=== PATIENT | male | born 1945 | race Caucasian/White ===

== ENCOUNTER 2018-04-13 21:35 | Emergency (ER) | END 2018-04-14 01:38 | disposition home or self-care (01) ==

== ENCOUNTER → 2018-04-20 | Outpatient (CLI) | payer MEDICARE ==
[~2018-04-20] MED LIST: ALBU90OI INH; AMOCLA500 PO; ASPI81CH PO; ATOR20 PO; AZIT250 PO; BUDE10.22 INH; BUME2 PO; CALC.25 PO; Central Vite F1 EACH PO; ESOM20; FEBU40TA PO; FLUSAL5005; GABA300 PO; GUAN1; HYDMOR4 PO; K-Dur20 MEQ PO; MONT10T PO; Meribin5 MG; NEBI5 PO; Norco 5-325 Ta1 EACH PO; PANT40 PO; PARI1 PO; Prednisone20 MG PO; QUIN10; RAMI2.5 PO; SEVEC800; TIOT18; TRIHYD253B
[2018-04-20 11:41] LABS: Source, Urine Voided
[2018-04-20 12:33] LABS: Bilirubin, Urine Neg (Neg); Blood, Urine 1+ (Neg); Color, Urine Yellow (P-Yellow); Glucose Qualitative, Urine Neg (Neg); Ketones, Urine Neg (Neg); Leukocyte Esterase, Urine 1+ (Neg); Nitrite, Urine Neg (Neg); Protein, Urine 3+ (Neg); Specific Gravity, Urine 1.005 (1.003-1.022); Urobilinogen, Urine NORM (Normal)
[2018-04-20 12:47] LABS: Appearance, Urine Clear (Clear)
[2018-04-20 12:53] LABS: Bacteria Few /hpf; Red Blood Cells, Urine 0-2 /hpf (0-2); Squamous Epithelial Cells Few /hpf (Few)
== END | disposition home or self-care (01) ==
LOC: LAB 04-15 07:00
PROVIDERS: Internal Medicine Nephrology
DX: N39.0 Urinary tract infection, site not specified (principal); Z87.440 Personal history of urinary (tract) infections
CPT/HCPCS: 81001

== ENCOUNTER 2019-02-16 09:43 | Day surgery (SDC) | payer MEDICARE ==
[~2019-02-16] VITALS: Ht 180.3 cm; Wt 150.3 kg
[~2019-02-16 09:43] MED LIST changes: +ALBU2.5V5; +AMIT25 PO; +Aspir 8181 MG PO; +BIOTIN5000 MC1 SL; +BUDE6HFA INH; +CEPH500 PO; +COLCHICINE0.6 MG PO; +CYAN500 PO; +Carbidopa-Levo1 EAC1 PO; +EMLA; +FURO80 PO; +KRILL OIL 3001 EACH PO; +LIDOCAINE-PRIL1 EACH TOP; +MULTI VITAMIN1 EACH PO; +PREG75 PO; +RENAL VITAMIN0.8 MG PO; +Renvela800 MG PO; +SEVEC800 PO; +TIOT18 INH; +VELTASSA8.4 GM PO; +VITAMIN D31000 UNI1 PO; +Vitamin B Comple1 EA PO; +[UNRECOGNIZED DRUG - OTHER] PO
[2019-02-16] MEDS ORDERED: ALBU90OI6 INH (11:01)
== END 2019-02-16 12:32 | disposition home or self-care (01) ==
LOC: ORSCSDS 09:43
PROVIDERS: Internal Medicine Gastroenterology
PROC: 0DBM8ZX Excision of Descending Colon, Via Natural or Artificial Opening Endoscopic, Diagnostic (ICD-10-PCS; principal; 2019-02-16 11:00)
DX: Z12.11 Encounter for screening for malignant neoplasm of colon (principal); K63.5 Polyp of colon; K64.8 Other hemorrhoids; I10 Essential (primary) hypertension; I25.2 Old myocardial infarction; I48.91 Unspecified atrial fibrillation; Z68.42 Body mass index [BMI] 45.0-49.9, adult; Z87.891 Personal history of nicotine dependence; E66.01 Morbid (severe) obesity due to excess calories; Z79.899 Other long term (current) drug therapy
CPT/HCPCS: 88305; J2704; J7030

== ENCOUNTER 2019-03-09 06:00 | Day surgery (SDC) | payer MEDICARE ==
[~2019-03-09] VITALS: Ht 177.8 cm; Wt 150.0 kg
[~2019-03-09 06:00] MED LIST changes: -ALBU2.5V5; +ALBU2.5V5 INH; +ALBU90OI6 INH; +Lyrica75 MG PO
== END 2019-03-09 11:45 | disposition home or self-care (01) ==
LOC: MHTC 06:00
DX: I73.9 Peripheral vascular disease, unspecified (principal); I12.0 Hypertensive chronic kidney disease with stage 5 chronic kidney disease or end stage renal disease; N18.6 End stage renal disease; I99.8 Other disorder of circulatory system; J45.909 Unspecified asthma, uncomplicated; I48.91 Unspecified atrial fibrillation; K21.9 Gastro-esophageal reflux disease without esophagitis; G47.33 Obstructive sleep apnea (adult) (pediatric); E78.5 Hyperlipidemia, unspecified; Z79.899 Other long term (current) drug therapy; Z88.1 Allergy status to other antibiotic agents; Z88.2 Allergy status to sulfonamides; Z88.8 Allergy status to other drugs, medicaments and biological substances; N25.81 Secondary hyperparathyroidism of renal origin
CPT/HCPCS: 36215; 36222; 36245; 75625; 75716; 75774; 76937; 99152; 99153; C1760; C1769; C1887; C1894; J1644; J2250; J3010; J7030; Q9967

== ENCOUNTER 2019-05-09 23:56 | Inpatient (IN) | payer MEDICARE ==
[~2019-05-09] VITALS: Ht 180.3 cm; Wt 151.1 kg
[2019-05-10 02:57] LABS: Troponin I <0.015 ng/mL (0.000-0.040)
[2019-05-10 03:08] LABS: Alanine Aminotransfer (ALT/SGP 19 U/L (12-78); Albumin, Blood 3.2 g/dL (3.4-5.0); Albumin/Globulin Ratio 0.8 (0.8-1.8); Alk Phos 129 U/L (50-136); Anion Gap 10 mmol/L (6-16); Aspartate Aminotrans (AST/SGOT 41 U/L (12-37); Bilirubin, Total 0.8 mg/dL (0.1-1.0); Blood Urea Nitrogen 75 mg/dL (8-24); Bun/Creatinine Ratio 7.2 (12.0-20.0); CO2, Blood 29 mmol/L (21-32); Chloride, Blood 88 mmol/L (98-108); Globulin, Blood 4.1 g/dL (2.2-4.0); Glomerular Filtration Rate 5 (60-); Glucose, Blood 184 mg/dL (70-99); Potassium, Blood 8.3 mmol/L (3.5-5.5); Sodium, Blood 127 mmol/L (136-145); Total Protein, Blood 7.3 g/dL (6.4-8.2)
[2019-05-10 03:16] LABS: BASOPHILS ABSOLUTE AUTO 0.03 K/mm3 (0.00-0.23); BASOPHILS PERCENT AUTO 0 % (0-2); EOSINOPHILS ABSOLUTE AUTO 0.02 K/mm3 (0.00-0.68); EOSINOPHILS PERCENT AUTO 0 % (0-6); Hematocrit 40.8 % (37.0-53.0); Hemoglobin 12.9 g/dL (13.5-17.5); IMMATURE GRAN ABSOLUTE AUTO 0.17 K/mm3 (0.00-0.10); IMMATURE GRAN PERCENT AUTO 1 % (0-1); LYMPHOCYTES ABSOLUTE AUTO 0.92 K/mm3 (0.84-5.20); LYMPHOCYTES PERCENT AUTO 5 % (21-46); MONOCYTES ABSOLUTE AUTO 2.58 K/mm3 (0.16-1.47); MONOCYTES PERCENT AUTO 13 % (4-13); Mean Corpuscular HGB 31.6 pg (26.0-34.0); Mean Corpuscular HGB Conc 31.6 g/dL (31.5-36.5); Mean Corpuscular Volume 100 fL (80-100); Mean Platelet Volume 10.9 fL (9.1-12.4); NEUTROPHILS ABSOLUTE AUTO 16.37 K/mm3 (1.96-9.15); NEUTROPHILS PERCENT AUTO 82 % (41-73); Platelet Count 224 K/mm3 (150-400); RDW Coefficient Variation 18.1 % (11.7-14.2); RDW Standard Deviation 64.1 fL (35.1-46.3); Red Blood Cell Count 4.08 M/mm3 (4.30-5.90); White Blood Cell Count 20.09 K/mm3 (4.00-11.30)
--- NOTE | 2019-05-10 08:00 | NUR ---
Patient arrived via gurney from ER and was a four person slide transfer. After laying flat for transfer place on 6L O2 via NC abnd sats low 90%'s. He c/o severe paimn RUQ 08/25 with palp and 06/25 just laying there. Dialysis called and will be here shortly.
[2019-05-10 08:36] LABS: International Normalized Ratio 1.03; Prothrombin Time Results 10.9 Sec (9.7-11.5)
[2019-05-10 09:34] LABS: Hematocrit 45.4 % (37.0-53.0); Hemoglobin 14.4 g/dL (13.5-17.5); Mean Corpuscular HGB 31.5 pg (26.0-34.0); Mean Corpuscular HGB Conc 31.7 g/dL (31.5-36.5); Mean Corpuscular Volume 99 fL (80-100); Mean Platelet Volume 10.5 fL (9.1-12.4); NRBC ABSOLUTE 0.02 K/mm3 (0.00-0.02); Platelet Count 217 K/mm3 (150-400); RDW Coefficient Variation 18.2 % (11.7-14.2); RDW Standard Deviation 64.2 fL (35.1-46.3); Red Blood Cell Count 4.57 M/mm3 (4.30-5.90); White Blood Cell Count 1.98 K/mm3 (4.00-11.30)
[2019-05-10 09:46] LABS: Base Excess Venous 3.6 mmol/L; Bicarbonate Venous 27.3 mmol/L (24.0-30.0); PCO2 Venous 38.8 mmHg (38-42); PO2 Venous 78.9 mmHg (38-42); pH Blood Venous 7.46 (7.34-7.37)
[2019-05-10 09:50] LABS: International Normalized Ratio 1.08; Prothrombin Time Results 11.4 Sec (9.7-11.5)
[2019-05-10 10:00] LABS: Albumin, Blood 3.2 g/dL (3.4-5.0); Albumin/Globulin Ratio 0.7 (0.8-1.8); Bilirubin, Total 1.2 mg/dL (0.1-1.0); Calcium, Blood 9.4 mg/dL (8.5-10.1); Globulin, Blood 4.6 g/dL (2.2-4.0); Total Protein, Blood 7.8 g/dL (6.4-8.2)
--- NOTE | 2019-05-10 10:00 | NUR ---
Patient tried bed castillo wiothout success.
[2019-05-10 10:04] LABS: Bun/Creatinine Ratio 7.6 (12.0-20.0); Creatinine, Blood 9.55 mg/dL (0.60-1.20); Potassium, Blood 7.6 mmol/L (3.5-5.5)
[2019-05-10 10:10] LABS: BAND PERCENT MAN 20 % (0-8); BASOPHILS PERCENT MAN 0 % (0-2); EOSINOPHILS PERCENT MAN 0 % (0-6); LYMPHOCYTES ABSOLUTE MAN 0.47 K/mm3 (0.84-5.20); LYMPHOCYTES PERCENT MAN 24 % (21-46); MONOCYTES ABSOLUTE MAN 0.05 K/mm3 (0.16-1.47); MONOCYTES PERCENT MAN 3 % (4-13); NEUTROPHILS ABSOLUTE MAN 1.44 K/mm3 (1.96-9.15); SEG NEUTROPHILS PERCENT MAN 53 % (41-73); TOTAL CELLS COUNTED 100
--- NOTE | 2019-05-10 11:41 | NUR ---
DIALYSIS PT HAS A PERFORATED BOWEL. A REPEAT K+ AT 0915 WAS STILL HIGH (7.6). I ADDED TIME TO GET IT DOWN MORE. THE ICU TEAM PUT IN A CENTRAL LINE AND GAVE 5.5L OF NS BECAUSE OF HIS BP DROPPING. THE SURGERY TEAM CAME IN AND FELT HE NEEDED SURGERY QUICKLY. RETURNED BLOOD, DC'ED FISTULA NEEDLES. AND GOT THE MACHINE OUT OF THE WAY FAST I COULD. LAST K+ WAS 5.5
--- NOTE | 2019-05-10 12:26 | NUR ---
Around 0830 paint Systolic started coming down low 100, HR increased 120 and O@ demand increased. Dr Del Rio was consulted and she assessed patient. He was placed on BIPAP and she asked for a PICC, attempt was unsuccessful to advance and quickly did IO and started Levophed for systolic 60-80. 18ga IV LAC went bad and was pulled. Dr Del Rio Place LIJ central line and we started boluses NS through [facility] that started shortly after 0800. We got repeat Pottassium and was 7.4. We started Vasopressin and will start epi gtt if needed. Terrence WILLIAMSON is down getting info and things rolling for [address] Crawford and Dr Gabriel down to talk with family at bedside. Prior to CL versed 2mg and Fentanyl 12,5 mcg, Calcium Glutonate 10mg, and 300mg Amiodarone. Patient remains to have low systolic in the 60's and will be adding to CL when verified. Dialyysis done and pressures starting to come up and placed Epi on standby and turned down Levophed from 30 to 20 mcg/hr. He was taken at 1144 to OR. were given and Amio bolus pushed. After central line
--- NOTE | 2019-05-10 13:30 | NUR ---
05/10/19 1330 Anila Rehman PT ON SCHEDULED ANTIBIOTICS
--- NOTE | 2019-05-10 13:39 | NUR ---
1110 GOT PATIENT READY IN ICU 5 FOR SURGERY. PT FINISHING UP WITH DIALYSIS. PT HAS LEVOPHED, VASSOPRESSIN AND EPINEPHRINE GTT INFUSING. [address]A [address] DR DE SANTIAGO AT BEDSIDE GETTING CONSENT. AT BEDSIDE.
--- NOTE | 2019-05-10 13:40 | NUR ---
Patient arrived back in ICU bed and was intubated 8.0 ET and 22cm at lips, AC 16, TV 450, Fio2 100% PEEP 5 and sats low 90%. He has OG put on LIS. And Levophed still at 20 mcg/hr Epi on standby, Vasopressin 0.04 units/hr. and systolic 90's.. Recieved report from Dr Crawford and brief report from Dr Gabriel. He arrived with wound Vac mid abdomen and had about 200ml in cannister, Dressing intact. Continue taking BP's right ankle.
[2019-05-10 14:35] LABS: PCO2 Arterial 52.5 mmHg (35-45); PO2 Arterial 74.9 mmHg (80-100); pH Blood Arterial 7.36 (7.35-7.45)
--- NOTE | 2019-05-10 15:14 | NUR ---
echocardiogram completed.
--- NOTE | 2019-05-10 15:30 | NUR ---
Vent setting AC 22, TV 450, FiO2 80% PEEP 10.0 and sats mid 90%'s. Systolic and MAp dropping 80-90 and started Epi gtt at 5mcg/min and increased shortly to 10mcg/min after starting sedation Propofol 40mcg/kg min. Levophed remains ar 20mcg/hr and Vasopressin 0.04 units/hr. Nother changes. Patient is cool diaphoretic, 98.8 temp. Changed CL dressing. BP right ankle. IO in right faye. Wound vac canister 350ml.
[2019-05-10 15:32] LABS: Hematocrit 42.2 % (37.0-53.0); Hemoglobin 13.2 g/dL (13.5-17.5); Mean Corpuscular HGB 31.9 pg (26.0-34.0); Mean Corpuscular HGB Conc 31.3 g/dL (31.5-36.5); Mean Platelet Volume 11.1 fL (9.1-12.4); NRBC ABSOLUTE 0.03 K/mm3 (0.00-0.02); Platelet Count 185 K/mm3 (150-400); RDW Coefficient Variation 18.2 % (11.7-14.2); RDW Standard Deviation 65.1 fL (35.1-46.3); Red Blood Cell Count 4.14 M/mm3 (4.30-5.90); White Blood Cell Count 2.96 K/mm3 (4.00-11.30)
[2019-05-10 15:47] LABS: Magnesium, Blood 1.7 mg/dL (1.6-2.4); Troponin I 0.346 ng/mL (0.000-0.040)
[2019-05-10 15:48] LABS: Mean Corpuscular Volume 102 fL (80-100)
[2019-05-10 16:03] LABS: BAND PERCENT MAN 26 % (0-8); BASOPHILS ABSOLUTE MAN 0.02 K/mm3 (0.00-0.23); BASOPHILS PERCENT MAN 1 % (0-2); EOSINOPHILS ABSOLUTE MAN 0.05 K/mm3 (0.00-0.68); EOSINOPHILS PERCENT MAN 2 % (0-6); LYMPHOCYTES PERCENT MAN 17 % (21-46); MONOCYTES ABSOLUTE MAN 0.35 K/mm3 (0.16-1.47); MONOCYTES PERCENT MAN 12 % (4-13); NEUTROPHILS ABSOLUTE MAN 2.01 K/mm3 (1.96-9.15); SEG NEUTROPHILS PERCENT MAN 42 % (41-73); TOTAL CELLS COUNTED 100
[2019-05-10 16:08] LABS: Albumin, Blood 2.3 g/dL (3.4-5.0); Albumin/Globulin Ratio 0.7 (0.8-1.8); Bilirubin, Total 1.5 mg/dL (0.1-1.0); Bun/Creatinine Ratio 6.5 (12.0-20.0); Creatinine, Blood 7.66 mg/dL (0.60-1.20); Globulin, Blood 3.4 g/dL (2.2-4.0); Phosphorus, Blood 3.4 mg/dL (2.5-4.9); Potassium, Blood 6.1 mmol/L (3.5-5.5); Total Protein, Blood 5.7 g/dL (6.4-8.2)
--- NOTE | 2019-05-10 18:30 | NUR ---
No changes in Gtt's or vent settings. He has been in SR 80's since back from OR and remains in SR. Changed cannister in wound VAC.Heparin started at 1700 at 15 units/kg/hr and gave 7500 unit bolus. Potassium increased to 6.[address] Del Rio and she gave new orders 10 units R insulin , 1 amp d-50, and 1 GM Mag.. No other changes.
--- NOTE | 2019-05-10 19:00 | NUR ---
ASSUMED CARE ASSUMED CARE OF PATIENT. REMAINS INTUBATED- AC 22, TV 450, PEEP 5, FIO2 80%. RR 22-26 AT THIS TIME. SEDATED WITH PROPOFOL AT 40MCG/KG/MIN. OPENS EYES AND WITHDRAWS EXTREMITIES TO NOXIOUS STIMULI. NO OTHER MOVEMENT NOTED. PUPILS 2MM, SLUGGISH. BILATERAL SOFT WRIST RESTRAINTS IN PLACE TO PREVENT EXTUBATION. MONITOR SHOWS NSR, RATE 80s. EPINEPHRINE INFUSING @ 10MCG/MIN, LEVOPHED INFUSING @ 20MCG/MIN, AND VASOPRESSIN INFUSING @ 0.04UNITS/MIN TO KEEP MAP >65. AFEBRILE. HEPARIN INFUSING @ 15UNITS/KG/HR PER ORDER. OG TO LIS WITH SCANT BROWN DRAINAGE. NO ORELLANA CATHETER PRESENT D/T PT BEING ANURIC. ABD WOUND WITH WOUND VAC IN PLACE- MODERATE AMOUNT OF SEROSANGUINOUS DRAINAGE. SKIN IS DIAPHORETIC/CLAMMY AND COOL. LEFT IJ NOTED. RLE IO NOTED. SEE SHIFT ASSESSMENT FOR FULL ASSESSMENT.
[2019-05-10 20:17] LABS: Base Excess Venous -3.9 mmol/L; Bicarbonate Venous 20.6 mmol/L (24.0-30.0); PCO2 Venous 50.9 mmHg (38-42)
[2019-05-10 20:18] LABS: pH Blood Venous 7.26 (7.34-7.37)
--- NOTE | 2019-05-10 21:10 | NUR ---
ABNORMAL LABS/HYPERKALEMIA CRITICALLY HIGH POTASSIUM LEVEL CALLED TO DR. KHAN- NEW ORDERS RECEIVED FOR SODIUM BICARB, IV INSULIN, D50 IV, AND TO RECHECK LABS AFTER.
[2019-05-10 22:30] LABS: Base Excess Venous -1.3 mmol/L; Bicarbonate Venous 22.5 mmol/L (24.0-30.0); PCO2 Venous 51.9 mmHg (38-42); PO2 Venous 52.9 mmHg (38-42); pH Blood Venous 7.29 (7.34-7.37)
[2019-05-10 22:54] LABS: Potassium, Blood 6.7 mmol/L (3.5-5.5)
--- NOTE | 2019-05-10 23:26 | NUR ---
ABNORMAL LABS/HYPERKALEMIA CRITICAL LAB VALUES CALLED TO DR. KHAN AT THIS TIME. NEW ORDERS RECEIVED TO GIVE SODIUM BICARB, IV INSULIN, AND TO REPEAT LABS IN 3 HOURS.
--- NOTE | 2019-05-11 02:00 | NUR ---
BLADDER SCAN PT IS NORMALLY ANURIC, BUT BLADDER SCAN DONE AT THIS TIME PER ORDER- 70-90CC.
[2019-05-11 02:46] LABS: BASOPHILS ABSOLUTE AUTO 0.03 K/mm3 (0.00-0.23); BASOPHILS PERCENT AUTO 0 % (0-2); EOSINOPHILS ABSOLUTE AUTO 0.02 K/mm3 (0.00-0.68); EOSINOPHILS PERCENT AUTO 0 % (0-6); Hematocrit 37.7 % (37.0-53.0); IMMATURE GRAN ABSOLUTE AUTO 0.04 K/mm3 (0.00-0.10); IMMATURE GRAN PERCENT AUTO 1 % (0-1); LYMPHOCYTES ABSOLUTE AUTO 1.17 K/mm3 (0.84-5.20); LYMPHOCYTES PERCENT AUTO 15 % (21-46); MONOCYTES PERCENT AUTO 10 % (4-13); Mean Corpuscular HGB 31.7 pg (26.0-34.0); Mean Corpuscular HGB Conc 31.8 g/dL (31.5-36.5); Mean Corpuscular Volume 100 fL (80-100); Mean Platelet Volume 11.2 fL (9.1-12.4); NEUTROPHILS PERCENT AUTO 74 % (41-73); NRBC ABSOLUTE 0.03 K/mm3 (0.00-0.02); NRBC Auto 0.4 /100 WBC (0.0-0.2); Platelet Count 172 K/mm3 (150-400); RDW Coefficient Variation 18.1 % (11.7-14.2); RDW Standard Deviation 64.6 fL (35.1-46.3); Red Blood Cell Count 3.79 M/mm3 (4.30-5.90); White Blood Cell Count 7.96 K/mm3 (4.00-11.30)
[2019-05-11 03:05] LABS: BAND PERCENT MAN 47 % (0-8); BASOPHILS PERCENT MAN 0 % (0-2); EOSINOPHILS PERCENT MAN 0 % (0-6); LYMPHOCYTES ABSOLUTE MAN 1.51 K/mm3 (0.84-5.20); LYMPHOCYTES PERCENT MAN 19 % (21-46); METAMYELOCYTE ABSOLUTE MAN 0.55 K/mm3 (0.00-0.00); METAMYELOCYTE PERCENT MAN 7 % (0-0); MONOCYTES ABSOLUTE MAN 0.63 K/mm3 (0.16-1.47); MONOCYTES PERCENT MAN 8 % (4-13); MYELOCYTE ABSOLUTE MAN 0.07 K/mm3 (0.00-0.00); MYELOCYTE PERCENT MAN 1 % (0-0); NEUTROPHILS ABSOLUTE MAN 5.25 K/mm3 (1.96-9.15); SEG NEUTROPHILS PERCENT MAN 19 % (41-73); TOTAL CELLS COUNTED 150
[2019-05-11 03:09] LABS: Magnesium, Blood 1.7 mg/dL (1.6-2.4); Troponin I 0.156 ng/mL (0.000-0.040)
[2019-05-11 03:22] LABS: Alanine Aminotransfer (ALT/SGP 20 U/L (12-78); Albumin, Blood 1.8 g/dL (3.4-5.0); Albumin/Globulin Ratio 0.5 (0.8-1.8); Alk Phos 74 U/L (50-136); Anion Gap 12 mmol/L (6-16); Aspartate Aminotrans (AST/SGOT 33 U/L (12-37); Bilirubin, Total 1.9 mg/dL (0.1-1.0); Blood Urea Nitrogen 58 mg/dL (8-24); CO2, Blood 28 mmol/L (21-32); Calcium, Blood 6.9 mg/dL (8.5-10.1); Chloride, Blood 86 mmol/L (98-108); Creatinine, Blood 8.32 mg/dL (0.60-1.20); Globulin, Blood 3.3 g/dL (2.2-4.0); Glomerular Filtration Rate 7 (60-); Glucose, Blood 356 mg/dL (70-99); Phosphorus, Blood 5.7 mg/dL (2.5-4.9); Sodium, Blood 126 mmol/L (136-145); Total Protein, Blood 5.1 g/dL (6.4-8.2)
--- NOTE | 2019-05-11 03:30 | NUR ---
CRITICAL LABS/CALL TO CRITICAL LABS (POTASSIUM 7.0 AND CREATININE 8.3) CALLED TO DR. KHAN. NEW ORDERS RECEIVED TO GIVE IV INSULIN 5 UNITS AND TO CALL SPEECH CORRECTION ASSISTANT FOR IMMEDIATE DIALYSIS. NURSING SUPPRESSION CREW LEADER NOTIFIED AND WILL CALL IN SPEECH CORRECTION ASSISTANT.
--- NOTE | 2019-05-11 04:25 | NUR ---
DIALYSIS CALLED IN STAT FOR ELEVATED K+ 7.0. K+ NOT RESPONDING HIGH K+ PROTOCAL.
--- NOTE | 2019-05-11 04:30 | NUR ---
IO IO REMOVED AT THIS TIME.
--- NOTE | 2019-05-11 06:09 | NUR ---
SHIFT SUMMARY REMAINS INTUBATED- AC 24, TV 450, PEEP 10, FIO2 70%. REMAINS SEDATED WITH PROPOFOL BETWEEN 35-40MCG/KG/MIN DURING SHIFT- NOW @ 35MCG/KG/MIN. MEDICATED WITH FENTANYL 50MCG IV FOR CNVI 11/20. OPENS EYES MINIMALLY AND WITHDRAWS EXTREMITIES TO NOXIOUS STIMULI. BILATERAL SOFT WRIST RESTRAINTS REMAIN IN PLACE. NSR T/O NOC, RATE 70-80s. EPINEPHRINE BETWEEN 6-10MCG/MIN DURING SHIFT- NOW AT 6MCG/MIN. LEVOPHED BETWEEN 15-20MCG/MIN DURING SHIFT- NOW AT 18MCG/MIN. VASOPRESSIN PER ORDER AT 0.04UNITS/MIN. HEPARIN PER PHARMACY- INFUSING @ 15UNITS/KG/HR. OG TO LIS- MINIMAL LIGHT BROWN DRAINAGE. NO URINE OUTPUT. ABD DISTENDED, FIRM. ABSENT BTs. WOUND VAC INTACT- 300CC SEROSANGUINOUS DRAINAGE. BLADDER SCAN DONE X 1- 70-90CC. COMMODITY INDUSTRY ANALYST AT BEDSIDE FOR DIALYSIS.
--- NOTE | 2019-05-11 08:26 | NUR ---
Recieved report from Brianne WILLIAMSON. Dialysis already in room from 0535 for high potassium after several medication reversal attempts. He opens eye when positioning otherwise low sedation.. He is intubated with 8.0 tube and 22 at lips and will be positioned in [address] England. Vent settings AC 22, TV 450, FiO2 70%, Peep 10 and sats 99%. He has LIJ quad lumen CL dressing intact and site WNL's and is infusing the following; Epi 4 mcg/min, Vaspressin 0.04 units/min, Snvdotrv15 mcgh/min, Propofol 35 mcg/kg/min, Heparin 15 units/kg/hr and intermitent abx. His dialysis fistula in FRANK and is wrapped post dialysis. He has wound vac to midline abd. for open abdsomen and will go back in .-Thu. OG place at same time ET and is on LIS. His systolics in the 90-100 and SR in the 80's and MAPs >65. BP taken left ankle. He produces no nurine and he was pladder scanned last night 0 showing
[2019-05-11 08:49] LABS: Vancomycin, Random 12.6 ug/mL
--- NOTE | 2019-05-11 10:20 | NUR ---
Dr Helm called and added 1500 labs and callat 1600. Epi gtt on stand by and Levophed at 20 mcg/min. No other changes on vents or gtts. VSS. No family present as of yet. Dr England has been by and assessed patient no new current orders.
--- NOTE | 2019-05-11 11:30 | NUR ---
Patient remians up in chair. He continues to squirm around even after repositioning. He is redirectable and forgets very easily. VS stable. He remains on AirVo at 40/40 and when keeps sat probe on he sats mid to upper 90%'s. Family has been coming by for short periods.
--- NOTE | 2019-05-11 12:30 | NUR ---
Epi gtt remains off and reduced Levophed to 15 mcg/min and systolic greater 100 and MAP > 60's. has been by for awhile and has gone home now. Clean wound of tip of middle finger that he had surgically removed recently, and redressed with telfa and bandaid. No other changes with vent or gtt's, sats > 94%.
--- NOTE | 2019-05-11 13:30 | NUR ---
Tolerated bolus feeding and dietary talked about doing continuous to help prevent aspiration. and son at bedside. He continues to stay afebrile. Continues to squirm and calls out and is unable to tell you what he wants other than asking when is he going home. No other changes.
--- NOTE | 2019-05-11 14:30 | NUR ---
Reduced Levophed to 1mcg/min and systolic >100 and MAP >60. Sats on same vent settings are mid to high 90%'s. No other changes. Wound vac dressing C/D/I, and changed cartridge of 450ml serous fluid.
[2019-05-11 15:30] LABS: Potassium, Blood 6.6 mmol/L (3.5-5.5)
--- NOTE | 2019-05-11 18:14 | NUR ---
Called Dr Helm with results and potassium 6.6 and had dialysis com back in and run for 4 hours. No changes in gtt or vent settings and systolic 99-110 and MAP >60. He remians SR 80's. No other significant changes. CBG 133 and no coverage needed.
--- NOTE | 2019-05-11 19:15 | NUR ---
Review of pt with dialysis nursing staff. Will see what surgical plan is and review with wedding makeup artist. At this point supportive care for .
--- NOTE | 2019-05-11 19:15 | NUR ---
ASSUMED CARE PT INTUBATED, VENT SETTINGS OF AC22/450/40%/10 AND SEDATED VIA PROPOFOL AT 35MCG/KG/MIN. TOWEL WEAVER IN ROOM RUNNING #2 TX FOR TODAY D/T K+ OF 6.6. LEVOPHED AT 15MCG/MIN, EPI OFF, VASOPRESSIN AT 0.04 UNITS/HR, HEPARIN AT 15 UNITS VIA LIJ. OG TO LIS WITH BILE IN TUBING, WOUND VAC TO OPEN MIDLINE INCISION WITH LIGHT GREEN FLUID IN CANNISTER, DRESSING C/D/I. PER HD RN, PLAN FOR RECIRC STUDY ON FRANK AVF AND REPEAK K+ HALF WAY THROUGH TX. BP W/ MAP LOW 60'S-WILL TITRATE PRESSORS TO MAINTAIN MAP >60, ECG SHOWS SR W/ PAC'S AND O2 SATS 94%.
--- NOTE | 2019-05-11 20:45 | NUR ---
CALL TO PHARMACY SPOKE WITH PHARMACIST, UPDATED ON CURRENT HD TX RUNNING FOR ANOTHER HOUR WITH ORDERED APTT AT 2100. OK TO HOLD OFF FOR NOW UNTIL 2200.
[2019-05-12 03:38] LABS: Hematocrit 29.1 % (37.0-53.0); Hemoglobin 9.2 g/dL (13.5-17.5); Mean Corpuscular HGB 32.2 pg (26.0-34.0); Mean Corpuscular HGB Conc 31.6 g/dL (31.5-36.5); Mean Corpuscular Volume 102 fL (80-100); Mean Platelet Volume 10.4 fL (9.1-12.4); Platelet Count 108 K/mm3 (150-400); RDW Coefficient Variation 17.7 % (11.7-14.2); RDW Standard Deviation 65.4 fL (35.1-46.3); Red Blood Cell Count 2.86 M/mm3 (4.30-5.90)
[2019-05-12 03:53] LABS: Albumin, Blood 2.5 g/dL (3.4-5.0); Anion Gap 7 mmol/L (6-16); Blood Urea Nitrogen 23 mg/dL (8-24); Bun/Creatinine Ratio 5.8 (12.0-20.0); CO2, Blood 34 mmol/L (21-32); Calcium, Blood 7.9 mg/dL (8.5-10.1); Chloride, Blood 95 mmol/L (98-108); Glomerular Filtration Rate 16 (60-); Glucose, Blood 148 mg/dL (70-99); Phosphorus, Blood 4.2 mg/dL (2.5-4.9); Potassium, Blood 4.3 mmol/L (3.5-5.5)
[2019-05-12 04:06] LABS: BAND PERCENT MAN 33 % (0-8); BASOPHILS ABSOLUTE MAN 0.07 K/mm3 (0.00-0.23); BASOPHILS PERCENT MAN 1 % (0-2); EOSINOPHILS ABSOLUTE MAN 0.07 K/mm3 (0.00-0.68); EOSINOPHILS PERCENT MAN 1 % (0-6); LYMPHOCYTES ABSOLUTE MAN 0.73 K/mm3 (0.84-5.20); LYMPHOCYTES PERCENT MAN 10 % (21-46); METAMYELOCYTE ABSOLUTE MAN 0.14 K/mm3 (0.00-0.00); METAMYELOCYTE PERCENT MAN 2 % (0-0); MONOCYTES ABSOLUTE MAN 0.73 K/mm3 (0.16-1.47); MONOCYTES PERCENT MAN 10 % (4-13); NEUTROPHILS ABSOLUTE MAN 5.54 K/mm3 (1.96-9.15); SEG NEUTROPHILS PERCENT MAN 43 % (41-73); TOTAL CELLS COUNTED 100
--- NOTE | 2019-05-12 04:14 | NUR ---
SEDATION VACATION/UPDATE SEDATION DOWN FROM 45MCG/KG/MIN TO 30. PT OPENS EYES SPONTANEOUSLY, FOLLOWS ECONOMICS TEACHER COMMANDS AND NODDED YES WHEN QUESTIONED ABOUT PAIN. MEDICATED PER ORDERS AND PROPOFOL RESUMED AT 40MCG/KG/MIN. PT CURRENTLY TAPPING LEFT HAND/RASING RIGHT. NO SBT PLANNED D/T PRESSOR, PEEP AND FIO2 REQUIREMENTS. REASSESSMENT TEMP AT 101.0 DESPITE EXTERNAL COOLING MEASURES WITH ICE PACKS TO GROIN/AXILLA AND FAN. TYLENOL SUPPOSITORY GIVEN.
[2019-05-12 05:08] LABS: Sodium, Blood 136 mmol/L (136-145)
[2019-05-12 05:21] LABS: PCO2 Arterial 46.6 mmHg (35-45); PO2 Arterial 71.7 mmHg (80-100); pH Blood Arterial 7.46 (7.35-7.45)
--- NOTE | 2019-05-12 05:44 | NUR ---
DR KHAN CALLED TO UPDATE MD ON AM LABS, ORDER FOR CALCIUM GLUCONATE OBTAINED. PLANS TO DO DIALYSIS AGAIN LATER TODAY.
--- NOTE | 2019-05-12 06:40 | NUR ---
SHIFT SUMMARY SEE PREVIOUS NOTES FOR SHIFT. PT REMAINS INTBUATED, AC22/450/55%/10, SEDATION VIA PROPOFOL AT 40MCG/KG/MIN. LEVOPHED TITRATED DOWN THROUGH NIGHT AND IS CURRENTLY AT 8MCG/MIN, VASOPRESSIN OFF AND HEPARIN AT 17 UNITS/KG/HR. CALCIUM GLUCONATE REPLACEMENT COMPLETED. ABD INCISION REMAINS OPEN WITH WOUND VAC/DRESSING IN PLACE; 225ML OUTPUT THIS SHIFT. OG TO LIS WITH BILE COLORED FLUID. DR KHAN IN THIS AM, UPDATE ON CURRENT PRESSOR RATES AND HE PLANS TO DO DIALYSIS AGAIN TODAY. BP ADEQUATE, MAPS OCCASIONALLY DROP TO 60 WITH DOWNWARD PRESSOR TITRATION BUT INCREASE AFTER 30-45 MIN, FIO2 INCREASED D/T O2 SATS BUT RT LAVAGED AND SUCTIONED A LARGE AMOUNT OF THICK SPUTUM AND O2 SATS HAVE INCREASED T/O SHIFT, ECG IS SR BUT ECTOPY HAS INCREASED THIS AM. TEMP REMAINS ELEVATED BUT IMPROVED FROM 101 TO 99.8 NOW.
--- NOTE | 2019-05-12 07:58 | NUR ---
CARE ASSUMED OF PT AT 0710. VASOPRESSIN ON HOLD. [facility] WITH PROPOFOL AT 40MCG, LEVOPHED AT 8MCG. DR THAPA AT BEDSIDE; PLANS TO TAKE PT BACK TO SURGERY TOMORROW IF PT IMPROVED; PRESSORS REDUCED. DR THAPA WILL ATTEMPT TO CLOSE ABD; IF UNABLE TO CLOSE ABD, HE WILL SEND PT NORTH. US TECH AT BEDSIDE EVALUATING FISTULA.
--- NOTE | 2019-05-12 08:51 | NUR ---
HD IN PROGRESS, BLOOD CX RESULTS FROM FISTULA REPORTED TO DR ESPINOZA.
--- NOTE | 2019-05-12 09:01 | NUR ---
PT WITH PAROXYSMAL A FIB W RVR, RATE UP TO 180, BP DROPS WITH RVR RATE, STABLE IN NSR. DR ESPINOZA AT BEDSIDE. AMIODARONE BOLUS TO BE FOLLOWED BY GTT.
--- NOTE | 2019-05-12 09:35 | NUR ---
AMIO BOLUS INFUSING, BP DROPS TEMPORARILY WITH RATE >150, AND THEN RETURNS TO NORM LIMITS WITH SLOWER RATE. HD IN PROGRESS, LEVOPHED REMAINS AT 8MCG. DR ESPINOZA AT BEDSIDE.
--- NOTE | 2019-05-12 10:35 | NUR ---
AMIO GTT INFUSING AT 1MG/MIN. RHYTHM IMPROVING. SINUS RHYTHM WITH ECTOPY AND OCCASSIONAL AFIB W RATE 90-120. BP STABLE. LEVOPHED GTT AT 6MCG. HD IN PROGRESS. OPEN ABD WOUND W WOUND VAC INTACT; DRAINING SEROSANGUINEOUS DRAINAGE; MOSTLY SEROUS FLUID. ABSENT BOWEL TONES. HEP GTT AT 17UNITS/KG/HR; AWAITING PTT RESULTS. 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 IV NUTRITION TO START TODAY. WILL ATTEMPT TO PLACE PICC TODAY PER DR PRATT REQUEST. IF SUCCESSFUL CENTRAL LINE TO BE DC'D.
--- NOTE | 2019-05-12 11:12 | NUR ---
PER CHRISTIE IN PHARMACY; PTT GOOD, WILL KEEP HEPARIN GTT AT CURRENT RATE
[2019-05-12 14:08] LABS: Vancomycin, Random 12.8 ug/mL
--- NOTE | 2019-05-12 18:53 | NUR ---
AMIODARONE DECREASED TO 0.5MG/MIN AT [address] PRATT ORDERS. PICC PLACED W/O DIFFICULTY AT 1300 TO SALVATORE. LEVOPHED DECREASED TO 4MCG, PROPOFOL REMAINS AT 40MCG, PT WAKES UP AT ANY DOSE LESS THAN 40MCG. PT AWOKE SEVERAL TIMES W C/O PAIN, ABLE TO COMMUNICATE VIA HEAD NODS. PT TOLERATED HD WELL. GOOD RESPONSE TO AMIO GTT. RHYTHM SINUS W ECTOPY. DR THAPA WILL CALL PT'S TOMORROW TO CONSENT FOR SURGERY. TPN STARTED THIS EVENING AT 1700.
--- NOTE | 2019-05-12 19:30 | NUR ---
ASSUMED CARE PT REMAINS INTUBATED, VENT SETTINGS AT AC22/450/10/40%. SEDATION VIA PROPOFOL AT 40MCG/KG/MIN, PT OPENS EYES SPONTANEOUSLY AND IS NODDING YES TO QUESTIONS OF PAIN, WILL MEDICATE PER ORDER. AMIODARONE STARTED TODAY D/T AFIB RVR IN THE 170'S AND IS AT 0.5MG/HR, ECG SHOWS SR IN THE 70'S. TPN STARTED TODAY AT 35ML/HR, LEVOPHED AT 4MCG/MIN AND HEPARIN JUST INCREASED PER PHARMACY TO 18 UNITS/KG/HR WITH PLANS TO STOP AT 0700 FOR RETURN TO OR FOR WASHOUT AND POTENTIAL ILEOSTOMY PLACEMENT AND/OR TRANSFER IF UNABLE TO CLOSE INCISION.
--- NOTE | 2019-05-13 | NUR ---
UPDATE PT HAS BEEN MORE AWAKE THIS SHIFT, TAPPING LEFT HAND AND MOVING ALL EXTREMITIES MORE. WHEN ASKED, PT NODS YES IN RESPONSE TO PAIN QUESTIONS AND HAS BEEN MEDICATED PER EMAR. WOUND VAC REMAINS IN PLACE, OUTPUT FROM WOUND HAS DECREASED OVER LAST 24 HOURS. BP ADEQUATE WITH OCCASIONAL MAP <60 BUT RETURNS AFTER DOWNWARD PROPOFOL TITRATION.
[2019-05-13 03:29] LABS: BASOPHILS ABSOLUTE AUTO 0.04 K/mm3 (0.00-0.23); BASOPHILS PERCENT AUTO 1 % (0-2); EOSINOPHILS ABSOLUTE AUTO 0.28 K/mm3 (0.00-0.68); EOSINOPHILS PERCENT AUTO 3 % (0-6); Hematocrit 30.3 % (37.0-53.0); Hemoglobin 9.5 g/dL (13.5-17.5); IMMATURE GRAN ABSOLUTE AUTO 0.15 K/mm3 (0.00-0.10); IMMATURE GRAN PERCENT AUTO 2 % (0-1); LYMPHOCYTES ABSOLUTE AUTO 0.65 K/mm3 (0.84-5.20); LYMPHOCYTES PERCENT AUTO 7 % (21-46); MONOCYTES ABSOLUTE AUTO 0.84 K/mm3 (0.16-1.47); MONOCYTES PERCENT AUTO 10 % (4-13); Mean Corpuscular HGB 31.8 pg (26.0-34.0); Mean Corpuscular HGB Conc 31.4 g/dL (31.5-36.5); Mean Corpuscular Volume 101 fL (80-100); NEUTROPHILS ABSOLUTE AUTO 6.86 K/mm3 (1.96-9.15); NEUTROPHILS PERCENT AUTO 78 % (41-73); Platelet Count 111 K/mm3 (150-400); RDW Coefficient Variation 17.7 % (11.7-14.2); RDW Standard Deviation 66.7 fL (35.1-46.3); Red Blood Cell Count 2.99 M/mm3 (4.30-5.90); White Blood Cell Count 8.82 K/mm3 (4.00-11.30)
[2019-05-13 03:47] LABS: Albumin, Blood 2.1 g/dL (3.4-5.0); Anion Gap 8 mmol/L (6-16); Blood Urea Nitrogen 26 mg/dL (8-24); Bun/Creatinine Ratio 6.7 (12.0-20.0); CO2, Blood 33 mmol/L (21-32); Chloride, Blood 96 mmol/L (98-108); Creatinine, Blood 3.89 mg/dL (0.60-1.20); Glomerular Filtration Rate 16 (60-); Glucose, Blood 167 mg/dL (70-99); Magnesium, Blood 1.9 mg/dL (1.6-2.4); Phosphorus, Blood 3.8 mg/dL (2.5-4.9); Potassium, Blood 3.4 mmol/L (3.5-5.5); Sodium, Blood 137 mmol/L (136-145); Triglycerides 317 mg/dL (30-160)
[2019-05-13 05:08] LABS: PCO2 Arterial 46.8 mmHg (35-45); PO2 Arterial 70.7 mmHg (80-100); pH Blood Arterial 7.46 (7.35-7.45)
--- NOTE | 2019-05-13 05:19 | NUR ---
DR KHAN DR UPDATED ON AM LABS AND PLAN TO RERURN TO OR LATER TODAY. ORDERS FOR 10MEQ KCL AND 1GM CALCIUM GLUCONDATE.
--- NOTE | 2019-05-13 06:34 | NUR ---
SHIFT SUMMARY NO ACUTE EVENTS OVERNIGHT. PT REMAINS INTUBATED, NO CHANGE TO PREVIOUSLY NOTED VENT SETTINGS. SEDATION VIA PROPOFOL AT 35MCG/KG/MIN. PT HAS BEEN MEDICATED FOR PAIN MORE FREQUENTLY TONIGHT PT IS MORE AWAKE AND ABLE TO NOD IN RESPONSE TO QUETIONS OF PAIN. LEVOPHED DOWN TO 1MCG/MIN, AMIODARONE AT 0.5MG/HR AND TPN AT 65ML/HR. CALCIUM GLUCONATE INFUSING WITH KCL RIDER PENDING. OG TO LIS WITH 200ML OUT, WOUND VAC WITH 150ML OUT FOR SHIFT. DRESSING INTACT, NO LEAKS. RETURN TO OR PLANNED TODAY BETWEEN [id number] THAPA. WILL TURN OFF HEPARIN AT 0700 PER ORDER.
--- NOTE | 2019-05-13 08:00 | NUR ---
DR. THAPA AT BEDSIDE PLANS FOR PATIENT TO RETURN TO SURGERY THIS AFTERNOON. HEPARIN GTT OFF THIS AM AT 0700 PER MONEY POSITION OFFICER RN.
--- NOTE | 2019-05-13 08:27 | NUR ---
XANDER WILLIAMSON AT BEDSIDE.
--- NOTE | 2019-05-13 08:55 | NUR ---
ASSUMED CARE PT. SEDATED AND INTUBATED THIS AM. VENT SETTINGS OF AC 15, TV 450, 40%, PEEP 10. PT. JONAS IN BED SPONT. PT. PROP INFUSING AT 35MCG/KG/MIN. PT. DOES NOT APPEAR TO HAVE ANY S/S OF DISCOMFORT AT THIS TIME. PT. LEVOPHED GTT INFUSING AT 1MCG/MIN ALONG WITH AMIO AT 0.5MG/MIN. NSR AT THIS TIME, HR 70 BM. PT. AFEBRILE THIS AM. FISTUAL TO RIGHT ARM, WITH POSITIVE THRILL FELT AND BRUIT AUSCULTATED. PLANS FOR DIALYSIS AGAIN THIS AM PER DR. KHAN. PT. CONTINUES WITH ABD OPEN WITH MIDLINE WOUND VAC IN PLACE. PER FAMILY PT ANURIC. BILAT WRIST RESTRAINTS IN PLACE FOR SAFETY.
--- NOTE | 2019-05-13 12:09 | NUR ---
DIALYSIS COMPLETED 4.2 LITERS REMOVED PER JUSTINA ADULT EDUCATOR, PT. AMIO GTT TURNED OFF AT THIS TIME PER DR. PLUMMER. PT. REMAINS AT BEDSIDE.
[2019-05-13 12:30] LABS: Vancomycin, Random 20.4 ug/mL
--- NOTE | 2019-05-13 14:48 | NUR ---
PT TO OR AT THIS TIME. DR. THAPA IN TO TALK WITH PT. .
--- NOTE | 2019-05-13 15:09 | NUR ---
05/13/19 1509 Kang Rojas [address], PT IN COMPLETE RENAL FAILURE, + FISTULA FOR DIALYSIS
--- NOTE | 2019-05-13 17:21 | NUR ---
ARRIVAL TO ICU FROM ER PT. BACK TO ICU AT THIS TIME. PT ARRIVES WITH MIDLINE WOUND VAC IN PLACE AND OSTOMOY TO RIGHT ABD. STOMA RED AND BEEFY WITH NO DRAINAGE AT THIS TO TO OSTOMY BAG. PT. VSS UPON ARRIVAL. REMAINS SEDATED AND INTUBATED ON 1MCG/MIN OF LEVOPHED. PT AT BEDSIDE, UPDATED BY DR. THAPA. RETURNS TO PREVIOUS VENT SETTINGS.
--- NOTE | 2019-05-13 17:34 | NUR ---
CALL TO DR. PLUMMER TO UPDATE ON PT. CONDITION ADDITIONAL LABS ORDERED AT THIS TIME. PER DR. KAVITHA THAPA OFFICE CALLED TO CLARIFY HEPARIN GTT ORDERS. AWAITING CALL BACK PER ANSWERING SERVICE.
--- NOTE | 2019-05-13 18:40 | NUR ---
SHIFT SUMMARY PT. BACK FROM SURGERY TODAY. THEY WERE ABLE TO CLOSE ABD; WOUND VAC REMAINS IN [place] ALONG WITH TENSION SUTURES. PT. HAS ILIOSTOMY TO RIGHT ABD. PT. TO BE RESTARTED ON HEPARIN GTT THIS PM AT [address] THAPA, AT THIS TIME LEVOPHED GTT PLACED ON STANDBY FROM 1MCG/KG. PT. FAMILY AT BEDSIDE. ADDITONAL LABS DRAWN PER DR. PLUMMER. PT. REMAINS SEDATED ON PROPOFL AT 35MCG/KG/MIN. PLANS FOR WEAN IN THE AM. REPORT TO ONCOMING RN.
[2019-05-13 18:47] LABS: Hematocrit 34.7 % (37.0-53.0); Hemoglobin 10.5 g/dL (13.5-17.5); Mean Corpuscular HGB 31.3 pg (26.0-34.0); Mean Corpuscular HGB Conc 30.3 g/dL (31.5-36.5); Mean Corpuscular Volume 103 fL (80-100); Mean Platelet Volume 11.2 fL (9.1-12.4); Platelet Count 110 K/mm3 (150-400); RDW Coefficient Variation 17.5 % (11.7-14.2); RDW Standard Deviation 67.2 fL (35.1-46.3); Red Blood Cell Count 3.36 M/mm3 (4.30-5.90); White Blood Cell Count 9.62 K/mm3 (4.00-11.30)
[2019-05-13 19:10] LABS: Alanine Aminotransfer (ALT/SGP 19 U/L (12-78); Albumin, Blood 2.3 g/dL (3.4-5.0); Albumin/Globulin Ratio 0.7 (0.8-1.8); Alk Phos 84 U/L (50-136); Anion Gap 9 mmol/L (6-16); Aspartate Aminotrans (AST/SGOT 24 U/L (12-37); Bilirubin, Total 1.9 mg/dL (0.1-1.0); Blood Urea Nitrogen 26 mg/dL (8-24); CO2, Blood 32 mmol/L (21-32); Calcium, Blood 8.4 mg/dL (8.5-10.1); Chloride, Blood 99 mmol/L (98-108); Globulin, Blood 3.4 g/dL (2.2-4.0); Glomerular Filtration Rate 17 (60-); Glucose, Blood 151 mg/dL (70-99); Magnesium, Blood 2.1 mg/dL (1.6-2.4); Phosphorus, Blood 4.1 mg/dL (2.5-4.9); Potassium, Blood 3.8 mmol/L (3.5-5.5); Sodium, Blood 140 mmol/L (136-145); Total Protein, Blood 5.7 g/dL (6.4-8.2); Troponin I <0.015 ng/mL (0.000-0.040)
[2019-05-13 19:11] LABS: BAND PERCENT MAN 6 % (0-8); BASOPHILS PERCENT MAN 0 % (0-2); EOSINOPHILS ABSOLUTE MAN 0.09 K/mm3 (0.00-0.68); EOSINOPHILS PERCENT MAN 1 % (0-6); LYMPHOCYTES ABSOLUTE MAN 0.96 K/mm3 (0.84-5.20); LYMPHOCYTES PERCENT MAN 10 % (21-46); METAMYELOCYTE ABSOLUTE MAN 0.19 K/mm3 (0.00-0.00); METAMYELOCYTE PERCENT MAN 2 % (0-0); MONOCYTES ABSOLUTE MAN 0.57 K/mm3 (0.16-1.47); MONOCYTES PERCENT MAN 6 % (4-13); MYELOCYTE ABSOLUTE MAN 0.09 K/mm3 (0.00-0.00); MYELOCYTE PERCENT MAN 1 % (0-0); NEUTROPHILS ABSOLUTE MAN 7.69 K/mm3 (1.96-9.15); SEG NEUTROPHILS PERCENT MAN 74 % (41-73); TOTAL CELLS COUNTED 100
--- NOTE | 2019-05-13 19:15 | NUR ---
ASSUMING CARE OF PT AT THIS TIME. PT REPORT RECEIVED AT BEDSIDE WITH OFFGOING NURSE, VERONICA WILLIAMSON. PT LAYING IN BED, INTUBATED, SEDATED. PT'S FAMILY AT BEDSIDE. PT'S FAMILY PLANNING TO LEAVE ICU SHORTLY. VS STABLE - SEE VS FS. PT DOES NOT APPEAR TO BE IN DISTRESS AT THIS TIME. WILL REVIEW PLAN OF CARE.
--- NOTE | 2019-05-13 19:30 | NUR ---
ASSESSMENT PT CALM, COOPERATIVE, RESPONDS TO VERBAL STIMULI, OPENS EYES TO VERBAL STIMULI, LOCALIZES PAIN, DOES NOT FOLLOW COMMANDS, DOES NOT NOD HEAD Y/N TO QUESTIONS. PROPOFOL DRIP AT 35 MCG/KG/MIN - WILL TITRATE TO EFFECT. BRYCE SENSATION. PT JONAS. GENEARLIZED WEAKNESS. MINIMAL MOVEMENT. NO S/SX OF PAIN/DISCOMFORT NOTED. PT IN BILAT WRIST RESTRAINTS TO PROTECT VITAL LINES/CORDS/TUBES AND TO PROTECT FROM SELF-EXTUBATION. LUNGS CLEAR, LOWER LOBES DIMISHED. VENT SETTINGS: AC 15, TV 450, PEEP 10, FIO2 60%. RR 20'S. OXY SAT >90%. SUCTION VIA ETT: SMALL AMOUNTS OF THICK WHITE SECRETIONS. NSR. HR 70'S. BP STABLE - SEE VS FS. STRONG RADIAL AND PEDAL PULSES. FAINT TIBIAL PULSE. SKIN WARM, PINK. EDEMA NOTED. AVF TO FRANK - POSITIVE BRUIT AND THRILL. ABSENT BT X4 QUADRANTS. SEVERE DIST, TENDER (FACIAL GRIMACING WITH PALPATION), FIRM. ILEOSTOMY - SMALL AMOUNTS OF YELLOW SECRETIONS. ABD MIDLINE WOUND VAC - SMALL AMOUNTS OF SEROSANGEOUS FLUID. OG TO LIS: GREEN OUTPUT. DIALYSIS PT. AVF TO FRANK - POSITIVE BRUIT AND [place]HILL. NO F/C. PICC SALVATORE.
--- NOTE | 2019-05-13 21:35 | NUR ---
DR. TAWNY TINSLEY, PHARMACIST REQUESTED TO CALL DR. PLUMMER REGARDING HEPARIN DRIP. DR. PLUMMER INSTRUCTED TO CONTINUE HEPARIN DRIP PER DR. THAPA'S REQUEST AT 2300. DR HECTOR ALSO ORDERED APTT @ 2200. DR. PLUMMER DOES NOT WANT HEPARIN BOLUS PRIOR TO STARTING HEPARIN DRIP.
--- NOTE | 2019-05-13 22:46 | NUR ---
HEPARIN DRIP INFORMED ALVINA PHARMACIST OF APTT 33.1 COMPLETED AT 2200. ALVINA IS PLANNING TO INSERT HEPARIN DRIP RATE. WAITING FOR ORDER AT THIS TIME.
[2019-05-14 03:19] LABS: Base Excess Venous 8.1 mmol/L; Bicarbonate Venous 30.6 mmol/L (24.0-30.0); PCO2 Venous 52.9 mmHg (38-42); PO2 Venous 57.7 mmHg (38-42)
[2019-05-14 03:45] LABS: Hematocrit 33.9 % (37.0-53.0); Hemoglobin 10.2 g/dL (13.5-17.5); Mean Corpuscular HGB 31.3 pg (26.0-34.0); Mean Corpuscular HGB Conc 30.1 g/dL (31.5-36.5); Mean Corpuscular Volume 104 fL (80-100); Mean Platelet Volume 11.5 fL (9.1-12.4); Platelet Count 108 K/mm3 (150-400); RDW Coefficient Variation 17.6 % (11.7-14.2); RDW Standard Deviation 67.3 fL (35.1-46.3); Red Blood Cell Count 3.26 M/mm3 (4.30-5.90); White Blood Cell Count 10.82 K/mm3 (4.00-11.30)
[2019-05-14 04:02] LABS: Albumin, Blood 2.1 g/dL (3.4-5.0); Anion Gap 8 mmol/L (6-16); Blood Urea Nitrogen 35 mg/dL (8-24); Bun/Creatinine Ratio 8.1 (12.0-20.0); CO2, Blood 33 mmol/L (21-32); Chloride, Blood 99 mmol/L (98-108); Glomerular Filtration Rate 15 (60-); Glucose, Blood 157 mg/dL (70-99); Magnesium, Blood 1.9 mg/dL (1.6-2.4); Phosphorus, Blood 3.3 mg/dL (2.5-4.9); Potassium, Blood 3.5 mmol/L (3.5-5.5); Sodium, Blood 140 mmol/L (136-145)
[2019-05-14 04:24] LABS: BAND PERCENT MAN 23 % (0-8); BASOPHILS PERCENT MAN 1 % (0-2); EOSINOPHILS PERCENT MAN 1 % (0-6); LYMPHOCYTES ABSOLUTE MAN 0.97 K/mm3 (0.84-5.20); LYMPHOCYTES PERCENT MAN 9 % (21-46); METAMYELOCYTE PERCENT MAN 1 % (0-0); MONOCYTES ABSOLUTE MAN 1.08 K/mm3 (0.16-1.47); MONOCYTES PERCENT MAN 10 % (4-13); MYELOCYTE ABSOLUTE MAN 0.21 K/mm3 (0.00-0.00); MYELOCYTE PERCENT MAN 2 % (0-0); NEUTROPHILS ABSOLUTE MAN 8.22 K/mm3 (1.96-9.15); SEG NEUTROPHILS PERCENT MAN 53 % (41-73); TOTAL CELLS COUNTED 100
--- NOTE | 2019-05-14 04:24 | NUR ---
SEDATION VACATION / SBT / DR. PLUMMER TITRATED LEVOPHED TO STANDBY DURING SEDATION VACATION. PROPOFOL DRIP ON STANDBY FOR SEDATION VACATION. PT CALM, COOPERATIVE, RESPONDS TO VERBAL STIMULI, A&O TO SELF, OCC OPENS EYES SPONT, OPENS EYES TO VERBAL STIMULI, LOCALIZES, FOLLOWS COMMANDS, NODDING HEAD Y/N TO SOME QUESTIONS. SBT COMPLETED BY RT ALY. SBT VENT SETTINGS: PS 5, PEEP 10, FIO2 45%. PT MAINTAINING TV. WHILE ON VENT SETTINGS AC 15, TV 450, PEEP 10, FIO2 45%, PT DOUBLE STACKING, INCREASING PEAK PRESSURES, GAGGING, & COUGHING NOTED. THUS, PT REQUIRED INCREASING QUANTITIES OF PROPOFOL TO TOLERATE AC VENT SETTINGS T/O SHIFT. PT REQUIRED LEVOPHED DRIP FOR HYPOTENSION AFTER INCREASING PROPOFOL AND ADMINSITERING PAIN MEDS PER PHYSICIAN'S ORDER. CALLED DR. PLUMMER AT [address]. [address] PLUMMER OF PT'S STATUS, VS (SEE VS FS), AND VENT SETTINGS. DR. PLUMMER INSTRUCTED TO KEEP PT ON VENT SETTINGS: PS 5, PEEP 10, FIO2 45%. INFORMED RT ALY OF DR. PLUMMER'S ORDER. NO ADDITIONAL ORDERS AT THIS TIME.
--- NOTE | 2019-05-14 04:45 | NUR ---
SHIFT ASSESSMENT NO ACUTE CHANGES NOTED T/O SHIFT. PT CURRENTLY CALM, COOPERATIVE, RESPONDS TO VERBAL SITMULI, A&O TO SELF, OCC OPENS EYES SPONT, OPENS EYES TO VERBAL STIMULI, LOCALIZES PAIN, FOLLOWS COMMANDS, NODDING HEAD Y/N TO MOST QUESTIONS. PROPOFOL DRIP CURRENTLY ON STANDBY - CONT TO TITRATE TO EFFECT. SENSATION INTACT. PT JONAS. GENERALIZED WEAKNESS. INCREASED MOVEMENT NOTED THIS AM. OCC S/SX OF PAIN/DISCOMFORT NOTED T/O SHIFT. CONT TO ASSESS FOR PAIN/DISCOMFORT AND MEDICATED WITH PAIN MEDS PER PHYSICIAN'S ORDER / UTILIZED NONPHARM METHODS. PT REMAINED IN BILAT WRIST RESTRAINTS TO PROTECT VITAL LINES/CORDS/TUBES AND TO PROTECT FROM SELF-EXTUBATION. LUNGS CLEAR, LOWER LOBES DIMINISHED. VENT SETTINGS: PS 5, PEEP 10, FIO2 45%. OXY SAT >90%. RR 16 TO 20'S. SUCTION VIAT ETT: SMALL AMOUNTS OF THICK WHITE SECRETIONS. NSR WITH OCC PAC'S AND PVC'S. HR 70'S TO 80'S. BP CURRENTLY STABLE - SEE VS FS. LEVOPHED DRIP - CONT TO TITRATE TO EFFECT. LEVOPHED CURRENTLY ON STANDBY. PT PREVIOUSLY HYPOTENSIVE WITH INCREASING QUANTITIES OF PROPOFOL. STRONG RADIAL AND PEDAL PULSES. FAINT TIBIAL PULSES. SKIN WARM, PINK. OCC DIAPHORETIC. EDEMA NOTED. AVF TO FRANK - POSITIVE BRUIT AND THRILL. ABSENT BT X4 QUADRANTS. ABD SEVERE DIST, TENDER (FACIAL GRIMACING WITH PALPATION), FIRM. ILEOSTOMY - SMALL AMOUNTS OF YELLOW SECRETIONS. ABD MIDLINE WOUND VAC - SCANT AMOUNTS OF SEROSAGNEOUS FLUID. OG TO LIS: GREEN COLORED OUTPUT. DIALYSIS PT. NO F/C. PICC SALVATORE. NS TKO ON STANDBY. CPN @ 63 ML/HR. HEPARIN DRIP @ 19 UNITS/KG/HR (38.8 ML/HR) AT A DOSING WEIGHT 102 KG. WILL CONT TO MONITOR PT AND WILL PROVIDE BEDSIDE REPORT TO ONCOMING NURSE THIS AM.
--- NOTE | 2019-05-14 05:20 | NUR ---
DR. ERIN KHAN CALLED ICU AT THIS TIME. INFORMED DR. KHAN OF AM LAB VALUES. NO NEW ORDERS AT THIS TIME.
--- NOTE | 2019-05-14 06:00 | NUR ---
DR. ERIN KHAN IN TO SEE PT AT THIS TIME. NO NEW ORDERS AT THIS TIME.
--- NOTE | 2019-05-14 07:22 | NUR ---
ONCOMING NOTE REPORT RECEIVED FROM TERI ANDERSON. BEDSIDE ROUNDING DONE. PT INTUBATED, VENT SETTINGS: PS 5, PEEP 10, FIO2 45%. SEDATION OFF SINCE 329 PER REPORT. PT OPENING EYES SPONTANEOUSLY, FOLLOWING COMMANDS, NODDING "YES"/"NO" TO QUESTIONS. PT RESTLESS, NODDING HEAD "YES" WHEN ASKED IF HAVING PAIN. PER REPORT PT REQUIRING PAIN MEDICATION EVERY HOUR TO MAINTAIN PAIN CONTROL. VSS, SEE FLOWSHEET. PER REPORT LEVOPHED GTT OFF SINCE PROPOFOL GTT OFF AT 329. MIDLINE ABD INCISION WITH WOUND VAC IN PLACE. ABD SEVERELY DISTENDED, FIRM, TENDER TO PALPATION. BT ABSENT X4. OGT TO LIS. ILEOSTOMY STOMA MOIST AND RED. PT EDEMATOUS, +4 PITTING TO EXTREMITIES. PICC TO SALVATORE, FLUSHES AND DRAWS EASILY. HEPARIN GTT RUNNING PER PHARMACY DOSING, DOSING WEIGHT 102 KG. TPN RUNNING AT 63ML/HR PER ORDERS. SCDs ON. BED IN LOWEST POSITION, SIDE RAILS RAISED. CALL LIGHT IN REACH. AT BEDSIDE. WILL CONT TO MONITOR PT.
--- NOTE | 2019-05-14 07:27 | NUR ---
HEPARIN DRIP INFORMED PHARMACIST OF APTT 43.3 COMPLETED AT 0645. PHARMACIST PLANNING TO EXAMINE LAB AND TITRATE HEPARIN DRIP INDICATED. WAITING FOR ORDERS AT THIS TIME.
--- NOTE | 2019-05-14 09:28 | NUR ---
DR PLUMMER IN TO ASSESS PT. DISCUSSED PT'S STATUS WITH PT AND PT'S FAMILY MEMBER. PT IS VERY EAGER TO GET EXTUBATED TODAY, HOWEVER, DR PLUMMER INFORMS FAMILY THAT THE PT IS NOT QUITE READY FOR THIS. PT TO RECEIVE DIALYSIS TODAY. PT MEDICATED WITH DILAUDID 1MG IVP FOR PAIN AND PROPOFOL RESTART PER DR PLUMMER.
--- NOTE | 2019-05-14 10:19 | NUR ---
DR HODGES ROUNDS DR HODGES ROUNDED, UPDATED ON PT STATUS THROUGH THE NIGHT. RECEIVED IN REPORT A QUESTION ABOUT GIVING ENEMA TO PROMOTE BM IN ORDER TO CLOSE ILEOSTOMY - CLARIFIED THIS WITH DR HODGES. PER DR HODGES THE BOWEL SHOULD BEGIN MOVING IN TIME AND MAY TAKE 3-6 MONTHS BEFORE THE ILEOSTOMY WILL BE CLOSED. PT'S PRESENT DURING SURGEON ROUNDS. NO FURTHER CHANGES TO PLAN OF CARE AT THIS TIME. WILL CONT TO MONITOR PT.
[2019-05-14 11:19] LABS: Base Excess Venous 7.7 mmol/L; Bicarbonate Venous 30.6 mmol/L (24.0-30.0); PO2 Venous 157 mmHg (38-42); pH Blood Venous 7.42 (7.34-7.37)
--- NOTE | 2019-05-14 11:31 | NUR ---
SHIFT UPDATE NOTE PT PLACED BACK ON AC SETTINGS WITH VENT BY DR PLUMMER AND RESEDATED. PROPOFOL GTT TITRATED DOWN TO 15MCG DUE TO HYPOTENSION, LEVOPHED GTT RESTARTED AND TITRATED TO EFFECT FOR MAP GREATER THAN 60. SECOND SET OF BLOOD CX DRAWN AND SENT TO LAB. PT REPOSITIONED FOR PRESSURE RELIEF AND COMFORT. PT LESS RESTLESS, RESTING WITH EYES CLOSED. NO S/SX PAIN OR DISCOMFORT NOTED, WILL CONT TO MONITOR AND REASSESS. PT'S WENT HOME TO REST, WILL RETURN. BED IN LOWEST POSITION, SIDE RAILS RAISED.
--- NOTE | 2019-05-14 15:32 | NUR ---
STEVEN BLACKMAN, BUS DRIVER SUPERVISOR AT BEDSIDE FOR PT'S DAILY DIALYSIS. PT RESTLESS AND GRIMACING, PT NODS HEAD "YES" WHEN ASKED IF HAVING PAIN. PT MEDICATED PER ORDERS WITH 50MCG FENTANYL.
--- NOTE | 2019-05-14 18:17 | NUR ---
SHIFT SUMMARY PT REMAINS INTUBATED, SEDATED ON PROPOFOL AT 20MCG. VENT SETTINGS: AC 15, TV 500, PEEP 8, FIO2 45%. LEVOPHED GTT RUNNING AT 4MCG, TITRATED TO MAP GREATER THAN 60. PT RESTS WITH EYES CLOSED WHEN UNDISTURBED, OPENS EYES TO VERBAL STIMULI AND NODS HEAD "YES"/"NO" TO QUESTIONS, FOLLOWS SIMPLE COMMANDS. PT MEDICATED PER ORDERS WITH FENTANYL AND DILAUDID FOR PAIN CONTROL. LS CLEAR T/O, DIMINISHED IN BASES. PT WITH OCCASIONAL ORAL SECRETIONS, SUCTIONED PRN. PT WITH OCCASIONAL COUGH, ETT SUCTIONING PRODUCTIVE OF THICK CLEAR SECRETIONS. ABD SEVERELY DISTENDED, FIRM, TENDER TO PALPATION. BT ABSENT X4. ILEOSTOMY DRAINING RED WITH YELLOW FLUID, STOMA MOIST AND RED. MIDLINE ABD INCISION WITH WOUND VAC IN PLACE, DRESSING INTACT. DIALYSIS DONE TODAY, 3L FLUID OFF. FISTULA TO RIGHT ARM, BRUIT AND THRILL PRESENT. BILATERAL CALF SCD OFF FOR BREAK. EDEMA TO BLE +3 PITTING, WEEPING. EDEMA TO BUE. EXTREMITIES ELEVATED ON PILLOWS. CPN RUNNING PER ORDERS AT 70ML/HR. PICC TO SALVATORE, FLUSHES EASILY AND DRAWS. RHYTHM SHOWING NORMAL SINUS WITH PACs. SEE FLOWSHEET FOR VS. BED IN LOWEST POSITION, SIDE RAILS RAISED. WILL CONT TO MONITOR PT.
--- NOTE | 2019-05-14 19:15 | NUR ---
ASSUMING CARE OF PT AT THIS TIME. PT REPORT RECEIVED AT BEDSIDE WITH OFFGOING NURSE, TOÑITO WILLIAMSON. PT LAYING IN BED, INTUBATED, SEDATED UPON ENTERING THE ROOM. VS STABLE - SEE VS FS. PT DOES NOT APPEAR TO BE IN DISTRESS AT THIS TIME. WILL REVIEW PLAN OF CARE.
--- NOTE | 2019-05-14 19:30 | NUR ---
ASSESSMENT PT CALM, COOPERATIVE, RESPONDS TO VERBAL STIMULI, OPENS EYES TO VERBAL STIMULI, NODDING HEAD Y/N TO MOST QUESTIONS, FOLLOWING COMMANDS, A&O TO SELF. PT NODDED HEAD YES TO SENSATION INTACT ALL EXTREMETIES. PT NODDED HEAD NO TO N/T ALL EXTREMETIES. PROPOFOL DRIP AT 20 MCG/KG/MIN - WILL TITRATE TO EFFECT. PT JONAS. GENERALIZED WEAKNESS. MINIMAL MOVEMENT. S/SX OF PAIN/DISCOMFORT NOTED. PT C/O PAIN/DISCOMFORT. MEDICATED WITH DILAUDID PER PHYSICIAN'S ORDER AND UTILIZED NONPHARM METHODS. PT REMAINS IN BILAT WRIST RESTRAINTS TO PROTECT VITAL LINES/CORDS/TUBES AND TO PROTECT FROM SELF-EXTUBATION. LUNGS CLEAR, LOWER LOBES DIMINISHED. SHALLOW BREATHING. VENT SETTINGS: AC 15, TV 500, PEEP 8, FIO2 40%. OXY SAT >90%. RR 16. SUCTION VIA ETT: SMALL AMOUNTS OF THICK WHITE SECRETIONS. AFEBRILE. NSR WITH PAC'S. HR 90'S. BP STABLE WHILE ON LEVOPHED DRIP. LEVOPHED DRIP AT 4 MCG/MIN - WILL TITRATE TO EFFECT. STRONG RADIAL AND PEDAL PULSES. FAINT TIBIAL PULSES. EDEMA NOTED. AVF TO FRANK - POSITIVE THRILL AND BRUIT. WARM, PINK SKIN. ABSENT BT X4 QUADRANTS. ABD SEVERE DIST, TENDER (FACIAL GRIMACING WITH PALAPTION), FIRM. ABD WOUND VAC: SCANT AMOUNTS OF SEROSAGNEOUS FLUID. WOUND VAC REMAINS C/D/I. ILEOSTOMY WITH SMALL AMOUNTS OF RED SECRETIONS IN COLLETION BAG. OG TO LIS: GREEN COLORED OUTPUT. DIALYSIS PT. AVF TO FRANK - POSITIVE THRILL AND BRUIT. NO F/C. ANURIC AT BASELINE. PICC SALVATORE. NS TK0 AT 10 ML/HR. CPN AT 70 ML/HR.
[2019-05-15 03:34] LABS: Base Excess Venous 10.7 mmol/L; Bicarbonate Venous 32.9 mmol/L (24.0-30.0); PCO2 Venous 49.8 mmHg (38-42); PO2 Venous 45.2 mmHg (38-42); pH Blood Venous 7.45 (7.34-7.37)
[2019-05-15 03:51] LABS: Hematocrit 31.9 % (37.0-53.0); Hemoglobin 9.9 g/dL (13.5-17.5); Mean Corpuscular HGB 31.9 pg (26.0-34.0); Mean Corpuscular Volume 103 fL (80-100); Mean Platelet Volume 11.3 fL (9.1-12.4); NRBC ABSOLUTE 0.02 K/mm3 (0.00-0.02); NRBC Auto 0.2 /100 WBC (0.0-0.2); Platelet Count 145 K/mm3 (150-400); RDW Coefficient Variation 17.8 % (11.7-14.2); RDW Standard Deviation 66.5 fL (35.1-46.3)
[2019-05-15 04:00] LABS: Albumin, Blood 1.9 g/dL (3.4-5.0); Anion Gap 9 mmol/L (6-16); Blood Urea Nitrogen 39 mg/dL (8-24); Bun/Creatinine Ratio 8.8 (12.0-20.0); CO2, Blood 33 mmol/L (21-32); Calcium, Blood 8.2 mg/dL (8.5-10.1); Chloride, Blood 96 mmol/L (98-108); Creatinine, Blood 4.45 mg/dL (0.60-1.20); Glomerular Filtration Rate 14 (60-); Glucose, Blood 147 mg/dL (70-99); Magnesium, Blood 1.7 mg/dL (1.6-2.4); Phosphorus, Blood 2.6 mg/dL (2.5-4.9); Potassium, Blood 3.4 mmol/L (3.5-5.5); Sodium, Blood 138 mmol/L (136-145)
--- NOTE | 2019-05-15 05:16 | NUR ---
SHIFT ASSESSMENT NO ACUTE CHANGES NOTED T/O SHIFT. PT SLEPT T/O SHIFT. PT CALM, COOPERATIVE, RESPONDS TO VERBAL STIMULI, OPENS EYES TO VERBAL STIMULI, OCC OPENING EYES SPONT, NODDING HEAD Y/N TO MOST QUESTIONS, FOLLOWING COMMANDS, A&O TO SELF. PROPOFOL ON STANDBY FOR SEDATION VACATION. TITRATED PROPOFOL TO EFFECT T/O SHIFT. PT NODDED HEAD YES TO SENATION INTACT ALL EXTREMETIES. PT NODDED HEAD NO TO N/T ALL EXTREMETIES. PT JONAS. GENERALIZED WEAKNESS. MINIMAL MOVEMENT. S/SX OF PAIN/DISCOMFORT NOTED T/O SHIFT. PT C/O PAIN/DISCOMFORT T/O SHIFT. CONT TO ASSESS FOR PAIN/DISCOMFORT AND MEDICATED WITH PAIN MEDS PER PHYSICIAN'S ORDER / UTILIZED NONPHARM METHODS. PT REMAINS IN BILAT WRIST RESTRAINTS TO PROTECT VITAL LINES/CORDS/TUBES AND TO PROTECT FROM SELF-EXTUBATION. LUNGS CLEAR, LOWER LOBES DIMINISHED. SHALLOW BREATHING. VENT SETTINGS T/O SHIFT: AC 15, TV 500, PEEP 8, FIO2 35%. OXY SAT REMAINED >90% WHILE ON AC VENT SETTINGS. SBT COMPLETED THIS AM ON PS 5, PEEP 10, FIO2 35%. PT REMAINS ON PS 5, PEEP 10, FIO2 35%. RR 15 TO 20'S. SUCTION VIA ETT: SMALL AMOUNTS OF THICK WHITE SECRETIONS. AFEBRILE. NSR TO ST WITH PAC'S. HR 70'S TO 100'S. BP STABLE - SEE VS FS. LEVOPHED ON STANDBY - CONT TO TITRATE TO EFFECT. STRONG RADIAL AND PEDAL PULSES. FAINT TIBIAL PULSES. EDEMA NOTED. AVF TO FRANK - POSITIVE THRILL AND BRUIT. WARM, PINK SKIN. ABSENT BT X4 QUADRANTS. ABD SEVERE DIST, TENDER (FACIAL GRIMACING WITH PALPATION), FIRM. ABD WOUDN VAC: SCANT AMOUNTS OF SEROSANGEOUS FLUID. WOUDN VAC REMAINS C/D/I. ILEOSTOMY WITH SMALL AMOUNTS OF RED SECRETIONS IN COLLECT BAG, STOMA REMAINS PINK. OG TO LIS: GREEN COLORED OUTPUT. DIALYSIS PT. NO F/C. ANURIC AT BASELINE. PICC SALVATORE. NS TKO ON STANDBY. CPN AT 70 ML/HR. WILL CONT TO MONITOR PT AND WILL PROVIDE BEDSIDE REPORT TO ONCOMING NURSE THIS AM.
[2019-05-15 05:21] LABS: BAND PERCENT MAN 3 % (0-8); BASOPHILS ABSOLUTE MAN 0.12 K/mm3 (0.00-0.23); BASOPHILS PERCENT MAN 1 % (0-2); EOSINOPHILS ABSOLUTE MAN 0.12 K/mm3 (0.00-0.68); EOSINOPHILS PERCENT MAN 1 % (0-6); LYMPHOCYTES ABSOLUTE MAN 1.29 K/mm3 (0.84-5.20); LYMPHOCYTES PERCENT MAN 10 % (21-46); METAMYELOCYTE ABSOLUTE MAN 0.25 K/mm3 (0.00-0.00); METAMYELOCYTE PERCENT MAN 2 % (0-0); MONOCYTES PERCENT MAN 7 % (4-13); SEG NEUTROPHILS PERCENT MAN 73 % (41-73); TOTAL CELLS COUNTED 100
[2019-05-15 06:11] LABS: MYELOCYTE ABSOLUTE MAN 0.38 K/mm3 (0.00-0.00); MYELOCYTE PERCENT MAN 3 % (0-0)
--- NOTE | 2019-05-15 07:00 | NUR ---
BEDSIDE REPORT GIVEN BY TERI ANDERSON. NOW ASSUMING CARE OF THIS PT.
--- NOTE | 2019-05-15 07:30 | NUR ---
AM ASSESSMENT: PT IS INTUBATED AND IN BILATERAL SOFT WRIST RESTRAINTS. PROPOFOL ON HOLD FOR A WEANING TRIAL. PT IS ALERT AND ABLE TO ANSWER SIMPLE YES/NO QUESTIONS AND FOLLOW SIMPLE INSTRUCTIONS. PT REPORTS 10/10 PAIN IN HIS ABD. LUNGS HAVE EXP WHEEZE IN THE RML/RUL, AND EXP COARSENESS IN THE LLL. DIMINISHED IN THE BILATERAL BASES. SATS >90% ON VENT SETTINGS: SPONT, TV-500, P-8, FI02-35%. EXTENSIVE DEPENDENT EDEMA T/O BODY. CPN @ 70ML/HR THROUGH PICC LINE IN THE LT UA. HR IRREGULAR SR W/FREQUENT PAC'S. ABD LARGE/SEVERELY DISTENDED/TENDER IN ALL QAUDS, INCREASED TENDERNESS IN THE LUQ. ABSENT BT'S T/O, EXCEPT VERY HYPOACTIVE BT'S IN THE RUQ. NO URINE OUTPUT. PT IS END STAGE RENAL DISEASE.
--- NOTE | 2019-05-15 08:07 | NUR ---
DR PARIS IN TO ASSESS PT. DISCUSSED CONTINUED HIGH LEVEL OF PAIN DESPITE FREQUENTLY BEING MEDICATED WITH ORDERED PAIN MEDICATIONS. WILL START SUMMER NANNY WHEN MEDICATION AVAILABLE. UPDATED AT THE BEDSIDE WITH THE PLAN OF CARE.
--- NOTE | 2019-05-15 09:44 | NUR ---
DR KHAN IN THE . DR KHAN UPDATED PT'S FAMILY ABOUT THE PT'S PLAN OF CARE AND DIALYSIS TX TODAY. STARTED FENTANYL PEDIATRIC NURSE PRACTITIONER WITH HERNANDEZ PUMP. PT'S CURRENT PAIN LEVEL IS 10/10. DR PLUMMER IN THE ROOM AND FENTANYL BASAL RATE INCREASED TO 100MCG/MIN AT THIS TIME. PT HAS HAD SOME RELEIF BUT REMAINS IN SEVERE PAIN. IF ABLE TO CONTROL THE PAIN BETTER WITH THE PEDIATRIC NURSE PRACTITIONER PUMP, PT MAY BE EXTUBATED IN ONE HOUR. WILL CONTINUE TO REASSESS.
--- NOTE | 2019-05-15 10:15 | NUR ---
PLACED CALL TO DR HODGES'S ANSWERING SERVICE. LEFT MESSAGE FOR DR HODGES TO CONFIRM HE IS IN AGREEANCE THAT PT CAN BE PLACED ON BIPAP POST EXTUBATION, SINCE HE IS S/P ABD SURGERY. AWAITING CALL BACK.
--- NOTE | 2019-05-15 10:40 | NUR ---
PT EXTUBATED: PT EXTUBATED AFTER CLEARING USE OF BIPAP WITH DR HODGES. PT IMMEDIATELY PLACED ON AIRVO AT FLOW RATE-40, FI02-40%. SATS MID 90% RANGE AT THIS TIME. PT HAS WEAK COUGH AND NEEDS A LOT OF ENCOURAGEMENT TO TURN/COUGH/DEEP BREATH, HE IS 5-10/10 PAIN. PAIN LEVEL IS 5/10 AT THIS TIME WITH USE OF SHIP JOINER.
--- NOTE | 2019-05-15 11:13 | NUR ---
PT PLACED ON BIPAP AT THIS TIME 06/20, FIO2-35%. PT APPEARS MORE COMFORTABLE ON THE BIPAP AT THIS TIME. PT TO RECEIVE NEBULIZER TX. WILL START DECADRON IVP X 5 DOSES PER KAVITHA.
--- NOTE | 2019-05-15 13:45 | NUR ---
INES HERE TO START DIALYSIS TX.
--- NOTE | 2019-05-15 14:56 | NUR ---
PT UPDATE: FOUND PT'S AT THE BEDSIDE GIVING THE PT ICE CHIPS AND IMMEDIATELY PLACING PT ON BIPAP. EXPLAINED TO PT/ WHY THIS PRACTICE IS UNSAFE AND HOW BIPAP WORKS. PT'S CONTINUED TO GIVE PT ICE CHIPS FREQUENTLY DESPITE EDUCATION. ATTEMPTED TO PLACE PT ON AIRVO AT FLOW RATE 40 AND FI02-40%, BUT SP02 IMMEDIATLEY DROPPED TO WV 80% RANGE AND PT WAS UNABLE TO RECOVER SATS TO >90%. PT PLACED BACK ON BIPAP WITH SAME SETTINGS.
--- NOTE | 2019-05-15 16:25 | NUR ---
1610: PT C/O DIFFUSE ABDOMINAL PAIN, FENTANYL INFUSION INCREASED TO 100MCG/HR.
--- NOTE | 2019-05-15 17:45 | NUR ---
SHIFT SUMMARY: PT WAS EXTUBATED @ 1040 TODAY AND HAS TOLERATED BIPAP 8/5 WELL. PT DOES HAVE FREQUENT REQUESTS THAT REQUIRE AN INTERRUPTION IN WEARING BIPAP. EDUCATED PT/ TO MINIMIZE REMOVING THE BIPAP MUCH POSSIBLE. PT ABLE TO ANSWER QUESTIONS APPROPRIATELY AND FOLLOWS SIMPLE COMMANDS, HOWEVER, REMAINS VERY WEAK. PT'S WEAK REPORTS HE HAS NEUROPATHY IN HIS HANDS AND HAS POOR FEELING/FINE MOTOR SKILLS R/T THIS. LUNGS WITH EXP WHEEZES IN THE RML/RUL/VIVIANE, AND EXP COARSENESS HEARD IN THE RLL. 02 SATS >90% CURRENTLY ON AIRVO WITH FIO2-30%, USE BIPAP 8/5/FI02-35% PRN/SLEEP. HR SLIGHTLY IRREGULAR, SR WITH FREQUENT PAC'S. CPN @ 70ML/HR. ABD REMAINS VERY DISTENDED/FIRM/ AND TENDER T/O WITH THE MOST TENDERNESS OVER THE LUQ. OCCASIONAL BT'S HEARD IN THE RUQ, OTHERWISE ABSENT BT'S. PT REMAINS ANURIC HE HAS ESRD. ILEOSTOMY TO RT ABD WITH RED COLORED STOMA AND SEROSANGENEOUS FLUID IN SCANT AMTS PER OSTOMY.
--- NOTE | 2019-05-15 19:00 | NUR ---
REPORTED OFF TO TERI ANDERSON WHOM WILL ASSUME CARE OF PT.
--- NOTE | 2019-05-15 19:15 | NUR ---
ASSUMING CARE OF PT AT THIS TIME. PT REPORT RECEIVED AT BEDSIDE WITH OFFGOING NURSE, LATRICIA WILLIAMSON. PT LAYING IN BED, AWAKE, TALKING WITH AT BEDSIDE. PT'S PLANNING TO SPEND NIGHT IN ICU THIS SHIFT. VS STABLE - SEE VS FS. PT DOES NOT APPEAR TO BE IN DISTRESS AT THIS TIME. PT C/O OF PAIN/DISCOMFORT AT THIS TIME. PLANNING TO ADMINISTER DILAUDID PER PHYSICIAN'S ORDER. WILL REVIEW PLAN OF CARE.
--- NOTE | 2019-05-15 19:30 | NUR ---
ASSESSMENT PT A&O TO SELF, FAMILY, AND PLACE. PT UNABLE TO STATE DATE, TIME, EVENT. PT FOLLOWS COMMANDS, SLOW TO RESPOND, RESPONDS TO VERBAL STIMULI, SPONT OPENS EYES, ANSWERS MOST QUESTIONS APPORIATELY, AGITATED AT TIMES, OCC YELLING FOR AND STAFF, NOT UTILIZING CALL LIGHT APPROPRIATELY, SLIGHT CONFUSED. REQUESTING NURSE ASSISTANCE FREQUENTLY. PT C/O CHRONIC N/T TO ALL EXTREMETIES. PT JONAS. GENERALIZED WEAKNESS. PT REQUIRES FREQUENT MOTIVATION TO PARTICIPATE IN PT CARE, ASSIST WITH REPOSITION, AND MOVE EXTREMETIES. PT C/O CONSTANT PAIN TO ABD. FENT DRIP 100 MCG/HR. DILAUDID ADMINISTERED PER PHYSICIAN'S ORDER AND UTILIZING NONPHARM METHODS. LUNGS COARSE, DIMINISHED LOWER LOBES. LUNGS CLEAR WITH COUGHING. PT REQUIRES CONSTANT MOTIVATION TO COUGH AND DEEP BREATH, USE IS, USE FV, AND SPLINT WITH PILLOW WHEN COUGHING. SHALLOW BREATHING. PT ON AIRVO 50L, FIO2 30%. OXY SAT >90%. RR 20'S. OCC NONPRODUCTIVE, LOOSE, WEAK COUGHING. PT REFUSING BIPAP: 06/20, FIO2 35%. AFEBRILE. FANS ON. NSR WITH PAC'S. HR 80'S. BP STABLE - SEE VS FS. STRONG RADIAL AND PEDAL PULSES. FAINT TIBIAL PULSES. WARM, PINK SKIN. EDEMA NOTED. AVF TO FRANK WITH POSITIVE BRUIT AND THRILL. HYPOACTIVE BT RUQ. OTHERWISE ABSENT BT X3 QUADRANTS. ABD SEVERE DIST, TENDER, FIRM. ILEOSTOMY: RED SECRETIONS IN COLLECTION BAG. ABD WOUND VAC: REMAINS C/D/I, SCANT AMOUNTS OF SEROSAGNEOUS SECRETIONS. NO F/C. DIALYSIS PT. ANURIC AT BASELINE. PICC SALVATORE. CPN AT 70 ML/HR. NS TKO AT 10 ML/HR.
--- NOTE | 2019-05-16 00:58 | NUR ---
DR. ERIN KHAN IN ICU TO SEE PT AT THIS TIME. NO NEW ORDERS AT THIS TIME.
[2019-05-16 03:44] LABS: BASOPHILS ABSOLUTE AUTO 0.08 K/mm3 (0.00-0.23); BASOPHILS PERCENT AUTO 1 % (0-2); Hematocrit 31.5 % (37.0-53.0); Hemoglobin 9.7 g/dL (13.5-17.5); Mean Corpuscular HGB 30.9 pg (26.0-34.0); Mean Corpuscular HGB Conc 30.8 g/dL (31.5-36.5); NRBC ABSOLUTE 0.04 K/mm3 (0.00-0.02); NRBC Auto 0.3 /100 WBC (0.0-0.2); Platelet Count 182 K/mm3 (150-400); RDW Coefficient Variation 17.5 % (11.7-14.2); Red Blood Cell Count 3.14 M/mm3 (4.30-5.90); White Blood Cell Count 14.23 K/mm3 (4.00-11.30)
[2019-05-16 03:45] LABS: EOSINOPHILS ABSOLUTE AUTO 0.03 K/mm3 (0.00-0.68); EOSINOPHILS PERCENT AUTO 0 % (0-6); IMMATURE GRAN ABSOLUTE AUTO 3.27 K/mm3 (0.00-0.10); IMMATURE GRAN PERCENT AUTO 23 % (0-1); LYMPHOCYTES ABSOLUTE AUTO 1.16 K/mm3 (0.84-5.20); LYMPHOCYTES PERCENT AUTO 8 % (21-46); MONOCYTES ABSOLUTE AUTO 1.06 K/mm3 (0.16-1.47); MONOCYTES PERCENT AUTO 7 % (4-13); Mean Corpuscular Volume 100 fL (80-100); NEUTROPHILS ABSOLUTE AUTO 8.63 K/mm3 (1.96-9.15); NEUTROPHILS PERCENT AUTO 61 % (41-73)
[2019-05-16 04:03] LABS: Anion Gap 10 mmol/L (6-16); Blood Urea Nitrogen 57 mg/dL (8-24); Bun/Creatinine Ratio 11.3 (12.0-20.0); CO2, Blood 33 mmol/L (21-32); Calcium, Blood 8.7 mg/dL (8.5-10.1); Chloride, Blood 95 mmol/L (98-108); Creatinine, Blood 5.03 mg/dL (0.60-1.20); Glomerular Filtration Rate 12 (60-); Glucose, Blood 181 mg/dL (70-99); Magnesium, Blood 2.1 mg/dL (1.6-2.4); Potassium, Blood 4.1 mmol/L (3.5-5.5); Sodium, Blood 138 mmol/L (136-145)
[2019-05-16 04:05] LABS: BAND PERCENT MAN 13 % (0-8); BASOPHILS ABSOLUTE MAN 0.14 K/mm3 (0.00-0.23); BASOPHILS PERCENT MAN 1 % (0-2); EOSINOPHILS PERCENT MAN 0 % (0-6); LYMPHOCYTES ABSOLUTE MAN 1.56 K/mm3 (0.84-5.20); LYMPHOCYTES PERCENT MAN 11 % (21-46); METAMYELOCYTE ABSOLUTE MAN 1.13 K/mm3 (0.00-0.00); METAMYELOCYTE PERCENT MAN 8 % (0-0); MONOCYTES ABSOLUTE MAN 0.99 K/mm3 (0.16-1.47); MONOCYTES PERCENT MAN 7 % (4-13); MYELOCYTE ABSOLUTE MAN 0.28 K/mm3 (0.00-0.00); MYELOCYTE PERCENT MAN 2 % (0-0); NEUTROPHILS ABSOLUTE MAN 9.96 K/mm3 (1.96-9.15); PROMYELOCYTE ABSOLUTE MAN 0.14 K/mm3 (0.00-0.00); PROMYELOCYTE PERCENT MAN 1 % (0-0); SEG NEUTROPHILS PERCENT MAN 57 % (41-73); TOTAL CELLS COUNTED 100
--- NOTE | 2019-05-16 05:20 | NUR ---
SHIFT ASSESSMENT NO ACUTE CHANGES NOTED T/O SHIFT. PT A&O TO SELF, FAMILY, AND PLACE. PT UNABLE TO STATE DATE, TIME, EVENT. PT FOLLOWS COMMANDS, SLOW TO RESPOND, RESPONDS TO VERBAL STIMULI, SPONT OPENS EYES, ANSWERS MOST QUESTIONS APPROPRIATELY, AGITATED AT TIMES ESPECIALLY UPON REQUEST TO PARTICIPATE IN PT CARE, FREQUENTLY YELLING OUT FOR AND STAFF, UTILIZING CALL LIGHT APPROPRIATELY AFTER SWITCHING TO SOFT TOUCH CALL LIGH, SLIGHTLY CONFUSED. REQUESTING NURSE ASSISTANCE FREQUENTLY AND CONSTANTLY STANDING AT BEDSIDE. PT REQUIRES FREQUENT MOTIVATION TO PARTIPCATE IN PT CARE, ASSIST WITH REPOSITIONING, AND MOVE EXTREMETIES. PT SLEPT APPROXIMATELY 2 HRS T/O SHIFT. PT C/O CONSTANT PAIN TO ABD. FENT DRIP AT 100 MCG/HR. CONT TO ASSESS FOR PAIN/DISCOMFORT AND MEDICATED WITH DILAUDID PER PHYSICIAN'S ORDER AND UTILIZED NONPHARM METHODS. LUNGS CLEAR WITH COUGHING, DIMINISHED LOWER LOBES. PT REQUIRES CONSTANT MOTIVATION TO COUGH AND DEEP BREATH, USE IS, USE FV, AND SPLINT WITH PILLOW WHEN COUGHING. SHALLOW BREAHTING. PT CURRENTLY ON BIPAP 8/5, FIO2 35%. PT WORE BIPAP FOR 6 HR T/O SHIFT. OXY SAT >90% WHILE ON BIPAP. PT ON AIRVO 50L, FIO2 30-36% WHILE OFF OF BIPAP. OXY SAT >90% WHILE ON AIRVO. RR 12 TO 30'S. OCC NONPRODUCTIVE, LOOSE, WEAK COUGH. PT REQUIRED CONSTANT REINFORCEMENT TO UTILIZE BIPAP. PT REQUESTED CONSTANT ORAL CARE. TMAX 99.1 - DECREASED ROOM TEMP, FANS ON X2, BLANKETS REMOVED. CURRENTLY AFEBRILE. NSR WITH PAC'S. HR 70'S TO 90'S. PT SLIGHTLY HTN THIS AM WITH PT CARE. OTHERWISE BP STABLE - SEE VS FS. STRONG RADIAL AND PEDAL PULSES. FAINT TIBIAL PULSES. WARM, PINK SKIN. EDEMA NOTED. AVF TO FRANK WITH POSITIVE BRUIT AND THRILL. HYPOACTIVE BT RUQ. OTHERWISE ABSENT BT X3 QUADRANTS. ABD SEVERE DIST, TENDER, FIRM. ILEOSTOMY: RED SECRETIONS IN COLLECTION BAG. ABD WOUND VAC: REMAINS C/D/I, SCANT AMOUNTS OF SEROSANGEOUS SECRETIONS. NO N/V. DIALYSIS PT. ANURIC AT BASELINE. PICC SALVATORE. CPN AT 70 ML/HR. NS TKO AT 10 ML/HR. PT'S REMAINED AT BEDSIDE. WILL CONT TO MONITOR PT AND WILL PROVIDE BEDSIDE REPORT TO ONCOMING NURSE THIS AM.
--- NOTE | 2019-05-16 05:25 | NUR ---
DR. ERIN KHAN CALLED ICU AT THIS TIME. INFORMED DR. KHAN OF AM LABS. NO NEW ORDERS AT THIS TIME.
--- NOTE | 2019-05-16 08:30 | NUR ---
BEGINNING OF SHIFT Assumed care of pt at 0700 with Hollis WILLIAMSON. Bedside report received from Rosa WILLIAMSON. Pt A&O x 2. Weak in all extremities; requires assist with repositioning. Pt on AirVo at 50 LPM and 35% FiO2. Lungs have expiratory wheezes in upper lobes; diminished bases. Pt has loose and moist cough that is weak and unproductive. Incentive spirometer and flutter valve at bedside. Sinus rhtyhm per monitor. Abdomen is severely distended. Tender in all quadrants. Hypoactive bowel tones. New ileostomy to RLQ. Adominal midline surgical wound dressed with wound vac. Pt is anuric; hemodialysis fistula to right upper arm. Pt to have dialysis today. Pain control discussed with pt and spouse. Educated on importance of limiting usage of pain meds to promote GI motility. Educated on improtance of increasing mobility and encouraging pt to participate in ADLs. Pt verbalizes understanding. Pt NPO until evaluated by
--- NOTE | 2019-05-16 14:53 | NUR ---
UPDATE Pt to remain strict NPO per Eneida from . Oral care to be provided with suction swabs.
--- NOTE | 2019-05-16 16:49 | NUR ---
[facility] initial visit: Mr. Edgar was awake and alert. He appears very weak and did not say much to me. His , Cinthya, was at bedside. Mr. Edgar states that he is a lapsed [employer] and would apprecitate prayer. He admit he has been fearful and wanted me to pray for God to heal him. I was honored to provide prayer and encouragment to pt and spouse. These interventions were well received. I will remain available.
--- NOTE | 2019-05-16 17:25 | NUR ---
SHIFT SUMMARY No acute changes t/o shift. Pt has passed flatus and stool through his ileostomy. Pt has been more willing to participate in repositioning and ADLs than previously noted. Repositioned Q2H. Oral care provided with suction swabs. Pt remains strict NPO until ST reevaluation tomorrow. CPN infusing through PICC line. Pt remains on 100 mcg/hr fentanyl continuous IV infusion. No urine output this shift. Pt had hemodialysis this shift.
--- NOTE | 2019-05-16 19:40 | NUR ---
SPOKE TO DR LAGUERRE Spoke to Dr Laguerre to notify that patient is strict NPO and cannot take eliquis. Pt is currently in sinus rhythm. Orders given for subcutaneous heparin. Notified provider that pt has been hypotensive. Orders given for labetalol.
--- NOTE | 2019-05-16 20:00 | NUR ---
ASSUMED CARE OF PT, REPORT RCV'D FROM [facility]. PT ALERT, ORIENTED, AND VERY ANXIOUS. PT CONCERNED ABOUT POTENTIAL BREAKTHROUGH PAIN AND WANTING TO GO HOME FOR THE NIGHT. PT REMINDED THAT HE IS ON FENTANYL GTT AND HAS DILAUDID ORDERED FOR BREAKTHROUGH PAIN. PLAN DISCUSSED WITH PT AND THAT TO GO HOME AT 2300 TO GET SOME REST AND IF PT BECOMES ANXIOUS/AGITATED SHE WILL BE CONTACTED TO RETURN TO HOSPITAL. PT ON AIRVO 50LPM FIO2 30-35% WITH OPTION TO SWITCH TO BIPAP 8/5 35% PRN. PT'S SATS AND VSS. MIDLINE ABDOMINAL INCISION WITH WOUND VAC DRAINING MINIMAL AMOUNT OF SS FLUID. ILEOSTOMY PRESENT WITH PINK/BEEFY STOMA. PT HAD 120 ML PASTY BROWN FECAL OUTPUT IN OSTOMY BAG. PROVIDED PT TEACHING WHILE "BURPING" AND DRAINING ILEOSTOMY BAG. PT HAS AUDIBLE EXPIRATORY WHEEZE WITH OCCASIONAL WEAK COUGH. PT STRICT NPO D/T INCREASED RISK OF ASPIRATION. FISTULA FRANK. PICC SALVATORE WITH CPT @ 70ML/HR, NS TKO, FENTANYL 100 MCG/HR. PLEASE SEE FULL SHIFT ASSESSMENT.
[2019-05-17 04:00] LABS: Hematocrit 31.9 % (37.0-53.0); Hemoglobin 9.7 g/dL (13.5-17.5)
[2019-05-17 04:15] LABS: Albumin, Blood 2.3 g/dL (3.4-5.0); Anion Gap 11 mmol/L (6-16); Blood Urea Nitrogen 77 mg/dL (8-24); Bun/Creatinine Ratio 15.3 (12.0-20.0); CO2, Blood 32 mmol/L (21-32); Calcium, Blood 8.8 mg/dL (8.5-10.1); Chloride, Blood 98 mmol/L (98-108); Creatinine, Blood 5.03 mg/dL (0.60-1.20); Glomerular Filtration Rate 12 (60-); Glucose, Blood 157 mg/dL (70-99); Magnesium, Blood 2.3 mg/dL (1.6-2.4); Phosphorus, Blood 4.5 mg/dL (2.5-4.9); Potassium, Blood 3.7 mmol/L (3.5-5.5); Sodium, Blood 141 mmol/L (136-145)
--- NOTE | 2019-05-17 06:15 | NUR ---
SHIFT SUMMARY PT REMAINED STABLE OVERNIGHT WITH NO ACUTE CHANGES. PT REPORTED GOOD PAIN CONTROL WITH FENTANYL GTT AND REQUESTED ADDITIONAL PAIN CONTROL ON ONLY 2 OCCASIONS. 220 ML VISCOUS BROWN STOOL IN OSTOMY WITH FLATUS. PT ON BIPAP OVERNIGHT WITH SATS IN THE LOW 90'S. AUDIBLE EXPIRATORY WHEEZES HEARD AND OCCASIONAL WEAK COUGH. SEE PREVIOUS SHIFT NOTES AND ASSESSMENTS. WILL REPORT TO DAYSHIFT NURSE.
--- NOTE | 2019-05-17 07:32 | NUR ---
START OF SHIFT NOTE: RECEIVED REPORT FROM PEYMAN ACEVEDO RN, ASSUMED CARE, PATIENT IS AWAKE, RESTING COMFORTABLY, ALERT AND ORIENTED, PATIENT ON BIPAP AT THIS TIME, LUNG SOUNDS ARE DIMINISHED WITH EXPIRATORY WHEEZES, NSR WITH HR 60, BOWEL TONES PRESENT, PATIENT HAS ILEOSTOMY, SOME BROWN STOOL NOTED, PATIENT ALSO HAS LARGE MIDABDOMINAL INCISION WITH WOUND VAC, PATIENT IS A DIALYSIS PATIENT WITH FISTULA IN FRANK, SCD'S IN PLACE, SALVATORE PICC WITH CPN INFUSING AND ALSO NS AT TKO AND FENTANYL VALET MANAGER, PATIENT ALSO REQUESTED ANOTHER SPEECH THERAPY PERSON, STATED "SHE WAS NOT NICE", PATIENT HAS TOUCH CALL LIGHT, UNABLE TO USE REGULAR CALL LIGHT, AT BEDSIDE, CALL LIGHT IN REACH, WILL CONTINUE TO MONITOR.
--- NOTE | 2019-05-17 08:22 | NUR ---
PATIENT IS EXTREMELY ANXIOUS, WAS PLACED ON AIRVO TO USE SUCTION SWABS, USED FLUTTER VALVE ONCE, THEN ASKED TO BE PUT ON BIPAP AGAIN, DR. THAPA IN TO SEE PATIENT, NEW ORDER RECEIVED.
[2019-05-17 08:46] LABS: BASOPHILS ABSOLUTE AUTO 0.07 K/mm3 (0.00-0.23); BASOPHILS PERCENT AUTO 1 % (0-2); EOSINOPHILS ABSOLUTE AUTO 0.26 K/mm3 (0.00-0.68); EOSINOPHILS PERCENT AUTO 2 % (0-6); Hematocrit 31.8 % (37.0-53.0); Hemoglobin 9.8 g/dL (13.5-17.5); IMMATURE GRAN ABSOLUTE AUTO 2.05 K/mm3 (0.00-0.10); IMMATURE GRAN PERCENT AUTO 14 % (0-1); LYMPHOCYTES ABSOLUTE AUTO 1.89 K/mm3 (0.84-5.20); LYMPHOCYTES PERCENT AUTO 13 % (21-46); MONOCYTES ABSOLUTE AUTO 1.23 K/mm3 (0.16-1.47); MONOCYTES PERCENT AUTO 9 % (4-13); Mean Corpuscular HGB Conc 30.8 g/dL (31.5-36.5); Mean Corpuscular Volume 101 fL (80-100); Mean Platelet Volume 11.2 fL (9.1-12.4); NEUTROPHILS ABSOLUTE AUTO 8.71 K/mm3 (1.96-9.15); NEUTROPHILS PERCENT AUTO 61 % (41-73); NRBC ABSOLUTE 0.06 K/mm3 (0.00-0.02); NRBC Auto 0.4 /100 WBC (0.0-0.2); Platelet Count 232 K/mm3 (150-400); RDW Coefficient Variation 17.5 % (11.7-14.2); RDW Standard Deviation 65.1 fL (35.1-46.3); Red Blood Cell Count 3.16 M/mm3 (4.30-5.90); White Blood Cell Count 14.21 K/mm3 (4.00-11.30)
[2019-05-17 09:02] LABS: BAND PERCENT MAN 6 % (0-8); BASOPHILS PERCENT MAN 0 % (0-2); EOSINOPHILS ABSOLUTE MAN 0.42 K/mm3 (0.00-0.68); EOSINOPHILS PERCENT MAN 3 % (0-6); LYMPHOCYTES ABSOLUTE MAN 2.69 K/mm3 (0.84-5.20); LYMPHOCYTES PERCENT MAN 19 % (21-46); METAMYELOCYTE ABSOLUTE MAN 0.99 K/mm3 (0.00-0.00); METAMYELOCYTE PERCENT MAN 7 % (0-0); MONOCYTES ABSOLUTE MAN 0.42 K/mm3 (0.16-1.47); MONOCYTES PERCENT MAN 3 % (4-13); MYELOCYTE ABSOLUTE MAN 0.14 K/mm3 (0.00-0.00); MYELOCYTE PERCENT MAN 1 % (0-0); NEUTROPHILS ABSOLUTE MAN 9.52 K/mm3 (1.96-9.15); SEG NEUTROPHILS PERCENT MAN 61 % (41-73); TOTAL CELLS COUNTED 100
--- NOTE | 2019-05-17 09:20 | NUR ---
DR. LAGUERRE IN TO SEE PATIENT AND SPEAK WITH , NEW ORDERS RECEIVED.
--- NOTE | 2019-05-17 09:35 | NUR ---
PRECEDEX STARTED AT 0.2 MCG/KG/HR, PATIENT IS VERY ANXIOUS TO EAT, PER DR. LAGUERRE WILL START WITH SOME ICE CHIPS, CALL LIGHT IN REACH, WILL CONTINUE TO MONITOR.
--- NOTE | 2019-05-17 10:08 | NUR ---
PT/OT IN TO SEE PATIENT, WILL THINK ABOUT SITTING IN CHAIR, WILL GIVE TOÑITO, PT, CALL IF READY TO SIT UP.
--- NOTE | 2019-05-17 10:47 | NUR ---
PATIENT RECEIVED SOME ICE CHIPS AND APPLEJUICE VIA SPOON PER DR. LAGUERRE, PATIENT HAD NO PROBLEM SWALLOWING, AGREED TO WORK ON ICENTIVE SPIROMETER AND FLUTTER VALVE, DOES WELL, CALL LIGHT IN REACH, WILL CONTINUE TO MONITOR.
--- NOTE | 2019-05-17 13:35 | NUR ---
SPEECH THERAPY IN TO SEE PATIENT, WAS NOTIFIED THAT DR. LAGUERRE HAD DISCUSSED NUTRITION WITH THE PATIENT AND HIS AND ALLOWED ICE CHIPS SPARINGLY AND SOME JUICE, ROSARIO, SPEECH THERAPIST, SPOKE WITH DR. LAGUERRE AND SIGNED OFF.
--- NOTE | 2019-05-17 14:47 | NUR ---
PATIENT UP TO CHAIR VIA CEILING LIFT, TOLERATED WELL, PT NOTIFIED, AT BEDSIDE, CALL LIGHT IN REACH, WILL CONTINUE TO MONITOR.
--- NOTE | 2019-05-17 15:42 | NUR ---
PT/OT IN TO WORK WITH PATIENT, PATIENT CONTINUES TO BE UP IN CHAIR, TOLERATING WELL, CALL LIGHT IN REACH, WILL CONTINUE TO MONITOR.
--- NOTE | 2019-05-17 16:46 | NUR ---
DR. LAGUERRE UPDATED ON PATIENT CONDITION VIA PHONE, NEW ORDERS RECEIVED.
--- NOTE | 2019-05-17 17:17 | NUR ---
PATIENT RETURNED TO BED VIA CEILING LIFT, PREMEDICATED WITH DILAUDID 1 MG IV, TOLERATED WELL, CALL LIGHT IN REACH, WILL CONTINUE TO MONITOR.
--- NOTE | 2019-05-17 17:19 | NUR ---
PATIENT WAS TRIED ON PUDDING AND HAD NO PROBLEM SWALLOWING, DR. LAGUERRE NOTIFIED, NEW ORDERS RECEIVED.
--- NOTE | 2019-05-17 17:57 | NUR ---
SHIFT SUMMARY NOTE: NO EVENTS DURING THIS SHIFT, PATIENT AWAKE, ALERT AND ORIENTED, VERY MOTIVATED, WAS PLACED ON PRECEDEX DRIP AT 0.2 MCG/KG/HR FOR EXTREME ANXIETY, PATIENT APPEARS MORE RELAXED, ALSO ON FENTANYL HUMAN RESOURCES CLERK AT 100 MCG/HR, TPN INFUSING AT 70 CC/HR, PATIENT MAY HAVE ICE CHIPS, JUICE AND PUDDING TO ASSIST WITH ORAL MEDICATION, PATIENT SHOWED NO PROBLEM WITH SWALLOWING, WOUND VAC IN PLACE FOR MIDABDOMINAL INCISION, ON AIRVO 50L/MIN AT 29 %. TOLERATING WELL, PATIENT WAS UP IN CHAIR FOR MOST OF THE AFTERNOON, WORKED WITH PT/OT, TOLERATED WELL, SCD'S IN PLACE, ILEOSTOMY ON RLQ WITH GOOD OUTPUT, PATIENT HAS LOTS OF GAS, STOOL IS BROWN AND PASTY AT THIS TIME, CONTINUES ON ZOSYN, NS AT TKO, PATIENT HAS SALVATORE PICC, WHICH IS POSITIONAL FOR BLOOD DRAWS, PATIENT RECEIVED DILAUDID 1 MG IV ONCE DURING THIS SHIFT PRIOR TO BEING MOVED BACK TO BED, FOR DETAILS SEE SHIFT ASSESSMENT DOCUMENTATION AND NURSES NOTES, CALL LIGHT IN REACH, WILL CONTINUE TO MONITOR AND GIVE REPORT TO ONCOMING ARMATURE WINDER.
--- NOTE | 2019-05-17 21:38 | NUR ---
ASSUMED CARE OF PT, REPORT RCV'D FROM TERI TERRY. PT MUCH MORE ALERT AND ORIENTED THIS EVENING. PT SITTING UP IN BED ON AIRVO. PER HOSPITALIST AND MOTION PICTURE PROJECTIONIST APPRENTICE PT OKAYED TO HAVE ICE CHIPS, JUICE, WATER. PT'S COUGH MUCH STRONGER THIS EVENING AND PT IS ABLE TO FEED HIMSELF ICE CHIPS. PT APPEARS VERY MOTIVATED AND HAS BEEN USING HIS INCENTIVE SPIROMETER AND FLUTTER VALVE DIRECTED. PT REPORTS 5/10 PAIN CURRENTLY, FENTANYL GTT CURRENTLY RUNNING AT 100 MCG/HR AND PRECEDEX 0.2 MCG/KG/HR. STOMA BEEFY AND PINK WITH MODERATE OUTPUT. PT'S AT BEDSIDE. PT DENIES NEEDS OR CONCERNS AT THIS TIME. SEE FULL SHIFT ASSESSMENT.
--- NOTE | 2019-05-18 00:40 | NUR ---
PT CONTINUES TO HAVE UNCONTROLLED ANXIETY ON PRECEDEX 0.2 MCG/KG/HR. PT HAS BEEN HYPOTENSIVE AT LOW DOSE AND UNABLE TO INCREASE TO A HIGHER DOSE FOR EFFECT. CALL TO DR. FLORES FOR ALTERNATIVE ANXIOLYTIC. 0.5-1 MG ATIVAN PRN Q4 ORDERED.
[2019-05-18 04:39] LABS: BASOPHILS ABSOLUTE AUTO 0.06 K/mm3 (0.00-0.23); BASOPHILS PERCENT AUTO 0 % (0-2); EOSINOPHILS ABSOLUTE AUTO 0.34 K/mm3 (0.00-0.68); EOSINOPHILS PERCENT AUTO 2 % (0-6); Hematocrit 31.3 % (37.0-53.0); Hemoglobin 9.6 g/dL (13.5-17.5); IMMATURE GRAN ABSOLUTE AUTO 1.36 K/mm3 (0.00-0.10); IMMATURE GRAN PERCENT AUTO 9 % (0-1); LYMPHOCYTES ABSOLUTE AUTO 1.58 K/mm3 (0.84-5.20); LYMPHOCYTES PERCENT AUTO 11 % (21-46); MONOCYTES PERCENT AUTO 7 % (4-13); Mean Corpuscular HGB 31.1 pg (26.0-34.0); Mean Corpuscular HGB Conc 30.7 g/dL (31.5-36.5); Mean Corpuscular Volume 101 fL (80-100); Mean Platelet Volume 11.4 fL (9.1-12.4); NEUTROPHILS ABSOLUTE AUTO 10.07 K/mm3 (1.96-9.15); NEUTROPHILS PERCENT AUTO 70 % (41-73); NRBC ABSOLUTE 0.02 K/mm3 (0.00-0.02); NRBC Auto 0.1 /100 WBC (0.0-0.2); Platelet Count 262 K/mm3 (150-400); RDW Coefficient Variation 17.6 % (11.7-14.2); RDW Standard Deviation 64.9 fL (35.1-46.3); Red Blood Cell Count 3.09 M/mm3 (4.30-5.90); White Blood Cell Count 14.41 K/mm3 (4.00-11.30)
[2019-05-18 04:57] LABS: BAND PERCENT MAN 5 % (0-8); BASOPHILS ABSOLUTE MAN 0.14 K/mm3 (0.00-0.23); BASOPHILS PERCENT MAN 1 % (0-2); EOSINOPHILS ABSOLUTE MAN 0.43 K/mm3 (0.00-0.68); EOSINOPHILS PERCENT MAN 3 % (0-6); LYMPHOCYTES ABSOLUTE MAN 2.16 K/mm3 (0.84-5.20); LYMPHOCYTES PERCENT MAN 15 % (21-46); METAMYELOCYTE ABSOLUTE MAN 0.86 K/mm3 (0.00-0.00); METAMYELOCYTE PERCENT MAN 6 % (0-0); MONOCYTES ABSOLUTE MAN 0.57 K/mm3 (0.16-1.47); MONOCYTES PERCENT MAN 4 % (4-13); NEUTROPHILS ABSOLUTE MAN 10.23 K/mm3 (1.96-9.15); SEG NEUTROPHILS PERCENT MAN 66 % (41-73); TOTAL CELLS COUNTED 100
[2019-05-18 04:59] LABS: Alanine Aminotransfer (ALT/SGP 9 U/L (12-78); Albumin, Blood 2.2 g/dL (3.4-5.0); Albumin/Globulin Ratio 0.5 (0.8-1.8); Alk Phos 82 U/L (50-136); Anion Gap 16 mmol/L (6-16); Aspartate Aminotrans (AST/SGOT 16 U/L (12-37); Bilirubin, Direct 0.4 mg/dL (0.0-0.3); Bilirubin, Indirect 0.2 mg/dL (0.1-0.7); Bilirubin, Total 0.6 mg/dL (0.1-1.0); Blood Urea Nitrogen 119 mg/dL (8-24); Bun/Creatinine Ratio 17.7 (12.0-20.0); CO2, Blood 28 mmol/L (21-32); Calcium, Blood 8.6 mg/dL (8.5-10.1); Chloride, Blood 95 mmol/L (98-108); Creatinine, Blood 6.71 mg/dL (0.60-1.20); Globulin, Blood 4.2 g/dL (2.2-4.0); Glomerular Filtration Rate 9 (60-); Glucose, Blood 127 mg/dL (70-99); Magnesium, Blood 2.3 mg/dL (1.6-2.4); Phosphorus, Blood 6.1 mg/dL (2.5-4.9); Potassium, Blood 3.7 mmol/L (3.5-5.5); Sodium, Blood 139 mmol/L (136-145); Total Protein, Blood 6.4 g/dL (6.4-8.2)
--- NOTE | 2019-05-18 06:42 | NUR ---
SHIFT SUMMARY PT CONTINUES TO HAVE INCREASED ANXIETY AND RESTLESSNESS DESPITE PRECEDEX AND ATIVAN PRN. PT ABLE TO SLEEP APPROXIMATELY 1 HR AND IS EXHIBITING INCREASED CONFUSION AND FORGETFULNESS WELL INCREASED FEAR REGARDING HEALTH CHANGES. PT'S VSS T/O SHIFT. 650 ML LIQUID BROWN STOOL FROM OSTOMY. PT TO HAVE DIALYSIS TODAY PER DR. KHAN. SEE PREVIOUS SHIFT NOTES AND ASSESSMENTS. WILL REPORT TO DAYSHIFT NURSE.
--- NOTE | 2019-05-18 07:30 | NUR ---
ASSUMED CARE PT. RESTING QUIELTY IN BED THIS AM. CURRENTLY ON BIPAP. PT SLEEPING AT BEDSIDE. PT AWAKENS TO VERBAL STIMULI WHILE ON BIPAP. NADN. FENTANYL GTT DECREASED FROM 100 MCG/HR TO 50MCG/HR. PT REMAINS ON PRECEDEX GTT AT THIS TIME AT 0.2MCG/KG/HR. PT VSS A THIS TIME. CALL LIGHT IN REACH.
--- NOTE | 2019-05-18 10:11 | NUR ---
BATH PT. PLACED ON AIRVO AT THIS TIME, PRECEDEX GTT PLACED ON SB. COMPLETE BED BATH DONE. PT. OSTOMY DEVICE CHANGED. PT. CONTINUES TO HAVE DARK GREEN STOOL FROM OSTOMY. PT ASSISTED UP TO BEDSIDE CHAIR WITH LIFT. PT. TOLERATED WELL. PT. HAS WEAK COUGH, WORKING WITH FLUTTER VALVE AND INCENTIVE SPIROMETER. PT. TOLERATING ICE CHIPS AND PILLS WITH APPLE SAUCE. SWALLOWS WELL WITH NO COUGHING AFTER SWALLOWING. PT. VERY WEAK. TAPE PLACED AROUND SPOON TO MAKE IT EASIER FOR PT TO GOVERNOR ASSEMBLER. ENCOURAGED TO DO EXERCISES TO STRENGTHEN ARMS AND CHUCK TENDER. PT. AT BEDSIDE.
--- NOTE | 2019-05-18 13:02 | NUR ---
PT REMAINS UP IN BEDSIDE CHAIR ABLE TO STAND WITH GAIT BELT AND WALKER AND 2 PERSON ASSIST.
--- NOTE | 2019-05-18 15:12 | NUR ---
CARE ASSUMED/REASSESSMENT CARE ASSUMED FROM VERONICA WILLIAMSON AT 1300. PT SITTING UP IN RECLINER CHAIR. HE IS AWAKE, A/O X3 AND TALKATIVE. CURRENTLY RECIEVING DIALYSIS AT BEDSIDE. SPOKE WITH MD THAPA WHO IS REQUESTING A SOAP SUDS ENEMA TODAY TO CLEAR OUT BOWELS; WILL ADMINISTER ONCE PT IS ABLE TO GET BACK INTO BED AND FINISHED WITH DIALYSIS. TOLERATING PO WITHOUT SIGNS OF ASPIRATION. MD ESPINOZA EVALUATED PT AT BEDSIDE THIS AFTERNOON AND IS OK ADVANCING DIET LONG PT DISPLAYS NO SIGNS OF ASPIRATION. WILL ADJUST GOVERNMENT AFFAIRS RESEARCHER DOSE PER ORDERS. TPN CONTINUES TO INFUSE. VSS. IRREGULAR RHYTHM WITH PACS, HR 80S. AT BEDSIDE. WILL CONTINUE TO MONITOR.
--- NOTE | 2019-05-18 16:25 | NUR ---
Dialysis Pt was in 10/10 pain. Needed to have BM and stated that he was experiencing rectum, abdomen and all over pain. This nurse tried to explain that his dialysis was necessary to releive the edema in his left hand and generalized edema as well. He stated that he could not wait. His rectum is burning and he is 10/10 pain in abdomen. Doctor was called who ordered an enema. Nephrology was called who ordered DC and run dialysis again tomorrow.
--- NOTE | 2019-05-18 18:53 | NUR ---
SHIFT SUMMARY PT RECIEVED DIALYSIS THIS AFTERNOON; ONLY 1300 ML REMOVED. PT TOLD LINEN CLERK TO STOP DUE TO THE URGE TO DEFECATE AND THE NEED TO GET BACK INTO BED FROM THE RECLINER. RECIEVED A SUDS ENEMA AND HAD MULTIPLE LARGE, HARD NUGGETS DIGITALLY REMOVED FROM RECTUM. LINENS CHANGED AND PT TURNED OFTEN. 60 ML OUT FROM WOUND VAC TODAY. PICC LINE DRESSING CHANGED. TOLERATED FULL LIQUIDS FOR DINNER; DAIRY PRODUCTS NOT GIVEN DUE TO PT STATING HE DOESNT WANT THE MUCOUS PRODUCTION. TPN INFUSING PER ORDER. WILL GIVE BEDSIDE, HANDOFF REPORT TO NOC RN.
--- NOTE | 2019-05-18 19:00 | NUR ---
RECEIVED HAND OFF FROM DAY NURSE USING SBAR.
--- NOTE | 2019-05-18 20:00 | NUR ---
LYING IN SEMI FOWLERS WITH EYES OPEN WHILE WATCHING TV AND VISITING WITH SPOUSE AT BEDSIDE. AAO X3, FOLLOWS ALL COMMANDS. REORIENTED TO ROOM, CALL SYSTEM , AND POC, VOICES UNDERSTANDING. RESPIRAITONS EVEN AND UNLABOERED VIA AIRVO AT 50L. LUNG SOUNDS COARSE WITH RHONCHI IN ALL WRIGHT. ABDOMEN ROUND AND DISTENDED. DISTANT BOWEL SOUNDS NOTED. LARGE LIQUID BROWN STOOL NOTEDS IN BAG. LEAKAGE NOTED TO ILIEOSTOMY, COMPLETE PRODUCT CHANGE COMPLETED. REDNESS NOTED TO SKIN SURROUNDING OSTOMY. ANURIC, SKIN OPEN TO AIR. FORMED STOOL NOTED IN LARGE INTESTINE PER MD ON OR. PT PASSES SOME STOOL EARLIER TODAY. STATES THAT HE FEELS THE URGE TO HAVE ANOTHER BM. PLACED ON BEDPAN WITHOUT RESULTS. REDNESS NOTED TO BUTTOCKS, PT STATES THAT IT FEELS SORE. BARRIER CREAM APPLIED TO BOTTOM. SCD'S TO BLE. DENIES FURTHER NEEDS AT THIS TIME. SAFETY MEASURES IN PLACE. WILL CONTINUE TO MONITOR.
--- NOTE | 2019-05-18 21:04 | NUR ---
HS MEDS GIVE, PT ABLE TO TOLERATE TAKING THEM WHOLE WITH WATER. PLACED ON BEDPAN SO THAT HE COULD ATTEMPT TO HAVE ANOTHER BM. UNSUCCESSFUL AT THIS TIME. SAFETY MEASURES IN PLACE. WILL CONTINUE TO MONITOR.
--- NOTE | 2019-05-18 22:50 | NUR ---
SPOUSE AT BEDSIDE, DELIVERY MAN BUTTON IN HAND AND USE INSTRUCTIONS REITERATED, VOICES UNDERSTNDING. REPOSITIONED FOR COMFORT. STATES PAIN LEVEL IS NOW MORE MANAGEABLE AND THAT HE FEELS MUCH STRONGER EACH TIME HE ASSISTS IN HIS OWN REPOSITIONING. INSTRUCTED TO REST AND CALL WITH NEEDS. SAFETY MEASURES IN PLACE. WILL CONTINUE TO MONITOR.
--- NOTE | 2019-05-19 | NUR ---
WOUND VAC CHANGED FROM PREVENA PLUS TO KCL WOUND VAC DUE TO UNAVAILABLILITY OF CANISTER REPLACEMENT FOR THE PREVENA, SET AT 125MM/HG PER PREVIOUS VAC. BLACK FOAM IS COMPRESSED AND LEAK CHECK SHOWS NO LEAKS. WILL CONTINUE TO MONITOR.
--- NOTE | 2019-05-19 03:30 | NUR ---
BLOOD DRAW FOR DAILY LABS COMPLETED BY NURSING. TOLERATED WELL. WILL CONTINUE TO MONITOR.
[2019-05-19 03:41] LABS: BASOPHILS ABSOLUTE AUTO 0.02 K/mm3 (0.00-0.23); BASOPHILS PERCENT AUTO 0 % (0-2); EOSINOPHILS ABSOLUTE AUTO 0.32 K/mm3 (0.00-0.68); EOSINOPHILS PERCENT AUTO 2 % (0-6); Hemoglobin 9.2 g/dL (13.5-17.5); IMMATURE GRAN ABSOLUTE AUTO 0.88 K/mm3 (0.00-0.10); IMMATURE GRAN PERCENT AUTO 6 % (0-1); LYMPHOCYTES ABSOLUTE AUTO 1.04 K/mm3 (0.84-5.20); LYMPHOCYTES PERCENT AUTO 7 % (21-46); MONOCYTES ABSOLUTE AUTO 0.72 K/mm3 (0.16-1.47); MONOCYTES PERCENT AUTO 5 % (4-13); Mean Corpuscular HGB Conc 31.7 g/dL (31.5-36.5); Mean Platelet Volume 11.5 fL (9.1-12.4); NEUTROPHILS ABSOLUTE AUTO 11.43 K/mm3 (1.96-9.15); NEUTROPHILS PERCENT AUTO 79 % (41-73); Platelet Count 249 K/mm3 (150-400); RDW Coefficient Variation 17.5 % (11.7-14.2); RDW Standard Deviation 60.7 fL (35.1-46.3); Red Blood Cell Count 2.97 M/mm3 (4.30-5.90); White Blood Cell Count 14.41 K/mm3 (4.00-11.30)
[2019-05-19 03:43] LABS: Mean Corpuscular Volume 98 fL (80-100)
[2019-05-19 03:58] LABS: Anion Gap 16 mmol/L (6-16); Blood Urea Nitrogen 123 mg/dL (8-24); Bun/Creatinine Ratio 17.4 (12.0-20.0); CO2, Blood 27 mmol/L (21-32); Calcium, Blood 8.3 mg/dL (8.5-10.1); Chloride, Blood 93 mmol/L (98-108); Creatinine, Blood 7.06 mg/dL (0.60-1.20); Glomerular Filtration Rate 8 (60-); Glucose, Blood 138 mg/dL (70-99); Magnesium, Blood 2.1 mg/dL (1.6-2.4); Phosphorus, Blood 5.2 mg/dL (2.5-4.9); Potassium, Blood 3.5 mmol/L (3.5-5.5); Sodium, Blood 136 mmol/L (136-145)
[2019-05-19 03:59] LABS: BAND PERCENT MAN 1 % (0-8); BASOPHILS PERCENT MAN 0 % (0-2); EOSINOPHILS ABSOLUTE MAN 0.14 K/mm3 (0.00-0.68); EOSINOPHILS PERCENT MAN 1 % (0-6); LYMPHOCYTES ABSOLUTE MAN 1.15 K/mm3 (0.84-5.20); LYMPHOCYTES PERCENT MAN 8 % (21-46); METAMYELOCYTE ABSOLUTE MAN 0.43 K/mm3 (0.00-0.00); METAMYELOCYTE PERCENT MAN 3 % (0-0); MONOCYTES ABSOLUTE MAN 0.43 K/mm3 (0.16-1.47); MONOCYTES PERCENT MAN 3 % (4-13); MYELOCYTE ABSOLUTE MAN 0.28 K/mm3 (0.00-0.00); MYELOCYTE PERCENT MAN 2 % (0-0); NEUTROPHILS ABSOLUTE MAN 11.96 K/mm3 (1.96-9.15); SEG NEUTROPHILS PERCENT MAN 82 % (41-73); TOTAL CELLS COUNTED 100
--- NOTE | 2019-05-19 08:37 | NUR ---
IVF: TPN @ 70ML/HR NS TKO @ 10ML/HR FENTANYL PRECISE WINDER @ 15MCG CONTINUOUS, 15MCG DEMAND LOCK OUT 15 MIN /C TOTAL 4HR MAX OF 200
--- NOTE | 2019-05-19 09:46 | NUR ---
DIALYSIS IN PROGRESS AT THIS TIME
--- NOTE | 2019-05-19 19:33 | NUR ---
SHIFT SUMMARY: NO ACUTE DISTRESS NOTED T/O THE NIGHT PT WAS UP TO THE CHAIR FOR A LARGE PORTION OF THE SHIFT. AFTER DIALYSIS PT RETURNED TO THE BED AND ATTEMPTED TO USE THE BEDPAN. AFTER BEING UNSECCESSFUL INDEPENDNETLY PT WAS ASSISTED IN DISIMPACTION BY NAHOMI Dalton RN. PT DID NOT TOLLERATE WELL, BUT HAD A LARGE AMOUNT OF HARD STOOL. VSS T/O THE SHIFT. REPORT GIVEN TO NOC TERI COOK.
--- NOTE | 2019-05-19 19:45 | NUR ---
ASSUMED CARE RECIEVED REPORT FROM BRITNEY. PT IS ALERT AND ORIENTED X 4. CURRENT GTTP: FENTANYL FLIGHT CREW TIME CLERK 15MCG/HR, WITH DEMAND DOSES OF 15 MCG/15MIN; LOCKOUT OF 200MCG Q4H. PT ON AIRVO 40LPM, SAT'ING HIGH 90'S. ILLEOSTOMY STOMA/SITE IS BEEFY, PINK AND OUTPUT IS NOTED IN ILLEOSTOMY BAG. WOUND VAC ON AND OPERATING PROPERLY, MINIMAL OUTPUT NOTED. PICC LINE/SITE WNL. STABLE VITALS. AT BEDSITE.
--- NOTE | 2019-05-19 23:04 | NUR ---
UPDATE PT ON CPAP, SLEEPING. LEFT BEDSIDE A BIT AGO. PT CONCERNED ABOUT WAKING UP ALONE AND IN CPAP. PT STATES THAT HE CAN HAVE HIGH ANXIETY, AND 'FREAK OUT'. I DID GIVE HIM 1MG OF ATIVAN, AND MAY GIVE HIM ANOTHER DOSE TO KEEP HIM COMFORTABLE THROUGHOUT NIGHT ON CPAP.
--- NOTE | 2019-05-20 03:33 | NUR ---
UPDATE NO SIGNIFICANT EVENTS. PT HAS BEEN ASLEEP, TOLERATING CPAP WELL, ALL NIGHT.
[2019-05-20 04:09] LABS: BASOPHILS ABSOLUTE AUTO 0.03 K/mm3 (0.00-0.23); BASOPHILS PERCENT AUTO 0 % (0-2); EOSINOPHILS ABSOLUTE AUTO 0.24 K/mm3 (0.00-0.68); EOSINOPHILS PERCENT AUTO 2 % (0-6); Hematocrit 27.6 % (37.0-53.0); Hemoglobin 8.7 g/dL (13.5-17.5); IMMATURE GRAN ABSOLUTE AUTO 0.56 K/mm3 (0.00-0.10); IMMATURE GRAN PERCENT AUTO 5 % (0-1); LYMPHOCYTES ABSOLUTE AUTO 0.98 K/mm3 (0.84-5.20); LYMPHOCYTES PERCENT AUTO 9 % (21-46); MONOCYTES PERCENT AUTO 4 % (4-13); Mean Corpuscular HGB 31.4 pg (26.0-34.0); Mean Corpuscular HGB Conc 31.5 g/dL (31.5-36.5); Mean Corpuscular Volume 100 fL (80-100); Mean Platelet Volume 11.3 fL (9.1-12.4); NEUTROPHILS ABSOLUTE AUTO 9.25 K/mm3 (1.96-9.15); NEUTROPHILS PERCENT AUTO 80 % (41-73); Platelet Count 246 K/mm3 (150-400); RDW Coefficient Variation 17.3 % (11.7-14.2); RDW Standard Deviation 63.3 fL (35.1-46.3); Red Blood Cell Count 2.77 M/mm3 (4.30-5.90); White Blood Cell Count 11.56 K/mm3 (4.00-11.30)
[2019-05-20 04:25] LABS: Albumin, Blood 1.8 g/dL (3.4-5.0); Anion Gap 11 mmol/L (6-16); Blood Urea Nitrogen 100 mg/dL (8-24); Bun/Creatinine Ratio 16.1 (12.0-20.0); CO2, Blood 32 mmol/L (21-32); Calcium, Blood 8.2 mg/dL (8.5-10.1); Chloride, Blood 94 mmol/L (98-108); Creatinine, Blood 6.21 mg/dL (0.60-1.20); Glomerular Filtration Rate 9 (60-); Glucose, Blood 146 mg/dL (70-99); Magnesium, Blood 1.9 mg/dL (1.6-2.4); Phosphorus, Blood 4.3 mg/dL (2.5-4.9); Potassium, Blood 3.3 mmol/L (3.5-5.5); Sodium, Blood 137 mmol/L (136-145); Triglycerides 310 mg/dL (30-160)
--- NOTE | 2019-05-20 06:30 | NUR ---
SHIFT SUMMARY NO ACUTE CHANGES OVER NIGHT. PT SLEPT FOR MAJORITY OF NIGHT ON CPAP, TOLERATING IT WELL, SAT'ING HIGH 90'S. ATIVAN HELPS HIM TOLERATE THE CPAP, BECAUSE HE HAS ANXIETY WHEN HES ALONE IN ROOM AT NIGHT, WITH MASK ON. PT USES AIRVO OR NC WHEN OFF THE CPAP. PT DOES PREFER LIFT WITH TURNS TO MINIMIZE HIS PAIN. PT DOES NEED ENCOURAGMENT TO USE IS, FLUTTER VALVE, TO COUGH AND DEEP BREATHING. POTASSIUM LOW IN MORNING LABS, SO KCL RIDER INFUSING NOW. SALES ASSOCIATE PUMP CLEARED. STOMA SITE LOOKS BEEFY AND PINK, MINIMAL OUTPUT FROM ILLEOSTOMY. BED LOW AND LOCKED, CALLIGHT WITH REACH. NO FAMILY AT BEDSIDE
--- NOTE | 2019-05-20 07:30 | NUR ---
ASSUMED CARE OF PATIENT; SEE ASSESSMENT CHARTING FOR DETAILS. LUNGS COARSE T/O; COUGH OCCASIONALLY PRODUCTIVE. PATIENT CURRENTLY ON HOME CPAP MACHINE BUT PLACED ON 4L/NC WHEN OFF CPAP. MONITOR WITH NSR AND VSS. DRESSINGS IN PLACE (D/I) TO BILAT. [place] REGIONS; AWAITING FOR ORTHOPEDIST (DR. NICHOLE) TO ROUND BEFORE CHANGING DRESSINGS. ILEOSTOMY IN PLACE AND DRAINING MODERATE AMOUNTS OF BILE/GREEN FLUID. RENAL PATIENT; TO HAVE DIALYSIS THIS AM AROUND 09:30. SURGICAL FLOOR STATUS; TO GO TO DIALYSIS ROOM VIA BED. TO RECEIVE 1 UNIT RBC DURING H.D. SPOUSE VERY SUPPORTIVE AND ATTENTIVE. TPN INFUSING AT 65ML/HR. OVERALL STATUS IMPROVING.
--- NOTE | 2019-05-20 08:55 | NUR ---
LAB DRAWN FOR T/X, BY RN, VIA PICC LINE.
--- NOTE | 2019-05-20 09:25 | NUR ---
TRANSFERRED TO DIALYSIS ROOM VIA BED WITH RN AND MARKETING INTELLIGENCE MANAGER ACCOMPANYING. ON 4L/MIN NC.
--- NOTE | 2019-05-20 10:30 | NUR ---
Jasbir ASKED RN TO ORDER NEW FENTANYL BAG FOR CORPORATE OFFICER. RN ORDERED MED. AND PHARMACIST WILL HAVE IT DELIVERED TO [facility].
--- NOTE | 2019-05-20 10:50 | NUR ---
NEW FENTANYL BAG HUNG; AIR IN TUBING OF CURRENT BAG (EMPTY/NOTHING TO WASTE). NEW BAG HUNG, PER PROTOCOL, AND THEN LOCKED INTO MACHINE PREVIOUS. MAINT. IV FLUID INFUSING AT 150/HR X 2 BAGS; 2ND BAG D/T BE HUNG.
--- NOTE | 2019-05-20 12:00 | NUR ---
DIALYSIS COMPLETING AND PATIENT TO RETURN TO ICU 5, A SURG. FLOOR PATIENT (WITH TELEMETRY).
--- NOTE | 2019-05-20 17:00 | NUR ---
PATIENT TO TRANSFER TO ROOM 216, FOR THIS EVENING AND THEN WILL TRANSFER TO A LIFT ROOM, TOMORROW; NO LIFT ROOMS EMPTY AT THIS TIME.
--- NOTE | 2019-05-20 17:40 | NUR ---
REPORT GIVEN TO TERI OWENS; PATIENT TO TRANSFER TO ROOM 216.
--- NOTE | 2019-05-20 18:00 | NUR ---
TRANSFERRED TO ROOM 216 VIA BED; OXYGEN AT 4L/MIN VIA NC. PATIENT C/O RESP. DISTRESS, INTERMITTENTLY, AND WANTING CPAP ON. BIOX. STABLE AND NO ACUTE RESP. EFFORT NOTED. CPAP REPLACED AFTER ARRIVAL TO NEW ROOM.
--- NOTE | 2019-05-20 19:56 | NUR ---
1800 arrive to 216 accompanied by , patient states he is anxious and cant nreathe requesting ativan and is distressed that television in his room is not working. oriented patient to new room , patient calmer. ativan given per request. maintenance here and repaired tv. RT paged to request patient cpap set up
[2019-05-21 06:52] LABS: BASOPHILS ABSOLUTE AUTO 0.04 K/mm3 (0.00-0.23); BASOPHILS PERCENT AUTO 0 % (0-2); EOSINOPHILS ABSOLUTE AUTO 0.26 K/mm3 (0.00-0.68); EOSINOPHILS PERCENT AUTO 2 % (0-6); Hematocrit 30.4 % (37.0-53.0); Hemoglobin 9.6 g/dL (13.5-17.5); IMMATURE GRAN ABSOLUTE AUTO 0.53 K/mm3 (0.00-0.10); IMMATURE GRAN PERCENT AUTO 4 % (0-1); LYMPHOCYTES ABSOLUTE AUTO 1.16 K/mm3 (0.84-5.20); LYMPHOCYTES PERCENT AUTO 9 % (21-46); MONOCYTES ABSOLUTE AUTO 0.83 K/mm3 (0.16-1.47); MONOCYTES PERCENT AUTO 6 % (4-13); Mean Corpuscular HGB 30.8 pg (26.0-34.0); Mean Corpuscular HGB Conc 31.6 g/dL (31.5-36.5); Mean Platelet Volume 11.2 fL (9.1-12.4); NEUTROPHILS ABSOLUTE AUTO 10.19 K/mm3 (1.96-9.15); NEUTROPHILS PERCENT AUTO 78 % (41-73); Platelet Count 331 K/mm3 (150-400); RDW Standard Deviation 60.9 fL (35.1-46.3); Red Blood Cell Count 3.12 M/mm3 (4.30-5.90); White Blood Cell Count 13.01 K/mm3 (4.00-11.30)
[2019-05-21 06:55] LABS: Mean Corpuscular Volume 97 fL (80-100)
[2019-05-21 07:15] LABS: Anion Gap 9 mmol/L (6-16); Blood Urea Nitrogen 86 mg/dL (8-24); CO2, Blood 32 mmol/L (21-32); Calcium, Blood 8.7 mg/dL (8.5-10.1); Chloride, Blood 94 mmol/L (98-108); Creatinine, Blood 6.15 mg/dL (0.60-1.20); Glomerular Filtration Rate 10 (60-); Glucose, Blood 146 mg/dL (70-99); Phosphorus, Blood 4.8 mg/dL (2.5-4.9); Potassium, Blood 3.8 mmol/L (3.5-5.5); Sodium, Blood 135 mmol/L (136-145)
--- NOTE | 2019-05-21 07:27 | NUR ---
SHIFT SUMMARY PT A&O X4 T/O SHIFT. MIDLINE ABD DRESSING CDI AT THIS TIME. BT X4; ABD SOFT; FULL LIQUID DIET. DARK BROWN STOOL AND FLATUS NOTED FROM ILEOSTOMY; STOMA BEEFY PINK. TPN PER EMAR. CPAP WHILE ASLEEP; CONT. OXIMETRY IN PLACE. PT DENIES SOB AND NAUSEA. PT REPOSITIONED TOLERATED. PAIN MANAGED PER EMAR WITH WORKERS COMPENSATION MANAGER; WORKERS COMPENSATION MANAGER BUTTON IN PT REACH. Q6 CHEM CHECKS; BLOOD GLUCOSE MANAGED PER EMAR. THRILL NOTED TO LEFT AC. EASY-PRESS CALL BUTTON IN REACH; PT DEMONSTRATES USE; PT AT BEDSIDE T/O SHIFT. WCTM UNTIL REPORT TO DAY SHIFT
--- NOTE | 2019-05-21 12:16 | NUR ---
PT BACK FROM OR/RECOVERY. A&OX4, VSS, AMB SBA TO BRP. REP PAIN 4/10 AND DENIES NEED FOR PAIN MEDS AT THIS TIME. REP N&T LUE, ELEVATED, WIGGLES FINGERS SLIGHTLY, CAST & STEFANY WRAP ON. MARIA PO, DENIES N&V. S.O. AT BEDSIDE.
--- NOTE | 2019-05-21 19:30 | NUR ---
SHIFT SUMMARY PT A&OX4, VSS, TELE SR W/PACS @ 86. CBGS Q6 COVERAGE INDICATED PER EMAR. PICC FLUSHES AND DRAWS; TPN @ 65 MLS/HR AND NS@10 MLS/HR W/MEASUREMENT DEPARTMENT CHIEF CLERK AND ABX ORDERED. POD#10 RESECTION, MIDLINE ABD W/GAUZE AND TAPE, SEROSANG DRAINAGE. POD#7 ILEOSTOMY, BEEFY RED STOMA, LARGE BROWN LIQUID OUTPUT AND FLATUS+. PAIN MANAGED WITH MEASUREMENT DEPARTMENT CHIEF CLERK FENT CONTINUOUS AND BUTTON. MARIA FULL LIQUID DIET, DENIES N&V. PHYSICAL THERAPY EVAL'D PT TODAY. PT UP TO CHAIR T/O SHIFT, TRANSFERRED BY KHLOE LIFT. USING FLUTTER, I.S. AND TCDB TO CLEAR COUGH AND LUNGS; 3L NC OFF/ON, BIOX ON, SATS >90%. AT BEDSIDE. REPORT GIVEN TO CHETAN WILLIAMSON.
[2019-05-22 03:38] LABS: BASOPHILS ABSOLUTE AUTO 0.05 K/mm3 (0.00-0.23); BASOPHILS PERCENT AUTO 0 % (0-2); EOSINOPHILS PERCENT AUTO 3 % (0-6); Hematocrit 30.9 % (37.0-53.0); Hemoglobin 9.8 g/dL (13.5-17.5); IMMATURE GRAN ABSOLUTE AUTO 0.33 K/mm3 (0.00-0.10); IMMATURE GRAN PERCENT AUTO 3 % (0-1); LYMPHOCYTES ABSOLUTE AUTO 1.38 K/mm3 (0.84-5.20); LYMPHOCYTES PERCENT AUTO 12 % (21-46); MONOCYTES PERCENT AUTO 7 % (4-13); Mean Corpuscular HGB 31.1 pg (26.0-34.0); Mean Corpuscular HGB Conc 31.7 g/dL (31.5-36.5); Mean Corpuscular Volume 98 fL (80-100); Mean Platelet Volume 11.3 fL (9.1-12.4); NEUTROPHILS PERCENT AUTO 75 % (41-73); Platelet Count 387 K/mm3 (150-400); RDW Coefficient Variation 16.6 % (11.7-14.2); RDW Standard Deviation 59.7 fL (35.1-46.3); Red Blood Cell Count 3.15 M/mm3 (4.30-5.90); White Blood Cell Count 11.26 K/mm3 (4.00-11.30)
[2019-05-22 03:56] LABS: Anion Gap 14 mmol/L (6-16); Blood Urea Nitrogen 101 mg/dL (8-24); Bun/Creatinine Ratio 13.6 (12.0-20.0); CO2, Blood 30 mmol/L (21-32); Calcium, Blood 8.9 mg/dL (8.5-10.1); Chloride, Blood 93 mmol/L (98-108); Glomerular Filtration Rate 8 (60-); Glucose, Blood 127 mg/dL (70-99); Magnesium, Blood 1.8 mg/dL (1.6-2.4); Phosphorus, Blood 5.3 mg/dL (2.5-4.9); Potassium, Blood 3.9 mmol/L (3.5-5.5); Sodium, Blood 137 mmol/L (136-145)
--- NOTE | 2019-05-22 07:44 | NUR ---
SHIFT SUMMARY PT RESTED WELL YESTARDAY EVENING. AAOX4/ANXIOUS. DISCOMFORT CONTROLLED WITH RURAL SOCIOLOGIST. ANXIETY CONTROLLED WITH 1MG IV ATIVAN X2 THIS SHIFT, NO NAUSEA/EMESIS. PT TURNED Q2H + PRN FOR COMFORT. ALL EXTREMITIES FLOATED ON PILLOWS. IVF + ABX PER ORDERS. OSTOMY WITH MODERATE AMOUNT LIQUID STOOL. NO ACUTE CHANGES THIS SHIFT. AT BEDSIDE T/O NIGHT. PT AWAKE AT THIS TIME WATCHING TV, REPORT TO TERI VILLAGRAN. CALL LIGHT WITHIN PT'S REACH.
--- NOTE | 2019-05-22 15:56 | NUR ---
SHIFT SUMMARY PT A&OX4, VSS, OXYGEN 3L DAY AND CPAP NOC, BIOX AT BEDSIDE. POD12 RESECTION, MIDLINE ABD DRESSING CHANGED THIS AM, AND POD 9 ILEOSTOMY CREATION, BEEFY RED STOMA, GOOD LIQ BROWN OUTPUT +FLATUS. PAIN MANAGED BY PREANALYTICS TEAM LEAD CONTINUOUS AND BUTTON. MARIA 150G RENAL DIET, DENIES N&V; TPN DC'D TODAY. LIFT TO CHAIR/BED; SAT UP FOR A FEW HOURS TODAY. PICC FLUSHES AND DRAWS. TELE SR W/PACS # [phone]. PLAN IS FOR PERMACATH PLACEMENT TOMORROW, TO BE NPO AT MIDNIGHT. UNABLE TO HAVE DIALYSIS TODAY UNABLE TO ACCESS FISTULA. AT BEDSIDE.
[2019-05-23 04:19] LABS: Hematocrit 29.4 % (37.0-53.0); Hemoglobin 9.5 g/dL (13.5-17.5)
[2019-05-23 04:56] LABS: Anion Gap 14 mmol/L (6-16); Blood Urea Nitrogen 131 mg/dL (8-24); Bun/Creatinine Ratio 14.3 (12.0-20.0); CO2, Blood 27 mmol/L (21-32); Calcium, Blood 8.7 mg/dL (8.5-10.1); Chloride, Blood 92 mmol/L (98-108); Creatinine, Blood 9.14 mg/dL (0.60-1.20); Glomerular Filtration Rate 6 (60-); Glucose, Blood 103 mg/dL (70-99); Potassium, Blood 4.5 mmol/L (3.5-5.5); Sodium, Blood 133 mmol/L (136-145)
--- NOTE | 2019-05-23 05:55 | NUR ---
SHIFT SUMMARY PT WITH LITTLE REST THIS SHIFT. AAOX4/ANXIOUS. DISCOMFORT MINIMIZED WITH FENTANYL SALES SUPPORT REP. 1MG PO ATIVAN FOR ANXIETY. DRESSING TO MIDLINE ABD C/D/I. OSTOMY SECURE WITH PINK STOMA, 400cc DARK GREEN LIQUID OUT. TURN Q2H. TELEMETRY IN PLACE, NSR IN 70s T/O SHIFT. TURN Q2H + PRN FOR COMFORT. ALL EXTREMITIES FLOATED ON PILLOWS. PT CONTINUES TO REPORT NEED TO HAVE RECTAL BM, DR INFORMED + SUPPOSITORY ADMINISTERED PER ORDERS WITH NO RECTAL OUTPUT THIS AM. NPO THIS AM FOR PERMACATH PLACEMENT. REPEAT ULTRASOUND OF RUE FISTULA TO BE SCHEDULED + COMPLETED TODAY. AT BEDSIDE T/O NIGHT WITH SERVICE DOG AT BEDSIDE. PT USES CALL LIGHT FOR ASSISTANCE.
--- NOTE | 2019-05-23 07:26 | NUR ---
NOTIFIED DR ERIN RUSSELL PLACEMENT PLANNED FOR TOMORROW, 05/24/19.
--- NOTE | 2019-05-23 08:15 | NUR ---
US IN TO SEE PT.
--- NOTE | 2019-05-23 11:41 | NUR ---
ATIVAN PT REQUESTED ATIVAN BUT ONCE SITTING ON EDGE OF BED, DECIDED DID NOT NEED AT THIS TIME. WASTED AND DOCUMENTED.
--- NOTE | 2019-05-23 17:31 | NUR ---
SUMMARY NO ACUTE CHANGES T/O SHIFT. PT SAT UP ON EDGE OF BED AND STOOD TWICE BRIEFLY W/THERAPY. SAT ON BSC BUT ONLY HAD SMEAR. MEDICATED PER ORDERS FOR ANXIETY. SOFT TOUCH CALL LIGHT IN REACH. SPOUSE AT BEDSIDE.
[2019-05-24 05:44] LABS: BASOPHILS ABSOLUTE AUTO 0.04 K/mm3 (0.00-0.23); BASOPHILS PERCENT AUTO 0 % (0-2); EOSINOPHILS PERCENT AUTO 2 % (0-6); Hematocrit 29.4 % (37.0-53.0); Hemoglobin 9.3 g/dL (13.5-17.5); IMMATURE GRAN ABSOLUTE AUTO 0.21 K/mm3 (0.00-0.10); IMMATURE GRAN PERCENT AUTO 2 % (0-1); LYMPHOCYTES ABSOLUTE AUTO 1.09 K/mm3 (0.84-5.20); LYMPHOCYTES PERCENT AUTO 12 % (21-46); MONOCYTES ABSOLUTE AUTO 1.08 K/mm3 (0.16-1.47); MONOCYTES PERCENT AUTO 11 % (4-13); Mean Corpuscular HGB 31.1 pg (26.0-34.0); Mean Corpuscular HGB Conc 31.6 g/dL (31.5-36.5); Mean Corpuscular Volume 98 fL (80-100); Mean Platelet Volume 10.4 fL (9.1-12.4); NEUTROPHILS ABSOLUTE AUTO 6.86 K/mm3 (1.96-9.15); NEUTROPHILS PERCENT AUTO 72 % (41-73); Platelet Count 433 K/mm3 (150-400); RDW Coefficient Variation 16.6 % (11.7-14.2); RDW Standard Deviation 59.4 fL (35.1-46.3); Red Blood Cell Count 2.99 M/mm3 (4.30-5.90); White Blood Cell Count 9.48 K/mm3 (4.00-11.30)
[2019-05-24 06:32] LABS: Anion Gap 18 mmol/L (6-16); Blood Urea Nitrogen 136 mg/dL (8-24); Bun/Creatinine Ratio 12.1 (12.0-20.0); CO2, Blood 25 mmol/L (21-32); Calcium, Blood 8.6 mg/dL (8.5-10.1); Chloride, Blood 90 mmol/L (98-108); Glomerular Filtration Rate 5 (60-); Glucose, Blood 93 mg/dL (70-99); Potassium, Blood 5.4 mmol/L (3.5-5.5); Sodium, Blood 133 mmol/L (136-145)
[2019-05-24 06:33] LABS: Phosphorus, Blood 8.9 mg/dL (2.5-4.9)
--- NOTE | 2019-05-24 07:19 | NUR ---
pt to surgery
--- NOTE | 2019-05-24 07:51 | NUR ---
PT RETURNING TO ROOM, SURGERY NOT GOING UNTIL LATER THIS AM, UNSURE OF TIME. PT HAS BEEN PREPPED AND READY.
--- NOTE | 2019-05-24 08:19 | NUR ---
SUMMARY STILL PENDING OR TODAY. NPO. MEPILEX PLACED TO BOTTOM.
--- NOTE | 2019-05-24 10:03 | NUR ---
TO [facility] FOR SURGERY. PREPAREDC FOR SURGERY.
--- NOTE | 2019-05-24 12:32 | NUR ---
pt back from surgery PERMACATH TO RCW. PT SLEEPING SOUNDLY. VSS. TELE IN PLACE. CALL LIGHT IN REACH. YEHUDA HYDROELECTRIC PLANT TECHNICIAN AWARE PT BACK TO ROOM.
--- NOTE | 2019-05-24 14:40 | NUR ---
DIALYSIS IN PT ROOM. PT SLEEPING.
--- NOTE | 2019-05-24 16:58 | NUR ---
SUMMARY S/P PERMACATH PLACEMENT TO R CW THIS SHIFT. VSS. RECEIVING DIALYSIS AT THIS TIME. SLEEPING OFF AND ON. NO ACUTE CHANGES T/O SHIFT. WORKED W/THERAPY THIS AM. CALL LIGHT IN REACH.
[2019-05-25 06:49] LABS: Hematocrit 29.6 % (37.0-53.0); Hemoglobin 9.3 g/dL (13.5-17.5)
--- NOTE | 2019-05-25 07:43 | NUR ---
SHIFT SUMMARY PT A&O X4 T/O SHIFT. POD#1 PERMACATH PLACEMENT; DRESSING TO RU CHEST WALL CDI. LIQUID STOOL FROM ILEOSTOMY AND FLATUS NOTED. GAUZE DRESSING TO MIDLINE ABD REMOVED AND NEW GAUZE PLACED, SMALL SEROUS DRAINAGE; ABD BINDER IN PLACE. BT X4. PT DENIES SOB, CP/P AND NAUSEA. PAIN MANGED PER EMAR WITH SCREED PERSON. VSS; TELEMETRY IN PLACE SR WITH PAC'S PER TEMEMETRY LOG CHECK SCALER. CPAP WHILE ASLEEP; O2 VIA NC WHILE AWAKE. PT REPOSITIONED WITH LIFT. AT BEDSIDE T/O SHIFT. SCD'S TO BLE'S. EASY-PRESS CALL LIGHT IN REACH. REPORT GIVEN TO DAY SHIFT RN.
[2019-05-25 08:05] LABS: Albumin, Blood 2.1 g/dL (3.4-5.0); Anion Gap 15 mmol/L (6-16); Blood Urea Nitrogen 94 mg/dL (8-24); Bun/Creatinine Ratio 10.7 (12.0-20.0); CO2, Blood 27 mmol/L (21-32); Calcium, Blood 8.7 mg/dL (8.5-10.1); Chloride, Blood 94 mmol/L (98-108); Creatinine, Blood 8.75 mg/dL (0.60-1.20); Glomerular Filtration Rate 6 (60-); Glucose, Blood 110 mg/dL (70-99); Potassium, Blood 4.8 mmol/L (3.5-5.5); Sodium, Blood 136 mmol/L (136-145)
[2019-05-25 08:06] LABS: Magnesium, Blood 2.1 mg/dL (1.6-2.4); Phosphorus, Blood 8.3 mg/dL (2.5-4.9)
--- NOTE | 2019-05-25 09:25 | NUR ---
PT TO DIALYSIS AT APPROX 0915
--- NOTE | 2019-05-25 15:57 | NUR ---
05/25/19 1557 Katie Alvarado VERIFICATIONS.
--- NOTE | 2019-05-25 18:14 | NUR ---
DISCHARGE PT DISCHARGED TO [facility]. PT AND EDUCATED ON OSTOMY APPLIANCE CHANGE AND OSTOMY APPLIANCE WAS CHANGED BEFORE DC. OSTOMY SUPPLIES GIVEN TO . CARE MANAGEMENT SET UP DISCHARGE. OUTPATIENT DIALYSIS AND TRANSPORT ALREADRY ARRANGED. PICC WAS DC'D BY PICC RN. IV DC'D. PT LEFT WITH ALL PERSONAL BELONGINGS INCLUDING BIPAP MACHINE. [facility] WITH [facility].
== END 2019-05-25 18:02 | DRG 853 ==
LOC: ER 23:56 → SURS 05-10 06:22 → ICUE 05-10 06:22 → ICUW 05-10 06:22 → ICUE 05-10 08:10 → SURS 05-20 18:00
PROVIDERS: Emergency Medicine; Internal Medicine; Internal Medicine Critical Care Medicine; Internal Medicine Nephrology; Internal Medicine Pulmonary Disease; Surgery; ADMIT Hospitalist
PROC: 02HV33Z Insertion of Infusion Device into Superior Vena Cava, Percutaneous Approach (ICD-10-PCS; 2019-05-10)
PROC: 0BH17EZ Insertion of Endotracheal Airway into Trachea, Via Natural or Artificial Opening (ICD-10-PCS; 2019-05-10)
PROC: 5A1955Z Respiratory Ventilation, Greater than 96 Consecutive Hours (ICD-10-PCS; 2019-05-10)
PROC: 3E033XZ Introduction of Vasopressor into Peripheral Vein, Percutaneous Approach (ICD-10-PCS; 2019-05-10)
PROC: 0DT80ZZ Resection of Small Intestine, Open Approach (ICD-10-PCS; principal; 2019-05-10 12:10)
PROC: 5A1D70Z Performance of Urinary Filtration, Intermittent, Less than 6 Hours Per Day (ICD-10-PCS; 2019-05-12)
PROC: 5A1D70Z Performance of Urinary Filtration, Intermittent, Less than 6 Hours Per Day (ICD-10-PCS; 2019-05-13)
PROC: 0WQF0ZZ Repair Abdominal Wall, Open Approach (ICD-10-PCS; 2019-05-13)
PROC: 0D1B0Z4 Bypass Ileum to Cutaneous, Open Approach (ICD-10-PCS; 2019-05-13 14:45)
PROC: 5A1D70Z Performance of Urinary Filtration, Intermittent, Less than 6 Hours Per Day (ICD-10-PCS; 2019-05-15)
PROC: 5A1D70Z Performance of Urinary Filtration, Intermittent, Less than 6 Hours Per Day (ICD-10-PCS; 2019-05-17)
PROC: 5A1D70Z Performance of Urinary Filtration, Intermittent, Less than 6 Hours Per Day (ICD-10-PCS; 2019-05-18)
PROC: 5A1D70Z Performance of Urinary Filtration, Intermittent, Less than 6 Hours Per Day (ICD-10-PCS; 2019-05-20)
PROC: 5A1D70Z Performance of Urinary Filtration, Intermittent, Less than 6 Hours Per Day (ICD-10-PCS; 2019-05-22)
PROC: 5A1D70Z Performance of Urinary Filtration, Intermittent, Less than 6 Hours Per Day (ICD-10-PCS; 2019-05-23)
PROC: 02HV33Z Insertion of Infusion Device into Superior Vena Cava, Percutaneous Approach (ICD-10-PCS; 2019-05-24)
PROC: 5A1D70Z Performance of Urinary Filtration, Intermittent, Less than 6 Hours Per Day (ICD-10-PCS; 2019-05-24)
DX: A41.51 Sepsis due to Escherichia coli [E. coli] (principal); K63.1 Perforation of intestine (nontraumatic); K55.019 Acute (reversible) ischemia of small intestine, extent unspecified; R65.21 Severe sepsis with septic shock; J95.821 Acute postprocedural respiratory failure; J96.11 Chronic respiratory failure with hypoxia; E87.1 Hypo-osmolality and hyponatremia; I12.9 Hypertensive chronic kidney disease with stage 1 through stage 4 chronic kidney disease, or unspecified chronic kidney disease; N18.3 Chronic kidney disease, stage 3 (moderate); D63.1 Anemia in chronic kidney disease; Z87.891 Personal history of nicotine dependence; J44.9 Chronic obstructive pulmonary disease, unspecified; Z99.81 Dependence on supplemental oxygen; E78.5 Hyperlipidemia, unspecified; G47.33 Obstructive sleep apnea (adult) (pediatric); R73.9 Hyperglycemia, unspecified; E87.5 Hyperkalemia; F41.9 Anxiety disorder, unspecified; K56.41 Fecal impaction; G20 Parkinson's disease; I77.0 Arteriovenous fistula, acquired; Z87.718 Personal history of other specified (corrected) congenital malformations of genitourinary system; K66.8 Other specified disorders of peritoneum; I48.0 Paroxysmal atrial fibrillation; Z79.01 Long term (current) use of anticoagulants; G25.81 Restless legs syndrome; G60.9 Hereditary and idiopathic neuropathy, unspecified; J45.909 Unspecified asthma, uncomplicated
CPT/HCPCS: 31500; 31720; 36415; 36430; 36556; 36569; 36600; 71045; 71046; 74176; 77001; 80048; 80053; 80069; 80202; 82248; 82330; 82374; 82803; 82947; 83605; 83690; 83735; 83880; 84100; 84132; 84478; 84484; 84520; 85014; 85018; 85025; 85610; 85730; 86850; 86900; 86901; 86923; 87040; 87077; 87186; 88307; 92610; 93005; 93010; 93990; 94002; 94003; 94640; 94644; 94660; 94667; 94762; 96365; 96375; 96376; 97110; 97163; 97166; 97530; 99285-25; C1750; C1751; C8929; C9113; J0171; J0282; J0360; J0610; J0696; J0881; J1100; J1170; J1644; J1815; J2060; J2250; J2270; J2370; J2405; J2543; J2704; J2765; J3010; J3370; J3475; J3480; J7030; J7040; J7050; J7060; J7120; J7131; J7799; P9016; P9046; Q9957

== ENCOUNTER 2019-07-14 10:56 | Day surgery (SDC) | payer MEDICARE ==
[2019-07-14] MEDS ORDERED: TRAZ150T57 PO (12:15)
[2019-07-14] MEDS ORDERED: ELIQUIS2.5 MG PO (12:16)
[2019-07-14] MEDS ORDERED: ONDA4 PO (12:17)
[2019-07-14] MEDS ORDERED: LORA.5 PO (12:17)
[2019-07-14] MEDS ORDERED: Percocet 5-3251 EACH PO (12:17)
--- NOTE | 2019-07-14 14:56 | NUR ---
SUTURES REMOVED WITHOUT ANY COMPLICATIONS. PT DRESSED WITH NO BLEEDING NOTED. IV DCD WITH CATH INTACT. VSS. PT AND STATE UNDERSTANDING OF SITE CARE AND DC INSTRUCTIONS. PT DCD IN WHEELCHAIR WITH .
== END 2019-07-14 15:10 | disposition home or self-care (01) ==
LOC: MHTC 10:56
DX: T82.858A Stenosis of other vascular prosthetic devices, implants and grafts, initial encounter (principal); I12.0 Hypertensive chronic kidney disease with stage 5 chronic kidney disease or end stage renal disease; N18.6 End stage renal disease; J45.909 Unspecified asthma, uncomplicated; I48.91 Unspecified atrial fibrillation; K21.9 Gastro-esophageal reflux disease without esophagitis; E78.5 Hyperlipidemia, unspecified; G47.33 Obstructive sleep apnea (adult) (pediatric); Z99.89 Dependence on other enabling machines and devices; Z87.891 Personal history of nicotine dependence; Z88.1 Allergy status to other antibiotic agents; Z88.2 Allergy status to sulfonamides; Z88.8 Allergy status to other drugs, medicaments and biological substances; Z79.899 Other long term (current) drug therapy; Z79.01 Long term (current) use of anticoagulants
CPT/HCPCS: 36902; 76937; 99152; 99153; C1725; C1769; C1887; C1894; J1644; J2250; J3010; J7030; Q9967

== ENCOUNTER 2019-08-05 23:04 | Emergency (ER) | payer MEDICARE ==
[~2019-08-05] VITALS: Ht 180.3 cm; Wt 135.2 kg
[~2019-08-05 23:04] MED LIST changes: +ELIQUIS2.5 MG PO; +LORA.5 PO; +ONDA4 PO; +Percocet 5-3251 EACH PO; +TRAZ150T57 PO
[2019-08-06 00:26] LABS: BASOPHILS ABSOLUTE AUTO 0.04 K/mm3 (0.00-0.23); BASOPHILS PERCENT AUTO 1 % (0-2); EOSINOPHILS ABSOLUTE AUTO 0.33 K/mm3 (0.00-0.68); EOSINOPHILS PERCENT AUTO 4 % (0-6); Hematocrit 38.2 % (37.0-53.0); Hemoglobin 11.8 g/dL (13.5-17.5); IMMATURE GRAN ABSOLUTE AUTO 0.08 K/mm3 (0.00-0.10); IMMATURE GRAN PERCENT AUTO 1 % (0-1); LYMPHOCYTES ABSOLUTE AUTO 1.58 K/mm3 (0.84-5.20); LYMPHOCYTES PERCENT AUTO 20 % (21-46); MONOCYTES PERCENT AUTO 22 % (4-13); Mean Corpuscular HGB 32.1 pg (26.0-34.0); Mean Corpuscular HGB Conc 30.9 g/dL (31.5-36.5); Mean Corpuscular Volume 104 fL (80-100); Mean Platelet Volume 10.5 fL (9.1-12.4); NEUTROPHILS ABSOLUTE AUTO 4.15 K/mm3 (1.96-9.15); NEUTROPHILS PERCENT AUTO 53 % (41-73); Platelet Count 151 K/mm3 (150-400); RDW Coefficient Variation 20.5 % (11.7-14.2); RDW Standard Deviation 75.6 fL (35.1-46.3); Red Blood Cell Count 3.68 M/mm3 (4.30-5.90); White Blood Cell Count 7.88 K/mm3 (4.00-11.30)
[2019-08-06 00:49] LABS: Albumin, Blood 3.2 g/dL (3.4-5.0); Albumin/Globulin Ratio 0.8 (0.8-1.8); Bilirubin, Total 0.3 mg/dL (0.1-1.0); Bun/Creatinine Ratio 5.8 (12.0-20.0); Calcium, Blood 8.7 mg/dL (8.5-10.1); Creatinine, Blood 7.45 mg/dL (0.60-1.20); Globulin, Blood 3.8 g/dL (2.2-4.0); Potassium, Blood 5.7 mmol/L (3.5-5.5)
== END 2019-08-06 02:55 | disposition home or self-care (01) ==
LOC: ER 23:04
PROVIDERS: Emergency Medicine
DX: L76.22 Postprocedural hemorrhage of skin and subcutaneous tissue following other procedure (principal); Z88.2 Allergy status to sulfonamides; Z88.8 Allergy status to other drugs, medicaments and biological substances; Z88.1 Allergy status to other antibiotic agents; Z79.899 Other long term (current) drug therapy; N18.6 End stage renal disease; F41.9 Anxiety disorder, unspecified; Z87.891 Personal history of nicotine dependence
CPT/HCPCS: 36415; 74177; 80053; 85025; 86850; 86900; 86901; 99284-25; Q9967

== ENCOUNTER 2019-08-22 14:29 | Inpatient (IN) | payer MEDICARE ==
[~2019-08-22] VITALS: Ht 180.3 cm; Wt 141.3 kg
[2019-08-22 17:15] LABS: BASOPHILS ABSOLUTE AUTO 0.03 K/mm3 (0.00-0.23); BASOPHILS PERCENT AUTO 0 % (0-2); EOSINOPHILS ABSOLUTE AUTO 0.18 K/mm3 (0.00-0.68); EOSINOPHILS PERCENT AUTO 2 % (0-6); Hematocrit 38.1 % (37.0-53.0); Hemoglobin 11.7 g/dL (13.5-17.5); IMMATURE GRAN ABSOLUTE AUTO 0.05 K/mm3 (0.00-0.10); IMMATURE GRAN PERCENT AUTO 1 % (0-1); LYMPHOCYTES ABSOLUTE AUTO 1.33 K/mm3 (0.84-5.20); LYMPHOCYTES PERCENT AUTO 16 % (21-46); MONOCYTES ABSOLUTE AUTO 1.67 K/mm3 (0.16-1.47); MONOCYTES PERCENT AUTO 20 % (4-13); Mean Corpuscular HGB 31.9 pg (26.0-34.0); Mean Corpuscular HGB Conc 30.7 g/dL (31.5-36.5); Mean Corpuscular Volume 104 fL (80-100); Mean Platelet Volume 10.8 fL (9.1-12.4); NEUTROPHILS ABSOLUTE AUTO 5.14 K/mm3 (1.96-9.15); NEUTROPHILS PERCENT AUTO 61 % (41-73); Platelet Count 138 K/mm3 (150-400); RDW Standard Deviation 75.3 fL (35.1-46.3); Red Blood Cell Count 3.67 M/mm3 (4.30-5.90)
[2019-08-22 19:57] LABS: Magnesium, Blood 1.6 mg/dL (1.6-2.4); Troponin I <0.015 ng/mL (0.000-0.040)
[2019-08-22 20:01] LABS: Alanine Aminotransfer (ALT/SGP 19 U/L (12-78); Albumin, Blood 2.8 g/dL (3.4-5.0); Albumin/Globulin Ratio 0.7 (0.8-1.8); Alk Phos 93 U/L (50-136); Anion Gap 8 mmol/L (6-16); Aspartate Aminotrans (AST/SGOT 68 U/L (12-37); Bilirubin, Total 0.5 mg/dL (0.1-1.0); Blood Urea Nitrogen 53 mg/dL (8-24); Bun/Creatinine Ratio 5.8 (12.0-20.0); CO2, Blood 24 mmol/L (21-32); Calcium, Blood 8.6 mg/dL (8.5-10.1); Chloride, Blood 95 mmol/L (98-108); Creatinine, Blood 9.06 mg/dL (0.60-1.20); Globulin, Blood 4.2 g/dL (2.2-4.0); Glomerular Filtration Rate 6 (60-); Glucose, Blood 120 mg/dL (70-99); Potassium, Blood 6.6 mmol/L (3.5-5.5); Sodium, Blood 127 mmol/L (136-145)
[2019-08-22] MEDS ORDERED: TRAZ100 PO (20:45)
[2019-08-22] MEDS ORDERED: Ropinirole HCl0.5 MG PO (20:45)
[2019-08-22] MEDS ORDERED: Midodrine HCl2.5 MG PO (20:46)
[2019-08-22] MEDS ORDERED: FEBU40TA PO (20:50)
[2019-08-22] MEDS ORDERED: BUDE6HFA INH (20:50)
[2019-08-22] MEDS ORDERED: BELSOMRA10 MG PO (20:51)
[2019-08-22] MEDS ORDERED: PREG50 PO (20:51)
[2019-08-22] MEDS ORDERED: TIOT18 INH (20:51)
[2019-08-22] MEDS ORDERED: ATORVASTATIN CA20 MG PO (20:51)
[2019-08-22] MEDS ORDERED: Ventolin/Prove6.7 GM INH (20:52)
[2019-08-22] MEDS ORDERED: Calcium Acetat667 MG PO (20:52)
--- NOTE | 2019-08-23 01:06 | NUR ---
HD 1:1 NON-ROUTINE HOURS HEMODIALYSIS ADMITED TO ICU VIA ER WITH HYPERKALEMIA OF 6.6. RESPIRATORY DISTRESS AND FLUID OVERLOAD ALSO NOTED. 3.5 HOUR HD ORDERED PER DR KHAN.
--- NOTE | 2019-08-23 03:21 | NUR ---
PT TO ICU 7 FROM ER VIA STRETCHER. PT ALERT AND ORIENTED SATS IN THE MID 90'S ON 4L NC. PT HAS AUDIBLE WHEEZES AND IS REQUESTING A BREATHING TX. DR KHAN AT BEDSIDE ORDERING STAT DIALYSIS D/T FLUID OVERLOAD. PT'S USUAL DIALYSIS DAYS T/TH/SAT WITH LAST DIALYSIS BEING 08/20/19. R LOWER ARM FISTULA. PT HAS BILATERAL UPPER/LOWER WEEPING EDEMA. PT HAD ABDOMINAL SURGERY EARLIER THIS YEAR AND HAS HAD MULTIPLE EPISODES OF WOUND DEHISCENCE. CURRENTLY MID ABD WOUND COVERED IN ABD PAD. UPON EXAMINATION WOUND HAS PURULENT, WHITE, FOUL SMELLING DISCHARGE. SKIN SURROUNDING INCISION IS RED AND WARM TO THE TOUCH. PLEASE SEE PICTURES IN PT'S CHART. WILL CLEAN WOUND AND REAPPLY DRESSING. PLEASE SEE ADMISSION HISTORY AND ASSESSMENT. PT HAS RLQ ILEOSTOMY. STOMA BEEFY, RED AND APPEARS WNL. GREENISH WATERY OUTPUT NOTICED.
[2019-08-23 04:43] LABS: Hemoglobin 11.7 g/dL (13.5-17.5); Mean Corpuscular HGB 32.2 pg (26.0-34.0); Mean Corpuscular HGB Conc 31.6 g/dL (31.5-36.5); Mean Corpuscular Volume 102 fL (80-100); Mean Platelet Volume 10.3 fL (9.1-12.4); Platelet Count 122 K/mm3 (150-400); RDW Coefficient Variation 19.8 % (11.7-14.2); RDW Standard Deviation 74.4 fL (35.1-46.3); Red Blood Cell Count 3.63 M/mm3 (4.30-5.90); White Blood Cell Count 5.46 K/mm3 (4.00-11.30)
[2019-08-23 05:00] LABS: Magnesium, Blood 1.8 mg/dL (1.6-2.4)
[2019-08-23 05:16] LABS: Albumin, Blood 3.2 g/dL (3.4-5.0); Albumin/Globulin Ratio 0.9 (0.8-1.8); Bilirubin, Total 0.4 mg/dL (0.1-1.0); Bun/Creatinine Ratio 4.7 (12.0-20.0); Calcium, Blood 8.4 mg/dL (8.5-10.1); Creatinine, Blood 4.65 mg/dL (0.60-1.20); Globulin, Blood 3.7 g/dL (2.2-4.0); Phosphorus, Blood 2.8 mg/dL (2.5-4.9); Total Protein, Blood 6.9 g/dL (6.4-8.2)
[2019-08-23 05:32] LABS: Potassium, Blood 3.8 mmol/L (3.5-5.5)
--- NOTE | 2019-08-23 07:15 | NUR ---
START OF SHIFT NOTE: RECEIVED REPORT FROM PEYMAN ACEVEDO RN, ASSUMED CARE, PATIENT IS SLEEPING BUT AWOKEN EASILY TO SPEECH, ALERT AND ORIENTED, PLEASANT, ASKING FOR SOME WATER, PATIENT STATES THAT HE IS "SLEEPY", LUNG SOUNDS DIMINISHED AND SLIGHT EXPIRATORY WHEEZES NOTED, ON 2L NC, BUT PATIENT C/O DISCOMFORT FROM O2 TUBING, PATIENT IS IN NSR WITH HR 70'S, MIDSBDOMINAL INCISION COVERED WITH DRESSING, PATIENT DENIES PAIN, LOW GRADE TEMP, PATIENT C/O BEING WARM, ALL BLANKETS TAKEN OFF, ILEOSTOMY IN PLACE AND SOME DRAINAGE NOTED, POWERGLIDE IN SALVATORE, NS INFUSING AT THIS TIME, SBP INCREASED TO 110'S/90'S, PEDAL PULSES FAINT BUT PALPABLE, CALL LIGHT IN REACH, WILL CONTINUE TO MONITOR.
--- NOTE | 2019-08-23 07:22 | NUR ---
SHIFT SUMMARY PT REMAINS STABLE OVERNIGHT. DIALYSIS COMPLETED AT 0430, PT HYPOTENSIVE FOLLOWING COMPLETION OF DIALYSIS. CALLED DR. KHAN, ORDER TO START 500 ML BOLUS FOLLOWED BY 75 ML/HR NS. IF FLUID FAILS TO INCREASE BP CALL FOR LEVOPHED. PT FEBRILE THIS MORNING WITH TEMP OF 99.1. 100 ML ILEOSTOMY OUTPUT. ABDOMINAL WOUND CLEANED AND REDRESSED. WILL REPORT TO DAYSHIFT NURSE.
--- NOTE | 2019-08-23 09:37 | NUR ---
CALLED DR. KHAN WITH PATIENT UPDATE, NEW ORDERS RECEIVED.
--- NOTE | 2019-08-23 10:30 | NUR ---
IN TO SEE PATIENT, UPDATE PROVIDED.
[2019-08-23 12:11] LABS: Vancomycin, Random 12.9 ug/mL
--- NOTE | 2019-08-23 13:08 | NUR ---
REPORT GIVEN TO NAHOMI REY RN.
--- NOTE | 2019-08-23 13:29 | NUR ---
ASSUMED CARE REPORT FROM TERI TERRY. DR. YOON IN. OSTOMY BAG EMPTIED OF 200 CC LIGHT BROWN STOOL.
--- NOTE | 2019-08-23 13:38 | NUR ---
PATIENT C/O TONGUE HURTING. REPORTS HE BIT IT SOME TIME AGO AND IT HAS NEVER HEALED
--- NOTE | 2019-08-23 15:51 | NUR ---
MD VISIT DR. THAPA IN. NO SIGN OF INFECTION PER DR. THAPA. WOUND CULTURE SENT. DR. THAPA CHANGED THE DRESSING AND ORDERED DAMP TO DRY DRESSINGS
--- NOTE | 2019-08-23 23:47 | NUR ---
ASSUMED CARE OF PATIENT AT APPROXIMATELY 1915 FROM NAHOMI Bose RN. PATIENT ALERT AND ORIENTED X4; WEAK; REPORTS N/T TO FEET AND HANDS CHRONIC THAT MAKES EMPTYING OSTOMY BAG DIFFICULT. PATIENT REPORTS PAIN IN BACK AT TIMES AND REQUESTS TO BE REPOSISTIONED. SBP 104; STARTED NEW MEDICATION FOR HYPOTENSION TONIGHT. PATIENT CAN BE VERY TALKATIVE AT TIMES. PATIENT IS LIFT FOR TURNING; ASSISTS AT TIMES; FISTULA RIGHT ARM; PG SALVATORE. PATIENT REPORTS HE HAD LITTLE URINE OUTPUT. SR PAC'S ON HEART MONITOR; OXYGEN SATURATION ABOVE 90% ON 3LPM VIA NC (BASELINE REPORTED IS 4LPM). PG S/L. PATIENT CURRENTLY RESTING IN BED; CALL LIGHT IN REACH; BED IN LOWEST POSISTION; BED ALARM ON; WILL CONTINUE TO MONITOR AND ASSESS UNTIL END OF SHIFT.
[2019-08-24 05:08] LABS: BASOPHILS ABSOLUTE AUTO 0.04 K/mm3 (0.00-0.23); BASOPHILS PERCENT AUTO 0 % (0-2); EOSINOPHILS ABSOLUTE AUTO 0.02 K/mm3 (0.00-0.68); EOSINOPHILS PERCENT AUTO 0 % (0-6); Hematocrit 40.3 % (37.0-53.0); IMMATURE GRAN ABSOLUTE AUTO 0.08 K/mm3 (0.00-0.10); IMMATURE GRAN PERCENT AUTO 1 % (0-1); LYMPHOCYTES ABSOLUTE AUTO 1.13 K/mm3 (0.84-5.20); LYMPHOCYTES PERCENT AUTO 10 % (21-46); MONOCYTES ABSOLUTE AUTO 1.66 K/mm3 (0.16-1.47); MONOCYTES PERCENT AUTO 15 % (4-13); Mean Corpuscular HGB 31.7 pg (26.0-34.0); Mean Corpuscular HGB Conc 29.8 g/dL (31.5-36.5); Mean Platelet Volume 10.6 fL (9.1-12.4); NEUTROPHILS ABSOLUTE AUTO 8.43 K/mm3 (1.96-9.15); NEUTROPHILS PERCENT AUTO 74 % (41-73); Platelet Count 143 K/mm3 (150-400); RDW Coefficient Variation 19.4 % (11.7-14.2); RDW Standard Deviation 74.7 fL (35.1-46.3); Red Blood Cell Count 3.79 M/mm3 (4.30-5.90); White Blood Cell Count 11.36 K/mm3 (4.00-11.30)
[2019-08-24 05:24] LABS: Mean Corpuscular Volume 106 fL (80-100)
[2019-08-24 05:35] LABS: Magnesium, Blood 1.8 mg/dL (1.6-2.4)
[2019-08-24 05:45] LABS: Albumin, Blood 2.9 g/dL (3.4-5.0); Anion Gap 6 mmol/L (6-16); Blood Urea Nitrogen 55 mg/dL (8-24); CO2, Blood 31 mmol/L (21-32); Calcium, Blood 8.9 mg/dL (8.5-10.1); Chloride, Blood 101 mmol/L (98-108); Glomerular Filtration Rate 7 (60-); Glucose, Blood 138 mg/dL (70-99); Phosphorus, Blood 2.2 mg/dL (2.5-4.9); Potassium, Blood 6.3 mmol/L (3.5-5.5); Sodium, Blood 138 mmol/L (136-145)
[2019-08-24 05:46] LABS: Bun/Creatinine Ratio 6.8 (12.0-20.0); Creatinine, Blood 8.09 mg/dL (0.60-1.20)
--- NOTE | 2019-08-24 05:57 | NUR ---
PATIENT SLEPT ABOUT EIGHT HOURS LAST NIGHT. BLOOD PRESSURE LOW THIS MORNING; PRN MIDODRINE GIVEN; BP IMPROVED. CRITICALLY HIGH POTASSIUM AND CREATININE LABS THIS MORNING; PATIENT DIALYSIS PATIENT. PATIENT HAD REMOVED OXYGEN THIS MORNING AND REPORTS IT HAPPENS. WILL CONTINUE TO MONITOR AND ASSESS UNTIL END OF SHIFT.
--- NOTE | 2019-08-24 08:46 | NUR ---
NURSING ICU DAYSHIFT: Assumed care of pt at approx 0700. A/O, pleasant, cooperative w/care. C/O 6.5/10 abd pain, treating w/meds and positioning. Scattered bruising noted to UE's, midline abd incision w/dressing CDI. General weakness noted, able to xfer using one staff assist per pt. Cardiac monitoring in place, NSR, no c/o CP/pressure, BP stable, trace BLE edema. L/S dim in mid and lower lobes, O2 sat upper 90's on 3L NC, c/o dyspnea w/exertion, c/o productive cough though pt swallows sputum specimen. Abd distended, firm, and tender, ostomy present and draining yellow/brown liquid stool, minimal u/o d/t hx of CKD. PG present in LUE, s/l. Fistula present in RAC w/+ bruit/thrill. Pt denies any current needs though is hopeful for possible discharge home today. Call light in reach and pt is able to use w/o difficulty. Plan for 0900 HD. Seen by master automotive glass technician, awaiting rounding from PMD. No s/s of acute distress, cont to monitor for any changes.
[2019-08-24 13:28] LABS: Vancomycin, Random 13.2 ug/mL
--- NOTE | 2019-08-24 18:24 | NUR ---
NURSING ICU DAYSHIFT SUMMARY: No significant changes noted t/o the shift. VS remained stable. HD completed this a.m., tolerated well. Surgeon at bedside for wound assessment, dressing changed. Ostomy appliance changed this afternoon, continues to have large liquid stool output. Seen by PMD, new d/o received. Plan for possible discharge once wound/blood cx's are resulted, pt verbalized understanding though continues to express desire for discharge home. S/O at bedside t/o afternoon, update provided, questions addressed. Pt and s/o deny any questions/needs at this time, call light in reach, cont to monitor until rpt is given to NOC RN.
--- NOTE | 2019-08-24 23:14 | NUR ---
ASSUMED PT CARE FROM [facility] AT 1915 PT SITTING UP IN BED ALERT AND ORIENTED AND ABLE TO MAKE NEEDS KNOWN. AT BEDSIDE. PT ADAMENT ABOUT RECEIVING A SHOWER THAT HE WAS PROMISED TO GET; INFORMED PT THAT WE WOULD GET HIS SHOWER BEFORE BEDTIME. PT IN SHOWER AROUND 1999; PT IS A ONE PERSON STAND-PIVOT TRANSFER. HE STATES HE DOES NOT WALK. AFTER SHOWER PT'S ABDOMINAL DRESSING WAS RE-DRESSED WITH PETROLEUM DRESSING AND WET-TO-DRY GAUZE PLACED OVER; COVERED WITH ABDOMINAL PAD AND SECURED WITH TAPE. ALSO REAPPLIED PT'S OSTOMY, WHICH IS PRODUCING COPIOUS AMOUNTS OF YELLOW/GREEN LIQUID OUTPUT. CALL LIGHT LEFT WITHIN REACH; PT ABLE TO MAKE HIS NEEDS KNOWN.
[2019-08-25 04:04] LABS: BASOPHILS ABSOLUTE AUTO 0.04 K/mm3 (0.00-0.23); BASOPHILS PERCENT AUTO 1 % (0-2); EOSINOPHILS ABSOLUTE AUTO 0.16 K/mm3 (0.00-0.68); EOSINOPHILS PERCENT AUTO 2 % (0-6); Hemoglobin 12.3 g/dL (13.5-17.5); IMMATURE GRAN ABSOLUTE AUTO 0.06 K/mm3 (0.00-0.10); IMMATURE GRAN PERCENT AUTO 1 % (0-1); LYMPHOCYTES ABSOLUTE AUTO 1.94 K/mm3 (0.84-5.20); LYMPHOCYTES PERCENT AUTO 26 % (21-46); MONOCYTES ABSOLUTE AUTO 1.43 K/mm3 (0.16-1.47); MONOCYTES PERCENT AUTO 19 % (4-13); Mean Corpuscular HGB 32.3 pg (26.0-34.0); Mean Corpuscular HGB Conc 30.8 g/dL (31.5-36.5); Mean Corpuscular Volume 105 fL (80-100); Mean Platelet Volume 10.7 fL (9.1-12.4); NEUTROPHILS ABSOLUTE AUTO 3.94 K/mm3 (1.96-9.15); NEUTROPHILS PERCENT AUTO 52 % (41-73); Platelet Count 139 K/mm3 (150-400); RDW Coefficient Variation 19.6 % (11.7-14.2); RDW Standard Deviation 74.9 fL (35.1-46.3); Red Blood Cell Count 3.81 M/mm3 (4.30-5.90); White Blood Cell Count 7.57 K/mm3 (4.00-11.30)
[2019-08-25 04:18] LABS: Albumin, Blood 2.7 g/dL (3.4-5.0); Anion Gap 5 mmol/L (6-16); Blood Urea Nitrogen 43 mg/dL (8-24); Bun/Creatinine Ratio 6.8 (12.0-20.0); CO2, Blood 32 mmol/L (21-32); Calcium, Blood 8.6 mg/dL (8.5-10.1); Chloride, Blood 101 mmol/L (98-108); Creatinine, Blood 6.36 mg/dL (0.60-1.20); Glomerular Filtration Rate 9 (60-); Glucose, Blood 113 mg/dL (70-99); Magnesium, Blood 1.6 mg/dL (1.6-2.4); Potassium, Blood 5.3 mmol/L (3.5-5.5); Sodium, Blood 138 mmol/L (136-145)
--- NOTE | 2019-08-25 06:01 | NUR ---
END OF SHIFT SUMMARY PT HAS SLEPT T/O MOST OF SHIFT. PT IS EASILY AROUSABLE AND ABLE TO MAKE NEEDS KNOWN. PT HAS REMAINED ON 3L VIA OXYGEN WITH BIOX GREATER THAN 91%. MID ABDOMINAL DRESSING HAS REMAINED IN PLACE. ILEOSTOMY CONTINUES WITH OUTPUT; APPLIANCE HAS REMAINED INTACT; STOMA IS RED AND MOIST. CALL LIGHT WITHIN REACH AND PT IS ABLE TO MAKE HIS NEEDS KNOWN. VSS. PT DID NOT VOID THIS SHIFT. WILL CONTINUE TO MONITOR UNTIL REPORT IS HANDED OFF TO ONCOMING RN.
--- NOTE | 2019-08-25 08:00 | NUR ---
INITIAL ASSESMENT PT VERY PLEASENT, ALERT AND ORIENT TIMES FOUR AND DENIES PAIN AT THIS TIME HR IN THE 60S TO 90S. SBP STABLE AFEBRILE AND PULSES T/O. PT ON 3L WITH NO S/S OF RESP DISTRESS. PT TOLERATING DIET WITH NO N/V OR FLATUS. NO BM. NO UO TO GO TO HD TODAY WILL CONT TO MONITOR. CALL LIGHT IN PLACE AND ALL NEEDS ADDRESSED AT THIS TIME
--- NOTE | 2019-08-25 09:10 | NUR ---
PT TRANSPORTED TO DIALYSIS VIA BED AND PORTABLE O2 AND 3L NC WITH NO COMPLICATION. REPORT GIVEN TO HD RN.
--- NOTE | 2019-08-25 10:58 | NUR ---
PT UPDATE PT STILL IN HD
[2019-08-25 12:54] LABS: Vancomycin, Random 19.1 ug/mL
--- NOTE | 2019-08-25 13:00 | NUR ---
PT UPDATE PT BACK FROM HD. 4 LITERS OFF AND TOLERATED WELL. ABD DRESSING CHANGED PER MD ORDER WOUND BED PINK EDGES APOX WOUND BED PINK AND CLOSED SCANT LIGHT YELLOW DRAINAGE ON DRESSING AND NO ODOR. PT ALERT AND ORIENT TIMES FOUR DENIES PAIN. GETTING DRESSED AND WILL D/C HOME PER MD ORDER
[2019-08-25] MEDS ORDERED: Florastor250 MG PO (14:47)
--- NOTE | 2019-08-25 15:13 | NUR ---
DISCHARGE PT DISCHARGED HOME VIA W/C WITH ALL BELONGINGS AND EDUCATION COMPLETE
== END 2019-08-25 15:00 | disposition home health service (06) | DRG 919 ==
LOC: ER 14:29 → ICUE 21:11 → ERHOLD 21:11 → ICUE 23:16 → ICUW 08-23 13:06 → ICUE 08-23 13:07
PROVIDERS: Emergency Medicine; Family Medicine; Internal Medicine Nephrology; ADMIT Internal Medicine
PROC: 5A1D70Z Performance of Urinary Filtration, Intermittent, Less than 6 Hours Per Day (ICD-10-PCS; principal; 2019-08-22)
DX: T81.31XA Disruption of external operation (surgical) wound, not elsewhere classified, initial encounter (principal); N18.6 End stage renal disease; N25.81 Secondary hyperparathyroidism of renal origin; Q61.3 Polycystic kidney, unspecified; J96.11 Chronic respiratory failure with hypoxia; Z68.41 Body mass index [BMI] 40.0-44.9, adult; I12.0 Hypertensive chronic kidney disease with stage 5 chronic kidney disease or end stage renal disease; M19.90 Unspecified osteoarthritis, unspecified site; J44.9 Chronic obstructive pulmonary disease, unspecified; E78.5 Hyperlipidemia, unspecified; E87.5 Hyperkalemia; G47.33 Obstructive sleep apnea (adult) (pediatric); Z99.2 Dependence on renal dialysis; Z93.2 Ileostomy status; E87.70 Fluid overload, unspecified; I95.9 Hypotension, unspecified; D69.6 Thrombocytopenia, unspecified; G25.81 Restless legs syndrome; K21.9 Gastro-esophageal reflux disease without esophagitis; M10.9 Gout, unspecified; E66.01 Morbid (severe) obesity due to excess calories
CPT/HCPCS: 36415; 71045; 80053; 80069; 80202; 83605; 83735; 83880; 84100; 84145; 84484; 85025; 85027; 87040; 87070; 87075; 87077; 87186; 87205; 93005; 93010; 94640; 96365; 96366; 96375; 96376; 99285-25; C1751; J0610; J0692; J1815; J2930; J3010; J3370; J7030; J7040; J7050; P9046

== ENCOUNTER → 2019-09-15 | Outpatient (CLI) | payer MEDICARE ==
[~2019-09-15] MED LIST changes: +ATORVASTATIN CA20 MG PO; +BELSOMRA10 MG PO; +Calcium Acetat667 MG PO; +Florastor250 MG PO; +Midodrine HCl2.5 MG PO; +PREG50 PO; +Ropinirole HCl0.5 MG PO; +TRAZ100 PO; +Ventolin/Prove6.7 GM INH
== END | disposition home or self-care (01) ==
LOC: LAB DAV 10:15 → LAB SHORT 10:15
DX: N18.6 End stage renal disease (principal)
CPT/HCPCS: 82533

== ENCOUNTER 2019-09-28 16:39 | Emergency (ER) | payer MEDICARE ==
[~2019-09-28] VITALS: Ht 180.3 cm; Wt 134.7 kg
[2019-09-28 17:24] LABS: BASOPHILS ABSOLUTE AUTO 0.07 K/mm3 (0.00-0.23); BASOPHILS PERCENT AUTO 1 % (0-2); EOSINOPHILS ABSOLUTE AUTO 0.13 K/mm3 (0.00-0.68); EOSINOPHILS PERCENT AUTO 1 % (0-6); Hemoglobin 14.8 g/dL (13.5-17.5); IMMATURE GRAN PERCENT AUTO 1 % (0-1); LYMPHOCYTES ABSOLUTE AUTO 1.78 K/mm3 (0.84-5.20); LYMPHOCYTES PERCENT AUTO 19 % (21-46); MONOCYTES ABSOLUTE AUTO 1.98 K/mm3 (0.16-1.47); MONOCYTES PERCENT AUTO 21 % (4-13); Mean Corpuscular HGB 30.8 pg (26.0-34.0); Mean Corpuscular HGB Conc 30.8 g/dL (31.5-36.5); Mean Corpuscular Volume 100 fL (80-100); Mean Platelet Volume 10.2 fL (9.1-12.4); NEUTROPHILS ABSOLUTE AUTO 5.27 K/mm3 (1.96-9.15); NEUTROPHILS PERCENT AUTO 56 % (41-73); Platelet Count 241 K/mm3 (150-400); RDW Coefficient Variation 18.6 % (11.7-14.2); RDW Standard Deviation 67.6 fL (35.1-46.3); White Blood Cell Count 9.33 K/mm3 (4.00-11.30)
[2019-09-28 17:51] LABS: Albumin, Blood 3.6 g/dL (3.4-5.0); Albumin/Globulin Ratio 0.8 (0.8-1.8); Bilirubin, Total 0.7 mg/dL (0.1-1.0); Bun/Creatinine Ratio 5.4 (12.0-20.0); Calcium, Blood 10.1 mg/dL (8.5-10.1); Creatinine, Blood 5.59 mg/dL (0.60-1.20); Globulin, Blood 4.7 g/dL (2.2-4.0); Potassium, Blood 6.2 mmol/L (3.5-5.5); Total Protein, Blood 8.3 g/dL (6.4-8.2)
== END 2019-09-28 19:35 | disposition home or self-care (01) ==
LOC: ER 16:39
PROVIDERS: Emergency Medicine
DX: I95.9 Hypotension, unspecified (principal); I12.0 Hypertensive chronic kidney disease with stage 5 chronic kidney disease or end stage renal disease; N18.6 End stage renal disease; Z99.2 Dependence on renal dialysis; Z87.891 Personal history of nicotine dependence; Z88.2 Allergy status to sulfonamides; Z88.8 Allergy status to other drugs, medicaments and biological substances; Z88.1 Allergy status to other antibiotic agents; Z91.048 Other nonmedicinal substance allergy status; Z79.899 Other long term (current) drug therapy; Z79.01 Long term (current) use of anticoagulants
CPT/HCPCS: 36415; 80053; 85025; 93005; 93010; 99283-25

== ENCOUNTER → 2019-10-14 | Outpatient (CLI) | payer MEDICARE | END | disposition home or self-care (01) | LOC: OLS 16:34 → LAB SHORT 16:34 | DX: S91.302A Unspecified open wound, left foot, initial encounter (principal); L08.9 Local infection of the skin and subcutaneous tissue, unspecified | CPT/HCPCS: 87070; 87075; 87077; 87186; 87205 ==

== ENCOUNTER 2019-12-02 00:59 | Day surgery (SDC) | payer MEDICARE | END 2019-12-02 23:07 | disposition home or self-care (01) | LOC: WOUND 00:59 | DX: L89.623 Pressure ulcer of left heel, stage 3 (principal); L89.301 Pressure ulcer of unspecified buttock, stage 1; L89.612 Pressure ulcer of right heel, stage 2; I12.0 Hypertensive chronic kidney disease with stage 5 chronic kidney disease or end stage renal disease; N18.4 Chronic kidney disease, stage 4 (severe); G20 Parkinson's disease; E66.01 Morbid (severe) obesity due to excess calories; J45.909 Unspecified asthma, uncomplicated; G47.33 Obstructive sleep apnea (adult) (pediatric); N25.81 Secondary hyperparathyroidism of renal origin; Z99.2 Dependence on renal dialysis; Z88.1 Allergy status to other antibiotic agents; Z88.2 Allergy status to sulfonamides; Z88.8 Allergy status to other drugs, medicaments and biological substances; Z87.891 Personal history of nicotine dependence; Z68.41 Body mass index [BMI] 40.0-44.9, adult; Z79.899 Other long term (current) drug therapy; Z79.01 Long term (current) use of anticoagulants; Z79.51 Long term (current) use of inhaled steroids | CPT/HCPCS: G0463 ==

== ENCOUNTER 2019-12-09 01:00 | Day surgery (SDC) | payer MEDICARE | END 2019-12-09 23:00 | disposition home or self-care (01) | LOC: WOUND 01:00 | DX: L89.623 Pressure ulcer of left heel, stage 3 (principal); L89.322 Pressure ulcer of left buttock, stage 2; L89.612 Pressure ulcer of right heel, stage 2; L98.491 Non-pressure chronic ulcer of skin of other sites limited to breakdown of skin; I12.9 Hypertensive chronic kidney disease with stage 1 through stage 4 chronic kidney disease, or unspecified chronic kidney disease; N18.9 Chronic kidney disease, unspecified; J45.909 Unspecified asthma, uncomplicated; E78.5 Hyperlipidemia, unspecified; G20 Parkinson's disease; E66.9 Obesity, unspecified; Z68.41 Body mass index [BMI] 40.0-44.9, adult; Z99.2 Dependence on renal dialysis; Z79.899 Other long term (current) drug therapy; Z79.01 Long term (current) use of anticoagulants ==

== ENCOUNTER 2019-12-16 00:54 | Day surgery (SDC) | payer MEDICARE | END 2019-12-16 23:14 | disposition home or self-care (01) | LOC: WOUND 00:54 | DX: L89.623 Pressure ulcer of left heel, stage 3 (principal); L89.612 Pressure ulcer of right heel, stage 2; L89.301 Pressure ulcer of unspecified buttock, stage 1; L98.491 Non-pressure chronic ulcer of skin of other sites limited to breakdown of skin; I12.9 Hypertensive chronic kidney disease with stage 1 through stage 4 chronic kidney disease, or unspecified chronic kidney disease; N18.9 Chronic kidney disease, unspecified; G47.33 Obstructive sleep apnea (adult) (pediatric); J45.909 Unspecified asthma, uncomplicated; E78.5 Hyperlipidemia, unspecified; G20 Parkinson's disease; E66.01 Morbid (severe) obesity due to excess calories; Z99.2 Dependence on renal dialysis; Z68.41 Body mass index [BMI] 40.0-44.9, adult; Z79.899 Other long term (current) drug therapy; Z79.01 Long term (current) use of anticoagulants; Z79.51 Long term (current) use of inhaled steroids ==

== ENCOUNTER 2019-12-23 02:27 | Day surgery (SDC) | payer MEDICARE | END 2019-12-23 23:49 | disposition home or self-care (01) | LOC: WOUND 02:27 | DX: L89.623 Pressure ulcer of left heel, stage 3 (principal); L89.612 Pressure ulcer of right heel, stage 2; L89.301 Pressure ulcer of unspecified buttock, stage 1; I12.9 Hypertensive chronic kidney disease with stage 1 through stage 4 chronic kidney disease, or unspecified chronic kidney disease; N18.9 Chronic kidney disease, unspecified; E78.5 Hyperlipidemia, unspecified; G20 Parkinson's disease; E66.01 Morbid (severe) obesity due to excess calories; G47.33 Obstructive sleep apnea (adult) (pediatric); J45.909 Unspecified asthma, uncomplicated; N25.81 Secondary hyperparathyroidism of renal origin; Z99.89 Dependence on other enabling machines and devices; Z99.2 Dependence on renal dialysis; Z79.899 Other long term (current) drug therapy; Z79.01 Long term (current) use of anticoagulants | CPT/HCPCS: G0463 ==

== ENCOUNTER 2019-12-29 00:26 | Day surgery (SDC) | payer MEDICARE | END 2019-12-29 23:10 | disposition home or self-care (01) | LOC: WOUND 00:26 | DX: L89.623 Pressure ulcer of left heel, stage 3 (principal); L89.612 Pressure ulcer of right heel, stage 2; L89.301 Pressure ulcer of unspecified buttock, stage 1; L98.491 Non-pressure chronic ulcer of skin of other sites limited to breakdown of skin; I12.9 Hypertensive chronic kidney disease with stage 1 through stage 4 chronic kidney disease, or unspecified chronic kidney disease; N18.9 Chronic kidney disease, unspecified; J45.909 Unspecified asthma, uncomplicated; E66.01 Morbid (severe) obesity due to excess calories; G20 Parkinson's disease; G47.33 Obstructive sleep apnea (adult) (pediatric); N25.81 Secondary hyperparathyroidism of renal origin; Z99.2 Dependence on renal dialysis; Z68.41 Body mass index [BMI] 40.0-44.9, adult; Z79.899 Other long term (current) drug therapy ==

== ENCOUNTER 2020-01-06 00:35 | Day surgery (SDC) | payer MEDICARE ==
[2020-01-23] MEDS ORDERED: Midodrine HCl10 MG PO (13:58)
[2020-01-23] MEDS ORDERED: Fludrocortison0.1 MG PO (13:58)
[2020-01-23] MEDS ORDERED: LORAZEPAM0.5 MG PO (14:55)
[2020-01-23] MEDS ORDERED: PREGABALIN75 MG PO (14:55)
[2020-01-24] MEDS ORDERED: BELSOMRA10 MG PO (12:24)
[2020-01-24] MEDS ORDERED: BIOTIN1000 MCG PO (12:25)
[2020-01-24] MEDS ORDERED: NORTHERA100 MG PO (14:50)
[2020-01-24] MEDS ORDERED: LIDO-PRILO CAI1 EACH TOP (14:57)
[2020-01-24] MEDS ORDERED: VELTASSA8.4 GM PO (14:59)
[2020-01-24] MEDS ORDERED: Calcium Acetat667 MG PO (15:01)
[2020-01-24] MEDS ORDERED: B-121000 MC2 PO (15:02)
[2020-01-24] MEDS ORDERED: KRILL OIL 3501 EACH PO (15:03)
[2020-01-24] MEDS ORDERED: Anti-Diarrheal2 MG (15:05)
[2020-01-24] MEDS ORDERED: PROAIR RESPICL90 MCG (15:07)
[2020-01-24] MEDS ORDERED: VITAMIN D32000 UNI3 PO (15:10)
[2020-01-24] MEDS ORDERED: RENAL VITAMIN0.8 MG PO (15:10)
[2020-01-25] MEDS ORDERED: AZIT250 PO (15:48)
[2020-01-25] MEDS ORDERED: CEFD300 PO (15:49)
[2020-01-25] MEDS ORDERED: BASAGLAR K100 UNIT/1 SC (15:51)
[2020-01-25] MEDS ORDERED: INSULIN LI100 UNIT/2 SC (15:57)
== END 2020-01-06 23:41 | disposition home or self-care (01) ==
LOC: WOUND 00:35
DX: L89.623 Pressure ulcer of left heel, stage 3 (principal); L89.612 Pressure ulcer of right heel, stage 2; L89.301 Pressure ulcer of unspecified buttock, stage 1; I12.9 Hypertensive chronic kidney disease with stage 1 through stage 4 chronic kidney disease, or unspecified chronic kidney disease; N18.9 Chronic kidney disease, unspecified; L98.491 Non-pressure chronic ulcer of skin of other sites limited to breakdown of skin; J45.909 Unspecified asthma, uncomplicated; G20 Parkinson's disease; E66.01 Morbid (severe) obesity due to excess calories; N25.81 Secondary hyperparathyroidism of renal origin; G47.33 Obstructive sleep apnea (adult) (pediatric); E78.5 Hyperlipidemia, unspecified; Z99.2 Dependence on renal dialysis; Z99.89 Dependence on other enabling machines and devices; Z68.41 Body mass index [BMI] 40.0-44.9, adult; Z79.899 Other long term (current) drug therapy; Z79.01 Long term (current) use of anticoagulants

== ENCOUNTER 2020-01-13 01:08 | Day surgery (SDC) | payer MEDICARE | END 2020-01-13 23:41 | disposition home or self-care (01) | LOC: WOUND 01:08 | DX: L89.623 Pressure ulcer of left heel, stage 3 (principal); L89.612 Pressure ulcer of right heel, stage 2; L89.301 Pressure ulcer of unspecified buttock, stage 1; L98.491 Non-pressure chronic ulcer of skin of other sites limited to breakdown of skin; L98.9 Disorder of the skin and subcutaneous tissue, unspecified; I12.0 Hypertensive chronic kidney disease with stage 5 chronic kidney disease or end stage renal disease; N18.6 End stage renal disease; Q61.3 Polycystic kidney, unspecified; N25.81 Secondary hyperparathyroidism of renal origin; I48.91 Unspecified atrial fibrillation; G47.33 Obstructive sleep apnea (adult) (pediatric); J45.909 Unspecified asthma, uncomplicated; K21.9 Gastro-esophageal reflux disease without esophagitis; G89.29 Other chronic pain; M54.9 Dorsalgia, unspecified; E78.5 Hyperlipidemia, unspecified; G20 Parkinson's disease; E66.01 Morbid (severe) obesity due to excess calories; Z79.01 Long term (current) use of anticoagulants; Z79.51 Long term (current) use of inhaled steroids; Z79.899 Other long term (current) drug therapy; Z93.2 Ileostomy status; Z99.2 Dependence on renal dialysis; Z99.89 Dependence on other enabling machines and devices ==

== ENCOUNTER 2020-01-20 01:45 | Day surgery (SDC) | payer MEDICARE ==
[2020-01-23] MEDS ORDERED: Fludrocortison0.1 MG PO (13:58)
[2020-01-23] MEDS ORDERED: Midodrine HCl10 MG PO (13:58)
[2020-01-23] MEDS ORDERED: LORAZEPAM0.5 MG PO (14:55)
[2020-01-23] MEDS ORDERED: PREGABALIN75 MG PO (14:55)
[2020-01-24] MEDS ORDERED: BELSOMRA10 MG PO (12:24)
[2020-01-24] MEDS ORDERED: BIOTIN1000 MCG PO (12:25)
[2020-01-24] MEDS ORDERED: NORTHERA100 MG PO (14:50)
[2020-01-24] MEDS ORDERED: LIDO-PRILO CAI1 EACH TOP (14:57)
[2020-01-24] MEDS ORDERED: VELTASSA8.4 GM PO (14:59)
[2020-01-24] MEDS ORDERED: Calcium Acetat667 MG PO (15:01)
[2020-01-24] MEDS ORDERED: B-121000 MC2 PO (15:02)
[2020-01-24] MEDS ORDERED: KRILL OIL 3501 EACH PO (15:03)
[2020-01-24] MEDS ORDERED: Anti-Diarrheal2 MG (15:05)
[2020-01-24] MEDS ORDERED: PROAIR RESPICL90 MCG (15:07)
[2020-01-24] MEDS ORDERED: VITAMIN D32000 UNI3 PO (15:10)
[2020-01-24] MEDS ORDERED: RENAL VITAMIN0.8 MG PO (15:10)
== END 2020-01-20 23:22 | disposition home or self-care (01) ==
LOC: WOUND 01:45
DX: L89.623 Pressure ulcer of left heel, stage 3 (principal); L89.612 Pressure ulcer of right heel, stage 2; L98.491 Non-pressure chronic ulcer of skin of other sites limited to breakdown of skin; E66.01 Morbid (severe) obesity due to excess calories; G20 Parkinson's disease; E78.5 Hyperlipidemia, unspecified; G47.33 Obstructive sleep apnea (adult) (pediatric); I12.9 Hypertensive chronic kidney disease with stage 1 through stage 4 chronic kidney disease, or unspecified chronic kidney disease; N18.9 Chronic kidney disease, unspecified; J45.909 Unspecified asthma, uncomplicated; Z99.2 Dependence on renal dialysis; Z68.41 Body mass index [BMI] 40.0-44.9, adult; Z79.899 Other long term (current) drug therapy; Z79.01 Long term (current) use of anticoagulants

== ENCOUNTER 2020-01-23 13:15 | Inpatient (IN) | payer MEDICARE ==
[~2020-01-23] VITALS: Ht 177.8 cm; Wt 139.8 kg
[2020-01-23] MEDS ORDERED: Fludrocortison0.1 MG PO ×2 (13:58)
[2020-01-23] MEDS ORDERED: Midodrine HCl10 MG PO ×2 (13:58)
[2020-01-23 14:31] LABS: BASOPHILS ABSOLUTE AUTO 0.03 K/mm3 (0.00-0.23); BASOPHILS PERCENT AUTO 0 % (0-2); EOSINOPHILS ABSOLUTE AUTO 0.11 K/mm3 (0.00-0.68); EOSINOPHILS PERCENT AUTO 1 % (0-6); Hematocrit 38.9 % (37.0-53.0); Hemoglobin 13.2 g/dL (13.5-17.5); IMMATURE GRAN ABSOLUTE AUTO 0.06 K/mm3 (0.00-0.10); IMMATURE GRAN PERCENT AUTO 1 % (0-1); LYMPHOCYTES ABSOLUTE AUTO 0.59 K/mm3 (0.84-5.20); LYMPHOCYTES PERCENT AUTO 5 % (21-46); MONOCYTES ABSOLUTE AUTO 1.15 K/mm3 (0.16-1.47); MONOCYTES PERCENT AUTO 9 % (4-13); Mean Corpuscular HGB 30.4 pg (26.0-34.0); Mean Corpuscular HGB Conc 33.9 g/dL (31.5-36.5); Mean Corpuscular Volume 90 fL (80-100); Mean Platelet Volume 11.7 fL (9.1-12.4); NEUTROPHILS ABSOLUTE AUTO 10.78 K/mm3 (1.96-9.15); NEUTROPHILS PERCENT AUTO 85 % (41-73); Platelet Count 165 K/mm3 (150-400); RDW Coefficient Variation 16.3 % (11.7-14.2); Red Blood Cell Count 4.34 M/mm3 (4.30-5.90); White Blood Cell Count 12.72 K/mm3 (4.00-11.30)
[2020-01-23 14:42] LABS: Albumin, Blood 3.1 g/dL (3.4-5.0); Albumin/Globulin Ratio 0.8 (0.8-1.8); Bilirubin, Total 0.7 mg/dL (0.1-1.0); Globulin, Blood 4.1 g/dL (2.2-4.0); Total Protein, Blood 7.2 g/dL (6.4-8.2)
[2020-01-23 14:47] LABS: Troponin I 0.031 ng/mL (0.000-0.040)
[2020-01-23 14:48] LABS: Creatinine, Blood 7.46 mg/dL (0.60-1.20); Potassium, Blood 7.4 mmol/L (3.5-5.5)
[2020-01-23] MEDS ORDERED: LORAZEPAM0.5 MG PO ×2 (14:55)
[2020-01-23] MEDS ORDERED: PREGABALIN75 MG PO ×2 (14:55)
--- NOTE | 2020-01-23 18:44 | NUR ---
ADMIT NOTE- PT ADMITTED TO ICU FROM ER ON [facility]. AWAKE, ALERT, COOPERATIVE. STATES HAS CHRONIC PAIN-BACK, FEET. RATES 7 ON SCALE. MOVES SLOWLY, BECAME DYSPNEIC WITH LIFTING TO BED AND REPOSITIONING. IMPROVED WITH REST. LUNGS WITH FEW EXP WHEEZES. OXYGEN AT 3 L/MIN. NSR. SBP 100'S. ABDOMEN DISTENDED, TENDER, NO N/V. ANURIC-DIALYSIS PATIENT. PLANS FOR DIALYSIS TODAY. MULTIPLE SKIN SORES WITH DRESSINGS. INSULIN GTT AT 5 UNITS/HR VIA LEFT CHEST IV. VERY DIFFICULT IV STICK. BLOOD SUGAR HIGH-WAITING FOR BLOOD DRAW TO CHECK. PATIENT'S AT BEDSIDE.
[2020-01-23 19:26] LABS: Bun/Creatinine Ratio 7.9 (12.0-20.0); Calcium, Blood 9.9 mg/dL (8.5-10.1); Creatinine, Blood 7.85 mg/dL (0.60-1.20); Glucose, Blood 743 mg/dL (70-99); Potassium, Blood 7.2 mmol/L (3.5-5.5)
--- NOTE | 2020-01-23 19:30 | NUR ---
BLOOD SUGAR REMAINS HIGH. DIALYSIS BEING STARTED. PT HYPOTENSIVE-ALBUMIN ORDERED. MALLORIE HERNANDEZ HERE-UPDATED. PT REPORTS NO FEVER AT HOME, NO SICK CONTACTS.REPORT TO [place] WILLIAMSON
[2020-01-23 20:20] LABS: Glucose (ISTAT POC) 509 mg/dL (70-99)
[2020-01-23 20:25] LABS: Glucose, Blood 570 mg/dL (70-99)
[2020-01-23 20:28] LABS: Adenovirus Not Detected (NOT DETECT); Bordetella pertussis Not Detected (NOT DETECT); Chlamydophila pneumoniae Not Detected (NOT DETECT); Coronavirus 229E Not Detected (NOT DETECT); Coronavirus HKU1 Not Detected (NOT DETECT); Coronavirus NL63 Not Detected (NOT DETECT); Coronavirus OC43 Not Detected (NOT DETECT); Human Metapneumovirus Not Detected (NOT DETECT); Human Rhinovirus/Enterovirus Not Detected (NOT DETECT); Influenza A/2009-H1 Not Detected (NOT DETECT); Influenza A/H1 Not Detected (NOT DETECT); Influenza A/H3 Not Detected (NOT DETECT); Influenza B Not Detected (NOT DETECT); Mycoplasma pneumoniae Not Detected (NOT DETECT); Parainfluenza Virus 1 Not Detected (NOT DETECT); Parainfluenza Virus 2 Not Detected (NOT DETECT); Parainfluenza Virus 3 Not Detected (NOT DETECT); Parainfluenza Virus 4 Not Detected (NOT DETECT); Respiratory Syncytial Virus Not Detected (NOT DETECT)
--- NOTE | 2020-01-23 21:30 | NUR ---
ASSUMPTION OF CARE ASSUMED CARE OF PT @ 1900, PT SLEEPING IN BED, CREDIT CONSULTANT IN ROOM OBTAINING ACCESS TO BEGIN DIALYSIS. PT HYPOTENSIVE WITH SBP 60'S-70'S, PT AROUSABLE, AYSMPTOMATIC BUT STS IS VERY TIRED. CALL PLACED TO MALLORIE ELIZABETH SUBWAY REPAIR SUPERVISOR, ORDER FOR FINISH INSPECTOR CONSULT. CALL PLACED TO DR GIBBONS, ORDER FOR PICC LINE ACCESS. PRN MIDODRINE ADMINISTERED, PER PTS , PTS BASELINE IS MILDLY HYPOTENSIVE AND SBP IN THE 80'S IS NORMAL AFTER DIALYSIS AND WHILE SLEEPING. PT EVALUATED FOR PICC LINE PLACEMENT, PER PICC CLEANING PORTER NOT ADVISED AT THIS TIME, PG PLACED TO [facility]. BP IMPROVED, DIALYSIS CONTINUED, WITH 1 UNIT PRBC AND ALBUMIN ADMINISTERED. DR GIBBONS IN TO EVALUATE PT, SEE NEW ORDERS. PT ON 2L PER NC TO MAINTAIN O2>90%, MONITOR SHOWS SINUS RHYTHM WITH HR 80'S. ILEOSTOMY TO RLQ. PHOTOGRAPH CONSENT OBTAINED AND WOUNDS TO BILAT HEELS AND MID ABD ON FILE. HEEL PROTECTORS PLACE, MIDLINE ABD WOUND CLEANED AND MEPILEX APPLIED. INSULIN GTT INFUSING, SEE FLOWSHEET.
[2020-01-24 04:35] LABS: BASOPHILS ABSOLUTE AUTO 0.04 K/mm3 (0.00-0.23); BASOPHILS PERCENT AUTO 0 % (0-2); EOSINOPHILS ABSOLUTE AUTO 0.27 K/mm3 (0.00-0.68); EOSINOPHILS PERCENT AUTO 2 % (0-6); Hematocrit 35.1 % (37.0-53.0); Hemoglobin 11.8 g/dL (13.5-17.5); IMMATURE GRAN ABSOLUTE AUTO 0.05 K/mm3 (0.00-0.10); IMMATURE GRAN PERCENT AUTO 0 % (0-1); LYMPHOCYTES ABSOLUTE AUTO 1.08 K/mm3 (0.84-5.20); LYMPHOCYTES PERCENT AUTO 9 % (21-46); MONOCYTES ABSOLUTE AUTO 1.39 K/mm3 (0.16-1.47); MONOCYTES PERCENT AUTO 12 % (4-13); Mean Corpuscular HGB 30.2 pg (26.0-34.0); Mean Corpuscular HGB Conc 33.6 g/dL (31.5-36.5); Mean Corpuscular Volume 90 fL (80-100); Mean Platelet Volume 10.8 fL (9.1-12.4); NEUTROPHILS ABSOLUTE AUTO 9.09 K/mm3 (1.96-9.15); NEUTROPHILS PERCENT AUTO 76 % (41-73); Platelet Count 162 K/mm3 (150-400); RDW Coefficient Variation 16.2 % (11.7-14.2); RDW Standard Deviation 53.6 fL (35.1-46.3); Red Blood Cell Count 3.91 M/mm3 (4.30-5.90); White Blood Cell Count 11.92 K/mm3 (4.00-11.30)
[2020-01-24 05:03] LABS: Magnesium, Blood 1.6 mg/dL (1.6-2.4)
[2020-01-24 05:28] LABS: Alanine Aminotransfer (ALT/SGP 7 U/L (12-78); Albumin, Blood 2.8 g/dL (3.4-5.0); Albumin/Globulin Ratio 0.8 (0.8-1.8); Alk Phos 90 U/L (50-136); Anion Gap 8 mmol/L (6-16); Aspartate Aminotrans (AST/SGOT 17 U/L (12-37); Bilirubin, Total 0.6 mg/dL (0.1-1.0); Blood Urea Nitrogen 41 mg/dL (8-24); Bun/Creatinine Ratio 6.5 (12.0-20.0); CO2, Blood 28 mmol/L (21-32); Calcium, Blood 9.4 mg/dL (8.5-10.1); Chloride, Blood 96 mmol/L (98-108); Globulin, Blood 3.6 g/dL (2.2-4.0); Glomerular Filtration Rate 9 (60-); Glucose, Blood 231 mg/dL (70-99); Potassium, Blood 5.3 mmol/L (3.5-5.5); Total Protein, Blood 6.4 g/dL (6.4-8.2)
[2020-01-24 05:31] LABS: Sodium, Blood 132 mmol/L (136-145)
--- NOTE | 2020-01-24 06:18 | NUR ---
SHIFT SUMMARY PT RESTED T/O SHIFT, REMAINS AROUSABLE TO VERBAL STIMULI AND ORIENTED TO SELF, PLACE, EVENT AND FOLLOWING DIRECTIONS. PT REMAINS ON 2L PER NC TO MAINTAIN SATURATIONS>90%. MONITOR SHOWS SINUS RHYTHM WITH HR 80'S, PT REMAINS HYPOTENSIVE, PRN MIDODRINE PROVIDED (SEE MAR). PT RESISTANT TO SOME NURSING CARE, DECLINES REPOSITIONING AT TIMES, PT JONAS AND ABLE TO MAKE MINOR REPOSITIONS INDEPENDENTLY. PT REPORTS DESIRE TO GET UP AND WALK AROUND, OFFERED GETTING PT UP TO CHAIR, PT DECLINED. CALL LIGHT WITHIN REACH.
--- NOTE | 2020-01-24 08:30 | NUR ---
ASSESSMENT- PT AWAKE, ALERT, COOPERATIVE. FORGETFUL AT TIMES. C/O GENERALIZED PAIN-STATES USUALLY LIVES WITH LEVEL 7 AT HOME. DOES TAKE PRN PAIN MEDS AT HOME. NSR. SBP 90'S. EATING BREAKFAST WITH ASSISTANCE FROM . STATES NOT ABLE TO FEED SELF. HAS NEUROPATHY BOTH HANDS AND FEET/LOWER LEGS. RIGHT HAND WITH CONTRACTURE. LEFT UPPER ARM POWER GLIDE DI-BLOOD DRAWN. BLOOD SUGAR 299. LEFT CHEST PIV INTACT. NS D/C. ABDOMEN LARGE, TENDER TO TOUCH. NO N/V. DR. BARRERA HERE-UPDATED. ORDERS FOR PCU STATUS. DR. GIBBONS HERE. MULTIPLE WOUNDS-LEFT HEEL LARGE WOUND WITH SOME DRAINAGE, NO ODOR, GRANULATION TISSUE. RIGHT FOOT WITH SMALLER WOUND, SCANT DRAINAGE. ML WOUND PINK, MOIST, STATES HAS NOT HEALED SINCE MAY SURGERY. SEE PICTURES.
[2020-01-24] MEDS ORDERED: BELSOMRA10 MG PO ×2 (12:24)
[2020-01-24] MEDS ORDERED: BIOTIN1000 MCG PO ×2 (12:25)
--- NOTE | 2020-01-24 12:30 | NUR ---
BATH DONE, MAXIMUM ASSIST TO TURN. STATES DOESN'T MOVE WELL. DRSGS CHANGED ML ABDOMEN, RIGHT ANKLE AND LEFT HEEL. THREE SMALL PURPLISH AREAS COCCYX PRESENT-SMALL AMOUNT BLEEDING. ALLEVYN APPLIED AND WILL KEEP TURNING TO RELIEVE PRESSURE TOLERATED. DIALYSIS STARTED
--- NOTE | 2020-01-24 13:57 | NUR ---
ATE LUNCH-GOOD APPETITE. TOLERATING DIALYSIS WITH STABLE BP. HAD DOSE MIDIDRINE.
[2020-01-24] MEDS ORDERED: NORTHERA100 MG PO ×2 (14:50)
[2020-01-24] MEDS ORDERED: LIDO-PRILO CAI1 EACH TOP ×2 (14:57)
[2020-01-24] MEDS ORDERED: VELTASSA8.4 GM PO ×2 (14:59)
[2020-01-24] MEDS ORDERED: Calcium Acetat667 MG PO ×2 (15:01)
[2020-01-24] MEDS ORDERED: B-121000 MC2 PO ×2 (15:02)
[2020-01-24] MEDS ORDERED: KRILL OIL 3501 EACH PO ×2 (15:03)
[2020-01-24] MEDS ORDERED: Anti-Diarrheal2 MG ×2 (15:05)
[2020-01-24] MEDS ORDERED: PROAIR RESPICL90 MCG ×2 (15:07)
[2020-01-24] MEDS ORDERED: RENAL VITAMIN0.8 MG PO ×2 (15:10)
[2020-01-24] MEDS ORDERED: VITAMIN D32000 UNI3 PO ×2 (15:10)
--- NOTE | 2020-01-24 16:00 | NUR ---
SBP MARGINAL. PT AWAKE, ALERT, TALKATIVE. AT BEDSIDE. REVIEWED DIABETES, INSULIN INJECTION
--- NOTE | 2020-01-24 17:45 | NUR ---
PT WITH IMPROVED BLOOD PRESSURE. ILEOSTOMY BAG CHANGED TODAY. PT TALKATIVE. AT BEDSIDE. RIGHT UPPER ARM SITE DI. SALVATORE MIDLINE CATH REDRESSED-INTACT. DRSGS INTACT. REPOSITIONED TO DECREASE ANY PRESSURE TO SACRUM. GOOD APPETITE. ANURIC.
--- NOTE | 2020-01-24 19:03 | NUR ---
I met with Mr. Edgar and his at bedside. He is a delightful man who expresses a strong ebenezer in a loving God. He spoke at length about his multiple illnesses, and explained that through all of this, he remains grateful. He appears to have accepted his path with alex and dignity. Strong marriage to the love of his life, and stable, adult children. I encouraged and supported his ebenezer and gratitude. We prayed a prayer of thankfullness. He says he has no fear of the future and is overall very happy in his life. I will remain available.
--- NOTE | 2020-01-24 19:45 | NUR ---
ASSUMED CARE BEDSIDE REPORT RECIEVED. PT IS SITTING UP IN BED, AWAKE, ALERT AND ORIENTED. PT IS PLEASANT AND VERY TALKATIVE. UPDATED PT TO PLAN OF CARE AND PROVIDED EXTENSIVE EDUCATION ABOUT CURRENT ILLNESS AND BLOOD GLUCOSE CONTROL. VITAL SIGN STABLE, PT ON 2L O2 NC. PT TAKING PO FLUID INTAKE WELL. ILEOSTOMY APPLIANCE C/D/I, LIQUID BROWN OUTPUT NOTED. STOMA PINK AND MOIST. PT ANEURIC. RECIEVED DIALYSIS TODAY. FISTULA TO FRANK C/D/I. PG TO SALVATORE C/D/I, IV TO LEFT CHEST C/D/I, SALINE LOCKED. PT WITH MULTIPLE WOUNDS, DRESSINGS INTACT, SEE PHOTOS IN CHART. NO FAMILY AT BEDSIDE. WILL CONTINUE TO MONITOR.
[2020-01-25 03:34] LABS: BASOPHILS ABSOLUTE AUTO 0.03 K/mm3 (0.00-0.23); BASOPHILS PERCENT AUTO 0 % (0-2); EOSINOPHILS ABSOLUTE AUTO 0.18 K/mm3 (0.00-0.68); EOSINOPHILS PERCENT AUTO 2 % (0-6); Hemoglobin 11.5 g/dL (13.5-17.5); IMMATURE GRAN ABSOLUTE AUTO 0.06 K/mm3 (0.00-0.10); IMMATURE GRAN PERCENT AUTO 1 % (0-1); LYMPHOCYTES ABSOLUTE AUTO 1.27 K/mm3 (0.84-5.20); LYMPHOCYTES PERCENT AUTO 13 % (21-46); MONOCYTES ABSOLUTE AUTO 1.32 K/mm3 (0.16-1.47); MONOCYTES PERCENT AUTO 13 % (4-13); Mean Corpuscular HGB Conc 31.9 g/dL (31.5-36.5); NEUTROPHILS ABSOLUTE AUTO 7.29 K/mm3 (1.96-9.15); NEUTROPHILS PERCENT AUTO 72 % (41-73); Platelet Count 145 K/mm3 (150-400); RDW Coefficient Variation 16.2 % (11.7-14.2); Red Blood Cell Count 3.83 M/mm3 (4.30-5.90); White Blood Cell Count 10.15 K/mm3 (4.00-11.30)
[2020-01-25 03:35] LABS: Mean Corpuscular Volume 94 fL (80-100)
[2020-01-25 03:57] LABS: Albumin, Blood 2.6 g/dL (3.4-5.0); Albumin/Globulin Ratio 0.7 (0.8-1.8); Bilirubin, Total 0.6 mg/dL (0.1-1.0); Bun/Creatinine Ratio 5.8 (12.0-20.0); Calcium, Blood 8.6 mg/dL (8.5-10.1); Creatinine, Blood 6.05 mg/dL (0.60-1.20); Globulin, Blood 3.5 g/dL (2.2-4.0); Magnesium, Blood 1.7 mg/dL (1.6-2.4); Phosphorus, Blood 2.7 mg/dL (2.5-4.9); Potassium, Blood 5.2 mmol/L (3.5-5.5); Total Protein, Blood 6.1 g/dL (6.4-8.2)
--- NOTE | 2020-01-25 05:21 | NUR ---
SHIFT SUMMARY NO ACUTE CHANGES THIS SHIFT. PT HAS SLEPT OFF AND ON THROUGHOUT THE NIGHT. WHEN AWAKE PT IS ALERT, ORIENTED, AND VERY TALKATIVE. PT COMPLAINS OF SOME DISCOMFORT TO BACK AND SACRUM. PT STATES REPOSITIONING HAS WORKED WELL. VITAL SIGNS HAVE REMAINED STABLE. PT ON ROOM AIR. PT TAKING PO FLUID INTAKE WELL. ILEOSTOMY REMAINS C/D/I. IV TO LEFT CHEST REMAINS C/D/I. NO FAMILY AT BEDSIDE. WILL CONTINUE TO MONITOR AND REPORT OFF TO ONCOMING RN.
--- NOTE | 2020-01-25 08:00 | NUR ---
ASSUMED CARE RECEIVED REPORT FROM TERI STROUD. PT IS LYING IN BED ASLEEP ON 2L NC SATING 94%. HE HAS AN ILLEOSTOMY IN THE RLQ OF HIS ABDOMEN THAT HAS LIQUID-Y STOOL. HIS ABDOMEN IS DISTENDED. HE IS SALINE LOCKED. BED LOW AND LOCKED. CALL LIGHT WITHIN REACH.
[2020-01-25] MEDS ORDERED: AZIT250 PO ×2 (15:48)
[2020-01-25] MEDS ORDERED: CEFD300 PO ×2 (15:49)
[2020-01-25] MEDS ORDERED: BASAGLAR K100 UNIT/1 SC ×2 (15:51)
[2020-01-25] MEDS ORDERED: INSULIN LI100 UNIT/2 SC ×2 (15:57)
== END 2020-01-25 18:20 | disposition home health service (06) | DRG 640 ==
LOC: ER 13:15 → ICUE 17:24
PROVIDERS: Emergency Medicine; Family Medicine; Internal Medicine Nephrology; ADMIT Internal Medicine
PROC: 5A1D70Z Performance of Urinary Filtration, Intermittent, Less than 6 Hours Per Day (ICD-10-PCS; principal; 2020-01-23)
PROC: 5A1D70Z Performance of Urinary Filtration, Intermittent, Less than 6 Hours Per Day (ICD-10-PCS; 2020-01-24)
DX: E87.5 Hyperkalemia (principal); E11.00 Type 2 diabetes mellitus with hyperosmolarity without nonketotic hyperglycemic-hyperosmolar coma (NKHHC); N18.6 End stage renal disease; J96.21 Acute and chronic respiratory failure with hypoxia; J44.0 Chronic obstructive pulmonary disease with (acute) lower respiratory infection; Z68.41 Body mass index [BMI] 40.0-44.9, adult; Z99.2 Dependence on renal dialysis; E11.65 Type 2 diabetes mellitus with hyperglycemia; I10 Essential (primary) hypertension; N28.1 Cyst of kidney, acquired; N40.0 Benign prostatic hyperplasia without lower urinary tract symptoms; Z99.81 Dependence on supplemental oxygen; I48.91 Unspecified atrial fibrillation; Z93.2 Ileostomy status; Z87.891 Personal history of nicotine dependence; K21.9 Gastro-esophageal reflux disease without esophagitis; G25.81 Restless legs syndrome; R53.81 Other malaise; E11.42 Type 2 diabetes mellitus with diabetic polyneuropathy; E87.1 Hypo-osmolality and hyponatremia; E66.01 Morbid (severe) obesity due to excess calories; F41.9 Anxiety disorder, unspecified; G89.4 Chronic pain syndrome; E87.70 Fluid overload, unspecified; L89.629 Pressure ulcer of left heel, unspecified stage; L89.619 Pressure ulcer of right heel, unspecified stage; G47.33 Obstructive sleep apnea (adult) (pediatric); J20.9 Acute bronchitis, unspecified; Z88.2 Allergy status to sulfonamides; Z88.8 Allergy status to other drugs, medicaments and biological substances; Z88.1 Allergy status to other antibiotic agents; Z79.01 Long term (current) use of anticoagulants; Z79.891 Long term (current) use of opiate analgesic; Z79.51 Long term (current) use of inhaled steroids; Z79.899 Other long term (current) drug therapy
CPT/HCPCS: 0099U; 36415; 71046; 80048; 80053; 82947; 83036; 83735; 83880; 84100; 84484; 85025; 93005; 93010; 94640; 96365; 97162; 97166; 97535; 99285-25; C1751; J0456; J0610; J0696; J1644; J1815; J7050; P9046

== ENCOUNTER 2020-01-27 02:49 | Day surgery (SDC) | payer MEDICARE ==
[~2020-01-27 02:49] MED LIST changes: +Anti-Diarrheal2 MG; +B-121000 MC2 PO; +BASAGLAR K100 UNIT/1 SC; +BIOTIN1000 MCG PO; +CEFD300 PO; +Fludrocortison0.1 MG PO; +INSULIN LI100 UNIT/2 SC; +KRILL OIL 3501 EACH PO; +LIDO-PRILO CAI1 EACH TOP; +LORAZEPAM0.5 MG PO; +Midodrine HCl10 MG PO; +NORTHERA100 MG PO; +PREGABALIN75 MG PO; +PROAIR RESPICL90 MCG; +VITAMIN D32000 UNI3 PO
== END 2020-01-27 23:10 | disposition home or self-care (01) ==
LOC: WOUND 02:49
DX: L89.623 Pressure ulcer of left heel, stage 3 (principal); L89.612 Pressure ulcer of right heel, stage 2; L89.311 Pressure ulcer of right buttock, stage 1; L98.491 Non-pressure chronic ulcer of skin of other sites limited to breakdown of skin; T81.89XD Other complications of procedures, not elsewhere classified, subsequent encounter; I12.9 Hypertensive chronic kidney disease with stage 1 through stage 4 chronic kidney disease, or unspecified chronic kidney disease; N18.4 Chronic kidney disease, stage 4 (severe); M54.9 Dorsalgia, unspecified; G89.29 Other chronic pain; K21.9 Gastro-esophageal reflux disease without esophagitis; E78.5 Hyperlipidemia, unspecified; G20 Parkinson's disease; E66.01 Morbid (severe) obesity due to excess calories; Z99.2 Dependence on renal dialysis; Z87.891 Personal history of nicotine dependence; Z68.41 Body mass index [BMI] 40.0-44.9, adult
CPT/HCPCS: G0463

== ENCOUNTER 2020-02-03 00:20 | Day surgery (SDC) | payer MEDICARE | END 2020-02-03 23:08 | disposition home or self-care (01) | LOC: WOUND 00:20 | DX: L89.623 Pressure ulcer of left heel, stage 3 (principal); L89.612 Pressure ulcer of right heel, stage 2; T81.89XA Other complications of procedures, not elsewhere classified, initial encounter; L98.491 Non-pressure chronic ulcer of skin of other sites limited to breakdown of skin; L89.311 Pressure ulcer of right buttock, stage 1; Z99.2 Dependence on renal dialysis; I12.9 Hypertensive chronic kidney disease with stage 1 through stage 4 chronic kidney disease, or unspecified chronic kidney disease; N18.4 Chronic kidney disease, stage 4 (severe); G47.33 Obstructive sleep apnea (adult) (pediatric); M54.9 Dorsalgia, unspecified; G89.29 Other chronic pain; E78.5 Hyperlipidemia, unspecified; E66.01 Morbid (severe) obesity due to excess calories; G20 Parkinson's disease; Z99.89 Dependence on other enabling machines and devices; Z68.41 Body mass index [BMI] 40.0-44.9, adult ==

== ENCOUNTER 2020-02-10 00:40 | Day surgery (SDC) | payer MEDICARE | END 2020-02-10 22:40 | disposition home or self-care (01) | LOC: WOUND 00:40 | DX: L89.623 Pressure ulcer of left heel, stage 3 (principal); L89.612 Pressure ulcer of right heel, stage 2; L98.491 Non-pressure chronic ulcer of skin of other sites limited to breakdown of skin; L89.301 Pressure ulcer of unspecified buttock, stage 1; I12.0 Hypertensive chronic kidney disease with stage 5 chronic kidney disease or end stage renal disease; N18.6 End stage renal disease; G47.33 Obstructive sleep apnea (adult) (pediatric); E66.01 Morbid (severe) obesity due to excess calories; E78.5 Hyperlipidemia, unspecified; Z68.41 Body mass index [BMI] 40.0-44.9, adult; J45.909 Unspecified asthma, uncomplicated; Z99.2 Dependence on renal dialysis; Z79.899 Other long term (current) drug therapy; Z79.01 Long term (current) use of anticoagulants ==

== ENCOUNTER 2020-02-24 00:15 | Day surgery (SDC) | payer MEDICARE | END 2020-02-24 22:36 | disposition home or self-care (01) | LOC: WOUND 00:15 | DX: L89.623 Pressure ulcer of left heel, stage 3 (principal); L89.612 Pressure ulcer of right heel, stage 2; L89.301 Pressure ulcer of unspecified buttock, stage 1; L98.491 Non-pressure chronic ulcer of skin of other sites limited to breakdown of skin; N18.6 End stage renal disease; G47.33 Obstructive sleep apnea (adult) (pediatric); Q61.3 Polycystic kidney, unspecified; J45.909 Unspecified asthma, uncomplicated; I12.0 Hypertensive chronic kidney disease with stage 5 chronic kidney disease or end stage renal disease; G89.29 Other chronic pain; M54.9 Dorsalgia, unspecified; I48.91 Unspecified atrial fibrillation; K21.9 Gastro-esophageal reflux disease without esophagitis; N25.81 Secondary hyperparathyroidism of renal origin; E78.5 Hyperlipidemia, unspecified; G20 Parkinson's disease; E66.01 Morbid (severe) obesity due to excess calories; Z79.01 Long term (current) use of anticoagulants; Z79.4 Long term (current) use of insulin; Z79.51 Long term (current) use of inhaled steroids; Z79.899 Other long term (current) drug therapy; Z93.2 Ileostomy status; Z99.2 Dependence on renal dialysis ==

== ENCOUNTER 2020-03-02 00:33 | Day surgery (SDC) | payer MEDICARE | END 2020-03-02 22:58 | disposition home or self-care (01) | LOC: WOUND 00:33 | DX: L89.623 Pressure ulcer of left heel, stage 3 (principal); L89.612 Pressure ulcer of right heel, stage 2; L98.491 Non-pressure chronic ulcer of skin of other sites limited to breakdown of skin; L89.301 Pressure ulcer of unspecified buttock, stage 1; J45.909 Unspecified asthma, uncomplicated; I12.0 Hypertensive chronic kidney disease with stage 5 chronic kidney disease or end stage renal disease; N18.6 End stage renal disease; E78.5 Hyperlipidemia, unspecified; G20 Parkinson's disease; E66.01 Morbid (severe) obesity due to excess calories; G47.33 Obstructive sleep apnea (adult) (pediatric); Z99.2 Dependence on renal dialysis; Z68.41 Body mass index [BMI] 40.0-44.9, adult ==

== ENCOUNTER 2020-03-09 00:40 | Day surgery (SDC) | payer MEDICARE | END 2020-03-09 23:12 | disposition home or self-care (01) | LOC: WOUND 00:40 | DX: L89.623 Pressure ulcer of left heel, stage 3 (principal); L98.491 Non-pressure chronic ulcer of skin of other sites limited to breakdown of skin; L89.301 Pressure ulcer of unspecified buttock, stage 1; L89.612 Pressure ulcer of right heel, stage 2; I73.9 Peripheral vascular disease, unspecified; G47.33 Obstructive sleep apnea (adult) (pediatric); I12.9 Hypertensive chronic kidney disease with stage 1 through stage 4 chronic kidney disease, or unspecified chronic kidney disease; N18.4 Chronic kidney disease, stage 4 (severe); E78.5 Hyperlipidemia, unspecified; I48.91 Unspecified atrial fibrillation; G20 Parkinson's disease; J45.909 Unspecified asthma, uncomplicated; Z99.2 Dependence on renal dialysis; Z79.899 Other long term (current) drug therapy ==

== ENCOUNTER 2020-03-16 00:17 | Day surgery (SDC) | payer MEDICARE | END 2020-03-16 22:41 | disposition home or self-care (01) | LOC: WOUND 00:17 | DX: L89.623 Pressure ulcer of left heel, stage 3 (principal); L89.612 Pressure ulcer of right heel, stage 2; L98.491 Non-pressure chronic ulcer of skin of other sites limited to breakdown of skin; L89.301 Pressure ulcer of unspecified buttock, stage 1; I73.9 Peripheral vascular disease, unspecified; Z99.2 Dependence on renal dialysis; I12.9 Hypertensive chronic kidney disease with stage 1 through stage 4 chronic kidney disease, or unspecified chronic kidney disease; N18.9 Chronic kidney disease, unspecified; G47.33 Obstructive sleep apnea (adult) (pediatric); I48.91 Unspecified atrial fibrillation; E78.5 Hyperlipidemia, unspecified; G20 Parkinson's disease; E66.01 Morbid (severe) obesity due to excess calories ==

== ENCOUNTER 2020-03-23 00:27 | Day surgery (SDC) | payer MEDICARE | END 2020-03-23 22:57 | disposition home or self-care (01) | LOC: WOUND 00:27 | DX: L89.623 Pressure ulcer of left heel, stage 3 (principal); L89.612 Pressure ulcer of right heel, stage 2; L98.491 Non-pressure chronic ulcer of skin of other sites limited to breakdown of skin; L89.321 Pressure ulcer of left buttock, stage 1; L89.313 Pressure ulcer of right buttock, stage 3; I73.9 Peripheral vascular disease, unspecified; I12.9 Hypertensive chronic kidney disease with stage 1 through stage 4 chronic kidney disease, or unspecified chronic kidney disease; N18.9 Chronic kidney disease, unspecified; E78.5 Hyperlipidemia, unspecified; G20 Parkinson's disease; E66.01 Morbid (severe) obesity due to excess calories; Z99.2 Dependence on renal dialysis; J45.909 Unspecified asthma, uncomplicated; Z68.41 Body mass index [BMI] 40.0-44.9, adult; Z79.899 Other long term (current) drug therapy; Z79.01 Long term (current) use of anticoagulants; Z79.4 Long term (current) use of insulin ==

== ENCOUNTER 2020-03-29 10:34 | Emergency (ER) | payer MEDICARE ==
[~2020-03-29] VITALS: Ht 180.3 cm; Wt 126.1 kg
== END 2020-03-29 11:53 | disposition home or self-care (01) ==
LOC: ER 10:34
DX: Z43.3 Encounter for attention to colostomy (principal)
CPT/HCPCS: 36415; 99283

== ENCOUNTER 2020-03-30 00:18 | Day surgery (SDC) | payer MEDICARE | END 2020-03-30 23:14 | disposition home or self-care (01) | LOC: WOUND 00:18 | DX: L89.623 Pressure ulcer of left heel, stage 3 (principal); L89.612 Pressure ulcer of right heel, stage 2; L98.491 Non-pressure chronic ulcer of skin of other sites limited to breakdown of skin; L89.321 Pressure ulcer of left buttock, stage 1; I73.9 Peripheral vascular disease, unspecified; I12.9 Hypertensive chronic kidney disease with stage 1 through stage 4 chronic kidney disease, or unspecified chronic kidney disease; J45.909 Unspecified asthma, uncomplicated; N18.9 Chronic kidney disease, unspecified; E66.01 Morbid (severe) obesity due to excess calories; E78.5 Hyperlipidemia, unspecified; G20 Parkinson's disease; K21.9 Gastro-esophageal reflux disease without esophagitis; Z99.2 Dependence on renal dialysis; Z68.41 Body mass index [BMI] 40.0-44.9, adult; Z79.899 Other long term (current) drug therapy; Z79.01 Long term (current) use of anticoagulants | CPT/HCPCS: G0463 ==

== ENCOUNTER 2020-04-06 00:21 | Day surgery (SDC) | payer MEDICARE | END 2020-04-06 23:09 | disposition home or self-care (01) | LOC: WOUND 00:21 | DX: L89.623 Pressure ulcer of left heel, stage 3 (principal); L89.612 Pressure ulcer of right heel, stage 2; L98.491 Non-pressure chronic ulcer of skin of other sites limited to breakdown of skin; L89.321 Pressure ulcer of left buttock, stage 1; L89.313 Pressure ulcer of right buttock, stage 3; I73.9 Peripheral vascular disease, unspecified; I12.9 Hypertensive chronic kidney disease with stage 1 through stage 4 chronic kidney disease, or unspecified chronic kidney disease; N18.9 Chronic kidney disease, unspecified; J45.909 Unspecified asthma, uncomplicated; E78.5 Hyperlipidemia, unspecified; G20 Parkinson's disease; E66.01 Morbid (severe) obesity due to excess calories; G47.33 Obstructive sleep apnea (adult) (pediatric); Z99.2 Dependence on renal dialysis; Z68.41 Body mass index [BMI] 40.0-44.9, adult; Z79.899 Other long term (current) drug therapy; Z79.01 Long term (current) use of anticoagulants | CPT/HCPCS: 87070; 87075; 87205 ==

== ENCOUNTER 2020-04-16 00:47 | Day surgery (SDC) | payer MEDICARE | END 2020-04-16 22:57 | disposition home or self-care (01) | LOC: WOUND 00:47 | DX: L89.623 Pressure ulcer of left heel, stage 3 (principal); L89.612 Pressure ulcer of right heel, stage 2; L98.491 Non-pressure chronic ulcer of skin of other sites limited to breakdown of skin; L89.321 Pressure ulcer of left buttock, stage 1; L89.313 Pressure ulcer of right buttock, stage 3; I73.9 Peripheral vascular disease, unspecified; I12.9 Hypertensive chronic kidney disease with stage 1 through stage 4 chronic kidney disease, or unspecified chronic kidney disease; N18.9 Chronic kidney disease, unspecified; J45.909 Unspecified asthma, uncomplicated; E78.5 Hyperlipidemia, unspecified; G20 Parkinson's disease; E66.01 Morbid (severe) obesity due to excess calories; G47.33 Obstructive sleep apnea (adult) (pediatric); Z99.2 Dependence on renal dialysis; K21.9 Gastro-esophageal reflux disease without esophagitis; Z68.41 Body mass index [BMI] 40.0-44.9, adult; Z79.899 Other long term (current) drug therapy; Z79.01 Long term (current) use of anticoagulants ==

== ENCOUNTER 2020-04-27 00:40 | Day surgery (SDC) | payer MEDICARE | END 2020-04-27 23:44 | disposition home or self-care (01) | LOC: WOUND 00:40 | DX: L89.623 Pressure ulcer of left heel, stage 3 (principal); L89.612 Pressure ulcer of right heel, stage 2; L98.491 Non-pressure chronic ulcer of skin of other sites limited to breakdown of skin; L89.321 Pressure ulcer of left buttock, stage 1; L89.313 Pressure ulcer of right buttock, stage 3; I12.9 Hypertensive chronic kidney disease with stage 1 through stage 4 chronic kidney disease, or unspecified chronic kidney disease; I73.9 Peripheral vascular disease, unspecified; Z99.2 Dependence on renal dialysis; N18.9 Chronic kidney disease, unspecified; E78.5 Hyperlipidemia, unspecified; G20 Parkinson's disease; E66.01 Morbid (severe) obesity due to excess calories; J45.909 Unspecified asthma, uncomplicated; Z68.41 Body mass index [BMI] 40.0-44.9, adult ==

== ENCOUNTER 2020-05-04 01:32 | Day surgery (SDC) | payer MEDICARE | END 2020-05-04 22:43 | disposition home or self-care (01) | LOC: WOUND 01:32 | DX: L89.623 Pressure ulcer of left heel, stage 3 (principal); L98.491 Non-pressure chronic ulcer of skin of other sites limited to breakdown of skin; L89.612 Pressure ulcer of right heel, stage 2; L89.321 Pressure ulcer of left buttock, stage 1; L89.313 Pressure ulcer of right buttock, stage 3; I12.9 Hypertensive chronic kidney disease with stage 1 through stage 4 chronic kidney disease, or unspecified chronic kidney disease; I73.9 Peripheral vascular disease, unspecified; N18.9 Chronic kidney disease, unspecified; E78.5 Hyperlipidemia, unspecified; G20 Parkinson's disease; E66.01 Morbid (severe) obesity due to excess calories; G47.33 Obstructive sleep apnea (adult) (pediatric); Z99.2 Dependence on renal dialysis; J45.909 Unspecified asthma, uncomplicated; Z79.899 Other long term (current) drug therapy; Z79.01 Long term (current) use of anticoagulants; Z68.41 Body mass index [BMI] 40.0-44.9, adult ==

== ENCOUNTER 2020-05-11 00:06 | Day surgery (SDC) | payer MEDICARE ==
[2020-05-23] MEDS ORDERED: FEBU40TA PO (13:09)
[2020-05-23] MEDS ORDERED: NORTHERA100 MG PO (13:12)
[2020-05-23] MEDS ORDERED: BENADRYL25 MG PO (13:12)
[2020-05-23] MEDS ORDERED: BASAGLAR K100 UNIT/1 (13:14)
[2020-05-23] MEDS ORDERED: HUMALOG100 UNIT/1 (13:15)
== END 2020-05-11 22:55 | disposition home or self-care (01) ==
LOC: WOUND 00:06
DX: L89.623 Pressure ulcer of left heel, stage 3 (principal); L89.612 Pressure ulcer of right heel, stage 2; L98.491 Non-pressure chronic ulcer of skin of other sites limited to breakdown of skin; L89.321 Pressure ulcer of left buttock, stage 1; L89.313 Pressure ulcer of right buttock, stage 3; I73.9 Peripheral vascular disease, unspecified; I12.9 Hypertensive chronic kidney disease with stage 1 through stage 4 chronic kidney disease, or unspecified chronic kidney disease; N18.9 Chronic kidney disease, unspecified; I48.91 Unspecified atrial fibrillation; E66.01 Morbid (severe) obesity due to excess calories; E21.3 Hyperparathyroidism, unspecified; G20 Parkinson's disease; Z99.2 Dependence on renal dialysis

== ENCOUNTER 2020-06-29 | Day surgery (SDC) | payer MEDICARE ==
[~2020-06-29] MED LIST changes: +BASAGLAR K100 UNIT/1; +BENADRYL25 MG PO; +HUMALOG100 UNIT/1
== END 2020-06-29 22:49 | disposition home or self-care (01) ==
LOC: WOUND
DX: L89.623 Pressure ulcer of left heel, stage 3 (principal); L98.491 Non-pressure chronic ulcer of skin of other sites limited to breakdown of skin; L89.321 Pressure ulcer of left buttock, stage 1; L89.313 Pressure ulcer of right buttock, stage 3; I12.9 Hypertensive chronic kidney disease with stage 1 through stage 4 chronic kidney disease, or unspecified chronic kidney disease; N18.9 Chronic kidney disease, unspecified; I73.9 Peripheral vascular disease, unspecified; E78.5 Hyperlipidemia, unspecified; G20 Parkinson's disease; E66.01 Morbid (severe) obesity due to excess calories; G47.33 Obstructive sleep apnea (adult) (pediatric); J45.909 Unspecified asthma, uncomplicated; K21.9 Gastro-esophageal reflux disease without esophagitis; Z68.41 Body mass index [BMI] 40.0-44.9, adult; Z79.899 Other long term (current) drug therapy; Z99.2 Dependence on renal dialysis

== ENCOUNTER 2020-07-13 00:11 | Day surgery (SDC) | payer MEDICARE | END 2020-07-13 22:53 | disposition home or self-care (01) | LOC: WOUND 00:11 | DX: L89.623 Pressure ulcer of left heel, stage 3 (principal); L98.491 Non-pressure chronic ulcer of skin of other sites limited to breakdown of skin; L89.321 Pressure ulcer of left buttock, stage 1; L89.313 Pressure ulcer of right buttock, stage 3; I12.9 Hypertensive chronic kidney disease with stage 1 through stage 4 chronic kidney disease, or unspecified chronic kidney disease; I73.9 Peripheral vascular disease, unspecified; J45.909 Unspecified asthma, uncomplicated; E66.01 Morbid (severe) obesity due to excess calories; G20 Parkinson's disease; E78.5 Hyperlipidemia, unspecified; Z99.2 Dependence on renal dialysis; N18.9 Chronic kidney disease, unspecified; Z68.41 Body mass index [BMI] 40.0-44.9, adult; Z79.899 Other long term (current) drug therapy ==

== ENCOUNTER 2020-07-20 00:11 | Day surgery (SDC) | payer MEDICARE | END 2020-07-20 22:43 | disposition home or self-care (01) | LOC: WOUND 00:11 | DX: L89.623 Pressure ulcer of left heel, stage 3 (principal); L98.491 Non-pressure chronic ulcer of skin of other sites limited to breakdown of skin; L89.321 Pressure ulcer of left buttock, stage 1; L89.313 Pressure ulcer of right buttock, stage 3; I12.9 Hypertensive chronic kidney disease with stage 1 through stage 4 chronic kidney disease, or unspecified chronic kidney disease; I73.9 Peripheral vascular disease, unspecified; E66.01 Morbid (severe) obesity due to excess calories; E78.5 Hyperlipidemia, unspecified; J45.909 Unspecified asthma, uncomplicated; N18.9 Chronic kidney disease, unspecified; G47.33 Obstructive sleep apnea (adult) (pediatric); Z99.2 Dependence on renal dialysis; Z68.42 Body mass index [BMI] 45.0-49.9, adult; Z79.899 Other long term (current) drug therapy ==

== ENCOUNTER 2020-07-25 08:58 | Day surgery (SDC) | payer MEDICARE | END 2020-07-25 22:40 | disposition home or self-care (01) | LOC: WOUND 08:58 | DX: L89.623 Pressure ulcer of left heel, stage 3 (principal); L98.491 Non-pressure chronic ulcer of skin of other sites limited to breakdown of skin; L89.321 Pressure ulcer of left buttock, stage 1; L89.313 Pressure ulcer of right buttock, stage 3; I73.9 Peripheral vascular disease, unspecified; Z99.2 Dependence on renal dialysis | CPT/HCPCS: G0463 ==

== ENCOUNTER 2020-08-10 00:36 | Day surgery (SDC) | payer MEDICARE ==
[~2020-08-10 00:36] MED LIST changes: -BASAGLAR K100 UNIT/1; +BIOTIN1 MG PO; -BIOTIN1000 MCG PO; -HUMALOG100 UNIT/1; +HUMALOG100 UNIT/1 SC; -PROAIR RESPICL90 MCG; +PROAIR RESPICL90 MCG INH
== END 2020-08-10 12:00 | disposition home or self-care (01) ==
LOC: WOUND 00:36
DX: L89.623 Pressure ulcer of left heel, stage 3 (principal); L98.491 Non-pressure chronic ulcer of skin of other sites limited to breakdown of skin; L89.321 Pressure ulcer of left buttock, stage 1; L89.313 Pressure ulcer of right buttock, stage 3; I12.9 Hypertensive chronic kidney disease with stage 1 through stage 4 chronic kidney disease, or unspecified chronic kidney disease; I73.9 Peripheral vascular disease, unspecified; Z99.2 Dependence on renal dialysis; E78.5 Hyperlipidemia, unspecified; J45.909 Unspecified asthma, uncomplicated; E66.01 Morbid (severe) obesity due to excess calories; N18.9 Chronic kidney disease, unspecified; G20 Parkinson's disease; Z68.41 Body mass index [BMI] 40.0-44.9, adult; Z79.899 Other long term (current) drug therapy; Z79.4 Long term (current) use of insulin

== ENCOUNTER 2020-08-17 00:43 | Day surgery (SDC) | payer MEDICARE ==
[~2020-08-17 00:43] MED LIST changes: -VITAMIN D32000 UNI3 PO
== END 2020-08-17 23:03 | disposition home or self-care (01) ==
LOC: WOUND 00:43
DX: I96 Gangrene, not elsewhere classified (principal); L89.623 Pressure ulcer of left heel, stage 3; L89.312 Pressure ulcer of right buttock, stage 2; T81.89XA Other complications of procedures, not elsewhere classified, initial encounter; S31.821A Laceration without foreign body of left buttock, initial encounter; E11.9 Type 2 diabetes mellitus without complications; I10 Essential (primary) hypertension; J45.909 Unspecified asthma, uncomplicated; I49.9 Cardiac arrhythmia, unspecified; G47.30 Sleep apnea, unspecified; I95.9 Hypotension, unspecified; Z99.2 Dependence on renal dialysis; Z88.1 Allergy status to other antibiotic agents; Z88.2 Allergy status to sulfonamides; Z88.8 Allergy status to other drugs, medicaments and biological substances; Z79.52 Long term (current) use of systemic steroids; Z79.4 Long term (current) use of insulin; X58.XXXA Exposure to other specified factors, initial encounter; Y83.8 Other surgical procedures as the cause of abnormal reaction of the patient, or of later complication, without mention of misadventure at the time of the procedure
CPT/HCPCS: G0463

== ENCOUNTER 2020-08-27 13:36 | Inpatient (IN) | payer MEDICARE ==
[~2020-08-27] VITALS: Ht 180.3 cm; Wt 126.3 kg
[2020-08-27 16:51] LABS: Albumin, Blood 2.8 g/dL (3.4-5.0); Albumin/Globulin Ratio 0.6 (0.8-1.8); Bilirubin, Total 0.8 mg/dL (0.1-1.0); Bun/Creatinine Ratio 10.8 (12.0-20.0); Calcium, Blood 9.3 mg/dL (8.5-10.1); Creatinine, Blood 6.77 mg/dL (0.60-1.20); Globulin, Blood 4.7 g/dL (2.2-4.0); Potassium, Blood 7.9 mmol/L (3.5-5.5); Total Protein, Blood 7.5 g/dL (6.4-8.2)
[2020-08-27 16:58] LABS: BASOPHILS ABSOLUTE AUTO 0.06 K/mm3 (0.00-0.23); BASOPHILS PERCENT AUTO 0 % (0-2); EOSINOPHILS PERCENT AUTO 1 % (0-6); Hematocrit 35.4 % (37.0-53.0); Hemoglobin 10.2 g/dL (13.5-17.5); IMMATURE GRAN ABSOLUTE AUTO 0.25 K/mm3 (0.00-0.10); IMMATURE GRAN PERCENT AUTO 1 % (0-1); LYMPHOCYTES ABSOLUTE AUTO 1.65 K/mm3 (0.84-5.20); LYMPHOCYTES PERCENT AUTO 9 % (21-46); MONOCYTES ABSOLUTE AUTO 1.46 K/mm3 (0.16-1.47); MONOCYTES PERCENT AUTO 8 % (4-13); Mean Corpuscular HGB 28.6 pg (26.0-34.0); Mean Corpuscular HGB Conc 28.8 g/dL (31.5-36.5); Mean Corpuscular Volume 99 fL (80-100); Mean Platelet Volume 9.8 fL (9.1-12.4); NEUTROPHILS PERCENT AUTO 80 % (41-73); Platelet Count 252 K/mm3 (150-400); RDW Coefficient Variation 21.6 % (11.7-14.2); RDW Standard Deviation 78.6 fL (35.1-46.3); Red Blood Cell Count 3.57 M/mm3 (4.30-5.90); White Blood Cell Count 17.82 K/mm3 (4.00-11.30)
[2020-08-27] MEDS ORDERED: HYDMOR8 PO (17:50)
[2020-08-27] MEDS ORDERED: Ativan1 MG PO (17:50)
[2020-08-27] MEDS ORDERED: Fludrocortison0.1 MG PO (17:51)
[2020-08-27] MEDS ORDERED: ATOR10 PO (17:52)
[2020-08-27] MEDS ORDERED: CARBIDOPA-LEVO1 EA15 PO (17:52)
[2020-08-27] MEDS ORDERED: MIDODRINE HCL10 MG PO (17:53)
[2020-08-27 18:54] LABS: Albumin, Blood 2.8 g/dL (3.4-5.0); Anion Gap 10 mmol/L (6-16); Blood Urea Nitrogen 72 mg/dL (8-24); Bun/Creatinine Ratio 10.3 (12.0-20.0); CO2, Blood 27 mmol/L (21-32); Calcium, Blood 9.6 mg/dL (8.5-10.1); Chloride, Blood 91 mmol/L (98-108); Creatinine, Blood 7.02 mg/dL (0.60-1.20); Glomerular Filtration Rate 8 (60-); Glucose, Blood 166 mg/dL (70-99); Phosphorus, Blood 4.7 mg/dL (2.5-4.9); Sodium, Blood 128 mmol/L (136-145)
--- NOTE | 2020-08-28 00:46 | NUR ---
ADMISSION: APPROX 1914 PATIENT ARRIVED IN DIALYSIS FROM ER, APPROX 1944 REPORT RECIEVED FROM ER. PATIENT ARRIVED TO ROOM PCU10 APPROX 2100 FROM DIALYSIS VIA BED. PATIENT ALERT AND ORIENTED BUT VERY POOR HISTORIAN AND ADMISSION TOOK MANY HOURS TO PEICE TOGETHER. PATIENT UNABLE TO RECALL ANY OF HIS MEDICATIONS AND MUCH OF HIS MEDICAL HX STATING THAT HIS REMEMBERS ALL OF THAT FOR HIM AND HE JUST WANTS HIS PAIN MEDICATION. PATIENT UPSET WHEN MD DID NOT "DOUBLE" HIS HOME PAIN MEDICATION DOSE STATING HE "ALWAYS TAKE EXTRA' AT HOME. PATIENT THEN LOOKED AT ADMITTING NURSE AND STATED HE MIGHT START TO HAVE SPASMS DUE TO TOO MUCH PAIN AND IMMEDIATLY HE STARTED SPASMOTIC TREMORING FROM THE WAIST UP. APPROX 3-4 MINUTES LATER HE STOPPED EXPERIENCING 'TREMORS' IN HIS TRUNK BUT THEN STARTED KICKING HIS LEGS COMPLAINING THAT NOT HAVING HIS PAIN MEDICATION MAKES HIS LEGS 'JUMP HARD'. ALL TREMOR ACTIVITY STOPPED WHEN NURSE WALKED OUT OF SIGHT. PATIENT OTHERWISE ALERT AND ORIENTED, REFUSING TO TURN AND LET STAFF LOOK AT HIS BACKSIDE AFTER STATING HE HAD AN ULCER THERE. PATIENT ORIENTED TO CALL LIGHT HOSPITAL POLICIES AND UNIT.
[2020-08-28 04:10] LABS: BASOPHILS ABSOLUTE AUTO 0.06 K/mm3 (0.00-0.23); BASOPHILS PERCENT AUTO 0 % (0-2); EOSINOPHILS ABSOLUTE AUTO 0.08 K/mm3 (0.00-0.68); EOSINOPHILS PERCENT AUTO 1 % (0-6); Hematocrit 31.1 % (37.0-53.0); Hemoglobin 8.9 g/dL (13.5-17.5); IMMATURE GRAN ABSOLUTE AUTO 0.19 K/mm3 (0.00-0.10); IMMATURE GRAN PERCENT AUTO 1 % (0-1); LYMPHOCYTES ABSOLUTE AUTO 1.93 K/mm3 (0.84-5.20); LYMPHOCYTES PERCENT AUTO 13 % (21-46); MONOCYTES ABSOLUTE AUTO 1.83 K/mm3 (0.16-1.47); MONOCYTES PERCENT AUTO 12 % (4-13); Mean Corpuscular HGB 28.5 pg (26.0-34.0); Mean Corpuscular HGB Conc 28.6 g/dL (31.5-36.5); Mean Corpuscular Volume 100 fL (80-100); Mean Platelet Volume 9.9 fL (9.1-12.4); NEUTROPHILS ABSOLUTE AUTO 10.64 K/mm3 (1.96-9.15); NEUTROPHILS PERCENT AUTO 72 % (41-73); Platelet Count 229 K/mm3 (150-400); RDW Coefficient Variation 21.6 % (11.7-14.2); RDW Standard Deviation 78.7 fL (35.1-46.3); Red Blood Cell Count 3.12 M/mm3 (4.30-5.90); White Blood Cell Count 14.73 K/mm3 (4.00-11.30)
[2020-08-28 04:45] LABS: Alanine Aminotransfer (ALT/SGP <6 U/L (12-78); Albumin, Blood 2.6 g/dL (3.4-5.0); Albumin/Globulin Ratio 0.6 (0.8-1.8); Alk Phos 116 U/L (50-136); Anion Gap 7 mmol/L (6-16); Aspartate Aminotrans (AST/SGOT 20 U/L (12-37); Bilirubin, Total 0.8 mg/dL (0.1-1.0); Blood Urea Nitrogen 48 mg/dL (8-24); Bun/Creatinine Ratio 8.9 (12.0-20.0); CO2, Blood 31 mmol/L (21-32); Calcium, Blood 8.6 mg/dL (8.5-10.1); Chloride, Blood 95 mmol/L (98-108); Creatinine, Blood 5.41 mg/dL (0.60-1.20); Glomerular Filtration Rate 11 (60-); Glucose, Blood 111 mg/dL (70-99); Phosphorus, Blood 5.3 mg/dL (2.5-4.9); Potassium, Blood 6.4 mmol/L (3.5-5.5); Sodium, Blood 133 mmol/L (136-145); Total Protein, Blood 6.6 g/dL (6.4-8.2)
--- NOTE | 2020-08-28 09:00 | NUR ---
NURSING PCU DAYSHIFT: Assumed care of pt at approx 0700. A/O, anxious, fairly cooperative w/care. C/O neuropathy of all ext's, general weakness of all ext's, gross movement present though no fine motor skills in b/l hands. Requires asssitance with all ADL's including repositioning and meals. C/O 7-8 pain, chronic pain t/o though acute pain to R knee r/t recent fall prior to admission, treating w/meds and respositioning. Skin is fragile w/several wounds noted, large abd wound w/dressing in place, large excoriated wounds to buttocks, yeast and redness to mignon area, scattered b/l feet wounds/abrasions, R knee abrasion. Tele in place, NSR, no c/o CP/pressure, SBP 90's, no noted edema. L/S coarse in RUL w/dim b/l bases, mild dyspnea w/exertion, O2 sat low 90's on RA, congested/productive cough, limited compliance w/O2 use. Abd severely distended though chronic per pt, BT+, ostomy to R abd producing large amounts of liquid stool, good appetite, no urine production r/t CKD. PIV x1, s/l. No s/s of acute distress at this time. Bedbath and linen change completed this a.m., ostomy changed, repositioned to R side, wounds cleaned and dressings change. Pt denies any current needs or questions regarding plan of care, seen by PMD, awaiting new d/o. Call light in reach, cont to monitor for any changes.
--- NOTE | 2020-08-28 17:38 | NUR ---
NURSING PCU DAYSHIFT SUMMARY: No significant changes noted t/o shift. Pt went to HD after lunch, tolerated well though hypotensive during dialysis, midodrine administered as per d/o. Pt remains A/O, fairly cooperative w/care though requires a significant amount of encouragement to participate in ADL's. S/O at bedside t/o majority of the day, update provided, questions addressed. Pt currently sitting up in bed having supper, denies any current needs or questions at this time. Call light in reach, cont to monitor until rpt is given to NOC RN.
[2020-08-29 04:01] LABS: Hematocrit 32.7 % (37.0-53.0); Hemoglobin 9.2 g/dL (13.5-17.5)
[2020-08-29 04:26] LABS: Albumin, Blood 2.2 g/dL (3.4-5.0); Anion Gap 12 mmol/L (6-16); Blood Urea Nitrogen 48 mg/dL (8-24); Bun/Creatinine Ratio 9.4 (12.0-20.0); CO2, Blood 22 mmol/L (21-32); Calcium, Blood 8.4 mg/dL (8.5-10.1); Chloride, Blood 96 mmol/L (98-108); Creatinine, Blood 5.12 mg/dL (0.60-1.20); Glomerular Filtration Rate 12 (60-); Glucose, Blood 114 mg/dL (70-99); Magnesium, Blood 1.8 mg/dL (1.6-2.4); Phosphorus, Blood 4.9 mg/dL (2.5-4.9); Potassium, Blood 5.7 mmol/L (3.5-5.5); Sodium, Blood 130 mmol/L (136-145)
--- NOTE | 2020-08-29 05:55 | NUR ---
SHIFT SUMMARY. ASSUMED CARE AT 1900. VERY PAINFUL RT KNEE AND SWOLLEN. DIFFICULT FOR PT TO STRAIGHTEN. EMPTIED ILLEOSTOMY FREQ. APPLIANCE INTACT. WOUND CARE. SEE PHOTOS. WHOLE BACK SIDE EXCORIATED SLOUGHING SKIN , A CELLULITIS. VERY PAINFUL TO LYE ON AND CLEANSE.LEFT UNCOVERED, AND LYING OVER ON SIDE TO AIR AREA OUT. LESS PAIN OF BUTTOCK . SOME REDNESS AT SCROTUM AND ANAL AREAS. CLEASED WELL FROM CAKED ON POWDERS. NYSTATIN POWDER APPLIED . 5 CM AREA NOTED LT MID BACK W/ INTACT SUTURES . COVERED W/ MEPILEX. BP LOW AND MIDODRINE GIVEN AND IMPROVED. ABLE TO GIVE ALL DESIRED PAIN MEDS. AND OTHER MEDS FOR NEUROPATHY AND RESTLESS LEGS. FLUIDS ENC. CLEANSED AND REDRESSED W/ MEPILEX TO LT HEEL. SEE PHOTO. LG WOUND. HEALTHY TISSUE. LG WOUND CLEANSED AND REDRESSED W/ VASOLINE GAUZE MID ABD. SEE PHOTOS. 5 L HIGH FLOW AND SR ALL SHIFT. NEVER PAIN FREE PER BASE LINE.
--- NOTE | 2020-08-29 08:00 | NUR ---
ASSUMED CARE AT 0700, REPORT FROM TERI HANDLEY. SLEEPING ON LEFT SIDE, WAKES TO VERBAL STIMULI. CARDIZEM GTT AT 5ML/HR AT THIS TIME. DENIES CHEST PAIN, PLAN OF CARE REVIEWED FOR DAY. A/A/OX4. WILL CONTINUE TOMONITOR.
--- NOTE | 2020-08-29 11:44 | NUR ---
TAKEN TO DIALYSIS AT APPROX 10AM.
--- NOTE | 2020-08-29 17:50 | NUR ---
SHIFT SUMMARY; A/A/OX4 DURING SHIFT. COMPLETED DIAYLSIS TODAY. HYPOTENSIVE AFTER DIAYLSIS, MIDODRINE GIVEN PER ORDERS. DENIES FEELING SYMPTOMATIC. ILLEOSTOMY EMPTIED SEVERAL TIMES WITH SOFT BROWN OUTPUT. MEPILEX IN PLACE ON LEFT HEEL, ABD PAD TO LARGE ULCERATION ON ABDOMEN. VASILINE GAUZE, ABD PAD AND TAPE CHANGED. PT STATES WOUND HAS BEEN THERE FOR APPROX 1 YEAR AND HE SEES WOUND CARE FOR IT. REPOSITIONED Q2 HOURS, BARRIER CREAM TO BUTTOX AND COCCYX AREA. NEARLY ENTIRE BUTTOX IS RED, PEELING AND EXCORIATED. PT REPORTS THIS HAVING BEEN LIKE THIS FOR A WHILE. PILLOWS KEPT UNDER BUTTOX THROUGHOUT SHIFT. IV IN PLACE TO LEFT FOREARM, FISTULA TO RIGHT UPPER ARM. 02 NOT WORN BY PT THROUGHOUT DAY, STATES DOESN'T NEED IT DURING DAY. O2 SATS 88-90% ON RA. NO VISIBLE RESPIRATORY DISTRESS. WILL CONTINUE TO MONITOR AND TREAT UNTIL CHANGE OF SHIFT.
[2020-08-30 04:35] LABS: Hemoglobin 9.6 g/dL (13.5-17.5)
[2020-08-30 04:53] LABS: Albumin, Blood 2.5 g/dL (3.4-5.0); Anion Gap 10 mmol/L (6-16); Blood Urea Nitrogen 46 mg/dL (8-24); Bun/Creatinine Ratio 9.6 (12.0-20.0); CO2, Blood 27 mmol/L (21-32); Calcium, Blood 8.6 mg/dL (8.5-10.1); Chloride, Blood 93 mmol/L (98-108); Glomerular Filtration Rate 13 (60-); Glucose, Blood 137 mg/dL (70-99); Magnesium, Blood 1.6 mg/dL (1.6-2.4); Phosphorus, Blood 2.9 mg/dL (2.5-4.9); Potassium, Blood 5.3 mmol/L (3.5-5.5); Sodium, Blood 130 mmol/L (136-145)
--- NOTE | 2020-08-30 06:05 | NUR ---
SHIFT SUMMARY PT ALERT AND ORIENTED STATED HAVING SIGNIFICANT PAIN IN HIS LOWER BACK/COCCYX AND RIGHT KNEE. PAIN MEDICATION EVERY 3HR TO KEEP PAIN TOLERABLE. PT STATED HAVING NO FEELING IN BOTH ARMS FROM ELBOW DOWN AND NO FEELING KNEES DOWN IN BOTH LEGS. PT HAS LARGE WOUND ON CENTER OF ABD, YELLOW DRAINAGE SATURATING ABD PAD. LARGE AREA OF COCCYX SHOWS PRESSURE ULCER AND DRY SLUFFING SKIN. PT WAS HYPOTENSIVE AT START OF SHIFT AND BP WAS UP AROUND 120 BY AM. PULSE STABLE AND O2 SATS IN THE LOW 90'S ON ROOM AIR. PT IS ANURIA AND ON DIALYSIS. WILL CONTINUE TO MONITOR UNTIL SHIFT CHANGE.
--- NOTE | 2020-08-30 15:14 | NUR ---
Ostomy appliance noted no longer attached on the medial edge. Pt reports difficulty keeping it adhering in place. Old appliance was removed. New appliance warmed with shampoo bags from warmer. Skin was cleansed thoroughly with skintegrity and dried with sterile fluffs. Pt c/o some "smarting" when appliance was removed, but not with cleansing or prepping skin. Skin was prepped with skin barrier liquid protectant, then benzoin tincture, then mastisol liquid adhesive. New ostomy appliance was placed with careful attention that it was adhering well. Reinforced with tape. Stoma noted to be pink, and small amount of stool in the old appliance. Dressing on the left side of the abdomen was also noted to be unintact. Removed ABD pad and yellow xeroform gauze noted to be soaked with purulent drainage. Old bandage was removed, skin cleansed with skintegrity and dried with sterile fluffs. Wound noted to be approx 4 cm in diameter, pale pink. Sterile xeroform yellow gauze placed over the wound and covered with abd dressing, secured with medipore tape. PT tolerated the entire procedure with his eyes closed, respirations even and unlabored,and occasional pleasant conversation with staff.
--- NOTE | 2020-08-30 15:59 | NUR ---
REPORT GIVEN TO MEDICAL FLOOR RN TO ASSUME CARE FOR IN HOUSE TRANSFER.
--- NOTE | 2020-08-30 16:52 | NUR ---
Shift Summary Received report from Vianney RN-PCU, patient arrived to unit via bed with at side @ 1615. C/O chronic pain, will medicate per EMAR. A/Ox3, calls for needs appropriately and is cooperative with care. Bed in lowest position, call light in reach. Ileostomy appliance intact for now. Dressing to abdomen c/d/i. Arrived with 5L O2 NC which is his baseline. Patient does need offical orders for fluid restriction because pt receives dialysis. Fistula to FRANK, no HD today. Will continue to monitor.
--- NOTE | 2020-08-31 03:28 | NUR ---
SUMMARY NO NEW ISSUES NOTED DURING SHIFT. PT UP LATE WATCHING TV. PT HAS SLEPT SOME DURING THE SHIFT. PT DISCOMFORT TX PER EMAR. PT CURRENTLY SLEEPING AND IN NO DISTRESS. CALL LIGHT IN REACH.
[2020-08-31 04:37] LABS: Hematocrit 31.7 % (37.0-53.0); Hemoglobin 9.4 g/dL (13.5-17.5)
[2020-08-31 04:56] LABS: Albumin, Blood 2.4 g/dL (3.4-5.0); Anion Gap 10 mmol/L (6-16); Blood Urea Nitrogen 67 mg/dL (8-24); Bun/Creatinine Ratio 10.2 (12.0-20.0); CO2, Blood 26 mmol/L (21-32); Calcium, Blood 8.9 mg/dL (8.5-10.1); Chloride, Blood 89 mmol/L (98-108); Creatinine, Blood 6.57 mg/dL (0.60-1.20); Glomerular Filtration Rate 9 (60-); Glucose, Blood 106 mg/dL (70-99); Magnesium, Blood 1.7 mg/dL (1.6-2.4); Phosphorus, Blood 4.4 mg/dL (2.5-4.9); Potassium, Blood 5.8 mmol/L (3.5-5.5); Sodium, Blood 125 mmol/L (136-145)
--- NOTE | 2020-08-31 07:40 | NUR ---
FLUID RESTRICTION RECEIVED VERBAL ORDER TO PLACE PATIENT ON 1000 ML FL[address] RESTRI[address] BY DR. Miguel KHAN. ORDER AND DIET UPDATED.
--- NOTE | 2020-08-31 07:59 | NUR ---
CNA2 STUDENT DOING CLINICALS AND CARE
--- NOTE | 2020-08-31 11:15 | NUR ---
Advanced Care Planning: Pt is alert, oriented, pleasant. He reports high pain levels, but states that this is baseline for him. He is on 8mg dilaudid tablets q3 hours at home. He denies anxiety, shortness of breath. Pt reports that he does have a completed advance directive at home. Assisted pt with calling his to bring the document in to be scanned into [employer]. No other complaints at this time. He is aware of when his next dose of dilaudid is able to be administered. Palliative to remain available if needed.
--- NOTE | 2020-08-31 15:29 | NUR ---
NO IV ACCESS RECEIVED TELEPHONE ORDER FOR NO IV ACCESS FOR THIS PATIENT FROM DR. PARIS.
--- NOTE | 2020-08-31 18:21 | NUR ---
Shift Summary A/Ox3, pleasant and cooperative with care. Dressings to abdomen and L heel changed, wounds cleansed. Received HD today, tolerated procedure well. Work with PT and able to dangle at side of bed with minimal assistance. Medicated with PRN pain meds with no effect, pain remains 7/10 regardless. at bedside throughout the day. Plan [facility]. No other concerns, will continue to monitor.
[2020-09-01 04:15] LABS: Hematocrit 29.9 % (37.0-53.0); Hemoglobin 8.7 g/dL (13.5-17.5)
[2020-09-01 04:33] LABS: Albumin, Blood 2.3 g/dL (3.4-5.0); Anion Gap 8 mmol/L (6-16); Blood Urea Nitrogen 50 mg/dL (8-24); Bun/Creatinine Ratio 8.7 (12.0-20.0); CO2, Blood 29 mmol/L (21-32); Calcium, Blood 8.6 mg/dL (8.5-10.1); Chloride, Blood 96 mmol/L (98-108); Creatinine, Blood 5.78 mg/dL (0.60-1.20); Glomerular Filtration Rate 10 (60-); Glucose, Blood 128 mg/dL (70-99); Magnesium, Blood 1.9 mg/dL (1.6-2.4); Phosphorus, Blood 4.1 mg/dL (2.5-4.9); Potassium, Blood 4.8 mmol/L (3.5-5.5); Sodium, Blood 133 mmol/L (136-145)
--- NOTE | 2020-09-01 05:55 | NUR ---
AXLE TURNER SUMMARY RECEIVED PT FROM FABRICE WILLIAMSON AROUND 0300. PT HAD RECIEVED PAIN AND ANXIETY MEDICATION TOGETHER PRIOR TO GETTING HANDOFF, PT'S BP AFTER HANDOFF AROUND 0300 WAS 77/42. PT HAS HX OF HYPOTENSION SO 10MG OF MIDRODINE WAS GIVEN AND BP WAS CHECKED 1 HR LATER W NO PROGRESS. A SECOND DOSE OF MIDRODINE WAS GIVEN AND ONE HR LATER THE PT'S BP WAS 100/55. PT IS VERY PLEASANT AND IS CURRENTLY RESTING COMFORTABLY W CALL LIGHT WITHIN REACH.
--- NOTE | 2020-09-01 16:05 | NUR ---
PATIENT DISCHARGED TO HOME IN THE COMPANY OF HIS . NO IV. STATED HE WANTS TO HAVE [facility]. DR. PARIS WAS UNABLE TO PLACE ORDERS FOR HH FTF AND HH DUE TO [employer] OUTAGE. MESSAGE LEFT FOR GITA GUPTA CM. PATIENT AND VERBALIZED UNDERSTANDING OF D/C INSTRUCTIONS. LEFT UNIT VIA HIS POWER CHAIR AT 1509.
== END 2020-09-01 15:09 | disposition home or self-care (01) | DRG 640 ==
LOC: ER 13:36 → PCU 18:23 → MEDS 08-30 16:11
PROVIDERS: Internal Medicine Nephrology; Physician Assistant; ADMIT Internal Medicine
PROC: 5A1D70Z Performance of Urinary Filtration, Intermittent, Less than 6 Hours Per Day (ICD-10-PCS; principal; 2020-08-28)
PROC: 5A1D70Z Performance of Urinary Filtration, Intermittent, Less than 6 Hours Per Day (ICD-10-PCS; 2020-08-31)
DX: E87.5 Hyperkalemia (principal); N18.6 End stage renal disease; I12.0 Hypertensive chronic kidney disease with stage 5 chronic kidney disease or end stage renal disease; J96.11 Chronic respiratory failure with hypoxia; K86.1 Other chronic pancreatitis; N25.81 Secondary hyperparathyroidism of renal origin; E11.22 Type 2 diabetes mellitus with diabetic chronic kidney disease; Z99.2 Dependence on renal dialysis; D63.1 Anemia in chronic kidney disease; E11.42 Type 2 diabetes mellitus with diabetic polyneuropathy; E78.5 Hyperlipidemia, unspecified; E87.1 Hypo-osmolality and hyponatremia; E87.70 Fluid overload, unspecified; E88.09 Other disorders of plasma-protein metabolism, not elsewhere classified; F41.9 Anxiety disorder, unspecified; G25.81 Restless legs syndrome; G47.33 Obstructive sleep apnea (adult) (pediatric); G89.4 Chronic pain syndrome; I48.0 Paroxysmal atrial fibrillation; I95.89 Other hypotension; J44.9 Chronic obstructive pulmonary disease, unspecified; K21.9 Gastro-esophageal reflux disease without esophagitis; L89.149 Pressure ulcer of left lower back, unspecified stage; L89.629 Pressure ulcer of left heel, unspecified stage; M10.9 Gout, unspecified; Z87.891 Personal history of nicotine dependence; Z99.3 Dependence on wheelchair; S80.01XA Contusion of right knee, initial encounter; M17.11 Unilateral primary osteoarthritis, right knee; W19.XXXA Unspecified fall, initial encounter; Z99.81 Dependence on supplemental oxygen; F51.04 Psychophysiologic insomnia; M25.461 Effusion, right knee
CPT/HCPCS: 36415; 73564; 80053; 80069; 82947; 83735; 84100; 85014; 85018; 85025; 93005; 93010; 94640; 94668; 94760; 96372-59; 96374; 96375; 96376; 97110; 97162; 97165; 97530; 97535; 99285-25; A9270-GY; J0610; J0881; J1644; J1815; U0003

== ENCOUNTER 2020-09-05 00:43 | Day surgery (SDC) | payer MEDICARE ==
[~2020-09-05 00:43] MED LIST changes: +ATOR10 PO; +Ativan1 MG PO; +CARBIDOPA-LEVO1 EA15 PO; +HYDMOR8 PO; +MIDODRINE HCL10 MG PO
== END 2020-09-05 22:47 | disposition home or self-care (01) ==
LOC: WOUND 00:43
DX: L98.491 Non-pressure chronic ulcer of skin of other sites limited to breakdown of skin (principal); L89.321 Pressure ulcer of left buttock, stage 1; L89.313 Pressure ulcer of right buttock, stage 3; L89.623 Pressure ulcer of left heel, stage 3; I12.9 Hypertensive chronic kidney disease with stage 1 through stage 4 chronic kidney disease, or unspecified chronic kidney disease; N18.9 Chronic kidney disease, unspecified; I73.9 Peripheral vascular disease, unspecified; Z99.2 Dependence on renal dialysis; J45.909 Unspecified asthma, uncomplicated; E78.5 Hyperlipidemia, unspecified; G20 Parkinson's disease; E66.01 Morbid (severe) obesity due to excess calories; G47.33 Obstructive sleep apnea (adult) (pediatric); Z68.42 Body mass index [BMI] 45.0-49.9, adult; Z79.899 Other long term (current) drug therapy

== ENCOUNTER 2020-09-21 00:47 | Day surgery (SDC) | payer MEDICARE | END 2020-09-21 23:12 | disposition home or self-care (01) | LOC: WOUND 00:47 | DX: L98.491 Non-pressure chronic ulcer of skin of other sites limited to breakdown of skin (principal); L89.321 Pressure ulcer of left buttock, stage 1; L89.313 Pressure ulcer of right buttock, stage 3; L89.623 Pressure ulcer of left heel, stage 3; Z99.2 Dependence on renal dialysis; I73.9 Peripheral vascular disease, unspecified; Z88.2 Allergy status to sulfonamides; Z88.1 Allergy status to other antibiotic agents; Z88.8 Allergy status to other drugs, medicaments and biological substances ==

== ENCOUNTER 2020-10-05 00:38 | Day surgery (SDC) | payer MEDICARE | END 2020-10-05 23:59 | disposition home or self-care (01) | LOC: WOUND 00:38 | DX: I96 Gangrene, not elsewhere classified (principal); L89.893 Pressure ulcer of other site, stage 3; L89.312 Pressure ulcer of right buttock, stage 2; E11.622 Type 2 diabetes mellitus with other skin ulcer; L97.811 Non-pressure chronic ulcer of other part of right lower leg limited to breakdown of skin; E11.52 Type 2 diabetes mellitus with diabetic peripheral angiopathy with gangrene; T81.31XD Disruption of external operation (surgical) wound, not elsewhere classified, subsequent encounter; E11.22 Type 2 diabetes mellitus with diabetic chronic kidney disease; N18.6 End stage renal disease; G89.4 Chronic pain syndrome; G47.33 Obstructive sleep apnea (adult) (pediatric); Q61.3 Polycystic kidney, unspecified; M54.9 Dorsalgia, unspecified; I48.91 Unspecified atrial fibrillation; K21.9 Gastro-esophageal reflux disease without esophagitis; G20 Parkinson's disease; N25.81 Secondary hyperparathyroidism of renal origin; G47.00 Insomnia, unspecified; F41.9 Anxiety disorder, unspecified; E78.5 Hyperlipidemia, unspecified; E11.42 Type 2 diabetes mellitus with diabetic polyneuropathy; J44.9 Chronic obstructive pulmonary disease, unspecified; E66.01 Morbid (severe) obesity due to excess calories; Z68.41 Body mass index [BMI] 40.0-44.9, adult; Z99.2 Dependence on renal dialysis; Z93.2 Ileostomy status; Z88.1 Allergy status to other antibiotic agents; Z88.2 Allergy status to sulfonamides; Z88.8 Allergy status to other drugs, medicaments and biological substances; Z79.4 Long term (current) use of insulin; Z79.899 Other long term (current) drug therapy; Y83.8 Other surgical procedures as the cause of abnormal reaction of the patient, or of later complication, without mention of misadventure at the time of the procedure ==

== ENCOUNTER 2020-10-15 18:27 | Inpatient (IN) | payer MEDICARE ==
[~2020-10-15] VITALS: Ht 180.3 cm; Wt 133.2 kg
[~2020-10-15 18:27] MED LIST changes: -ATOR10 PO; -Ativan1 MG PO; -CARBIDOPA-LEVO1 EA15 PO; -HUMALOG100 UNIT/1 SC; -HYDMOR8 PO; -MIDODRINE HCL10 MG PO; -PROAIR RESPICL90 MCG INH; -Ropinirole HCl0.5 MG PO; -TRAZ100 PO; -Ventolin/Prove6.7 GM INH
[2020-10-15 19:15] LABS: Calcium, Ionized (POC) 1.09 mmol/L (1.10-1.46); Chloride (POC) 94 mmol/L (98-108); Creatinine (POC) 9.1 mg/dL (0.8-1.3); Glucose (ISTAT POC) 523 mg/dL (70-99); Hemoglobin (POC) 13.3 g/dL (13.5-17.5); Potassium (POC) 8.2 mmol/L (3.5-5.5); Sodium (POC) 122 mmol/L (135-148); Total CO2 (POC) 23 mmol/L (21-32)
[2020-10-15 19:19] LABS: BASOPHILS ABSOLUTE AUTO 0.03 K/mm3 (0.00-0.23); BASOPHILS PERCENT AUTO 0 % (0-2); EOSINOPHILS ABSOLUTE AUTO 0.12 K/mm3 (0.00-0.68); EOSINOPHILS PERCENT AUTO 1 % (0-6); Hematocrit 39.4 % (37.0-53.0); Hemoglobin 12.6 g/dL (13.5-17.5); IMMATURE GRAN ABSOLUTE AUTO 0.08 K/mm3 (0.00-0.10); IMMATURE GRAN PERCENT AUTO 1 % (0-1); LYMPHOCYTES ABSOLUTE AUTO 0.98 K/mm3 (0.84-5.20); LYMPHOCYTES PERCENT AUTO 11 % (21-46); MONOCYTES ABSOLUTE AUTO 1.09 K/mm3 (0.16-1.47); MONOCYTES PERCENT AUTO 12 % (4-13); Mean Corpuscular HGB 28.3 pg (26.0-34.0); Mean Corpuscular Volume 88 fL (80-100); Mean Platelet Volume 10.4 fL (9.1-12.4); NEUTROPHILS ABSOLUTE AUTO 6.78 K/mm3 (1.96-9.15); NEUTROPHILS PERCENT AUTO 75 % (41-73); Platelet Count 174 K/mm3 (150-400); RDW Coefficient Variation 15.9 % (11.7-14.2); RDW Standard Deviation 51.8 fL (35.1-46.3); Red Blood Cell Count 4.46 M/mm3 (4.30-5.90); White Blood Cell Count 9.08 K/mm3 (4.00-11.30)
[2020-10-15] MEDS ORDERED: HYDMOR8 PO (19:56)
[2020-10-15] MEDS ORDERED: [UNRECOGNIZED DRUG - OTHER] TOP (20:01)
[2020-10-15] MEDS ORDERED: LIDO TOP (20:01)
[2020-10-15] MEDS ORDERED: EFUDEX40 GM (20:01)
[2020-10-15] MEDS ORDERED: CARBIDOPA-LEVO1 EA15 PO (20:02)
[2020-10-15] MEDS ORDERED: ATOR10 PO (20:02)
[2020-10-15] MEDS ORDERED: FEBUXOSTAT40 MG PO (20:03)
[2020-10-15] MEDS ORDERED: Fludrocortison0.1 MG PO (20:04)
[2020-10-15] MEDS ORDERED: MIDO5 PO (20:05)
[2020-10-15] MEDS ORDERED: MONT10T PO (20:06)
[2020-10-15] MEDS ORDERED: PANT40 PO (20:06)
[2020-10-15] MEDS ORDERED: Ativan1 MG PO (20:07)
[2020-10-15] MEDS ORDERED: TRAZ100 PO (20:07)
[2020-10-15] MEDS ORDERED: Ropinirole HCl0.5 MG PO (20:07)
[2020-10-15] MEDS ORDERED: Ventolin/Prove6.7 GM INH (20:08)
[2020-10-15] MEDS ORDERED: BASAGLAR K100 UNIT/1 SC (20:10)
[2020-10-15] MEDS ORDERED: HUMALOG100 UNIT/1 SC (20:10)
[2020-10-15] MEDS ORDERED: ALBU2.5V5 NEB (20:11)
[2020-10-15 20:22] LABS: Calcium, Blood 8.6 mg/dL (8.5-10.1)
[2020-10-15 20:27] LABS: Bun/Creatinine Ratio 9.2 (12.0-20.0); Creatinine, Blood 8.51 mg/dL (0.60-1.20); Potassium, Blood 8.1 mmol/L (3.5-5.5)
--- NOTE | 2020-10-15 20:45 | NUR ---
PATIENT ADMITTED TO ICU VIA ER WITH K+ 8.2 STAT HEMODIALYSIS ORDERED BY DR KHAN. TREATMENT SHEDULED FOR 2114. CURRENTLY AWAITING TRANSFER FROM ER TO ICU. WAIT TIME WILL BEGIN AT 2144.
--- NOTE | 2020-10-15 22:21 | NUR ---
PT TO ICU 9 FROM ED. DOES NOT AMBULATE ON OWN. JUSTINA FROM DIALYSIS IN ROOM. WILL BEGIN DIALYSIS. PT IS A&O. HAS 18G TO LAC, HD FISTULA TO FRANK. ILIEOSTOMY ON R SIDE. PT HAS LARGE HERNIA TO MIDLINE ABD. WILL CONTINUE TO MONITOR
[2020-10-15 22:30] LABS: Glucose, Blood 410 mg/dL (70-99)
--- NOTE | 2020-10-16 00:43 | NUR ---
DUE TO SIZE OF ABD HERNIA AND LOCATION UNABLE TO ACCURATELY OBTAIN BLADDER VOLUME VIA BLADDER SCAN.
[2020-10-16 03:29] LABS: BASOPHILS ABSOLUTE AUTO 0.03 K/mm3 (0.00-0.23); BASOPHILS PERCENT AUTO 0 % (0-2); EOSINOPHILS ABSOLUTE AUTO 0.18 K/mm3 (0.00-0.68); EOSINOPHILS PERCENT AUTO 2 % (0-6); Hematocrit 36.9 % (37.0-53.0); Hemoglobin 11.8 g/dL (13.5-17.5); IMMATURE GRAN ABSOLUTE AUTO 0.06 K/mm3 (0.00-0.10); IMMATURE GRAN PERCENT AUTO 1 % (0-1); LYMPHOCYTES ABSOLUTE AUTO 1.52 K/mm3 (0.84-5.20); LYMPHOCYTES PERCENT AUTO 16 % (21-46); MONOCYTES ABSOLUTE AUTO 1.41 K/mm3 (0.16-1.47); MONOCYTES PERCENT AUTO 15 % (4-13); Mean Corpuscular HGB 28.2 pg (26.0-34.0); Mean Corpuscular Volume 88 fL (80-100); Mean Platelet Volume 10.4 fL (9.1-12.4); NEUTROPHILS ABSOLUTE AUTO 6.39 K/mm3 (1.96-9.15); NEUTROPHILS PERCENT AUTO 67 % (41-73); Platelet Count 165 K/mm3 (150-400); RDW Coefficient Variation 15.6 % (11.7-14.2); RDW Standard Deviation 50.4 fL (35.1-46.3); Red Blood Cell Count 4.19 M/mm3 (4.30-5.90); White Blood Cell Count 9.59 K/mm3 (4.00-11.30)
[2020-10-16 03:47] LABS: Magnesium, Blood 1.6 mg/dL (1.6-2.4)
[2020-10-16 03:54] LABS: Albumin, Blood 2.9 g/dL (3.4-5.0); Albumin/Globulin Ratio 0.7 (0.8-1.8); Bilirubin, Total 0.2 mg/dL (0.1-1.0); Bun/Creatinine Ratio 7.9 (12.0-20.0); Calcium, Blood 8.6 mg/dL (8.5-10.1); Creatinine, Blood 6.83 mg/dL (0.60-1.20); Globulin, Blood 4.1 g/dL (2.2-4.0); Phosphorus, Blood 4.1 mg/dL (2.5-4.9)
[2020-10-16 03:55] LABS: Potassium, Blood 5.4 mmol/L (3.5-5.5)
--- NOTE | 2020-10-16 06:24 | NUR ---
SHIFT SUMMARY: PT SLEPT ON AND OFF SINCE ADMIT. IN SR WITH ELEVATED T WAVES. ON ADMIT K+ 8.2. CURRENTLY 5.4. RECEIVED DIALYSIS LAST NIGHT AND 2L OFF. PT TO RECEIVE DIALYSIS TODAY. TIME UNKNOWN. DRESSING TO DEHISCED WOUND CHANGED. PICS IN CHART. PT ALSO HAS A WOUND TO L HEEL AND R ANKLE. HOME HEALTH WAS OUT YESTERDAY AND DID A DRESSING CHANGE YESTERDAY. DRESSINGS CHANGED AND PICS IN CHART. OSTOMY CHANGED HOWEVER BECOMES EASILY DETACHED. REINFORCED WITH TAPE AND ADAPT PASTE. NOT SUCCESSFUL. PT IS HAVING BRING IN OWN OSTOMY APPLIANCE FROM HOME. IV TO LAC. PATENT, SL. FRANK HD FISTULA. NO URINE OUT. PT STATES HE DOESN'T PRODUCE URINE AT BASELINE. PT WAS ABLE TO DANGLE AT EDGE OF BED WITH SOME ASSISTANCE. LUNGS WHEEZY HOWEVER PT SATS WELL ON 5L WHICH IS WHAT HE WEARS AT HOME. WILL PASS REPORT TO ONCOMING NURSE.
--- NOTE | 2020-10-16 09:50 | NUR ---
AM NOTE.... ASSUMED CARE OF PT APROX 0700, PT IS A&Ox4. PT WAS ADMITTED FOR HYPERKALEMIA AND HYPERGLYCEMIA. PT'S VS STABLE. PT DENIES ANY CHEST PAIN/PRESSURE N/V OR INCREASED SOB. PT IS ON 5L NC WHICH IS HIS BASELINE O2 NEEDS. L/S COARSE RHONCHI W/EXP WHEEZES HEARD T/O DIM IN THE BASES. PT HAS MODERATE SPUTUM PRODUCTION WHEN HE COUGHS BUT PT HAS BEEN SWALLOWING IT SO COLOR IS UKNOWN AT THIS TIME. PT IS IN NSR IN THE 70'S-80'S BP IS ON THE SOFT SIDE BUT MAP IS >60, MIDODRINE GIVEN PER EMAR. PT HAS TRACE EDEMA TO HIS BLE. BT PRESENT AND HYPERACIVE, ABD HAS MODERATE DISTENTION WITH LARGE MIDLINE HERNIA NOTED, PT HAS OSTOMY TO HIS RLQ, APPLIANCE IS NOT STICKING WELL TO HIS SKIN, PT'S IS TO BRING IN HIS HOME APLLIANCE SUPPLIES. PT IS TO HAVE HEMODIALYSIS THIS AM, PT HAS FISTULA TO HIS FRANK. CALL LIGHT IN REACH WILL CONTINUE TO MONITOR.
[2020-10-16] MEDS ORDERED: ACET325 PO (10:09)
[2020-10-16] MEDS ORDERED: ASPI325 PO (10:10)
[2020-10-16] MEDS ORDERED: BELSOMRA10 MG PO (10:11)
[2020-10-16] MEDS ORDERED: COLCHICINE0.6 MG PO (10:14)
[2020-10-16] MEDS ORDERED: ELIQUIS5 MG PO (10:17)
[2020-10-16] MEDS ORDERED: LORA1 PO (10:20)
[2020-10-16] MEDS ORDERED: LOPE2C PO (10:20)
[2020-10-16] MEDS ORDERED: PREG75 PO (10:21)
[2020-10-16] MEDS ORDERED: NARCAN4 M1 (10:27)
[2020-10-16] MEDS ORDERED: Calcium Acetat667 MG PO (10:28)
[2020-10-16] MEDS ORDERED: TIOT18 INH (10:29)
[2020-10-16] MEDS ORDERED: FEBU40TA (10:30)
[2020-10-16] MEDS ORDERED: SYMBICORT 160-4.6 GM INH (10:30)
[2020-10-16 15:03] LABS: Bun/Creatinine Ratio 7.3 (12.0-20.0); Calcium, Blood 8.7 mg/dL (8.5-10.1); Creatinine, Blood 4.77 mg/dL (0.60-1.20); Potassium, Blood 5.9 mmol/L (3.5-5.5)
--- NOTE | 2020-10-16 15:14 | NUR ---
PT UPDATE... PT RETURNED FROM DIALYSIS APROX 1200, PT'S AT THE BEDSIDE TO CHANGE OSTOMY APPLIANCE. PT ATE 100% OF HIS BREAKFAST AND LUNCH. PT HAS BEEN ABLE TO DANGLE HIMSELF ON THE SIDE OF THE BED WITH MINIMAL TO NO ASSIST. PT STATES THIS HELPS HIS BREATHING. PT WORKED WITH OT BUT DECLINED TO GET OUT OF BED INTO THE CHAIR. WILL CONTINUE TO MONITOR.
--- NOTE | 2020-10-16 18:25 | NUR ---
SHIFT SUMMARY... NO ACUTE NEGATIVE CHANGES NOTED THIS SHIFT. PT'S VS HAVE BEEN STABLE T/O SHIFT. PT WAS GIVEN A BEDBATH AND A DRESSING WAS PLACED ON THE OLD ULCER ON HIS LEFT BUTTOCKS. THIS WAS PRESENT ON ADMIT, PT STATES THAT "I GOT THAT AT THE ASSISTED." PICTURES IN THE CHART AND A MEPILEX WAS PLACED. PT HAS BEEN SITTING AT THE SIDE OF THE BED FOR MEALS BUT HAS BEEN REFUSING TO TURN SIDE TO SIDE FOR VERY LONG, PT EDUCATED ON PRESSURE ULCER PREVENTION AND PT VERBALIZED HIS UNDERSTANDING. PT'S OSTOMY WAS CHANGED BY HIS WITH HIS HOME APPLIANCE. CALL LIGHT IN REACH WILL CONTINUE TO MONITOR UNTIL REPORT IS GIVEN TO ON COMING RN.
--- NOTE | 2020-10-16 19:43 | NUR ---
ASSSUMED CARE OF PT AT 1915. REPORT RECEIVED AT BEDSIDE. PT PRESENTS IN BED. ALERT AND ORIENTED. PLEASANT AND COOPERATIVE WITH CARE AND ASSESSMENT. WILL REVIEW CHART AND PLAN OF CARE FOR THIS PT.
--- NOTE | 2020-10-17 00:52 | NUR ---
REPORT GIVEN TO TERI WEST PENDING PT TRANSFER FROM ICU 9 TO MED 338. MED TELE STATUS.
--- NOTE | 2020-10-17 04:29 | NUR ---
SHIFT SUMMARY PT ARRIVED TO UNIT FROM ICU VIA HOSPITAL BED @ 0115. TRANSFERRED TO BED WITH SLIDER SHEET AT 4 STAFF ASSIST. NO NEEDS OR DISTRESS AT TIME OF ARRIVAL. PT HAS SLEPT WELL T/O THIS RN'S SHIFT. PT IS LAYING IN BED WITH EYES CLOSED, EVEN AND UNLABORED RESPIRATIONS. BED IN LOWERED POSITIN WITH ALARM IN PLACE. CALL LIGHT AND PERSONAL ITEMS WITH IN REACH. NO APPARENT NEEDS OR DISTRESS AT THIS TIME, WILL CONTINUE TO MONITOR UNTIL REPORT GIVEN TO DAY RN.
[2020-10-17 05:45] LABS: Hematocrit 39.9 % (37.0-53.0); Hemoglobin 12.5 g/dL (13.5-17.5)
[2020-10-17 06:00] LABS: Anion Gap 8 mmol/L (6-16); Blood Urea Nitrogen 48 mg/dL (8-24); Bun/Creatinine Ratio 8.1 (12.0-20.0); CO2, Blood 27 mmol/L (21-32); Chloride, Blood 96 mmol/L (98-108); Creatinine, Blood 5.96 mg/dL (0.60-1.20); Glomerular Filtration Rate 10 (60-); Glucose, Blood 176 mg/dL (70-99); Magnesium, Blood 1.7 mg/dL (1.6-2.4); Phosphorus, Blood 3.8 mg/dL (2.5-4.9); Potassium, Blood 5.7 mmol/L (3.5-5.5); Sodium, Blood 131 mmol/L (136-145)
--- NOTE | 2020-10-17 12:56 | NUR ---
SAW PATIENT THIS AM. PATIENT SHOULD BE D'C AFTER DIALYSIS THIS AFTERNOON. DRESSING TO RT DISTAL LATERAL PIEDRA CHANGED AND DRESSING TO ABD CHANGED. WILL CHANGE DRESSING ON BUTTOCK WHEN PATIENT IS ON HIS SIDE W/PATIENT AWARE OF THIS.TM
--- NOTE | 2020-10-17 19:10 | NUR ---
RULING TECHNICIAN, Nba SIERRA PATIENT. PATIENT AWARE NEEDS TO GO BACK TO NORMAL DIALYSIS SCHEDULE WHICH IS TOMORROW. ALSO AWARE MAY NEED TO SEE FOR HIS FISTULA. THIS RN CHANGE DRESSING ON LEFT INNER BUTTOCK--CLEANED AND MEPILEX APPLIED. SMALL DIME SIZE PRESSURE ULCER STAGE 1. THIS RN DISCUSSED D'C WITH PATIENT WHILE HE WAS GETTING DIALYSIS. OUT TO POV IN W/C.
== END 2020-10-17 17:59 | disposition home health service (06) | DRG 640 ==
LOC: ER 18:27 → ICUW 18:29 → ER 20:17 → ICUW 20:17 → MEDS 10-17 01:10
PROVIDERS: Family Medicine; Internal Medicine Nephrology; Student in an Organized Health Care Education/Training Program; ADMIT Internal Medicine
PROC: 5A1D70Z Performance of Urinary Filtration, Intermittent, Less than 6 Hours Per Day (ICD-10-PCS; principal; 2020-10-15)
PROC: 5A1D70Z Performance of Urinary Filtration, Intermittent, Less than 6 Hours Per Day (ICD-10-PCS; 2020-10-16)
PROC: 5A1D70Z Performance of Urinary Filtration, Intermittent, Less than 6 Hours Per Day (ICD-10-PCS; 2020-10-17)
DX: E87.5 Hyperkalemia (principal); N18.6 End stage renal disease; I12.0 Hypertensive chronic kidney disease with stage 5 chronic kidney disease or end stage renal disease; Q61.3 Polycystic kidney, unspecified; Z68.41 Body mass index [BMI] 40.0-44.9, adult; J96.11 Chronic respiratory failure with hypoxia; N25.81 Secondary hyperparathyroidism of renal origin; E11.22 Type 2 diabetes mellitus with diabetic chronic kidney disease; E11.65 Type 2 diabetes mellitus with hyperglycemia; J44.9 Chronic obstructive pulmonary disease, unspecified; K21.9 Gastro-esophageal reflux disease without esophagitis; E87.70 Fluid overload, unspecified; I48.0 Paroxysmal atrial fibrillation; M19.90 Unspecified osteoarthritis, unspecified site; E66.01 Morbid (severe) obesity due to excess calories; G89.29 Other chronic pain; G47.33 Obstructive sleep apnea (adult) (pediatric); M62.81 Muscle weakness (generalized); E87.1 Hypo-osmolality and hyponatremia; E88.09 Other disorders of plasma-protein metabolism, not elsewhere classified; D63.1 Anemia in chronic kidney disease; T81.89XD Other complications of procedures, not elsewhere classified, subsequent encounter; Z99.2 Dependence on renal dialysis; Z93.2 Ileostomy status; Z87.891 Personal history of nicotine dependence; Z88.2 Allergy status to sulfonamides; Z88.8 Allergy status to other drugs, medicaments and biological substances; Z88.1 Allergy status to other antibiotic agents; Z79.4 Long term (current) use of insulin; Z79.891 Long term (current) use of opiate analgesic; Z79.899 Other long term (current) drug therapy
CPT/HCPCS: 36415; 80047; 80048; 80053; 80069; 82947; 83735; 84100; 85014; 85018; 85025; 93005; 93010; 93990; 94640; 94644; 94667; 96372; 96374; 96375; 97165; 97530; 99285-25; A9270-GY; G0378; J0610; J1644; J1815; J3010

== ENCOUNTER 2020-10-19 01:35 | Day surgery (SDC) | payer MEDICARE ==
[~2020-10-19 01:35] MED LIST changes: +ACET325 PO; +ALBU2.5V5 NEB; +ASPI325 PO; +ATOR10 PO; +Ativan1 MG PO; +CARBIDOPA-LEVO1 EA15 PO; +EFUDEX40 GM; +ELIQUIS5 MG PO; +FEBU40TA; +FEBUXOSTAT40 MG PO; +HUMALOG100 UNIT/1 SC; +HYDMOR8 PO; +LIDO TOP; +LOPE2C PO; +LORA1 PO; +MIDO5 PO; +NARCAN4 M1; +Ropinirole HCl0.5 MG PO; +SYMBICORT 160-4.6 GM INH; +TRAZ100 PO; +Ventolin/Prove6.7 GM INH; +[UNRECOGNIZED DRUG - OTHER] TOP
== END 2020-10-19 22:50 | disposition home or self-care (01) ==
LOC: WOUND 01:35
DX: I96 Gangrene, not elsewhere classified (principal); L89.893 Pressure ulcer of other site, stage 3; L89.312 Pressure ulcer of right buttock, stage 2; E11.622 Type 2 diabetes mellitus with other skin ulcer; L97.811 Non-pressure chronic ulcer of other part of right lower leg limited to breakdown of skin; T81.31XD Disruption of external operation (surgical) wound, not elsewhere classified, subsequent encounter; J45.909 Unspecified asthma, uncomplicated; G47.30 Sleep apnea, unspecified; I12.9 Hypertensive chronic kidney disease with stage 1 through stage 4 chronic kidney disease, or unspecified chronic kidney disease; E11.22 Type 2 diabetes mellitus with diabetic chronic kidney disease; N18.4 Chronic kidney disease, stage 4 (severe); E11.52 Type 2 diabetes mellitus with diabetic peripheral angiopathy with gangrene; I49.9 Cardiac arrhythmia, unspecified; Q61.3 Polycystic kidney, unspecified; Z87.891 Personal history of nicotine dependence; Z99.2 Dependence on renal dialysis; Z79.4 Long term (current) use of insulin; Z79.82 Long term (current) use of aspirin; Z79.01 Long term (current) use of anticoagulants; Z79.899 Other long term (current) drug therapy; Z91.048 Other nonmedicinal substance allergy status; Z88.1 Allergy status to other antibiotic agents; Z88.2 Allergy status to sulfonamides; Z88.8 Allergy status to other drugs, medicaments and biological substances; Y83.8 Other surgical procedures as the cause of abnormal reaction of the patient, or of later complication, without mention of misadventure at the time of the procedure
CPT/HCPCS: G0463

== ENCOUNTER 2020-11-02 00:36 | Day surgery (SDC) | payer MEDICARE | END 2020-11-02 23:35 | disposition home or self-care (01) | LOC: WOUND 00:36 | DX: L98.491 Non-pressure chronic ulcer of skin of other sites limited to breakdown of skin (principal); L89.321 Pressure ulcer of left buttock, stage 1; L89.313 Pressure ulcer of right buttock, stage 3; L89.623 Pressure ulcer of left heel, stage 3; I73.9 Peripheral vascular disease, unspecified; I12.0 Hypertensive chronic kidney disease with stage 5 chronic kidney disease or end stage renal disease; N18.6 End stage renal disease; J45.909 Unspecified asthma, uncomplicated; E66.01 Morbid (severe) obesity due to excess calories; G20 Parkinson's disease; Z99.2 Dependence on renal dialysis; Z68.41 Body mass index [BMI] 40.0-44.9, adult; Z79.899 Other long term (current) drug therapy ==

== ENCOUNTER 2020-11-14 01:13 | Day surgery (SDC) | payer MEDICARE | END 2020-11-14 23:13 | disposition home or self-care (01) | LOC: WOUND 01:13 | DX: I96 Gangrene, not elsewhere classified (principal); L89.623 Pressure ulcer of left heel, stage 3; E11.622 Type 2 diabetes mellitus with other skin ulcer; L97.812 Non-pressure chronic ulcer of other part of right lower leg with fat layer exposed; T81.31XD Disruption of external operation (surgical) wound, not elsewhere classified, subsequent encounter; E11.52 Type 2 diabetes mellitus with diabetic peripheral angiopathy with gangrene; G47.33 Obstructive sleep apnea (adult) (pediatric); J45.909 Unspecified asthma, uncomplicated; I48.91 Unspecified atrial fibrillation; N25.81 Secondary hyperparathyroidism of renal origin; E78.5 Hyperlipidemia, unspecified; G20 Parkinson's disease; E66.01 Morbid (severe) obesity due to excess calories; Q61.3 Polycystic kidney, unspecified; G89.29 Other chronic pain; M54.9 Dorsalgia, unspecified; K21.9 Gastro-esophageal reflux disease without esophagitis; I12.9 Hypertensive chronic kidney disease with stage 1 through stage 4 chronic kidney disease, or unspecified chronic kidney disease; E11.22 Type 2 diabetes mellitus with diabetic chronic kidney disease; N18.9 Chronic kidney disease, unspecified; Z68.41 Body mass index [BMI] 40.0-44.9, adult; Z88.1 Allergy status to other antibiotic agents; Z88.2 Allergy status to sulfonamides; Z88.8 Allergy status to other drugs, medicaments and biological substances; Z79.4 Long term (current) use of insulin; Z79.82 Long term (current) use of aspirin; Z79.899 Other long term (current) drug therapy; Z91.048 Other nonmedicinal substance allergy status; Z99.2 Dependence on renal dialysis; Y83.8 Other surgical procedures as the cause of abnormal reaction of the patient, or of later complication, without mention of misadventure at the time of the procedure ==

== ENCOUNTER 2020-11-30 02:10 | Day surgery (SDC) | payer MEDICARE ==
[~2020-11-30 02:10] MED LIST changes: -ALBU2.5V5 NEB; -ASPI325 PO; -ATOR10 PO; -CARBIDOPA-LEVO1 EA15 PO; -FEBU40TA; -HUMALOG100 UNIT/1 SC; -HYDMOR8 PO; -MIDO5 PO; -Ropinirole HCl0.5 MG PO; -TRAZ100 PO; -Ventolin/Prove6.7 GM INH
[2021-06-03] MEDS ORDERED: FLUT.05NI (22:15)
[2021-06-03] MEDS ORDERED: HYDMOR8 PO (22:16)
[2021-06-03] MEDS ORDERED: BASAGLAR K100 UNIT/3 SC (22:17)
[2021-06-03] MEDS ORDERED: CARBIDOPA-LEVO1 EA15 PO (22:17)
[2021-06-03] MEDS ORDERED: COLCRYS0.6 M1 PO (22:18)
[2021-06-03] MEDS ORDERED: FEBU40TA PO (22:18)
[2021-06-03] MEDS ORDERED: PANT40 PO (22:19)
[2021-06-03] MEDS ORDERED: MIDODRINE HCL10 M1 PO (22:19)
[2021-06-03] MEDS ORDERED: Ropinirole HCl0.5 MG PO (22:19)
[2021-06-03] MEDS ORDERED: CYCLOBENZAPRINE5 MG PO (22:20)
[2021-06-03] MEDS ORDERED: PREGABALIN PO (22:20)
[2021-06-03] MEDS ORDERED: TRAZ100 PO (22:20)
[2021-06-03] MEDS ORDERED: Ventolin/Prove6.7 GM INH (22:21)
[2021-06-03] MEDS ORDERED: SYMBICORT 16010.2 GM INH (22:21)
[2021-06-03] MEDS ORDERED: ATOR10 PO (22:22)
[2021-06-03] MEDS ORDERED: HUMALOG100 UNIT/1 SC (22:22)
[2021-06-03] MEDS ORDERED: VITAMIN B122500 MC1 PO (22:29)
[2021-06-03] MEDS ORDERED: ASPI325EC PO (22:29)
[2021-06-03] MEDS ORDERED: VITAMIN D325 MC3 PO (22:30)
[2021-06-03] MEDS ORDERED: Rena-Vite Tabl0.8 MG PO (22:31)
[2021-06-03] MEDS ORDERED: VELTASSA PO (22:31)
[2021-06-03] MEDS ORDERED: BIOTIN5 MG PO (22:31)
[2021-06-03] MEDS ORDERED: SEVEC800 PO (22:32)
[2021-06-03] MEDS ORDERED: Fludrocortison0.1 MG PO (22:32)
[2021-06-03] MEDS ORDERED: ALBU2.5V5 NEB (22:33)
[2021-06-05] MEDS ORDERED: LOKELMA PO (15:31)
== END 2020-11-30 23:49 ==
LOC: WOUND 02:10
DX: E11.622 Type 2 diabetes mellitus with other skin ulcer (principal); L97.812 Non-pressure chronic ulcer of other part of right lower leg with fat layer exposed; L97.829 Non-pressure chronic ulcer of other part of left lower leg with unspecified severity; E11.52 Type 2 diabetes mellitus with diabetic peripheral angiopathy with gangrene; I96 Gangrene, not elsewhere classified; L89.893 Pressure ulcer of other site, stage 3; L98.8 Other specified disorders of the skin and subcutaneous tissue; G47.33 Obstructive sleep apnea (adult) (pediatric); Q61.3 Polycystic kidney, unspecified; J45.909 Unspecified asthma, uncomplicated; G89.29 Other chronic pain; M54.9 Dorsalgia, unspecified; I48.91 Unspecified atrial fibrillation; K21.9 Gastro-esophageal reflux disease without esophagitis; N25.81 Secondary hyperparathyroidism of renal origin; E78.5 Hyperlipidemia, unspecified; G20 Parkinson's disease; E66.01 Morbid (severe) obesity due to excess calories; T81.31XD Disruption of external operation (surgical) wound, not elsewhere classified, subsequent encounter; I12.9 Hypertensive chronic kidney disease with stage 1 through stage 4 chronic kidney disease, or unspecified chronic kidney disease; E11.22 Type 2 diabetes mellitus with diabetic chronic kidney disease; N18.9 Chronic kidney disease, unspecified; Z68.41 Body mass index [BMI] 40.0-44.9, adult; Z88.1 Allergy status to other antibiotic agents; Z88.2 Allergy status to sulfonamides; Z88.8 Allergy status to other drugs, medicaments and biological substances; Z93.2 Ileostomy status; Z99.2 Dependence on renal dialysis; Z79.4 Long term (current) use of insulin; Z79.899 Other long term (current) drug therapy; Z79.82 Long term (current) use of aspirin; Z91.048 Other nonmedicinal substance allergy status; X58.XXXS Exposure to other specified factors, sequela; Y83.8 Other surgical procedures as the cause of abnormal reaction of the patient, or of later complication, without mention of misadventure at the time of the procedure
CPT/HCPCS: A9270

== ENCOUNTER 2020-12-14 00:34 | Day surgery (SDC) | payer MEDICARE ==
[2021-06-03] MEDS ORDERED: FLUT.05NI (22:15)
[2021-06-03] MEDS ORDERED: HYDMOR8 PO (22:16)
[2021-06-03] MEDS ORDERED: BASAGLAR K100 UNIT/3 SC (22:17)
[2021-06-03] MEDS ORDERED: CARBIDOPA-LEVO1 EA15 PO (22:17)
[2021-06-03] MEDS ORDERED: FEBU40TA PO (22:18)
[2021-06-03] MEDS ORDERED: COLCRYS0.6 M1 PO (22:18)
[2021-06-03] MEDS ORDERED: MIDODRINE HCL10 M1 PO (22:19)
[2021-06-03] MEDS ORDERED: Ropinirole HCl0.5 MG PO (22:19)
[2021-06-03] MEDS ORDERED: PANT40 PO (22:19)
[2021-06-03] MEDS ORDERED: PREGABALIN PO (22:20)
[2021-06-03] MEDS ORDERED: CYCLOBENZAPRINE5 MG PO (22:20)
[2021-06-03] MEDS ORDERED: TRAZ100 PO (22:20)
[2021-06-03] MEDS ORDERED: Ventolin/Prove6.7 GM INH (22:21)
[2021-06-03] MEDS ORDERED: SYMBICORT 16010.2 GM INH (22:21)
[2021-06-03] MEDS ORDERED: ATOR10 PO (22:22)
[2021-06-03] MEDS ORDERED: HUMALOG100 UNIT/1 SC (22:22)
[2021-06-03] MEDS ORDERED: ASPI325EC PO (22:29)
[2021-06-03] MEDS ORDERED: VITAMIN B122500 MC1 PO (22:29)
[2021-06-03] MEDS ORDERED: VITAMIN D325 MC3 PO (22:30)
[2021-06-03] MEDS ORDERED: VELTASSA PO (22:31)
[2021-06-03] MEDS ORDERED: Rena-Vite Tabl0.8 MG PO (22:31)
[2021-06-03] MEDS ORDERED: BIOTIN5 MG PO (22:31)
[2021-06-03] MEDS ORDERED: Fludrocortison0.1 MG PO (22:32)
[2021-06-03] MEDS ORDERED: SEVEC800 PO (22:32)
[2021-06-03] MEDS ORDERED: ALBU2.5V5 NEB (22:33)
[2021-06-05] MEDS ORDERED: LOKELMA PO (15:31)
== END 2020-12-14 22:48 | disposition home or self-care (01) ==
LOC: WOUND 00:34
DX: S31.109S Unspecified open wound of abdominal wall, unspecified quadrant without penetration into peritoneal cavity, sequela (principal); L98.491 Non-pressure chronic ulcer of skin of other sites limited to breakdown of skin; L89.623 Pressure ulcer of left heel, stage 3; I73.9 Peripheral vascular disease, unspecified; L97.812 Non-pressure chronic ulcer of other part of right lower leg with fat layer exposed; I12.9 Hypertensive chronic kidney disease with stage 1 through stage 4 chronic kidney disease, or unspecified chronic kidney disease; N18.9 Chronic kidney disease, unspecified; J45.909 Unspecified asthma, uncomplicated; G20 Parkinson's disease; E66.01 Morbid (severe) obesity due to excess calories; Z68.41 Body mass index [BMI] 40.0-44.9, adult; X58.XXXS Exposure to other specified factors, sequela; Z99.2 Dependence on renal dialysis; Z88.2 Allergy status to sulfonamides; Z88.1 Allergy status to other antibiotic agents; Z88.8 Allergy status to other drugs, medicaments and biological substances
CPT/HCPCS: 87071; 87075; 87077; 87186; 87205; A9270

== ENCOUNTER 2020-12-21 12:00 | Day surgery (SDC) | payer MEDICARE ==
[2021-06-03] MEDS ORDERED: FLUT.05NI (22:15)
[2021-06-03] MEDS ORDERED: HYDMOR8 PO (22:16)
[2021-06-03] MEDS ORDERED: CARBIDOPA-LEVO1 EA15 PO (22:17)
[2021-06-03] MEDS ORDERED: BASAGLAR K100 UNIT/3 SC (22:17)
[2021-06-03] MEDS ORDERED: COLCRYS0.6 M1 PO (22:18)
[2021-06-03] MEDS ORDERED: FEBU40TA PO (22:18)
[2021-06-03] MEDS ORDERED: MIDODRINE HCL10 M1 PO (22:19)
[2021-06-03] MEDS ORDERED: PANT40 PO (22:19)
[2021-06-03] MEDS ORDERED: Ropinirole HCl0.5 MG PO (22:19)
[2021-06-03] MEDS ORDERED: TRAZ100 PO (22:20)
[2021-06-03] MEDS ORDERED: PREGABALIN PO (22:20)
[2021-06-03] MEDS ORDERED: CYCLOBENZAPRINE5 MG PO (22:20)
[2021-06-03] MEDS ORDERED: SYMBICORT 16010.2 GM INH (22:21)
[2021-06-03] MEDS ORDERED: Ventolin/Prove6.7 GM INH (22:21)
[2021-06-03] MEDS ORDERED: ATOR10 PO (22:22)
[2021-06-03] MEDS ORDERED: HUMALOG100 UNIT/1 SC (22:22)
[2021-06-03] MEDS ORDERED: VITAMIN B122500 MC1 PO (22:29)
[2021-06-03] MEDS ORDERED: ASPI325EC PO (22:29)
[2021-06-03] MEDS ORDERED: VITAMIN D325 MC3 PO (22:30)
[2021-06-03] MEDS ORDERED: Rena-Vite Tabl0.8 MG PO (22:31)
[2021-06-03] MEDS ORDERED: VELTASSA PO (22:31)
[2021-06-03] MEDS ORDERED: BIOTIN5 MG PO (22:31)
[2021-06-03] MEDS ORDERED: Fludrocortison0.1 MG PO (22:32)
[2021-06-03] MEDS ORDERED: SEVEC800 PO (22:32)
[2021-06-03] MEDS ORDERED: ALBU2.5V5 NEB (22:33)
[2021-06-05] MEDS ORDERED: LOKELMA PO (15:31)
== END 2020-12-21 12:30 | disposition home or self-care (01) ==
LOC: WOUND 12:00
DX: E11.622 Type 2 diabetes mellitus with other skin ulcer (principal); L97.812 Non-pressure chronic ulcer of other part of right lower leg with fat layer exposed; L98.491 Non-pressure chronic ulcer of skin of other sites limited to breakdown of skin; L89.623 Pressure ulcer of left heel, stage 3; L89.322 Pressure ulcer of left buttock, stage 2; S31.109S Unspecified open wound of abdominal wall, unspecified quadrant without penetration into peritoneal cavity, sequela; I12.0 Hypertensive chronic kidney disease with stage 5 chronic kidney disease or end stage renal disease; E11.22 Type 2 diabetes mellitus with diabetic chronic kidney disease; N18.6 End stage renal disease; I73.9 Peripheral vascular disease, unspecified; I48.91 Unspecified atrial fibrillation; J45.909 Unspecified asthma, uncomplicated; G20 Parkinson's disease; G47.33 Obstructive sleep apnea (adult) (pediatric); G89.4 Chronic pain syndrome; K21.9 Gastro-esophageal reflux disease without esophagitis; E66.01 Morbid (severe) obesity due to excess calories; X58.XXXS Exposure to other specified factors, sequela; Z99.2 Dependence on renal dialysis; Z88.2 Allergy status to sulfonamides; Z88.1 Allergy status to other antibiotic agents; Z88.8 Allergy status to other drugs, medicaments and biological substances; Z79.4 Long term (current) use of insulin; Z68.41 Body mass index [BMI] 40.0-44.9, adult; Z79.899 Other long term (current) drug therapy; Z93.2 Ileostomy status
CPT/HCPCS: A9270

== ENCOUNTER 2020-12-28 02:17 | Day surgery (SDC) | payer MEDICARE ==
[2021-06-03] MEDS ORDERED: FLUT.05NI (22:15)
[2021-06-03] MEDS ORDERED: HYDMOR8 PO (22:16)
[2021-06-03] MEDS ORDERED: BASAGLAR K100 UNIT/3 SC (22:17)
[2021-06-03] MEDS ORDERED: CARBIDOPA-LEVO1 EA15 PO (22:17)
[2021-06-03] MEDS ORDERED: COLCRYS0.6 M1 PO (22:18)
[2021-06-03] MEDS ORDERED: FEBU40TA PO (22:18)
[2021-06-03] MEDS ORDERED: MIDODRINE HCL10 M1 PO (22:19)
[2021-06-03] MEDS ORDERED: PANT40 PO (22:19)
[2021-06-03] MEDS ORDERED: Ropinirole HCl0.5 MG PO (22:19)
[2021-06-03] MEDS ORDERED: PREGABALIN PO (22:20)
[2021-06-03] MEDS ORDERED: CYCLOBENZAPRINE5 MG PO (22:20)
[2021-06-03] MEDS ORDERED: TRAZ100 PO (22:20)
[2021-06-03] MEDS ORDERED: Ventolin/Prove6.7 GM INH (22:21)
[2021-06-03] MEDS ORDERED: SYMBICORT 16010.2 GM INH (22:21)
[2021-06-03] MEDS ORDERED: HUMALOG100 UNIT/1 SC (22:22)
[2021-06-03] MEDS ORDERED: ATOR10 PO (22:22)
[2021-06-03] MEDS ORDERED: VITAMIN B122500 MC1 PO (22:29)
[2021-06-03] MEDS ORDERED: ASPI325EC PO (22:29)
[2021-06-03] MEDS ORDERED: VITAMIN D325 MC3 PO (22:30)
[2021-06-03] MEDS ORDERED: VELTASSA PO (22:31)
[2021-06-03] MEDS ORDERED: BIOTIN5 MG PO (22:31)
[2021-06-03] MEDS ORDERED: Rena-Vite Tabl0.8 MG PO (22:31)
[2021-06-03] MEDS ORDERED: Fludrocortison0.1 MG PO (22:32)
[2021-06-03] MEDS ORDERED: SEVEC800 PO (22:32)
[2021-06-03] MEDS ORDERED: ALBU2.5V5 NEB (22:33)
[2021-06-05] MEDS ORDERED: LOKELMA PO (15:31)
== END 2020-12-28 22:44 | disposition home or self-care (01) ==
LOC: WOUND 02:17
DX: L89.623 Pressure ulcer of left heel, stage 3 (principal); L89.312 Pressure ulcer of right buttock, stage 2; L89.892 Pressure ulcer of other site, stage 2; L89.009 Pressure ulcer of unspecified elbow, unspecified stage; E11.621 Type 2 diabetes mellitus with foot ulcer; L97.511 Non-pressure chronic ulcer of other part of right foot limited to breakdown of skin; L97.812 Non-pressure chronic ulcer of other part of right lower leg with fat layer exposed; T81.31XD Disruption of external operation (surgical) wound, not elsewhere classified, subsequent encounter; I73.9 Peripheral vascular disease, unspecified; I12.9 Hypertensive chronic kidney disease with stage 1 through stage 4 chronic kidney disease, or unspecified chronic kidney disease; N18.9 Chronic kidney disease, unspecified; G47.33 Obstructive sleep apnea (adult) (pediatric); J45.909 Unspecified asthma, uncomplicated; I48.91 Unspecified atrial fibrillation; K21.9 Gastro-esophageal reflux disease without esophagitis; N25.81 Secondary hyperparathyroidism of renal origin; E78.5 Hyperlipidemia, unspecified; E66.01 Morbid (severe) obesity due to excess calories; Y83.8 Other surgical procedures as the cause of abnormal reaction of the patient, or of later complication, without mention of misadventure at the time of the procedure; Z99.2 Dependence on renal dialysis; Z68.41 Body mass index [BMI] 40.0-44.9, adult
CPT/HCPCS: A9270

== ENCOUNTER 2021-01-04 00:43 | Day surgery (SDC) | payer MEDICARE ==
[2021-06-03] MEDS ORDERED: FLUT.05NI (22:15)
[2021-06-03] MEDS ORDERED: HYDMOR8 PO (22:16)
[2021-06-03] MEDS ORDERED: CARBIDOPA-LEVO1 EA15 PO (22:17)
[2021-06-03] MEDS ORDERED: BASAGLAR K100 UNIT/3 SC (22:17)
[2021-06-03] MEDS ORDERED: COLCRYS0.6 M1 PO (22:18)
[2021-06-03] MEDS ORDERED: FEBU40TA PO (22:18)
[2021-06-03] MEDS ORDERED: PANT40 PO (22:19)
[2021-06-03] MEDS ORDERED: Ropinirole HCl0.5 MG PO (22:19)
[2021-06-03] MEDS ORDERED: MIDODRINE HCL10 M1 PO (22:19)
[2021-06-03] MEDS ORDERED: CYCLOBENZAPRINE5 MG PO (22:20)
[2021-06-03] MEDS ORDERED: PREGABALIN PO (22:20)
[2021-06-03] MEDS ORDERED: TRAZ100 PO (22:20)
[2021-06-03] MEDS ORDERED: SYMBICORT 16010.2 GM INH (22:21)
[2021-06-03] MEDS ORDERED: Ventolin/Prove6.7 GM INH (22:21)
[2021-06-03] MEDS ORDERED: HUMALOG100 UNIT/1 SC (22:22)
[2021-06-03] MEDS ORDERED: ATOR10 PO (22:22)
[2021-06-03] MEDS ORDERED: VITAMIN B122500 MC1 PO (22:29)
[2021-06-03] MEDS ORDERED: ASPI325EC PO (22:29)
[2021-06-03] MEDS ORDERED: VITAMIN D325 MC3 PO (22:30)
[2021-06-03] MEDS ORDERED: VELTASSA PO (22:31)
[2021-06-03] MEDS ORDERED: BIOTIN5 MG PO (22:31)
[2021-06-03] MEDS ORDERED: Rena-Vite Tabl0.8 MG PO (22:31)
[2021-06-03] MEDS ORDERED: Fludrocortison0.1 MG PO (22:32)
[2021-06-03] MEDS ORDERED: SEVEC800 PO (22:32)
[2021-06-03] MEDS ORDERED: ALBU2.5V5 NEB (22:33)
[2021-06-05] MEDS ORDERED: LOKELMA PO (15:31)
== END 2021-01-04 23:50 | disposition home or self-care (01) ==
LOC: WOUND 00:43
DX: E11.622 Type 2 diabetes mellitus with other skin ulcer (principal); E11.621 Type 2 diabetes mellitus with foot ulcer; L97.812 Non-pressure chronic ulcer of other part of right lower leg with fat layer exposed; L97.519 Non-pressure chronic ulcer of other part of right foot with unspecified severity; L89.322 Pressure ulcer of left buttock, stage 2; L89.312 Pressure ulcer of right buttock, stage 2; T81.31XD Disruption of external operation (surgical) wound, not elsewhere classified, subsequent encounter; L89.892 Pressure ulcer of other site, stage 2; L89.623 Pressure ulcer of left heel, stage 3; I12.9 Hypertensive chronic kidney disease with stage 1 through stage 4 chronic kidney disease, or unspecified chronic kidney disease; E11.22 Type 2 diabetes mellitus with diabetic chronic kidney disease; N18.9 Chronic kidney disease, unspecified; J45.909 Unspecified asthma, uncomplicated; I48.91 Unspecified atrial fibrillation; K21.9 Gastro-esophageal reflux disease without esophagitis; N25.81 Secondary hyperparathyroidism of renal origin; E78.5 Hyperlipidemia, unspecified; E66.01 Morbid (severe) obesity due to excess calories; I73.9 Peripheral vascular disease, unspecified; G47.33 Obstructive sleep apnea (adult) (pediatric); Y83.8 Other surgical procedures as the cause of abnormal reaction of the patient, or of later complication, without mention of misadventure at the time of the procedure; Z68.41 Body mass index [BMI] 40.0-44.9, adult; Z99.2 Dependence on renal dialysis
CPT/HCPCS: A9270

== ENCOUNTER 2021-01-11 01:06 | Day surgery (SDC) | payer MEDICARE ==
[2021-06-03] MEDS ORDERED: FLUT.05NI (22:15)
[2021-06-03] MEDS ORDERED: HYDMOR8 PO (22:16)
[2021-06-03] MEDS ORDERED: BASAGLAR K100 UNIT/3 SC (22:17)
[2021-06-03] MEDS ORDERED: CARBIDOPA-LEVO1 EA15 PO (22:17)
[2021-06-03] MEDS ORDERED: FEBU40TA PO (22:18)
[2021-06-03] MEDS ORDERED: COLCRYS0.6 M1 PO (22:18)
[2021-06-03] MEDS ORDERED: Ropinirole HCl0.5 MG PO (22:19)
[2021-06-03] MEDS ORDERED: MIDODRINE HCL10 M1 PO (22:19)
[2021-06-03] MEDS ORDERED: PANT40 PO (22:19)
[2021-06-03] MEDS ORDERED: CYCLOBENZAPRINE5 MG PO (22:20)
[2021-06-03] MEDS ORDERED: TRAZ100 PO (22:20)
[2021-06-03] MEDS ORDERED: PREGABALIN PO (22:20)
[2021-06-03] MEDS ORDERED: SYMBICORT 16010.2 GM INH (22:21)
[2021-06-03] MEDS ORDERED: Ventolin/Prove6.7 GM INH (22:21)
[2021-06-03] MEDS ORDERED: HUMALOG100 UNIT/1 SC (22:22)
[2021-06-03] MEDS ORDERED: ATOR10 PO (22:22)
[2021-06-03] MEDS ORDERED: VITAMIN B122500 MC1 PO (22:29)
[2021-06-03] MEDS ORDERED: ASPI325EC PO (22:29)
[2021-06-03] MEDS ORDERED: VITAMIN D325 MC3 PO (22:30)
[2021-06-03] MEDS ORDERED: BIOTIN5 MG PO (22:31)
[2021-06-03] MEDS ORDERED: Rena-Vite Tabl0.8 MG PO (22:31)
[2021-06-03] MEDS ORDERED: VELTASSA PO (22:31)
[2021-06-03] MEDS ORDERED: Fludrocortison0.1 MG PO (22:32)
[2021-06-03] MEDS ORDERED: SEVEC800 PO (22:32)
[2021-06-03] MEDS ORDERED: ALBU2.5V5 NEB (22:33)
[2021-06-05] MEDS ORDERED: LOKELMA PO (15:31)
== END 2021-01-11 22:43 | disposition home or self-care (01) ==
LOC: WOUND 01:06
DX: L97.812 Non-pressure chronic ulcer of other part of right lower leg with fat layer exposed (principal); L98.492 Non-pressure chronic ulcer of skin of other sites with fat layer exposed; S51.009A Unspecified open wound of unspecified elbow, initial encounter; L97.829 Non-pressure chronic ulcer of other part of left lower leg with unspecified severity
CPT/HCPCS: A9270

== ENCOUNTER 2021-01-25 00:49 | Day surgery (SDC) | payer MEDICARE ==
[2021-06-03] MEDS ORDERED: FLUT.05NI (22:15)
[2021-06-03] MEDS ORDERED: HYDMOR8 PO (22:16)
[2021-06-03] MEDS ORDERED: BASAGLAR K100 UNIT/3 SC (22:17)
[2021-06-03] MEDS ORDERED: CARBIDOPA-LEVO1 EA15 PO (22:17)
[2021-06-03] MEDS ORDERED: FEBU40TA PO (22:18)
[2021-06-03] MEDS ORDERED: COLCRYS0.6 M1 PO (22:18)
[2021-06-03] MEDS ORDERED: MIDODRINE HCL10 M1 PO (22:19)
[2021-06-03] MEDS ORDERED: PANT40 PO (22:19)
[2021-06-03] MEDS ORDERED: Ropinirole HCl0.5 MG PO (22:19)
[2021-06-03] MEDS ORDERED: TRAZ100 PO (22:20)
[2021-06-03] MEDS ORDERED: PREGABALIN PO (22:20)
[2021-06-03] MEDS ORDERED: CYCLOBENZAPRINE5 MG PO (22:20)
[2021-06-03] MEDS ORDERED: SYMBICORT 16010.2 GM INH (22:21)
[2021-06-03] MEDS ORDERED: Ventolin/Prove6.7 GM INH (22:21)
[2021-06-03] MEDS ORDERED: ATOR10 PO (22:22)
[2021-06-03] MEDS ORDERED: HUMALOG100 UNIT/1 SC (22:22)
[2021-06-03] MEDS ORDERED: VITAMIN B122500 MC1 PO (22:29)
[2021-06-03] MEDS ORDERED: ASPI325EC PO (22:29)
[2021-06-03] MEDS ORDERED: VITAMIN D325 MC3 PO (22:30)
[2021-06-03] MEDS ORDERED: Rena-Vite Tabl0.8 MG PO (22:31)
[2021-06-03] MEDS ORDERED: VELTASSA PO (22:31)
[2021-06-03] MEDS ORDERED: BIOTIN5 MG PO (22:31)
[2021-06-03] MEDS ORDERED: Fludrocortison0.1 MG PO (22:32)
[2021-06-03] MEDS ORDERED: SEVEC800 PO (22:32)
[2021-06-03] MEDS ORDERED: ALBU2.5V5 NEB (22:33)
[2021-06-05] MEDS ORDERED: LOKELMA PO (15:31)
== END 2021-01-25 23:07 | disposition home or self-care (01) ==
LOC: WOUND 00:49
DX: E11.622 Type 2 diabetes mellitus with other skin ulcer (principal); L97.812 Non-pressure chronic ulcer of other part of right lower leg with fat layer exposed; L97.829 Non-pressure chronic ulcer of other part of left lower leg with unspecified severity; S31.109D Unspecified open wound of abdominal wall, unspecified quadrant without penetration into peritoneal cavity, subsequent encounter; E11.51 Type 2 diabetes mellitus with diabetic peripheral angiopathy without gangrene; E11.22 Type 2 diabetes mellitus with diabetic chronic kidney disease; I12.9 Hypertensive chronic kidney disease with stage 1 through stage 4 chronic kidney disease, or unspecified chronic kidney disease; N18.9 Chronic kidney disease, unspecified; G47.33 Obstructive sleep apnea (adult) (pediatric); Z93.2 Ileostomy status; J45.909 Unspecified asthma, uncomplicated; I48.91 Unspecified atrial fibrillation; K21.9 Gastro-esophageal reflux disease without esophagitis; N25.81 Secondary hyperparathyroidism of renal origin; E78.5 Hyperlipidemia, unspecified; G20 Parkinson's disease; E66.01 Morbid (severe) obesity due to excess calories; Z68.41 Body mass index [BMI] 40.0-44.9, adult; Z99.2 Dependence on renal dialysis; Y83.8 Other surgical procedures as the cause of abnormal reaction of the patient, or of later complication, without mention of misadventure at the time of the procedure
CPT/HCPCS: A9270

== ENCOUNTER 2021-02-08 01:59 | Day surgery (SDC) | payer MEDICARE ==
[2021-06-03] MEDS ORDERED: FLUT.05NI (22:15)
[2021-06-03] MEDS ORDERED: HYDMOR8 PO (22:16)
[2021-06-03] MEDS ORDERED: BASAGLAR K100 UNIT/3 SC (22:17)
[2021-06-03] MEDS ORDERED: CARBIDOPA-LEVO1 EA15 PO (22:17)
[2021-06-03] MEDS ORDERED: COLCRYS0.6 M1 PO (22:18)
[2021-06-03] MEDS ORDERED: FEBU40TA PO (22:18)
[2021-06-03] MEDS ORDERED: MIDODRINE HCL10 M1 PO (22:19)
[2021-06-03] MEDS ORDERED: Ropinirole HCl0.5 MG PO (22:19)
[2021-06-03] MEDS ORDERED: PANT40 PO (22:19)
[2021-06-03] MEDS ORDERED: CYCLOBENZAPRINE5 MG PO (22:20)
[2021-06-03] MEDS ORDERED: PREGABALIN PO (22:20)
[2021-06-03] MEDS ORDERED: TRAZ100 PO (22:20)
[2021-06-03] MEDS ORDERED: SYMBICORT 16010.2 GM INH (22:21)
[2021-06-03] MEDS ORDERED: Ventolin/Prove6.7 GM INH (22:21)
[2021-06-03] MEDS ORDERED: ATOR10 PO (22:22)
[2021-06-03] MEDS ORDERED: HUMALOG100 UNIT/1 SC (22:22)
[2021-06-03] MEDS ORDERED: ASPI325EC PO (22:29)
[2021-06-03] MEDS ORDERED: VITAMIN B122500 MC1 PO (22:29)
[2021-06-03] MEDS ORDERED: VITAMIN D325 MC3 PO (22:30)
[2021-06-03] MEDS ORDERED: Rena-Vite Tabl0.8 MG PO (22:31)
[2021-06-03] MEDS ORDERED: VELTASSA PO (22:31)
[2021-06-03] MEDS ORDERED: BIOTIN5 MG PO (22:31)
[2021-06-03] MEDS ORDERED: SEVEC800 PO (22:32)
[2021-06-03] MEDS ORDERED: Fludrocortison0.1 MG PO (22:32)
[2021-06-03] MEDS ORDERED: ALBU2.5V5 NEB (22:33)
[2021-06-05] MEDS ORDERED: LOKELMA PO (15:31)
== END 2021-02-08 22:42 | disposition home or self-care (01) ==
LOC: WOUND 01:59
DX: E11.622 Type 2 diabetes mellitus with other skin ulcer (principal); L97.812 Non-pressure chronic ulcer of other part of right lower leg with fat layer exposed; I73.9 Peripheral vascular disease, unspecified; Z99.2 Dependence on renal dialysis; S31.109A Unspecified open wound of abdominal wall, unspecified quadrant without penetration into peritoneal cavity, initial encounter; I12.0 Hypertensive chronic kidney disease with stage 5 chronic kidney disease or end stage renal disease; N18.6 End stage renal disease; E11.22 Type 2 diabetes mellitus with diabetic chronic kidney disease; G47.33 Obstructive sleep apnea (adult) (pediatric); J45.909 Unspecified asthma, uncomplicated; G20 Parkinson's disease; E66.01 Morbid (severe) obesity due to excess calories; Z68.41 Body mass index [BMI] 40.0-44.9, adult; X58.XXXA Exposure to other specified factors, initial encounter
CPT/HCPCS: A9270

== ENCOUNTER → 2021-02-20 | Outpatient (CLI) | payer MEDICARE ==
[~2021-02-20] MED LIST changes: +ALBU2.5V5 NEB; +ASPI325 PO; +ATOR10 PO; +CARBIDOPA-LEVO1 EA15 PO; +FEBU40TA; +HUMALOG100 UNIT/1 SC; +HYDMOR8 PO; +MIDO5 PO; +Ropinirole HCl0.5 MG PO; +TRAZ100 PO; +Ventolin/Prove6.7 GM INH
== END ==
LOC: LAB SHORT 13:51
DX: E11.621 Type 2 diabetes mellitus with foot ulcer (principal); L89.612 Pressure ulcer of right heel, stage 2; E11.42 Type 2 diabetes mellitus with diabetic polyneuropathy; Z79.4 Long term (current) use of insulin
CPT/HCPCS: 87070; 87077; 87186; 87205

== ENCOUNTER 2021-02-22 00:23 | Day surgery (SDC) | payer MEDICARE | END 2021-02-22 22:57 | disposition home or self-care (01) | LOC: WOUND 00:23 | DX: S31.109A Unspecified open wound of abdominal wall, unspecified quadrant without penetration into peritoneal cavity, initial encounter (principal); L89.312 Pressure ulcer of right buttock, stage 2; L89.322 Pressure ulcer of left buttock, stage 2; L97.812 Non-pressure chronic ulcer of other part of right lower leg with fat layer exposed; I12.9 Hypertensive chronic kidney disease with stage 1 through stage 4 chronic kidney disease, or unspecified chronic kidney disease; N18.9 Chronic kidney disease, unspecified; G47.33 Obstructive sleep apnea (adult) (pediatric); Q61.3 Polycystic kidney, unspecified; J45.909 Unspecified asthma, uncomplicated; M54.89 Other dorsalgia; I48.91 Unspecified atrial fibrillation; K21.9 Gastro-esophageal reflux disease without esophagitis; N25.81 Secondary hyperparathyroidism of renal origin; E78.5 Hyperlipidemia, unspecified; G20 Parkinson's disease; E66.01 Morbid (severe) obesity due to excess calories; Z99.2 Dependence on renal dialysis; Z93.2 Ileostomy status ==

== ENCOUNTER 2021-03-04 20:53 | Inpatient (IN) | payer MEDICARE ==
[~2021-03-04] VITALS: Ht 180.3 cm; Wt 132.6 kg
[~2021-03-04 20:53] MED LIST changes: -ALBU2.5V5 NEB; -ASPI325 PO; -ATOR10 PO; -CARBIDOPA-LEVO1 EA15 PO; -FEBU40TA; -HUMALOG100 UNIT/1 SC; -HYDMOR8 PO; -MIDO5 PO; -Ropinirole HCl0.5 MG PO; -TRAZ100 PO; -Ventolin/Prove6.7 GM INH
[2021-03-04 21:20] LABS: Calcium, Ionized (POC) 0.78 mmol/L (1.10-1.46); Chloride (POC) 86 mmol/L (98-108); Creatinine (POC) 9.6 mg/dL (0.8-1.3); Glucose (ISTAT POC) 246 mg/dL (70-99); Hemoglobin (POC) 11.9 g/dL (13.5-17.5); Potassium (POC) 7.9 mmol/L (3.5-5.5); Sodium (POC) 119 mmol/L (135-148); Total CO2 (POC) 24 mmol/L (21-32)
[2021-03-04] MEDS ORDERED: HYDMOR8 PO (21:23)
[2021-03-04] MEDS ORDERED: BASAGLAR K100 UNIT/1 SC (21:24)
[2021-03-04] MEDS ORDERED: ATOR10 PO (21:25)
[2021-03-04] MEDS ORDERED: FEBU40TA PO (21:25)
[2021-03-04] MEDS ORDERED: CARBIDOPA-LEVO1 EA15 PO (21:25)
[2021-03-04] MEDS ORDERED: LYRICA75 M1 PO (21:26)
[2021-03-04] MEDS ORDERED: PANT40 PO (21:26)
[2021-03-04 21:27] LABS: BASOPHILS ABSOLUTE AUTO 0.04 K/mm3 (0.00-0.23); BASOPHILS PERCENT AUTO 0 % (0-2); EOSINOPHILS ABSOLUTE AUTO 0.16 K/mm3 (0.00-0.68); EOSINOPHILS PERCENT AUTO 1 % (0-6); Hematocrit 33.8 % (37.0-53.0); Hemoglobin 10.7 g/dL (13.5-17.5); IMMATURE GRAN ABSOLUTE AUTO 0.43 K/mm3 (0.00-0.10); IMMATURE GRAN PERCENT AUTO 4 % (0-1); LYMPHOCYTES ABSOLUTE AUTO 1.28 K/mm3 (0.84-5.20); LYMPHOCYTES PERCENT AUTO 11 % (21-46); MONOCYTES ABSOLUTE AUTO 1.45 K/mm3 (0.16-1.47); MONOCYTES PERCENT AUTO 13 % (4-13); Mean Corpuscular HGB 26.8 pg (26.0-34.0); Mean Corpuscular HGB Conc 31.7 g/dL (31.5-36.5); Mean Corpuscular Volume 85 fL (80-100); NEUTROPHILS ABSOLUTE AUTO 8.17 K/mm3 (1.96-9.15); NEUTROPHILS PERCENT AUTO 71 % (41-73); Platelet Count 294 K/mm3 (150-400); RDW Coefficient Variation 16.7 % (11.7-14.2); RDW Standard Deviation 50.8 fL (35.1-46.3); White Blood Cell Count 11.53 K/mm3 (4.00-11.30)
[2021-03-04] MEDS ORDERED: TRAZ100 PO (21:28)
[2021-03-04] MEDS ORDERED: Ropinirole HCl0.5 MG PO (21:28)
[2021-03-04] MEDS ORDERED: MIDODRINE HCL10 M1 PO (21:30)
[2021-03-04] MEDS ORDERED: COLCHICINE0.6 MG PO (21:31)
[2021-03-04] MEDS ORDERED: BELSOMRA10 MG PO (21:31)
[2021-03-04] MEDS ORDERED: Fludrocortison0.1 MG PO (21:32)
[2021-03-04] MEDS ORDERED: HUMALOG100 UNIT/1 SC (21:32)
[2021-03-04] MEDS ORDERED: Ventolin/Prove6.7 GM INH (21:32)
[2021-03-04] MEDS ORDERED: CYCLOBENZAPRINE5 MG PO (21:36)
[2021-03-04 21:50] LABS: Alanine Aminotransfer (ALT/SGP <6 U/L (12-78); Albumin, Blood 2.6 g/dL (3.4-5.0); Albumin/Globulin Ratio 0.5 (0.8-1.8); Alk Phos 212 U/L (50-136); Anion Gap 11 mmol/L (6-16); Aspartate Aminotrans (AST/SGOT 10 U/L (12-37); Bilirubin, Total 0.3 mg/dL (0.1-1.0); Blood Urea Nitrogen 68 mg/dL (8-24); Bun/Creatinine Ratio 8.1 (12.0-20.0); CO2, Blood 23 mmol/L (21-32); Calcium, Blood 6.8 mg/dL (8.5-10.1); Chloride, Blood 84 mmol/L (98-108); Creatinine, Blood 8.35 mg/dL (0.60-1.20); Globulin, Blood 5.3 g/dL (2.2-4.0); Glomerular Filtration Rate 7 (60-); Glucose, Blood 246 mg/dL (70-99); Potassium, Blood 7.4 mmol/L (3.5-5.5); Sodium, Blood 118 mmol/L (136-145); Total Protein, Blood 7.9 g/dL (6.4-8.2)
[2021-03-04] MEDS ORDERED: ALBU2.5V5 NEB (21:55)
[2021-03-04] MEDS ORDERED: ASPI325EC PO (22:17)
[2021-03-04] MEDS ORDERED: MONT10T PO (22:17)
[2021-03-04] MEDS ORDERED: DIPH50 PO (22:19)
[2021-03-04] MEDS ORDERED: VITAMIN B122500 MC1 PO (22:19)
[2021-03-04] MEDS ORDERED: GALZIN50 MG PO (22:19)
[2021-03-04] MEDS ORDERED: VITAMIN D325 MC3 PO (22:20)
[2021-03-04] MEDS ORDERED: BIOTIN5 MG PO (22:20)
[2021-03-04] MEDS ORDERED: Rena-Vite Tabl0.8 MG PO (22:20)
[2021-03-04] MEDS ORDERED: VELTASSA PO (22:21)
--- NOTE | 2021-03-04 22:49 | NUR ---
STAT 1:1 NON-ROUTINE HEMODIALYSIS ORDERED BY DR KHAN FOR PATIENT ADMITTED VIA ER WITH WEAKNESS ASSOCIATED WITH HYPERKALEMIA. SERUM K+ NOTED AT 7.9
--- NOTE | 2021-03-05 00:12 | NUR ---
PATIENT FULL ADMIT. ICU STATUS DESIGNATED BUT NO ROOM AVAILABLE AT THIS TIME. TO EXPIDITE ELECTROLYTE CORRECTION, TREATMENT WILL BE PERFORMED IN ER 15 PENDING ICU ROOM AVAILABILTY.
--- NOTE | 2021-03-05 01:51 | NUR ---
2.2L net fluid removal with dialysis.
--- NOTE | 2021-03-05 03:30 | NUR ---
ASSUMPTION OF CARE PT ARRIVED ON THE UNIT FROM ED. PT ALERT AND ORIENTED, IN GOOD SPIRITS. VSS, ON RA SPO2 >92%, SBP 120'S, HR 70-80'S. ADMISSION SCREENING COMPLETED AND PT ORIENTED TO ICU ROOM. PT HAS WOUNDS TO BLE INCLUDING BOTH HEELS, ABDOMEN, AND COCCYX; STATES HE HAS HOME [facility] DOING WOUND CARE TWICE DAILY. PT FREQUENTLY ASKING FOR FOOD OR DRINKS. LABS DRAWN BY PHOTOGRAPHER APPRENTICE LITHOGRAPHIC, AWAITING RESULTS.
[2021-03-05 03:39] LABS: BASOPHILS ABSOLUTE AUTO 0.04 K/mm3 (0.00-0.23); BASOPHILS PERCENT AUTO 0 % (0-2); EOSINOPHILS ABSOLUTE AUTO 0.16 K/mm3 (0.00-0.68); EOSINOPHILS PERCENT AUTO 2 % (0-6); Hematocrit 34.7 % (37.0-53.0); IMMATURE GRAN ABSOLUTE AUTO 0.22 K/mm3 (0.00-0.10); IMMATURE GRAN PERCENT AUTO 2 % (0-1); LYMPHOCYTES PERCENT AUTO 14 % (21-46); MONOCYTES ABSOLUTE AUTO 1.07 K/mm3 (0.16-1.47); MONOCYTES PERCENT AUTO 11 % (4-13); Mean Corpuscular HGB Conc 31.7 g/dL (31.5-36.5); Mean Corpuscular Volume 85 fL (80-100); Mean Platelet Volume 9.9 fL (9.1-12.4); NEUTROPHILS ABSOLUTE AUTO 6.91 K/mm3 (1.96-9.15); NEUTROPHILS PERCENT AUTO 71 % (41-73); Platelet Count 314 K/mm3 (150-400); RDW Coefficient Variation 16.7 % (11.7-14.2); RDW Standard Deviation 51.1 fL (35.1-46.3); Red Blood Cell Count 4.07 M/mm3 (4.30-5.90)
[2021-03-05 04:02] LABS: Magnesium, Blood 1.8 mg/dL (1.6-2.4)
[2021-03-05 04:05] LABS: Alanine Aminotransfer (ALT/SGP <6 U/L (12-78); Albumin, Blood 2.6 g/dL (3.4-5.0); Albumin/Globulin Ratio 0.5 (0.8-1.8); Alk Phos 212 U/L (50-136); Anion Gap 7 mmol/L (6-16); Aspartate Aminotrans (AST/SGOT 11 U/L (12-37); Bilirubin, Total 0.4 mg/dL (0.1-1.0); Blood Urea Nitrogen 43 mg/dL (8-24); CO2, Blood 30 mmol/L (21-32); Calcium, Blood 7.5 mg/dL (8.5-10.1); Chloride, Blood 94 mmol/L (98-108); Creatinine, Blood 6.11 mg/dL (0.60-1.20); Glomerular Filtration Rate 10 (60-); Glucose, Blood 150 mg/dL (70-99); Phosphorus, Blood 4.4 mg/dL (2.5-4.9); Potassium, Blood 4.8 mmol/L (3.5-5.5); Sodium, Blood 131 mmol/L (136-145); Total Protein, Blood 7.6 g/dL (6.4-8.2)
--- NOTE | 2021-03-05 08:45 | NUR ---
ASSUMED CARE PT SLEEPING COMFORTABLY AT THIS TIME. O2 AT 4L WHILE SLEEPING. HEARING AIDS IN. MIDLINE ABD HERNIA NOTED. BLE WOUNDS, COVERED BY MEPILEX. 1+ EDEMA ON FEET. IV TO SALVATORE, IV TO LAC BOTH SALINE LOCKED. FRANK AV FISTULA, THRILL PALPATED. A&O X4. VS STABLE. WILL CONTINUE TO MONITOR.
--- NOTE | 2021-03-05 13:30 | NUR ---
RETURN FROM DIALYSIS PT RETURNED FROM DIALYSIS. PT IS SITTING UP ON THE SIDE OF THE BED EATING LUNCH TRAY AT THIS TIME. PT REQUESTING 2ND MEAL TRAY. PT WITH NO OTHER REQUESTS AT THIS TIME.
--- NOTE | 2021-03-05 17:08 | NUR ---
SHIFT SUMMARY PT SPOUSE AT BEDSIDE, UPDATED TO PLAN OF CARE. STATUS CHANGE TO MED TELE. DIALYSIS TODAY. RESTING COMFORTABLY IN BED AT THIS TIME. RLE WOUND DRESSINGS CHANGED TODAY, SCANT AMOUNTS OF SANGUINIOUS FROM HEAL AND LEG WOUNDS. LLE WOUND DRESSING C/D/I. A&O X4. VS REMAIN STABLE. 4L O2 WHEN SLEEPING, ON RA THROUGHOUT THE DAY. PT WITH GOOD APPETITE AND TOLERATING MEALS WELL. ILEOSTOMY REMAINS C/D/I. WILL CONTINUE TO MONITOR.
--- NOTE | 2021-03-05 17:28 | NUR ---
DOCUMENTATION REVIEW ALL NOTES AND ASSESSMENTS REVIEWED THIS SHIFT. I AGREE WITH THE NOTES AND ASSESSMENTS DONE BY [employer]PER[employer] OFFICER THIS SHIFT.
--- NOTE | 2021-03-05 20:00 | NUR ---
ASSUMED CARE OF PT AT 1915. REPORT RECEIVED AT BEDSIDE. PT PRESENTS IN BED. ALERT AND ORIENTED. PLEASANT AND COOPERATIVE WITH CARE AND ASSESSMENT. NO COMPLAINTS VOICED BY PT AT THIS TIME. PT ILEOSTOMY EMPTIED OF WATERY STOOL. PT STATES THAT HE IS VERY GOOD AT KEEPING TRACK OF HIS ILEOSTOMY SO IT DOES NOT OVERFILL. VSS. WILL REVIEW CHART AND PLAN OF CARE FOR THIS PT.
[2021-03-06 03:35] LABS: Hematocrit 36.2 % (37.0-53.0); Hemoglobin 11.3 g/dL (13.5-17.5)
[2021-03-06 03:52] LABS: Albumin, Blood 2.8 g/dL (3.4-5.0); Anion Gap 8 mmol/L (6-16); Blood Urea Nitrogen 40 mg/dL (8-24); Bun/Creatinine Ratio 6.9 (12.0-20.0); CO2, Blood 29 mmol/L (21-32); Calcium, Blood 7.7 mg/dL (8.5-10.1); Chloride, Blood 95 mmol/L (98-108); Creatinine, Blood 5.76 mg/dL (0.60-1.20); Glomerular Filtration Rate 10 (60-); Glucose, Blood 139 mg/dL (70-99); Magnesium, Blood 1.8 mg/dL (1.6-2.4); Potassium, Blood 4.9 mmol/L (3.5-5.5); Sodium, Blood 132 mmol/L (136-145)
--- NOTE | 2021-03-06 06:12 | NUR ---
PT HAS BEEN AWAKE MOST OF THE NIGHT. HAS BEEN VERY TALKATIVE THOUGH HAS BEEN VERY PLEASANT AND COOPERATIVE WITH CARE. MEDICATED PT WITH 8MG DILAUDID PO FOR LEG PAIN WHICH IS PT'S NORMAL HOME DOSE. NO FURTHER COMPLAINTS VOICED. COLOSTOMY HAS HAD APPROX TOTAL OF 2000 ML WATERY STOOL THIS SHIFT. PT IS GOOD AT CALLING FOR ASSIST WITH ILEOSTOMY. WILL CONTINUE TO [facility] AND WILL REPORT OFF TO ONCOMING RN.
--- NOTE | 2021-03-06 07:28 | NUR ---
ADMIT: 03/04/21 DISCHARGE: DX: hyperkalemia CC:kwilcox ADMIT: 10/15/2020 DISCHARGE: 10/17/20 ADMIT: 08/27/20 DISCHARGE:09/01/20 ADMIT: 01/23/20 DISCHARGE: DX: 01/25/2020 VERA CALL:CALL MARIELA AT HOME FOR VERA RESIDENCE: HOME WITH SPOUSE CAREGIVER:SELF AND SPOUSE MARIELA FORTE (SPOUSE): DX:ANEMIA, AFIB, HTN, CKD, COPD, END STAGE RENAL DISEASE, SEE LIST DME: ileostomy supplies, DM supplies, wheelchair cushion, Hospital bed, O2 and supplies, CPAP CCM:2020 REFERRAL HOME HEALTH:[facility] [phone], 10/17/20 RESUMED HOME HEALTH WITH [facility]. SUMMARY:Admit: 03/04/21 03/05/21 (late entry) - per chart review with Dr. Hart, pt has a GI consultation and dialysis today. Dr. Helm is consulting on the pt. Pt has bilateral wounds on heels, abdomen and coccyx. Pt reports that home sophia has been doing wound care. Pt could potentially be discharged on thursday. -kjw
--- NOTE | 2021-03-06 09:36 | NUR ---
PT TO DIALYSIS VIA BED. PLACED ON TELEMETERY.
--- NOTE | 2021-03-06 13:55 | NUR ---
03/06/21- per chart review with Dr. Hart, pt is stable to d/c home today once he has completed dialysis. Dr. Hart would like to see the pt in 1 week if his schedules allows. Met with pt and reviewed VERA letter, pt acknowledged understanding. Pt asked that we call him at home. His will be coming to take him home and she is able to help him with any needs when he is back home. His Pharmacy is [facility]. Pt doesn't identify any DME needs and has no concerns going home. There are no stairs in his home. -levon
--- NOTE | 2021-03-06 14:17 | NUR ---
DISCHARGE INSTRUCTIONS GONE OVER WITH PT. INSTRUCTED PT ON MEDICATIONS AND FOLLOWUP CARE. BELONGINGS GATHERED AND GIVEN TO PT AND . PT ESCORTED TO AWAITING RIDE VIA WHEELCHAIR.
== END 2021-03-06 14:05 | disposition home or self-care (01) | DRG 640 ==
LOC: ER 20:53 → ERHOLD 22:44 → ICUE 22:44
PROVIDERS: Emergency Medicine; Internal Medicine Nephrology; ADMIT Internal Medicine
PROC: 5A1D70Z Performance of Urinary Filtration, Intermittent, Less than 6 Hours Per Day (ICD-10-PCS; principal; 2021-03-04)
PROC: 5A1D70Z Performance of Urinary Filtration, Intermittent, Less than 6 Hours Per Day (ICD-10-PCS; 2021-03-05)
PROC: 5A1D70Z Performance of Urinary Filtration, Intermittent, Less than 6 Hours Per Day (ICD-10-PCS; 2021-03-06)
DX: E87.5 Hyperkalemia (principal); N18.6 End stage renal disease; F11.20 Opioid dependence, uncomplicated; L03.115 Cellulitis of right lower limb; N25.81 Secondary hyperparathyroidism of renal origin; J96.11 Chronic respiratory failure with hypoxia; Q61.3 Polycystic kidney, unspecified; E11.22 Type 2 diabetes mellitus with diabetic chronic kidney disease; J44.9 Chronic obstructive pulmonary disease, unspecified; E87.70 Fluid overload, unspecified; K21.9 Gastro-esophageal reflux disease without esophagitis; R94.31 Abnormal electrocardiogram [ECG] [EKG]; G89.4 Chronic pain syndrome; E87.1 Hypo-osmolality and hyponatremia; E83.51 Hypocalcemia; D64.9 Anemia, unspecified; B95.62 Methicillin resistant Staphylococcus aureus infection as the cause of diseases classified elsewhere; I48.91 Unspecified atrial fibrillation; M19.90 Unspecified osteoarthritis, unspecified site; S80.829D Blister (nonthermal), unspecified lower leg, subsequent encounter; Z99.2 Dependence on renal dialysis; Z88.2 Allergy status to sulfonamides; Z88.8 Allergy status to other drugs, medicaments and biological substances; Z88.1 Allergy status to other antibiotic agents; Z79.82 Long term (current) use of aspirin; Z79.4 Long term (current) use of insulin; Z79.899 Other long term (current) drug therapy; Z87.891 Personal history of nicotine dependence; Z93.2 Ileostomy status
CPT/HCPCS: 36415; 80047; 80053; 80069; 82947; 83735; 84100; 85014; 85018; 85025; 93005; 93010; 96374; 96375; 99285-25; A9270; A9270-GY; J0610; J1200; J1650; J1815

== ENCOUNTER 2021-03-22 02:02 | Day surgery (SDC) | payer MEDICARE ==
[~2021-03-22 02:02] MED LIST changes: +DIPH50 PO; +GALZIN50 MG PO; +LYRICA75 M1 PO; +VELTASSA PO
[2021-06-03] MEDS ORDERED: FLUT.05NI (22:15)
[2021-06-03] MEDS ORDERED: HYDMOR8 PO (22:16)
[2021-06-03] MEDS ORDERED: BASAGLAR K100 UNIT/3 SC (22:17)
[2021-06-03] MEDS ORDERED: CARBIDOPA-LEVO1 EA15 PO (22:17)
[2021-06-03] MEDS ORDERED: COLCRYS0.6 M1 PO (22:18)
[2021-06-03] MEDS ORDERED: FEBU40TA PO (22:18)
[2021-06-03] MEDS ORDERED: PANT40 PO (22:19)
[2021-06-03] MEDS ORDERED: MIDODRINE HCL10 M1 PO (22:19)
[2021-06-03] MEDS ORDERED: Ropinirole HCl0.5 MG PO (22:19)
[2021-06-03] MEDS ORDERED: TRAZ100 PO (22:20)
[2021-06-03] MEDS ORDERED: PREGABALIN PO (22:20)
[2021-06-03] MEDS ORDERED: CYCLOBENZAPRINE5 MG PO (22:20)
[2021-06-03] MEDS ORDERED: SYMBICORT 16010.2 GM INH (22:21)
[2021-06-03] MEDS ORDERED: Ventolin/Prove6.7 GM INH (22:21)
[2021-06-03] MEDS ORDERED: ATOR10 PO (22:22)
[2021-06-03] MEDS ORDERED: HUMALOG100 UNIT/1 SC (22:22)
[2021-06-03] MEDS ORDERED: ASPI325EC PO (22:29)
[2021-06-03] MEDS ORDERED: VITAMIN B122500 MC1 PO (22:29)
[2021-06-03] MEDS ORDERED: VITAMIN D325 MC3 PO (22:30)
[2021-06-03] MEDS ORDERED: VELTASSA PO (22:31)
[2021-06-03] MEDS ORDERED: Rena-Vite Tabl0.8 MG PO (22:31)
[2021-06-03] MEDS ORDERED: BIOTIN5 MG PO (22:31)
[2021-06-03] MEDS ORDERED: Fludrocortison0.1 MG PO (22:32)
[2021-06-03] MEDS ORDERED: SEVEC800 PO (22:32)
[2021-06-03] MEDS ORDERED: ALBU2.5V5 NEB (22:33)
[2021-06-05] MEDS ORDERED: LOKELMA PO (15:31)
== END 2021-03-22 23:08 | disposition home or self-care (01) ==
LOC: WOUND 02:02
DX: E11.622 Type 2 diabetes mellitus with other skin ulcer (principal); L97.812 Non-pressure chronic ulcer of other part of right lower leg with fat layer exposed; L89.312 Pressure ulcer of right buttock, stage 2; L89.322 Pressure ulcer of left buttock, stage 2; I73.9 Peripheral vascular disease, unspecified; S31.109S Unspecified open wound of abdominal wall, unspecified quadrant without penetration into peritoneal cavity, sequela; X58.XXXS Exposure to other specified factors, sequela; I12.9 Hypertensive chronic kidney disease with stage 1 through stage 4 chronic kidney disease, or unspecified chronic kidney disease; N18.9 Chronic kidney disease, unspecified; E11.22 Type 2 diabetes mellitus with diabetic chronic kidney disease; G47.33 Obstructive sleep apnea (adult) (pediatric); Z99.2 Dependence on renal dialysis; Q61.3 Polycystic kidney, unspecified; J45.909 Unspecified asthma, uncomplicated; I48.91 Unspecified atrial fibrillation; K21.9 Gastro-esophageal reflux disease without esophagitis; E78.5 Hyperlipidemia, unspecified; G20 Parkinson's disease; E66.01 Morbid (severe) obesity due to excess calories; N25.81 Secondary hyperparathyroidism of renal origin
CPT/HCPCS: A9270; G0463

== ENCOUNTER 2021-03-29 00:42 | Day surgery (SDC) | payer MEDICARE ==
[2021-06-03] MEDS ORDERED: FLUT.05NI (22:15)
[2021-06-03] MEDS ORDERED: HYDMOR8 PO (22:16)
[2021-06-03] MEDS ORDERED: BASAGLAR K100 UNIT/3 SC (22:17)
[2021-06-03] MEDS ORDERED: CARBIDOPA-LEVO1 EA15 PO (22:17)
[2021-06-03] MEDS ORDERED: COLCRYS0.6 M1 PO (22:18)
[2021-06-03] MEDS ORDERED: FEBU40TA PO (22:18)
[2021-06-03] MEDS ORDERED: MIDODRINE HCL10 M1 PO (22:19)
[2021-06-03] MEDS ORDERED: PANT40 PO (22:19)
[2021-06-03] MEDS ORDERED: Ropinirole HCl0.5 MG PO (22:19)
[2021-06-03] MEDS ORDERED: CYCLOBENZAPRINE5 MG PO (22:20)
[2021-06-03] MEDS ORDERED: PREGABALIN PO (22:20)
[2021-06-03] MEDS ORDERED: TRAZ100 PO (22:20)
[2021-06-03] MEDS ORDERED: SYMBICORT 16010.2 GM INH (22:21)
[2021-06-03] MEDS ORDERED: Ventolin/Prove6.7 GM INH (22:21)
[2021-06-03] MEDS ORDERED: ATOR10 PO (22:22)
[2021-06-03] MEDS ORDERED: HUMALOG100 UNIT/1 SC (22:22)
[2021-06-03] MEDS ORDERED: ASPI325EC PO (22:29)
[2021-06-03] MEDS ORDERED: VITAMIN B122500 MC1 PO (22:29)
[2021-06-03] MEDS ORDERED: VITAMIN D325 MC3 PO (22:30)
[2021-06-03] MEDS ORDERED: BIOTIN5 MG PO (22:31)
[2021-06-03] MEDS ORDERED: Rena-Vite Tabl0.8 MG PO (22:31)
[2021-06-03] MEDS ORDERED: VELTASSA PO (22:31)
[2021-06-03] MEDS ORDERED: SEVEC800 PO (22:32)
[2021-06-03] MEDS ORDERED: Fludrocortison0.1 MG PO (22:32)
[2021-06-03] MEDS ORDERED: ALBU2.5V5 NEB (22:33)
[2021-06-05] MEDS ORDERED: LOKELMA PO (15:31)
== END 2021-03-29 23:06 | disposition home or self-care (01) ==
LOC: WOUND 00:42
DX: E11.622 Type 2 diabetes mellitus with other skin ulcer (principal); L97.812 Non-pressure chronic ulcer of other part of right lower leg with fat layer exposed; L89.312 Pressure ulcer of right buttock, stage 2; L89.322 Pressure ulcer of left buttock, stage 2; I73.9 Peripheral vascular disease, unspecified; Z99.2 Dependence on renal dialysis; S31.109S Unspecified open wound of abdominal wall, unspecified quadrant without penetration into peritoneal cavity, sequela; X58.XXXS Exposure to other specified factors, sequela; I12.9 Hypertensive chronic kidney disease with stage 1 through stage 4 chronic kidney disease, or unspecified chronic kidney disease; N18.9 Chronic kidney disease, unspecified; E11.22 Type 2 diabetes mellitus with diabetic chronic kidney disease; I48.91 Unspecified atrial fibrillation; K21.9 Gastro-esophageal reflux disease without esophagitis; E78.5 Hyperlipidemia, unspecified; N25.81 Secondary hyperparathyroidism of renal origin
CPT/HCPCS: A9270

== ENCOUNTER 2021-04-05 00:22 | Day surgery (SDC) | payer MEDICARE ==
[2021-06-03] MEDS ORDERED: FLUT.05NI (22:15)
[2021-06-03] MEDS ORDERED: HYDMOR8 PO (22:16)
[2021-06-03] MEDS ORDERED: CARBIDOPA-LEVO1 EA15 PO (22:17)
[2021-06-03] MEDS ORDERED: BASAGLAR K100 UNIT/3 SC (22:17)
[2021-06-03] MEDS ORDERED: COLCRYS0.6 M1 PO (22:18)
[2021-06-03] MEDS ORDERED: FEBU40TA PO (22:18)
[2021-06-03] MEDS ORDERED: PANT40 PO (22:19)
[2021-06-03] MEDS ORDERED: MIDODRINE HCL10 M1 PO (22:19)
[2021-06-03] MEDS ORDERED: Ropinirole HCl0.5 MG PO (22:19)
[2021-06-03] MEDS ORDERED: PREGABALIN PO (22:20)
[2021-06-03] MEDS ORDERED: CYCLOBENZAPRINE5 MG PO (22:20)
[2021-06-03] MEDS ORDERED: TRAZ100 PO (22:20)
[2021-06-03] MEDS ORDERED: Ventolin/Prove6.7 GM INH (22:21)
[2021-06-03] MEDS ORDERED: SYMBICORT 16010.2 GM INH (22:21)
[2021-06-03] MEDS ORDERED: HUMALOG100 UNIT/1 SC (22:22)
[2021-06-03] MEDS ORDERED: ATOR10 PO (22:22)
[2021-06-03] MEDS ORDERED: ASPI325EC PO (22:29)
[2021-06-03] MEDS ORDERED: VITAMIN B122500 MC1 PO (22:29)
[2021-06-03] MEDS ORDERED: VITAMIN D325 MC3 PO (22:30)
[2021-06-03] MEDS ORDERED: VELTASSA PO (22:31)
[2021-06-03] MEDS ORDERED: BIOTIN5 MG PO (22:31)
[2021-06-03] MEDS ORDERED: Rena-Vite Tabl0.8 MG PO (22:31)
[2021-06-03] MEDS ORDERED: SEVEC800 PO (22:32)
[2021-06-03] MEDS ORDERED: Fludrocortison0.1 MG PO (22:32)
[2021-06-03] MEDS ORDERED: ALBU2.5V5 NEB (22:33)
[2021-06-05] MEDS ORDERED: LOKELMA PO (15:31)
== END 2021-04-05 22:40 | disposition home or self-care (01) ==
LOC: WOUND 00:22
DX: E11.622 Type 2 diabetes mellitus with other skin ulcer (principal); L97.812 Non-pressure chronic ulcer of other part of right lower leg with fat layer exposed; L97.422 Non-pressure chronic ulcer of left heel and midfoot with fat layer exposed; L89.312 Pressure ulcer of right buttock, stage 2; L89.322 Pressure ulcer of left buttock, stage 2; L89.622 Pressure ulcer of left heel, stage 2; L89.612 Pressure ulcer of right heel, stage 2; S31.109S Unspecified open wound of abdominal wall, unspecified quadrant without penetration into peritoneal cavity, sequela; Z99.2 Dependence on renal dialysis; X58.XXXS Exposure to other specified factors, sequela; I73.9 Peripheral vascular disease, unspecified; I12.9 Hypertensive chronic kidney disease with stage 1 through stage 4 chronic kidney disease, or unspecified chronic kidney disease; N18.9 Chronic kidney disease, unspecified; I48.91 Unspecified atrial fibrillation; N25.81 Secondary hyperparathyroidism of renal origin; E78.5 Hyperlipidemia, unspecified; E66.01 Morbid (severe) obesity due to excess calories; G20 Parkinson's disease; J45.909 Unspecified asthma, uncomplicated
CPT/HCPCS: A9270

== ENCOUNTER 2021-04-08 08:45 | Day surgery (SDC) | payer MEDICARE ==
[2021-06-03] MEDS ORDERED: FLUT.05NI (22:15)
[2021-06-03] MEDS ORDERED: HYDMOR8 PO (22:16)
[2021-06-03] MEDS ORDERED: CARBIDOPA-LEVO1 EA15 PO (22:17)
[2021-06-03] MEDS ORDERED: BASAGLAR K100 UNIT/3 SC (22:17)
[2021-06-03] MEDS ORDERED: COLCRYS0.6 M1 PO (22:18)
[2021-06-03] MEDS ORDERED: FEBU40TA PO (22:18)
[2021-06-03] MEDS ORDERED: MIDODRINE HCL10 M1 PO (22:19)
[2021-06-03] MEDS ORDERED: Ropinirole HCl0.5 MG PO (22:19)
[2021-06-03] MEDS ORDERED: PANT40 PO (22:19)
[2021-06-03] MEDS ORDERED: TRAZ100 PO (22:20)
[2021-06-03] MEDS ORDERED: PREGABALIN PO (22:20)
[2021-06-03] MEDS ORDERED: CYCLOBENZAPRINE5 MG PO (22:20)
[2021-06-03] MEDS ORDERED: Ventolin/Prove6.7 GM INH (22:21)
[2021-06-03] MEDS ORDERED: SYMBICORT 16010.2 GM INH (22:21)
[2021-06-03] MEDS ORDERED: ATOR10 PO (22:22)
[2021-06-03] MEDS ORDERED: HUMALOG100 UNIT/1 SC (22:22)
[2021-06-03] MEDS ORDERED: ASPI325EC PO (22:29)
[2021-06-03] MEDS ORDERED: VITAMIN B122500 MC1 PO (22:29)
[2021-06-03] MEDS ORDERED: VITAMIN D325 MC3 PO (22:30)
[2021-06-03] MEDS ORDERED: Rena-Vite Tabl0.8 MG PO (22:31)
[2021-06-03] MEDS ORDERED: BIOTIN5 MG PO (22:31)
[2021-06-03] MEDS ORDERED: VELTASSA PO (22:31)
[2021-06-03] MEDS ORDERED: Fludrocortison0.1 MG PO (22:32)
[2021-06-03] MEDS ORDERED: SEVEC800 PO (22:32)
[2021-06-03] MEDS ORDERED: ALBU2.5V5 NEB (22:33)
[2021-06-05] MEDS ORDERED: LOKELMA PO (15:31)
== END 2021-04-08 23:00 | disposition home or self-care (01) ==
LOC: WOUND 08:45
DX: E11.622 Type 2 diabetes mellitus with other skin ulcer (principal); L97.812 Non-pressure chronic ulcer of other part of right lower leg with fat layer exposed; L89.312 Pressure ulcer of right buttock, stage 2; L89.322 Pressure ulcer of left buttock, stage 2; I73.9 Peripheral vascular disease, unspecified; Z99.2 Dependence on renal dialysis; S31.109S Unspecified open wound of abdominal wall, unspecified quadrant without penetration into peritoneal cavity, sequela; X58.XXXS Exposure to other specified factors, sequela

== ENCOUNTER 2021-04-12 00:55 | Day surgery (SDC) | payer MEDICARE ==
[2021-06-03] MEDS ORDERED: FLUT.05NI (22:15)
[2021-06-03] MEDS ORDERED: HYDMOR8 PO (22:16)
[2021-06-03] MEDS ORDERED: BASAGLAR K100 UNIT/3 SC (22:17)
[2021-06-03] MEDS ORDERED: CARBIDOPA-LEVO1 EA15 PO (22:17)
[2021-06-03] MEDS ORDERED: FEBU40TA PO (22:18)
[2021-06-03] MEDS ORDERED: COLCRYS0.6 M1 PO (22:18)
[2021-06-03] MEDS ORDERED: PANT40 PO (22:19)
[2021-06-03] MEDS ORDERED: Ropinirole HCl0.5 MG PO (22:19)
[2021-06-03] MEDS ORDERED: MIDODRINE HCL10 M1 PO (22:19)
[2021-06-03] MEDS ORDERED: TRAZ100 PO (22:20)
[2021-06-03] MEDS ORDERED: CYCLOBENZAPRINE5 MG PO (22:20)
[2021-06-03] MEDS ORDERED: PREGABALIN PO (22:20)
[2021-06-03] MEDS ORDERED: Ventolin/Prove6.7 GM INH (22:21)
[2021-06-03] MEDS ORDERED: SYMBICORT 16010.2 GM INH (22:21)
[2021-06-03] MEDS ORDERED: ATOR10 PO (22:22)
[2021-06-03] MEDS ORDERED: HUMALOG100 UNIT/1 SC (22:22)
[2021-06-03] MEDS ORDERED: VITAMIN B122500 MC1 PO (22:29)
[2021-06-03] MEDS ORDERED: ASPI325EC PO (22:29)
[2021-06-03] MEDS ORDERED: VITAMIN D325 MC3 PO (22:30)
[2021-06-03] MEDS ORDERED: VELTASSA PO (22:31)
[2021-06-03] MEDS ORDERED: Rena-Vite Tabl0.8 MG PO (22:31)
[2021-06-03] MEDS ORDERED: BIOTIN5 MG PO (22:31)
[2021-06-03] MEDS ORDERED: SEVEC800 PO (22:32)
[2021-06-03] MEDS ORDERED: Fludrocortison0.1 MG PO (22:32)
[2021-06-03] MEDS ORDERED: ALBU2.5V5 NEB (22:33)
[2021-06-05] MEDS ORDERED: LOKELMA PO (15:31)
== END 2021-04-12 23:10 | disposition home or self-care (01) ==
LOC: WOUND 00:55
DX: E11.622 Type 2 diabetes mellitus with other skin ulcer (principal); L97.812 Non-pressure chronic ulcer of other part of right lower leg with fat layer exposed; L89.612 Pressure ulcer of right heel, stage 2; L89.312 Pressure ulcer of right buttock, stage 2; L89.322 Pressure ulcer of left buttock, stage 2; L89.622 Pressure ulcer of left heel, stage 2; I73.9 Peripheral vascular disease, unspecified; S31.109S Unspecified open wound of abdominal wall, unspecified quadrant without penetration into peritoneal cavity, sequela; X58.XXXS Exposure to other specified factors, sequela; Z99.2 Dependence on renal dialysis; G47.33 Obstructive sleep apnea (adult) (pediatric); N25.81 Secondary hyperparathyroidism of renal origin; E78.5 Hyperlipidemia, unspecified; E66.01 Morbid (severe) obesity due to excess calories; G20 Parkinson's disease
CPT/HCPCS: 87081; A9270

== ENCOUNTER 2021-04-19 04:31 | Day surgery (SDC) | payer MEDICARE ==
[2021-06-03] MEDS ORDERED: FLUT.05NI (22:15)
[2021-06-03] MEDS ORDERED: HYDMOR8 PO (22:16)
[2021-06-03] MEDS ORDERED: CARBIDOPA-LEVO1 EA15 PO (22:17)
[2021-06-03] MEDS ORDERED: BASAGLAR K100 UNIT/3 SC (22:17)
[2021-06-03] MEDS ORDERED: COLCRYS0.6 M1 PO (22:18)
[2021-06-03] MEDS ORDERED: FEBU40TA PO (22:18)
[2021-06-03] MEDS ORDERED: Ropinirole HCl0.5 MG PO (22:19)
[2021-06-03] MEDS ORDERED: MIDODRINE HCL10 M1 PO (22:19)
[2021-06-03] MEDS ORDERED: PANT40 PO (22:19)
[2021-06-03] MEDS ORDERED: PREGABALIN PO (22:20)
[2021-06-03] MEDS ORDERED: CYCLOBENZAPRINE5 MG PO (22:20)
[2021-06-03] MEDS ORDERED: TRAZ100 PO (22:20)
[2021-06-03] MEDS ORDERED: SYMBICORT 16010.2 GM INH (22:21)
[2021-06-03] MEDS ORDERED: Ventolin/Prove6.7 GM INH (22:21)
[2021-06-03] MEDS ORDERED: ATOR10 PO (22:22)
[2021-06-03] MEDS ORDERED: HUMALOG100 UNIT/1 SC (22:22)
[2021-06-03] MEDS ORDERED: VITAMIN B122500 MC1 PO (22:29)
[2021-06-03] MEDS ORDERED: ASPI325EC PO (22:29)
[2021-06-03] MEDS ORDERED: VITAMIN D325 MC3 PO (22:30)
[2021-06-03] MEDS ORDERED: BIOTIN5 MG PO (22:31)
[2021-06-03] MEDS ORDERED: Rena-Vite Tabl0.8 MG PO (22:31)
[2021-06-03] MEDS ORDERED: VELTASSA PO (22:31)
[2021-06-03] MEDS ORDERED: SEVEC800 PO (22:32)
[2021-06-03] MEDS ORDERED: Fludrocortison0.1 MG PO (22:32)
[2021-06-03] MEDS ORDERED: ALBU2.5V5 NEB (22:33)
[2021-06-05] MEDS ORDERED: LOKELMA PO (15:31)
== END 2021-04-19 22:44 | disposition home or self-care (01) ==
LOC: WOUND 04:31
DX: E11.621 Type 2 diabetes mellitus with foot ulcer (principal); L97.422 Non-pressure chronic ulcer of left heel and midfoot with fat layer exposed; L97.412 Non-pressure chronic ulcer of right heel and midfoot with fat layer exposed; E11.622 Type 2 diabetes mellitus with other skin ulcer; L97.829 Non-pressure chronic ulcer of other part of left lower leg with unspecified severity; L97.812 Non-pressure chronic ulcer of other part of right lower leg with fat layer exposed; S31.109A Unspecified open wound of abdominal wall, unspecified quadrant without penetration into peritoneal cavity, initial encounter; E11.51 Type 2 diabetes mellitus with diabetic peripheral angiopathy without gangrene; I12.0 Hypertensive chronic kidney disease with stage 5 chronic kidney disease or end stage renal disease; E11.22 Type 2 diabetes mellitus with diabetic chronic kidney disease; N18.6 End stage renal disease; Z99.2 Dependence on renal dialysis; G47.33 Obstructive sleep apnea (adult) (pediatric); I48.91 Unspecified atrial fibrillation; K21.9 Gastro-esophageal reflux disease without esophagitis; N25.81 Secondary hyperparathyroidism of renal origin; E78.5 Hyperlipidemia, unspecified; J45.909 Unspecified asthma, uncomplicated; G89.29 Other chronic pain; M54.9 Dorsalgia, unspecified; G20 Parkinson's disease; E66.01 Morbid (severe) obesity due to excess calories; Z68.41 Body mass index [BMI] 40.0-44.9, adult; Z93.2 Ileostomy status; Z86.14 Personal history of Methicillin resistant Staphylococcus aureus infection; Z88.1 Allergy status to other antibiotic agents; Z88.2 Allergy status to sulfonamides; Z88.8 Allergy status to other drugs, medicaments and biological substances; Y83.9 Surgical procedure, unspecified as the cause of abnormal reaction of the patient, or of later complication, without mention of misadventure at the time of the procedure; X58.XXXA Exposure to other specified factors, initial encounter
CPT/HCPCS: 87071; 87075; 87077; 87081; 87186; 87205; A9270

== ENCOUNTER 2021-04-26 23:43 | Inpatient (IN) | payer MEDICARE ==
[~2021-04-26] VITALS: Ht 177.8 cm; Wt 100.0 kg
[2021-04-27 00:15] LABS: Calcium, Ionized (POC) 0.73 mmol/L (1.10-1.46); Chloride (POC) 91 mmol/L (98-108); Creatinine (POC) 11.5 mg/dL (0.8-1.3); Glucose (ISTAT POC) 128 mg/dL (70-99); Hemoglobin (POC) 13.6 g/dL (13.5-17.5); Potassium (POC) 7.5 mmol/L (3.5-5.5); Sodium (POC) 120 mmol/L (135-148); Total CO2 (POC) 21 mmol/L (21-32)
[2021-04-27 00:15] LABS: BASOPHILS ABSOLUTE AUTO 0.03 K/mm3 (0.00-0.23); BASOPHILS PERCENT AUTO 0 % (0-2); EOSINOPHILS ABSOLUTE AUTO 0.15 K/mm3 (0.00-0.68); EOSINOPHILS PERCENT AUTO 1 % (0-6); Hematocrit 40.2 % (37.0-53.0); Hemoglobin 12.2 g/dL (13.5-17.5); IMMATURE GRAN ABSOLUTE AUTO 0.13 K/mm3 (0.00-0.10); IMMATURE GRAN PERCENT AUTO 1 % (0-1); LYMPHOCYTES ABSOLUTE AUTO 1.04 K/mm3 (0.84-5.20); LYMPHOCYTES PERCENT AUTO 9 % (21-46); MONOCYTES ABSOLUTE AUTO 1.57 K/mm3 (0.16-1.47); MONOCYTES PERCENT AUTO 13 % (4-13); Mean Corpuscular HGB 27.4 pg (26.0-34.0); Mean Corpuscular HGB Conc 30.3 g/dL (31.5-36.5); Mean Corpuscular Volume 90 fL (80-100); Mean Platelet Volume 10.3 fL (9.1-12.4); NEUTROPHILS ABSOLUTE AUTO 9.25 K/mm3 (1.96-9.15); NEUTROPHILS PERCENT AUTO 76 % (41-73); Platelet Count 188 K/mm3 (150-400); RDW Coefficient Variation 19.9 % (11.7-14.2); RDW Standard Deviation 64.4 fL (35.1-46.3); Red Blood Cell Count 4.46 M/mm3 (4.30-5.90); White Blood Cell Count 12.17 K/mm3 (4.00-11.30)
[2021-04-27 00:41] LABS: Magnesium, Blood 1.3 mg/dL (1.6-2.4); Troponin I <0.015 ng/mL (0.000-0.040)
[2021-04-27 00:47] LABS: Alanine Aminotransfer (ALT/SGP 8 U/L (12-78); Albumin, Blood 3.1 g/dL (3.4-5.0); Albumin/Globulin Ratio 0.7 (0.8-1.8); Alk Phos 239 U/L (50-136); Anion Gap 12 mmol/L (6-16); Aspartate Aminotrans (AST/SGOT 11 U/L (12-37); Bilirubin, Total 0.4 mg/dL (0.1-1.0); Blood Urea Nitrogen 94 mg/dL (8-24); Bun/Creatinine Ratio 10.4 (12.0-20.0); CO2, Blood 21 mmol/L (21-32); Calcium, Blood 6.1 mg/dL (8.5-10.1); Chloride, Blood 86 mmol/L (98-108); Creatinine, Blood 9.05 mg/dL (0.60-1.20); Globulin, Blood 4.7 g/dL (2.2-4.0); Glomerular Filtration Rate 6 (60-); Glucose, Blood 135 mg/dL (70-99); Potassium, Blood 7.3 mmol/L (3.5-5.5); Sodium, Blood 119 mmol/L (136-145); Total Protein, Blood 7.8 g/dL (6.4-8.2)
--- NOTE | 2021-04-27 03:38 | NUR ---
STAT HEMODIALYSIS 1:1 NON-ROUTINE HOURS ORDERED BY DR KHAN FOR PATIENT ADMITTED TO PCU WITH SERUM POTASSIUM 7.5
--- NOTE | 2021-04-27 04:08 | NUR ---
SHIFT SUMMARY REPORT RECIEVED FROM CUCA WILLIAMSON. PATIENT TO ROOM FROM ED @3572. PATIENT IS ALERT AND ORIENTED X4. DROWSY AT TIMES. PATIENT HAS BANDAGES ON ABDOMEN, AND BLE. PICTURE OF ABDOMINAL WOUND IN CHART. PT STATES HE GOES TO THE WOUND CLINIC WEAKLY. STOOL FROM ILEOSTOMY DRAINING LIQUID STOOL. PATIENT CURRENTLY RECIEVING DIALYSIS. PT STATES WHEELCHAIR BOUND AT BASELINE. 02 SATS >95% ON 2L NC. VSS, NO ACUTE CHANGES. CALL LIGHT IN REACH.
[2021-04-27 09:56] LABS: Hematocrit 40.2 % (37.0-53.0); Hemoglobin 12.7 g/dL (13.5-17.5)
--- NOTE | 2021-04-27 10:03 | NUR ---
PER PHARMACY NEXT DOSE OF HEPARIN WILL BE DUE AT 1200 TODAY INSTEAD OF 0900, MORING DOSE WILL BE ADMINISTERED AT 1200 AND THEN NORMAL AMDINISTRATION TIMES WILL BE FOLLOWED
[2021-04-27 10:19] LABS: Magnesium, Blood 1.7 mg/dL (1.6-2.4)
[2021-04-27 10:24] LABS: Anion Gap 8 mmol/L (6-16); Blood Urea Nitrogen 43 mg/dL (8-24); Bun/Creatinine Ratio 7.6 (12.0-20.0); CO2, Blood 26 mmol/L (21-32); Calcium, Blood 7.4 mg/dL (8.5-10.1); Chloride, Blood 94 mmol/L (98-108); Creatinine, Blood 5.69 mg/dL (0.60-1.20); Glomerular Filtration Rate 10 (60-); Glucose, Blood 196 mg/dL (70-99); Phosphorus, Blood 4.2 mg/dL (2.5-4.9); Sodium, Blood 128 mmol/L (136-145)
[2021-04-27 10:27] LABS: Potassium, Blood 4.9 mmol/L (3.5-5.5)
[2021-04-27] MEDS ORDERED: SEVEC800 (15:05)
[2021-04-27] MEDS ORDERED: SEVEC800 PO (15:07)
[2021-04-27] MEDS ORDERED: VELTASSA (15:09)
[2021-04-27] MEDS ORDERED: TUMS500 MG PO (15:10)
--- NOTE | 2021-04-27 18:23 | NUR ---
SHIFT NOTE PT HAS REQUESTED DOUBLE TRAYS T/O THE DAY WHICH WERE PROVIDED. OSTOMY APPLIANCE WAS CHANGED TODAY. WOUND DRESSINGS TO HEELS BILAT AND ABD WERE CHANGED WELL TODAY, RT LEG IS WRAPPED IN SHANE BOOT. PT A/O X4. PT ABLE TO TRANSFER WITH FWW. VSS. PT DENIES PAIN, CP OR SOB. PT HAS BEEN RESTING WELL IN ROOM T/O THE DAY
[2021-04-28 04:02] LABS: BASOPHILS ABSOLUTE AUTO 0.05 K/mm3 (0.00-0.23); BASOPHILS PERCENT AUTO 0 % (0-2); EOSINOPHILS ABSOLUTE AUTO 0.19 K/mm3 (0.00-0.68); EOSINOPHILS PERCENT AUTO 2 % (0-6); Hematocrit 42.8 % (37.0-53.0); Hemoglobin 13.1 g/dL (13.5-17.5); IMMATURE GRAN ABSOLUTE AUTO 0.12 K/mm3 (0.00-0.10); IMMATURE GRAN PERCENT AUTO 1 % (0-1); LYMPHOCYTES ABSOLUTE AUTO 2.15 K/mm3 (0.84-5.20); LYMPHOCYTES PERCENT AUTO 19 % (21-46); MONOCYTES ABSOLUTE AUTO 1.47 K/mm3 (0.16-1.47); MONOCYTES PERCENT AUTO 13 % (4-13); Mean Corpuscular HGB 27.5 pg (26.0-34.0); Mean Corpuscular HGB Conc 30.6 g/dL (31.5-36.5); Mean Corpuscular Volume 90 fL (80-100); Mean Platelet Volume 10.1 fL (9.1-12.4); NEUTROPHILS ABSOLUTE AUTO 7.58 K/mm3 (1.96-9.15); NEUTROPHILS PERCENT AUTO 66 % (41-73); Platelet Count 160 K/mm3 (150-400); RDW Coefficient Variation 20.6 % (11.7-14.2); RDW Standard Deviation 66.1 fL (35.1-46.3); Red Blood Cell Count 4.76 M/mm3 (4.30-5.90); White Blood Cell Count 11.56 K/mm3 (4.00-11.30)
--- NOTE | 2021-04-28 04:15 | NUR ---
SHIFT SUMMARY PATIENT IS ALERT AND ORIENTED X4. PATIENT IS A 1-2 PERSON ASSIST WITH FWW. Q2 HOURS REPOSITIONING, MORE VERBAL REMINDERS TO REPOSITION. ILEOSTOMY PRODUCING SOFT STOOL. PT TEACHING ABOUT ADA/DIABETIC DIET PROVIDED. PATIENT CAN BE ANXIOUS ABOUT CARE. PATIENT AWAKE MOST THE NIGHT. 02 SATS 98% ON RA. WOUND DRESSINGS C/D/I, PICTURES IN CHART. VSS, NO ACTUE CHANGES. CALL LIGHT IN REACH
[2021-04-28 04:30] LABS: Albumin/Globulin Ratio 0.6 (0.8-1.8); Bilirubin, Total 0.4 mg/dL (0.1-1.0); Bun/Creatinine Ratio 8.5 (12.0-20.0); Creatinine, Blood 7.69 mg/dL (0.60-1.20); Globulin, Blood 5.1 g/dL (2.2-4.0); Magnesium, Blood 1.5 mg/dL (1.6-2.4); Potassium, Blood 5.7 mmol/L (3.5-5.5); Total Protein, Blood 8.1 g/dL (6.4-8.2)
--- NOTE | 2021-04-28 09:00 | NUR ---
CARE ASSUMED 0700 Pt A/O x4, able to state correct location, event, date/year. Following directions. Pt anxious about recieving medication on time and food before dialysis. Pt anxious about having licodone applied to fistula prior to dialysis, at home medication applied on time. Pt on RA. Ileostomy in place with brown liquid stool. Pt needs assistane with emptying. Pt educated on ADA diet. Wound dressing C/D/I. see pictures in chart. Pts abd distended with hernia, see pictures in chart. Call light within reach. NSR.
--- NOTE | 2021-04-28 09:15 | NUR ---
PT TO DIALYSIS VIA BED
--- NOTE | 2021-04-28 14:11 | NUR ---
Discharged Pt returned from Dialysis and discharged. All belongings sent with patient and reviwed medications. Teaching completed on hyperkalemia. VSS. Patient medicatoins sent home with pt. Pt transfered via home wheelchair with .
[2021-06-03] MEDS ORDERED: FLUT.05NI (22:15)
[2021-06-03] MEDS ORDERED: HYDMOR8 PO (22:16)
[2021-06-03] MEDS ORDERED: CARBIDOPA-LEVO1 EA15 PO (22:17)
[2021-06-03] MEDS ORDERED: BASAGLAR K100 UNIT/3 SC (22:17)
[2021-06-03] MEDS ORDERED: FEBU40TA PO (22:18)
[2021-06-03] MEDS ORDERED: COLCRYS0.6 M1 PO (22:18)
[2021-06-03] MEDS ORDERED: MIDODRINE HCL10 M1 PO (22:19)
[2021-06-03] MEDS ORDERED: Ropinirole HCl0.5 MG PO (22:19)
[2021-06-03] MEDS ORDERED: PANT40 PO (22:19)
[2021-06-03] MEDS ORDERED: CYCLOBENZAPRINE5 MG PO (22:20)
[2021-06-03] MEDS ORDERED: TRAZ100 PO (22:20)
[2021-06-03] MEDS ORDERED: PREGABALIN PO (22:20)
[2021-06-03] MEDS ORDERED: Ventolin/Prove6.7 GM INH (22:21)
[2021-06-03] MEDS ORDERED: SYMBICORT 16010.2 GM INH (22:21)
[2021-06-03] MEDS ORDERED: ATOR10 PO (22:22)
[2021-06-03] MEDS ORDERED: HUMALOG100 UNIT/1 SC (22:22)
[2021-06-03] MEDS ORDERED: ASPI325EC PO (22:29)
[2021-06-03] MEDS ORDERED: VITAMIN B122500 MC1 PO (22:29)
[2021-06-03] MEDS ORDERED: VITAMIN D325 MC3 PO (22:30)
[2021-06-03] MEDS ORDERED: BIOTIN5 MG PO (22:31)
[2021-06-03] MEDS ORDERED: Rena-Vite Tabl0.8 MG PO (22:31)
[2021-06-03] MEDS ORDERED: VELTASSA PO (22:31)
[2021-06-03] MEDS ORDERED: Fludrocortison0.1 MG PO (22:32)
[2021-06-03] MEDS ORDERED: SEVEC800 PO (22:32)
[2021-06-03] MEDS ORDERED: ALBU2.5V5 NEB (22:33)
[2021-06-05] MEDS ORDERED: LOKELMA PO (15:31)
== END 2021-04-28 14:51 | disposition home or self-care (01) | DRG 640 ==
LOC: ER 23:43 → PCU 23:44
PROVIDERS: Emergency Medicine; Internal Medicine Nephrology; ADMIT Internal Medicine
PROC: 5A1D70Z Performance of Urinary Filtration, Intermittent, Less than 6 Hours Per Day (ICD-10-PCS; principal; 2021-04-28)
DX: E87.5 Hyperkalemia (principal); N18.6 End stage renal disease; I12.0 Hypertensive chronic kidney disease with stage 5 chronic kidney disease or end stage renal disease; N25.81 Secondary hyperparathyroidism of renal origin; E87.70 Fluid overload, unspecified; D72.829 Elevated white blood cell count, unspecified; D63.1 Anemia in chronic kidney disease; E11.22 Type 2 diabetes mellitus with diabetic chronic kidney disease; E87.1 Hypo-osmolality and hyponatremia; I95.9 Hypotension, unspecified; E11.65 Type 2 diabetes mellitus with hyperglycemia; G47.33 Obstructive sleep apnea (adult) (pediatric); J44.9 Chronic obstructive pulmonary disease, unspecified; Z88.2 Allergy status to sulfonamides; Z99.2 Dependence on renal dialysis; Z91.15 Patient's noncompliance with renal dialysis; Z88.8 Allergy status to other drugs, medicaments and biological substances; Z79.4 Long term (current) use of insulin; Z79.82 Long term (current) use of aspirin; Z88.1 Allergy status to other antibiotic agents; Z79.899 Other long term (current) drug therapy; Z90.49 Acquired absence of other specified parts of digestive tract; Z98.890 Other specified postprocedural states; Z87.891 Personal history of nicotine dependence
CPT/HCPCS: 36415; 80047; 80053; 80069; 82947; 83605; 83735; 83880; 84100; 84484; 85014; 85018; 85025; 93005; 93010; 94640; 94760; 96372; 96374; 96375; 96376; 99285-25; A9270; G0378; J0610; J1200; J1644; J1815

== ENCOUNTER 2021-05-03 04:34 | Day surgery (SDC) | payer MEDICARE ==
[~2021-05-03 04:34] MED LIST changes: +TUMS500 MG PO; +VELTASSA
[2021-06-03] MEDS ORDERED: FLUT.05NI (22:15)
[2021-06-03] MEDS ORDERED: HYDMOR8 PO (22:16)
[2021-06-03] MEDS ORDERED: BASAGLAR K100 UNIT/3 SC (22:17)
[2021-06-03] MEDS ORDERED: CARBIDOPA-LEVO1 EA15 PO (22:17)
[2021-06-03] MEDS ORDERED: FEBU40TA PO (22:18)
[2021-06-03] MEDS ORDERED: COLCRYS0.6 M1 PO (22:18)
[2021-06-03] MEDS ORDERED: MIDODRINE HCL10 M1 PO (22:19)
[2021-06-03] MEDS ORDERED: Ropinirole HCl0.5 MG PO (22:19)
[2021-06-03] MEDS ORDERED: PANT40 PO (22:19)
[2021-06-03] MEDS ORDERED: PREGABALIN PO (22:20)
[2021-06-03] MEDS ORDERED: TRAZ100 PO (22:20)
[2021-06-03] MEDS ORDERED: CYCLOBENZAPRINE5 MG PO (22:20)
[2021-06-03] MEDS ORDERED: Ventolin/Prove6.7 GM INH (22:21)
[2021-06-03] MEDS ORDERED: SYMBICORT 16010.2 GM INH (22:21)
[2021-06-03] MEDS ORDERED: HUMALOG100 UNIT/1 SC (22:22)
[2021-06-03] MEDS ORDERED: ATOR10 PO (22:22)
[2021-06-03] MEDS ORDERED: VITAMIN B122500 MC1 PO (22:29)
[2021-06-03] MEDS ORDERED: ASPI325EC PO (22:29)
[2021-06-03] MEDS ORDERED: VITAMIN D325 MC3 PO (22:30)
[2021-06-03] MEDS ORDERED: Rena-Vite Tabl0.8 MG PO (22:31)
[2021-06-03] MEDS ORDERED: BIOTIN5 MG PO (22:31)
[2021-06-03] MEDS ORDERED: VELTASSA PO (22:31)
[2021-06-03] MEDS ORDERED: Fludrocortison0.1 MG PO (22:32)
[2021-06-03] MEDS ORDERED: SEVEC800 PO (22:32)
[2021-06-03] MEDS ORDERED: ALBU2.5V5 NEB (22:33)
[2021-06-05] MEDS ORDERED: LOKELMA PO (15:31)
== END 2021-05-03 23:51 | disposition home or self-care (01) ==
LOC: WOUND 04:34
DX: E11.621 Type 2 diabetes mellitus with foot ulcer (principal); L97.422 Non-pressure chronic ulcer of left heel and midfoot with fat layer exposed; E11.622 Type 2 diabetes mellitus with other skin ulcer; L97.812 Non-pressure chronic ulcer of other part of right lower leg with fat layer exposed; L89.612 Pressure ulcer of right heel, stage 2; L89.312 Pressure ulcer of right buttock, stage 2; L89.322 Pressure ulcer of left buttock, stage 2; L89.622 Pressure ulcer of left heel, stage 2; Z99.2 Dependence on renal dialysis; I73.9 Peripheral vascular disease, unspecified; S61.109 Unspecified open wound of unspecified thumb with damage to nail; X58.XXXS Exposure to other specified factors, sequela; I12.9 Hypertensive chronic kidney disease with stage 1 through stage 4 chronic kidney disease, or unspecified chronic kidney disease; N18.9 Chronic kidney disease, unspecified; Q61.3 Polycystic kidney, unspecified; G47.33 Obstructive sleep apnea (adult) (pediatric); J45.909 Unspecified asthma, uncomplicated; E78.5 Hyperlipidemia, unspecified; G20 Parkinson's disease; E66.01 Morbid (severe) obesity due to excess calories; E21.3 Hyperparathyroidism, unspecified
CPT/HCPCS: 88305; A9270

== ENCOUNTER 2021-05-10 01:45 | Day surgery (SDC) | payer MEDICARE ==
[2021-06-03] MEDS ORDERED: FLUT.05NI (22:15)
[2021-06-03] MEDS ORDERED: HYDMOR8 PO (22:16)
[2021-06-03] MEDS ORDERED: CARBIDOPA-LEVO1 EA15 PO (22:17)
[2021-06-03] MEDS ORDERED: BASAGLAR K100 UNIT/3 SC (22:17)
[2021-06-03] MEDS ORDERED: FEBU40TA PO (22:18)
[2021-06-03] MEDS ORDERED: COLCRYS0.6 M1 PO (22:18)
[2021-06-03] MEDS ORDERED: Ropinirole HCl0.5 MG PO (22:19)
[2021-06-03] MEDS ORDERED: MIDODRINE HCL10 M1 PO (22:19)
[2021-06-03] MEDS ORDERED: PANT40 PO (22:19)
[2021-06-03] MEDS ORDERED: PREGABALIN PO (22:20)
[2021-06-03] MEDS ORDERED: TRAZ100 PO (22:20)
[2021-06-03] MEDS ORDERED: CYCLOBENZAPRINE5 MG PO (22:20)
[2021-06-03] MEDS ORDERED: Ventolin/Prove6.7 GM INH (22:21)
[2021-06-03] MEDS ORDERED: SYMBICORT 16010.2 GM INH (22:21)
[2021-06-03] MEDS ORDERED: ATOR10 PO (22:22)
[2021-06-03] MEDS ORDERED: HUMALOG100 UNIT/1 SC (22:22)
[2021-06-03] MEDS ORDERED: ASPI325EC PO (22:29)
[2021-06-03] MEDS ORDERED: VITAMIN B122500 MC1 PO (22:29)
[2021-06-03] MEDS ORDERED: VITAMIN D325 MC3 PO (22:30)
[2021-06-03] MEDS ORDERED: BIOTIN5 MG PO (22:31)
[2021-06-03] MEDS ORDERED: VELTASSA PO (22:31)
[2021-06-03] MEDS ORDERED: Rena-Vite Tabl0.8 MG PO (22:31)
[2021-06-03] MEDS ORDERED: SEVEC800 PO (22:32)
[2021-06-03] MEDS ORDERED: Fludrocortison0.1 MG PO (22:32)
[2021-06-03] MEDS ORDERED: ALBU2.5V5 NEB (22:33)
[2021-06-05] MEDS ORDERED: LOKELMA PO (15:31)
== END 2021-05-10 12:00 | disposition home or self-care (01) ==
LOC: WOUND 01:45
DX: E11.622 Type 2 diabetes mellitus with other skin ulcer (principal); L97.812 Non-pressure chronic ulcer of other part of right lower leg with fat layer exposed; L89.612 Pressure ulcer of right heel, stage 2; L89.622 Pressure ulcer of left heel, stage 2; L89.312 Pressure ulcer of right buttock, stage 2; L89.322 Pressure ulcer of left buttock, stage 2; I73.9 Peripheral vascular disease, unspecified; S31.109S Unspecified open wound of abdominal wall, unspecified quadrant without penetration into peritoneal cavity, sequela; N18.6 End stage renal disease; I12.0 Hypertensive chronic kidney disease with stage 5 chronic kidney disease or end stage renal disease; E11.22 Type 2 diabetes mellitus with diabetic chronic kidney disease; G47.33 Obstructive sleep apnea (adult) (pediatric); G20 Parkinson's disease; E66.01 Morbid (severe) obesity due to excess calories; Z68.41 Body mass index [BMI] 40.0-44.9, adult; Z99.2 Dependence on renal dialysis; Z88.1 Allergy status to other antibiotic agents; Z88.2 Allergy status to sulfonamides; Z88.8 Allergy status to other drugs, medicaments and biological substances
CPT/HCPCS: A9270

== ENCOUNTER 2021-05-17 04:51 | Day surgery (SDC) | payer MEDICARE ==
[2021-05-17] MEDS ORDERED: Doxycycline Mo100 M1 (15:10)
[2021-06-03] MEDS ORDERED: FLUT.05NI (22:15)
[2021-06-03] MEDS ORDERED: HYDMOR8 PO (22:16)
[2021-06-03] MEDS ORDERED: CARBIDOPA-LEVO1 EA15 PO (22:17)
[2021-06-03] MEDS ORDERED: BASAGLAR K100 UNIT/3 SC (22:17)
[2021-06-03] MEDS ORDERED: COLCRYS0.6 M1 PO (22:18)
[2021-06-03] MEDS ORDERED: FEBU40TA PO (22:18)
[2021-06-03] MEDS ORDERED: Ropinirole HCl0.5 MG PO (22:19)
[2021-06-03] MEDS ORDERED: MIDODRINE HCL10 M1 PO (22:19)
[2021-06-03] MEDS ORDERED: PANT40 PO (22:19)
[2021-06-03] MEDS ORDERED: PREGABALIN PO (22:20)
[2021-06-03] MEDS ORDERED: TRAZ100 PO (22:20)
[2021-06-03] MEDS ORDERED: CYCLOBENZAPRINE5 MG PO (22:20)
[2021-06-03] MEDS ORDERED: SYMBICORT 16010.2 GM INH (22:21)
[2021-06-03] MEDS ORDERED: Ventolin/Prove6.7 GM INH (22:21)
[2021-06-03] MEDS ORDERED: HUMALOG100 UNIT/1 SC (22:22)
[2021-06-03] MEDS ORDERED: ATOR10 PO (22:22)
[2021-06-03] MEDS ORDERED: VITAMIN B122500 MC1 PO (22:29)
[2021-06-03] MEDS ORDERED: ASPI325EC PO (22:29)
[2021-06-03] MEDS ORDERED: VITAMIN D325 MC3 PO (22:30)
[2021-06-03] MEDS ORDERED: VELTASSA PO (22:31)
[2021-06-03] MEDS ORDERED: BIOTIN5 MG PO (22:31)
[2021-06-03] MEDS ORDERED: Rena-Vite Tabl0.8 MG PO (22:31)
[2021-06-03] MEDS ORDERED: SEVEC800 PO (22:32)
[2021-06-03] MEDS ORDERED: Fludrocortison0.1 MG PO (22:32)
[2021-06-03] MEDS ORDERED: ALBU2.5V5 NEB (22:33)
[2021-06-05] MEDS ORDERED: LOKELMA PO (15:31)
== END 2021-05-17 23:41 | disposition home or self-care (01) ==
LOC: WOUND 04:51
DX: E11.621 Type 2 diabetes mellitus with foot ulcer (principal); L97.422 Non-pressure chronic ulcer of left heel and midfoot with fat layer exposed; L97.412 Non-pressure chronic ulcer of right heel and midfoot with fat layer exposed; L97.812 Non-pressure chronic ulcer of other part of right lower leg with fat layer exposed; L03.115 Cellulitis of right lower limb; E11.51 Type 2 diabetes mellitus with diabetic peripheral angiopathy without gangrene; S31.109A Unspecified open wound of abdominal wall, unspecified quadrant without penetration into peritoneal cavity, initial encounter; S81.811A Laceration without foreign body, right lower leg, initial encounter; X58.XXXA Exposure to other specified factors, initial encounter; G47.33 Obstructive sleep apnea (adult) (pediatric); Q61.3 Polycystic kidney, unspecified; J45.909 Unspecified asthma, uncomplicated; M54.9 Dorsalgia, unspecified; G89.29 Other chronic pain; N25.81 Secondary hyperparathyroidism of renal origin; E78.5 Hyperlipidemia, unspecified; G20 Parkinson's disease; I12.9 Hypertensive chronic kidney disease with stage 1 through stage 4 chronic kidney disease, or unspecified chronic kidney disease; E11.22 Type 2 diabetes mellitus with diabetic chronic kidney disease; N18.9 Chronic kidney disease, unspecified; E66.01 Morbid (severe) obesity due to excess calories; Z88.8 Allergy status to other drugs, medicaments and biological substances; Z99.2 Dependence on renal dialysis; Z93.2 Ileostomy status; Z86.79 Personal history of other diseases of the circulatory system; Z88.2 Allergy status to sulfonamides
CPT/HCPCS: A9270

== ENCOUNTER 2021-05-22 21:40 | Emergency (ER) | payer MEDICARE ==
[~2021-05-22] VITALS: Ht 180.3 cm; Wt 123.8 kg
[~2021-05-22 21:40] MED LIST changes: +ALBU2.5V5 NEB; +ASPI325EC PO; +ATOR10 PO; +BIOTIN5 MG PO; +CARBIDOPA-LEVO1 EA15 PO; +CYCLOBENZAPRINE5 MG PO; +Doxycycline Mo100 M1; +HUMALOG100 UNIT/1 SC; +HYDMOR8 PO; +MIDODRINE HCL10 M1 PO; +Rena-Vite Tabl0.8 MG PO; +Ropinirole HCl0.5 MG PO; +TRAZ100 PO; +VITAMIN B122500 MC1 PO; +VITAMIN D325 MC3 PO; +Ventolin/Prove6.7 GM INH
[2021-05-22 22:58] LABS: BASOPHILS ABSOLUTE AUTO 0.03 K/mm3 (0.00-0.23); BASOPHILS PERCENT AUTO 0 % (0-2); EOSINOPHILS ABSOLUTE AUTO 0.11 K/mm3 (0.00-0.68); EOSINOPHILS PERCENT AUTO 1 % (0-6); Hematocrit 43.4 % (37.0-53.0); Hemoglobin 13.1 g/dL (13.5-17.5); IMMATURE GRAN ABSOLUTE AUTO 0.07 K/mm3 (0.00-0.10); IMMATURE GRAN PERCENT AUTO 1 % (0-1); LYMPHOCYTES PERCENT AUTO 14 % (21-46); MONOCYTES ABSOLUTE AUTO 1.36 K/mm3 (0.16-1.47); MONOCYTES PERCENT AUTO 15 % (4-13); Mean Corpuscular HGB 28.4 pg (26.0-34.0); Mean Corpuscular HGB Conc 30.2 g/dL (31.5-36.5); Mean Corpuscular Volume 94 fL (80-100); Mean Platelet Volume 10.9 fL (9.1-12.4); NEUTROPHILS ABSOLUTE AUTO 6.19 K/mm3 (1.96-9.15); NEUTROPHILS PERCENT AUTO 68 % (41-73); Platelet Count 179 K/mm3 (150-400); RDW Standard Deviation 68.8 fL (35.1-46.3); Red Blood Cell Count 4.61 M/mm3 (4.30-5.90); White Blood Cell Count 9.06 K/mm3 (4.00-11.30)
[2021-05-22 23:22] LABS: Magnesium, Blood 1.8 mg/dL (1.6-2.4)
[2021-05-22 23:25] LABS: Albumin, Blood 3.5 g/dL (3.4-5.0); Albumin/Globulin Ratio 0.7 (0.8-1.8); Bilirubin, Total 0.3 mg/dL (0.1-1.0); Bun/Creatinine Ratio 8.2 (12.0-20.0); Calcium, Blood 6.8 mg/dL (8.5-10.1); Creatinine, Blood 8.43 mg/dL (0.60-1.20); Phosphorus, Blood 5.9 mg/dL (2.5-4.9); Total Protein, Blood 8.5 g/dL (6.4-8.2)
== END 2021-05-23 00:59 | disposition home or self-care (01) ==
LOC: ER 21:40
PROVIDERS: Physician Assistant
DX: E83.51 Hypocalcemia (principal); I12.0 Hypertensive chronic kidney disease with stage 5 chronic kidney disease or end stage renal disease; E11.22 Type 2 diabetes mellitus with diabetic chronic kidney disease; N18.6 End stage renal disease; E11.40 Type 2 diabetes mellitus with diabetic neuropathy, unspecified; J44.9 Chronic obstructive pulmonary disease, unspecified; Z79.82 Long term (current) use of aspirin; Z79.899 Other long term (current) drug therapy; Z88.2 Allergy status to sulfonamides; Z88.1 Allergy status to other antibiotic agents; Z79.4 Long term (current) use of insulin; Z87.891 Personal history of nicotine dependence
CPT/HCPCS: 36415; 80053; 83735; 84100; 85025; 93005; 93010; 96365; 99283-25; J0610

== ENCOUNTER 2021-05-24 00:29 | Day surgery (SDC) | payer MEDICARE | END 2021-05-24 23:00 | disposition home or self-care (01) | LOC: WOUND 00:29 | DX: L97.812 Non-pressure chronic ulcer of other part of right lower leg with fat layer exposed (principal); E11.621 Type 2 diabetes mellitus with foot ulcer; L97.422 Non-pressure chronic ulcer of left heel and midfoot with fat layer exposed; L97.419 Non-pressure chronic ulcer of right heel and midfoot with unspecified severity | CPT/HCPCS: A9270 ==

== ENCOUNTER 2021-05-27 12:12 | Inpatient (IN) | payer MEDICARE ==
[~2021-05-27] VITALS: Ht 177.8 cm; Wt 131.8 kg
[2021-05-27 12:45] LABS: Calcium, Ionized (POC) 0.78 mmol/L (1.10-1.46); Chloride (POC) 85 mmol/L (98-108); Creatinine (POC) 11.3 mg/dL (0.8-1.3); Glucose (ISTAT POC) 196 mg/dL (70-99); Hemoglobin (POC) 14.6 g/dL (13.5-17.5); Potassium (POC) 6.8 mmol/L (3.5-5.5); Sodium (POC) 118 mmol/L (135-148); Total CO2 (POC) 20 mmol/L (21-32)
[2021-05-27] MEDS ORDERED: COLCRYS0.6 M1 PO (12:45)
[2021-05-27] MEDS ORDERED: PREGABALIN PO (12:47)
[2021-05-27] MEDS ORDERED: SYMBICORT 16010.2 GM INH (12:48)
[2021-05-27] MEDS ORDERED: VELTASSA PO (12:56)
[2021-05-27] MEDS ORDERED: SEVEC800 PO (12:57)
[2021-05-27 12:59] LABS: BASOPHILS ABSOLUTE AUTO 0.03 K/mm3 (0.00-0.23); BASOPHILS PERCENT AUTO 0 % (0-2); EOSINOPHILS ABSOLUTE AUTO 0.11 K/mm3 (0.00-0.68); EOSINOPHILS PERCENT AUTO 1 % (0-6); Hematocrit 42.2 % (37.0-53.0); Hemoglobin 13.2 g/dL (13.5-17.5); IMMATURE GRAN ABSOLUTE AUTO 0.16 K/mm3 (0.00-0.10); IMMATURE GRAN PERCENT AUTO 2 % (0-1); LYMPHOCYTES ABSOLUTE AUTO 1.39 K/mm3 (0.84-5.20); LYMPHOCYTES PERCENT AUTO 14 % (21-46); MONOCYTES ABSOLUTE AUTO 1.06 K/mm3 (0.16-1.47); MONOCYTES PERCENT AUTO 11 % (4-13); Mean Corpuscular HGB 28.5 pg (26.0-34.0); Mean Corpuscular HGB Conc 31.3 g/dL (31.5-36.5); Mean Corpuscular Volume 91 fL (80-100); Mean Platelet Volume 10.6 fL (9.1-12.4); NEUTROPHILS ABSOLUTE AUTO 7.01 K/mm3 (1.96-9.15); NEUTROPHILS PERCENT AUTO 72 % (41-73); Platelet Count 172 K/mm3 (150-400); RDW Coefficient Variation 19.7 % (11.7-14.2); RDW Standard Deviation 64.5 fL (35.1-46.3); Red Blood Cell Count 4.63 M/mm3 (4.30-5.90); White Blood Cell Count 9.76 K/mm3 (4.00-11.30)
[2021-05-27 13:25] LABS: Magnesium, Blood 1.5 mg/dL (1.6-2.4); Phosphorus, Blood 7.4 mg/dL (2.5-4.9)
[2021-05-27 13:29] LABS: Albumin, Blood 3.5 g/dL (3.4-5.0); Albumin/Globulin Ratio 0.7 (0.8-1.8); Bilirubin, Total 0.4 mg/dL (0.1-1.0); Bun/Creatinine Ratio 9.5 (12.0-20.0); Calcium, Blood 6.9 mg/dL (8.5-10.1); Creatinine, Blood 9.04 mg/dL (0.60-1.20); Globulin, Blood 4.9 g/dL (2.2-4.0); Potassium, Blood 6.5 mmol/L (3.5-5.5); Total Protein, Blood 8.4 g/dL (6.4-8.2)
--- NOTE | 2021-05-27 17:40 | NUR ---
STAT HEMODIALYSIS ORDERED BY DR KHAN FOR PATIENT ADMITTED TO PCU VIA ER WITH HYPERKALEMIA 6.8 AND FLUID EXCESS. MACHINE IN PCU ROOM 12 AND READY FOR TREATMENT. WAIT TIME BEGINS AT 1820.
--- NOTE | 2021-05-27 18:52 | NUR ---
ARRIVAL TO UNIT PT ARRIVED TO UNIT FROM ER, SLID OVER WITH SLIDE SHEET. TOLERATED WELL. ILEOSTOMY TO RLQ INTACT. LARGE HERNIA MIDLINE, PROTRUDES WHEN PATIENT COUGHS. PT ON 2L OXYGEN VIA NC. DENIES SOB. CURRENTLY RECIEVING DIALYSIS IN ROOM, WAS CONNECTED IMMEDIATLY ON ARRIVAL. PT IS AA0X4, AT BEDSIDE TO HELP WITH ADMISSION INFORMATION. CALL LIGHT IS IN REACH, WILL GIVE REPORT TO ONCOMING RN.
--- NOTE | 2021-05-27 19:35 | NUR ---
PT UNDERGOING DIALYSIS IN THE ROOM AT THIS TIME, UNTIL APPX 2100 PER STEVEN HORN.
--- NOTE | 2021-05-27 21:00 | NUR ---
AT BEDSIDE, SUPPORTIVE. PT IS ALERT AND ORIENTED, JUST FINISHING UP WITH DIALYSIS. PT IS COOPERATIVE WITH CARE. PT REPORTS HE FELL AT HOME. PT HAS MULTIPLE SKIN ABRASIONS. PT HAS A LARGE ABDOMINAL HERNIA WITH ILEOSTOMY TO RIGHT LOWER ABDOMEN. PT HAS AN ABRASION TO HIS MID ABDOMEN, BLE, TOES. RIGHT UPPER ARM FISTULA WITH BRUIT. PT REPORTS HE HAS BEEN FOLLOWING WITH A CHEMISTRY FACULTY MEMBER, AND WITH THE WOUND CLINIC FOR APPX 1 YEAR. CALL LIGHT WITHIN REACH. BED IN LOW POSITION. FLUIDS AT BEDSIDE. SNACK GIVEN.
[2021-05-28 04:10] LABS: BASOPHILS ABSOLUTE AUTO 0.03 K/mm3 (0.00-0.23); BASOPHILS PERCENT AUTO 0 % (0-2); EOSINOPHILS ABSOLUTE AUTO 0.07 K/mm3 (0.00-0.68); EOSINOPHILS PERCENT AUTO 1 % (0-6); Hematocrit 42.3 % (37.0-53.0); Hemoglobin 13.3 g/dL (13.5-17.5); IMMATURE GRAN ABSOLUTE AUTO 0.09 K/mm3 (0.00-0.10); IMMATURE GRAN PERCENT AUTO 1 % (0-1); LYMPHOCYTES ABSOLUTE AUTO 1.12 K/mm3 (0.84-5.20); LYMPHOCYTES PERCENT AUTO 12 % (21-46); MONOCYTES ABSOLUTE AUTO 1.33 K/mm3 (0.16-1.47); MONOCYTES PERCENT AUTO 15 % (4-13); Mean Corpuscular HGB 28.5 pg (26.0-34.0); Mean Corpuscular HGB Conc 31.4 g/dL (31.5-36.5); Mean Corpuscular Volume 91 fL (80-100); Mean Platelet Volume 10.8 fL (9.1-12.4); NEUTROPHILS ABSOLUTE AUTO 6.52 K/mm3 (1.96-9.15); NEUTROPHILS PERCENT AUTO 71 % (41-73); Platelet Count 177 K/mm3 (150-400); RDW Coefficient Variation 19.9 % (11.7-14.2); RDW Standard Deviation 64.8 fL (35.1-46.3); Red Blood Cell Count 4.66 M/mm3 (4.30-5.90); White Blood Cell Count 9.16 K/mm3 (4.00-11.30)
[2021-05-28 04:39] LABS: Albumin, Blood 3.3 g/dL (3.4-5.0); Albumin/Globulin Ratio 0.7 (0.8-1.8); Bilirubin, Total 0.5 mg/dL (0.1-1.0); Bun/Creatinine Ratio 7.7 (12.0-20.0); Creatinine, Blood 7.78 mg/dL (0.60-1.20); Globulin, Blood 4.7 g/dL (2.2-4.0)
--- NOTE | 2021-05-28 07:28 | NUR ---
SHIFT SUMMARY - NO ACUTE CHANGES THIS SHIFT. PT SLEPT FOR APPX 1 HOUR TONIGHT. PT REPORTS HE HAS BEEN FOLLOWING WITH THE WOUND CLINIC FOR APPX 1 YEAR, AND REPORTS HE ALSO HAS HOME HEALTH. PICTURES IN CHART OF ABRASIONS, ULCERS, SKIN ISSUES - MEPILEX TO COCCYX, BLANCHABLE, NO BREAKDOWN. R PIEDRA CLEANED WITH SKINTEGRITY, AND MEPILEX APPLIED X2. MEPILEX TO BILATERAL HEELS. ABDOMEN OPEN TO AIR. PERMACATH ON FRANK - BRUIT PRESENT. PT IS A PLEASANT, COOPERATIVE GENTLEMAN. PT IS CURRENLTY ON RA - PER HIS REQUEST, SATS WNL ON RA. ICE CHIPS AT BEDSIDE. CALL LIGHT WITHIN REACH. BED IN LOW POSITION.
--- NOTE | 2021-05-28 12:00 | NUR ---
pt and senior project manager engineering John state that pt will be discharging today.
== END 2021-05-28 16:26 | disposition home or self-care (01) | DRG 640 ==
LOC: ER 12:12 → PCU 12:13 → ERHOLD 12:13 → ER 14:46 → ERHOLD 14:46 → PCU 16:49
PROVIDERS: Emergency Medicine; ADMIT Family Medicine
PROC: 5A1D70Z Performance of Urinary Filtration, Intermittent, Less than 6 Hours Per Day (ICD-10-PCS; principal; 2021-05-28)
DX: E87.5 Hyperkalemia (principal); N18.6 End stage renal disease; J96.11 Chronic respiratory failure with hypoxia; I12.0 Hypertensive chronic kidney disease with stage 5 chronic kidney disease or end stage renal disease; E87.70 Fluid overload, unspecified; Z66 Do not resuscitate; F41.9 Anxiety disorder, unspecified; Z88.2 Allergy status to sulfonamides; Z88.8 Allergy status to other drugs, medicaments and biological substances; Z88.1 Allergy status to other antibiotic agents; K21.9 Gastro-esophageal reflux disease without esophagitis; D64.9 Anemia, unspecified; J45.909 Unspecified asthma, uncomplicated; I48.91 Unspecified atrial fibrillation; E66.9 Obesity, unspecified; Z68.30 Body mass index [BMI] 30.0-30.9, adult; G89.4 Chronic pain syndrome; Z99.2 Dependence on renal dialysis; E78.5 Hyperlipidemia, unspecified; G47.00 Insomnia, unspecified; G47.33 Obstructive sleep apnea (adult) (pediatric); E11.40 Type 2 diabetes mellitus with diabetic neuropathy, unspecified; G25.81 Restless legs syndrome; Z98.890 Other specified postprocedural states; Z87.891 Personal history of nicotine dependence; Z79.899 Other long term (current) drug therapy; Z79.4 Long term (current) use of insulin; W18.30XA Fall on same level, unspecified, initial encounter
CPT/HCPCS: 36415; 70450; 73522; 80047; 80053; 82947; 83735; 84100; 85014; 85025; 93005; 93010; 94640; 94644; 94664; 94760; 96372; 96375; 96376; A9270; G0378; J0610; J1200; J1644; J1815; J2405; J3010

== ENCOUNTER 2021-06-03 20:43 | Inpatient (IN) | payer MEDICARE | END 2021-06-05 16:28 | disposition home or self-care (01) | DRG 640 | LOC: ER 20:43 → ICUW 23:56 → PCU 06-04 14:55 | PROVIDERS: ADMIT Internal Medicine | DX: E87.5 Hyperkalemia (principal); N18.6 End stage renal disease; J96.11 Chronic respiratory failure with hypoxia; Q61.3 Polycystic kidney, unspecified; D63.1 Anemia in chronic kidney disease; I48.91 Unspecified atrial fibrillation; E87.70 Fluid overload, unspecified; J45.909 Unspecified asthma, uncomplicated; M54.16 Radiculopathy, lumbar region; E11.40 Type 2 diabetes mellitus with diabetic neuropathy, unspecified; G47.00 Insomnia, unspecified; G47.33 Obstructive sleep apnea (adult) (pediatric); E87.1 Hypo-osmolality and hyponatremia; F41.9 Anxiety disorder, unspecified; E21.3 Hyperparathyroidism, unspecified; Z99.2 Dependence on renal dialysis; Z99.81 Dependence on supplemental oxygen; Z88.1 Allergy status to other antibiotic agents; Z88.2 Allergy status to sulfonamides; Z88.8 Allergy status to other drugs, medicaments and biological substances ==

== ENCOUNTER 2021-06-07 01:30 | Day surgery (SDC) | payer MEDICARE ==
[~2021-06-07 01:30] MED LIST changes: +BASAGLAR K100 UNIT/3 SC; +COLCRYS0.6 M1 PO; +FLUT.05NI; +LOKELMA PO; +PREGABALIN PO; +SYMBICORT 16010.2 GM INH
== END 2021-06-07 12:00 | disposition home or self-care (01) ==
LOC: WOUND 01:30
DX: E11.622 Type 2 diabetes mellitus with other skin ulcer (principal); L97.812 Non-pressure chronic ulcer of other part of right lower leg with fat layer exposed; E11.621 Type 2 diabetes mellitus with foot ulcer; L97.422 Non-pressure chronic ulcer of left heel and midfoot with fat layer exposed; L89.612 Pressure ulcer of right heel, stage 2; L89.622 Pressure ulcer of left heel, stage 2; L03.115 Cellulitis of right lower limb; I73.9 Peripheral vascular disease, unspecified; S31.109S Unspecified open wound of abdominal wall, unspecified quadrant without penetration into peritoneal cavity, sequela; X58.XXXS Exposure to other specified factors, sequela; Z99.2 Dependence on renal dialysis; I12.9 Hypertensive chronic kidney disease with stage 1 through stage 4 chronic kidney disease, or unspecified chronic kidney disease; N18.9 Chronic kidney disease, unspecified; E11.22 Type 2 diabetes mellitus with diabetic chronic kidney disease; J44.9 Chronic obstructive pulmonary disease, unspecified; K21.9 Gastro-esophageal reflux disease without esophagitis; E78.5 Hyperlipidemia, unspecified; I48.91 Unspecified atrial fibrillation; E21.3 Hyperparathyroidism, unspecified; Z88.1 Allergy status to other antibiotic agents; Z88.2 Allergy status to sulfonamides; Z88.8 Allergy status to other drugs, medicaments and biological substances
CPT/HCPCS: A9270

== ENCOUNTER 2021-06-14 01:03 | Day surgery (SDC) | payer MEDICARE | END 2021-06-14 23:16 | disposition home or self-care (01) | LOC: WOUND 01:03 | DX: E11.621 Type 2 diabetes mellitus with foot ulcer (principal); L97.422 Non-pressure chronic ulcer of left heel and midfoot with fat layer exposed; E11.622 Type 2 diabetes mellitus with other skin ulcer; L97.812 Non-pressure chronic ulcer of other part of right lower leg with fat layer exposed; S31.109A Unspecified open wound of abdominal wall, unspecified quadrant without penetration into peritoneal cavity, initial encounter; X58.XXXA Exposure to other specified factors, initial encounter; E11.51 Type 2 diabetes mellitus with diabetic peripheral angiopathy without gangrene; I12.0 Hypertensive chronic kidney disease with stage 5 chronic kidney disease or end stage renal disease; E11.22 Type 2 diabetes mellitus with diabetic chronic kidney disease; N18.6 End stage renal disease; G47.33 Obstructive sleep apnea (adult) (pediatric); J45.909 Unspecified asthma, uncomplicated; I48.91 Unspecified atrial fibrillation; K21.9 Gastro-esophageal reflux disease without esophagitis; E78.5 Hyperlipidemia, unspecified; N25.81 Secondary hyperparathyroidism of renal origin; G20 Parkinson's disease; E66.01 Morbid (severe) obesity due to excess calories; G89.29 Other chronic pain; M54.9 Dorsalgia, unspecified; Z68.41 Body mass index [BMI] 40.0-44.9, adult; Z93.2 Ileostomy status; Z99.2 Dependence on renal dialysis; Z86.14 Personal history of Methicillin resistant Staphylococcus aureus infection; Z88.1 Allergy status to other antibiotic agents; Z88.2 Allergy status to sulfonamides; Z88.8 Allergy status to other drugs, medicaments and biological substances | CPT/HCPCS: A9270 ==

== ENCOUNTER 2021-06-21 00:19 | Day surgery (SDC) | payer MEDICARE | END 2021-06-21 23:00 | disposition home or self-care (01) | LOC: WOUND 00:19 | DX: E11.622 Type 2 diabetes mellitus with other skin ulcer (principal); L97.812 Non-pressure chronic ulcer of other part of right lower leg with fat layer exposed; L89.622 Pressure ulcer of left heel, stage 2; S31.109S Unspecified open wound of abdominal wall, unspecified quadrant without penetration into peritoneal cavity, sequela; X58.XXXS Exposure to other specified factors, sequela; Z99.2 Dependence on renal dialysis; E11.51 Type 2 diabetes mellitus with diabetic peripheral angiopathy without gangrene; I12.9 Hypertensive chronic kidney disease with stage 1 through stage 4 chronic kidney disease, or unspecified chronic kidney disease; N18.9 Chronic kidney disease, unspecified; E11.22 Type 2 diabetes mellitus with diabetic chronic kidney disease; G47.33 Obstructive sleep apnea (adult) (pediatric); J45.909 Unspecified asthma, uncomplicated; K21.9 Gastro-esophageal reflux disease without esophagitis; E78.5 Hyperlipidemia, unspecified; G20 Parkinson's disease; N25.81 Secondary hyperparathyroidism of renal origin; Z88.2 Allergy status to sulfonamides; Z88.1 Allergy status to other antibiotic agents; Z88.8 Allergy status to other drugs, medicaments and biological substances | CPT/HCPCS: A9270 ==

== ENCOUNTER 2021-06-28 01:08 | Day surgery (SDC) | payer MEDICARE | END 2021-06-28 23:40 | disposition home or self-care (01) | LOC: WOUND 01:08 | DX: E11.622 Type 2 diabetes mellitus with other skin ulcer (principal); L97.812 Non-pressure chronic ulcer of other part of right lower leg with fat layer exposed; E11.51 Type 2 diabetes mellitus with diabetic peripheral angiopathy without gangrene; E11.621 Type 2 diabetes mellitus with foot ulcer; L97.422 Non-pressure chronic ulcer of left heel and midfoot with fat layer exposed; S31.109S Unspecified open wound of abdominal wall, unspecified quadrant without penetration into peritoneal cavity, sequela; E11.22 Type 2 diabetes mellitus with diabetic chronic kidney disease; I12.9 Hypertensive chronic kidney disease with stage 1 through stage 4 chronic kidney disease, or unspecified chronic kidney disease; N18.9 Chronic kidney disease, unspecified; G47.33 Obstructive sleep apnea (adult) (pediatric); J45.909 Unspecified asthma, uncomplicated; I48.91 Unspecified atrial fibrillation; K21.9 Gastro-esophageal reflux disease without esophagitis; E78.5 Hyperlipidemia, unspecified; G20 Parkinson's disease; E66.01 Morbid (severe) obesity due to excess calories; Z99.2 Dependence on renal dialysis; Z88.8 Allergy status to other drugs, medicaments and biological substances; Z88.1 Allergy status to other antibiotic agents; Z88.2 Allergy status to sulfonamides; Z68.41 Body mass index [BMI] 40.0-44.9, adult; Y83.8 Other surgical procedures as the cause of abnormal reaction of the patient, or of later complication, without mention of misadventure at the time of the procedure | CPT/HCPCS: A9270; G0463 ==

== ENCOUNTER 2021-07-04 19:32 | Inpatient (IN) | payer MEDICARE ==
[~2021-07-04] VITALS: Ht 182.9 cm; Wt 126.7 kg
[2021-07-04 20:29] LABS: Hematocrit 52.5 % (37.0-53.0); Hemoglobin 16.6 g/dL (13.5-17.5); Mean Corpuscular HGB 29.5 pg (26.0-34.0); Mean Corpuscular HGB Conc 31.6 g/dL (31.5-36.5); Mean Corpuscular Volume 93 fL (80-100); Mean Platelet Volume 11.1 fL (9.1-12.4); NRBC Auto 0.5 /100 WBC (0.0-0.2); Platelet Count 162 K/mm3 (150-400); RDW Coefficient Variation 19.5 % (11.7-14.2); RDW Standard Deviation 63.8 fL (35.1-46.3); Red Blood Cell Count 5.62 M/mm3 (4.30-5.90); White Blood Cell Count 19.91 K/mm3 (4.00-11.30)
[2021-07-04 20:34] LABS: Albumin, Blood 3.9 g/dL (3.4-5.0); Albumin/Globulin Ratio 0.8 (0.8-1.8); Bilirubin, Total 0.9 mg/dL (0.1-1.0); Bun/Creatinine Ratio 4.8 (12.0-20.0); Calcium, Blood 8.9 mg/dL (8.5-10.1); Creatinine, Blood 6.91 mg/dL (0.60-1.20); Globulin, Blood 4.9 g/dL (2.2-4.0); Potassium, Blood 5.7 mmol/L (3.5-5.5); Total Protein, Blood 8.8 g/dL (6.4-8.2)
[2021-07-04 20:47] LABS: BAND PERCENT MAN 19 % (0-8); BASOPHILS PERCENT MAN 0 % (0-2); EOSINOPHILS PERCENT MAN 0 % (0-6); LYMPHOCYTES ABSOLUTE MAN 0.39 K/mm3 (0.84-5.20); LYMPHOCYTES PERCENT MAN 2 % (21-46); METAMYELOCYTE ABSOLUTE MAN 0.19 K/mm3 (0.00-0.00); METAMYELOCYTE PERCENT MAN 1 % (0-0); MONOCYTES ABSOLUTE MAN 2.19 K/mm3 (0.16-1.47); MONOCYTES PERCENT MAN 11 % (4-13); MYELOCYTE ABSOLUTE MAN 0.19 K/mm3 (0.00-0.00); MYELOCYTE PERCENT MAN 1 % (0-0); NEUTROPHILS ABSOLUTE MAN 16.92 K/mm3 (1.96-9.15); SEG NEUTROPHILS PERCENT MAN 66 % (41-73); TOTAL CELLS COUNTED 100
[2021-07-04 21:11] LABS: Calcium, Ionized (POC) 0.91 mmol/L (1.10-1.46); Chloride (POC) 89 mmol/L (98-108); Creatinine (POC) 7.7 mg/dL (0.8-1.3); Glucose (ISTAT POC) 219 mg/dL (70-99); Potassium (POC) 6.6 mmol/L (3.5-5.5); Sodium (POC) 129 mmol/L (135-148); Total CO2 (POC) 25 mmol/L (21-32)
[2021-07-05 04:26] LABS: BASOPHILS ABSOLUTE AUTO 0.02 K/mm3 (0.00-0.23); BASOPHILS PERCENT AUTO 0 % (0-2); EOSINOPHILS PERCENT AUTO 0 % (0-6); Hematocrit 47.8 % (37.0-53.0); Hemoglobin 14.9 g/dL (13.5-17.5); IMMATURE GRAN ABSOLUTE AUTO 0.12 K/mm3 (0.00-0.10); IMMATURE GRAN PERCENT AUTO 1 % (0-1); LYMPHOCYTES ABSOLUTE AUTO 0.61 K/mm3 (0.84-5.20); LYMPHOCYTES PERCENT AUTO 5 % (21-46); MONOCYTES ABSOLUTE AUTO 0.58 K/mm3 (0.16-1.47); MONOCYTES PERCENT AUTO 4 % (4-13); Mean Corpuscular HGB 29.7 pg (26.0-34.0); Mean Corpuscular HGB Conc 31.2 g/dL (31.5-36.5); Mean Corpuscular Volume 95 fL (80-100); Mean Platelet Volume 11.1 fL (9.1-12.4); NEUTROPHILS ABSOLUTE AUTO 11.75 K/mm3 (1.96-9.15); NEUTROPHILS PERCENT AUTO 90 % (41-73); NRBC ABSOLUTE 0.06 K/mm3 (0.00-0.02); NRBC Auto 0.5 /100 WBC (0.0-0.2); Platelet Count 124 K/mm3 (150-400); RDW Coefficient Variation 19.4 % (11.7-14.2); RDW Standard Deviation 65.4 fL (35.1-46.3); Red Blood Cell Count 5.01 M/mm3 (4.30-5.90); White Blood Cell Count 13.08 K/mm3 (4.00-11.30)
[2021-07-05 04:27] LABS: PCO2 Arterial 69.8 mmHg (35-45); PO2 Arterial 123 mmHg (80-100); pH Blood Arterial 7.18 (7.35-7.45)
--- NOTE | 2021-07-05 05:00 | NUR ---
ICU ADMISSION: PT ARRIVES FROM THE OR, INTUBATED, SEDATED, & PARALYZED. VENT: 18/500, 5/85%. PT UNABLE TO FOLLOW COMMANDS. LAST DOSE OF ROCURONIUM WAS APPROX 15min TELEPHONE TRIAGE NURSE. SEE INITIAL ASSESSMENT DOCUMENTATION. SURGICAL DRESSING IN PLACE TO THE LOWER ABD, C/D/I. ABRAM DRAIN. PLAN FOR PT TO RETURN TO THE OR AFTER HE IS RECOVERED TO HAVE ANOTHER OSTOMY CREATED. -PER PREVIOUS RN NOTATION, PT HAS BEEN C/O ABD PAIN LATELY & MORE SO TODAY WHILE @ DIALYSIS. OSTOMY SITE WAS BLACK & W/ A BULGING HERNIA ABOVE THE STOMA. OLSON WAS CONSULTED & PT WAS ADMITTED FOR ISCHEMIC ENTERITIS & SM BOWEL PERF & SEPTIC SHOCK.
[2021-07-05 05:29] LABS: Albumin, Blood 2.7 g/dL (3.4-5.0); Bilirubin, Total 1.3 mg/dL (0.1-1.0); Bun/Creatinine Ratio 5.3 (12.0-20.0); Calcium, Blood 7.5 mg/dL (8.5-10.1); Creatinine, Blood 7.23 mg/dL (0.60-1.20)
[2021-07-05 05:38] LABS: Albumin/Globulin Ratio 0.7 (0.8-1.8); Potassium, Blood 6.7 mmol/L (3.5-5.5); Total Protein, Blood 6.7 g/dL (6.4-8.2)
--- NOTE | 2021-07-05 09:48 | NUR ---
AM NOTE... ASSUMED CARE OF PT AT 0700, PT IS INTUBATED AND AWAKE WITH EYES OPEN, PT IS ABLE TO NOD HIS HEAD YES OR NO TO QUESTIONS APPROPRIATELY. PT IS ON LEVOPHED AT 18MCG AND VASOPRESSIN AT 0.04UNITS/HR WITH MAPS >60. PT'S L/S COARSE IN THE UPPER LOBES DIM IN THE LOWER LOBES. ET TUBE IS 8.0 25 AT THE LIP. PT IS S/P TOTAL COLECTOMY AND REVERSAL OF ILLEOSTOMY, PT CURRENT HAS AN NG TUBE TO LOW INT SUCTION WITH BLACK/DARK BROWN LIQUID WITH COFFEE GROUND SEDIMENT NOTED IN THE SUCTION CANISTER. BT ARE ABSENT AT THIS TIME, ABD IS SOFT, LARGE INCISION WITH PICCO DRAIN NOTED ACCROSS THE PT'S LOWER ABD AREA. PT HAS TRACE EDEMA NOTED TO HIS BLE, PT'S BLE ARE DUSKY WITH CAP REFILL AT 3 SECONDS, PEDAL PULSES ARE FAINT TO PALPATION BILATTERALLY. PT'S ORELLANA IS PATENT AND DRAINING TO GRAVITY VERY MINIMAL AMOUNT OF OUTPUT D/T THE PT BEIND ON DIALYSIS. AT APROX 0745 THE PT'S LEVOPHED WAS TITRATED UP FROM 18MCG TO 30MCG TO KEEP THE MAPS >60, DR. ESPINOZA NOTIFIED AND AN ORDER OF A 1000 BOLUS OF NS WAS OBTAINED, THIS WAS GIVEN THE PT'S BPs IMPROVED WITH MAPS >65. AT APROX 0900 THE PT WAS STARTED ON DIALYSIS. THE PT'S BPs STARTED TO DROP AGAIN, THE PT WAS STARTED ON ALBUMIN PER DR. KHAN AND GIVEN BY ARRESTING GEAR OPERATOR. AT APROX [address] RUIZ AT THE BEDSIDE TO ASSESS THE PT, NEW ORDERS WERE OBTAINED TO START AN EPI DRIP TO KEEP PT'S BPs STABLE DURING DIALYSIS. WILL CONTINUE TO MONITOR.
--- NOTE | 2021-07-05 15:22 | NUR ---
PT UPDATE... DR. GIBBONS AT THE BEDSIDE FOR ASSESSMENT, THE PT WAS SWICHTED FROM AC TO PRESSURE SUPPORT/SPONTAINIOUS FIRST AT 16/5 AND 30% THEN 10/5 AND 30% THEN 5/5 AND 30%, PT IS ABLE TO KEEP HIS O2 SATS >90% AND TV >450, THE PT'S PROPOFOL WAS DECREASED FROM 60MCG TO 30MCG AND THE PT'S LEVOPHED WAS TITRATED DOWN FROM 28MCG/HR TO 24MCG/HR TO KEEP MAPS >60. THIS RN NOTED THAT THE PT'S ABD WAS A LITTLE MORE FRIM THAN IT WAS DURING THE AM ASSESSMENT. DR. GIBBONS AWARE. THE PLAN OF CARE IS TO EXTUBATE TODAY IF POSSIBLE AND TITRATE THE PRESSORS OFF. WILL CONTINUE TO MONITOR.
--- NOTE | 2021-07-05 16:04 | NUR ---
PT UPDATE... DR. OLSON AT THE BEDSIDE TO ASSESS THE PT, PLAN IS TO LEAVE THE PT INBUTATED UNTIL THE PT IS TAKEN BACK TO THE OR AGAIN TOMORROW OR THE NEXT DAY. DR. GIBBONS AT THE BEDSIDE WELL TO SPEAK WITH DR. OLSON. PLAN OF CARE IT TO KEEP THE PT INTUBATED AND COMFORTABLE UNTIL FURUTHER SURGICAL INTERVENTIONS CAN BE DONE. THE PT'S PROPOFOL WAS TURNED BACK ON TO 30MCG, THE PT WAS STARTING TO GET AGITATED, THRASHING HIS HEAD BACK AND FORTH ACROSS THE PILLOW, THE PT WAS GIVEN IV FENTANYL WELL TO HELP WITH PAIN CONTROL. WILL CONTINUE TO MONITOR.
--- NOTE | 2021-07-05 19:25 | NUR ---
SHIFT SUMMARY... NO ACUTE NEGATIVE CHANGES SINCE PREVIOUS NOTES, PT HAS BEEN HARD TO RE-SEDATE, PT'S PROPOFOL IS CURRENTLY AT 55MCG AND PT IS STILL MOVING HIS LEGS, ARMS AND THRASHING HIS HEAD AT TIMES, LEVOPHED WAS INCREASED TO 22MCG WITH THE INCREASED PROPOFOL TO KEEP MAPS >60. PT'S ORELLANA IS PATENT BUT PT HAS NOT MADE URINE TODAY D/T DIALYSIS. PT CONTINUES TO BE ON THE VENT ON SPONTAINIOUS. PT'S NG TUBE IS SET TO LOW INT SUCTION AND HAS REMOVED 450MLS OF BLACK COFFEE GROUND LIQUID. REPORT GIVEN TO ONCOMING RN.
[2021-07-06 04:20] LABS: Hematocrit 43.7 % (37.0-53.0); Hemoglobin 13.6 g/dL (13.5-17.5); Mean Corpuscular HGB 29.4 pg (26.0-34.0); Mean Corpuscular HGB Conc 31.1 g/dL (31.5-36.5); Mean Corpuscular Volume 95 fL (80-100); Mean Platelet Volume 11.6 fL (9.1-12.4); NRBC ABSOLUTE 0.04 K/mm3 (0.00-0.02); NRBC Auto 0.2 /100 WBC (0.0-0.2); Platelet Count 125 K/mm3 (150-400); RDW Standard Deviation 64.2 fL (35.1-46.3); Red Blood Cell Count 4.62 M/mm3 (4.30-5.90); White Blood Cell Count 19.69 K/mm3 (4.00-11.30)
[2021-07-06 04:40] LABS: Magnesium, Blood 2.2 mg/dL (1.6-2.4)
[2021-07-06 04:41] LABS: Albumin, Blood 2.4 g/dL (3.4-5.0); Anion Gap 14 mmol/L (6-16); Blood Urea Nitrogen 34 mg/dL (8-24); Bun/Creatinine Ratio 4.8 (12.0-20.0); CO2, Blood 25 mmol/L (21-32); Chloride, Blood 89 mmol/L (98-108); Glomerular Filtration Rate 8 (60-); Glucose, Blood 278 mg/dL (70-99); Phosphorus, Blood 5.5 mg/dL (2.5-4.9); Potassium, Blood 5.4 mmol/L (3.5-5.5); Sodium, Blood 128 mmol/L (136-145)
[2021-07-06 05:40] LABS: BAND PERCENT MAN 35 % (0-8); BASOPHILS PERCENT MAN 0 % (0-2); EOSINOPHILS PERCENT MAN 0 % (0-6); LYMPHOCYTES ABSOLUTE MAN 0.59 K/mm3 (0.84-5.20); LYMPHOCYTES PERCENT MAN 3 % (21-46); METAMYELOCYTE ABSOLUTE MAN 1.18 K/mm3 (0.00-0.00); METAMYELOCYTE PERCENT MAN 6 % (0-0); MONOCYTES PERCENT MAN 0 % (4-13); NEUTROPHILS ABSOLUTE MAN 17.91 K/mm3 (1.96-9.15); SEG NEUTROPHILS PERCENT MAN 56 % (41-73); TOTAL CELLS COUNTED 100
--- NOTE | 2021-07-06 05:51 | NUR ---
UPDATE NOTIFIED DR ESPINOZA REGARDING THE INCREASED TITRATION OF LEVOPHED AND EPI ALONG WITH PT SBP 160'S, DBP 40-50'S, AND MAP <60. ORDERS PROVIDED FOR 1L NS BOLUS.
--- NOTE | 2021-07-06 07:10 | NUR ---
END OF SHIFT SUMMARY PT CONT TO BE INTUBATED WITH VENT SETTINGS SPONT 5/5, FIO2 100%, TV 500-600; OCCATIONAL MUCUS PLUGS SUCTIONED FROM ETT. PT CAN JONAS AND IS REACTIVE TO PAINFUL STIMULI BUT DID NOT FOLLOW DIRECTIONS; PROPOFOL INFUSING AT 55MCG/KG/MIN; PRN FENTANYL GIVEN AND HELPFUL. MAX TEMP 102.4; PRN TYLENOL GIVEN AND HELPFUL, TEMP NOW 99.9. HR 80-90; IRREGULAR. BP CHALLENGING; SBP LABILE AND DBP 30-60'S, MAP <60; LEVOPHED INFUSING AT 30MCG/MIN; VASOPRESSIN INFUSING; EPI INFUSING AT 6MCG/MIN; SEE PREVIOUS NOTE REGARDING BP. NG TO LIS. FISTULA TO FRANK; ORELLANA IN PLACE WITH MINIMAL OUTPUT. DICOLORATION NOTED TO BLE, SURGICAL WOUND TO ABD WITH WOUND VAC; NO DRAINAGE NOTED. CENTRAL LINE TO RT GROIN PATENT WITH DRESSING C/DI. REPORT GIVEN TO ALY.
--- NOTE | 2021-07-06 07:30 | NUR ---
ASSUMED CARE REPORT FROM TOÑITO WILLIAMSON AT 0700. PT INTUBATED, SEDATED. VENT SETTINGS SPONT 5/5/80%. TIDAL VOLUMES >700ML. RATE 16. LUNGS COARSE THROUGHOUT. SMALL AMOUNT OF THICK YELLOW SECRETIONS THROUGH ETT. SR, 90'S. LEVO, VASO AND EPI GTT FOR MAP> 65. BLE DISCOLORATION. ABD ROUND, SOFT, NO BT AUSCULATED. WOUND VAC IN PLACE TO LOWER ABD, DRESSING INTACT. OGT TO LIS, SCANT EMESIS IN TUBE. FISTULA TO RUE, BRUIT AND THRILL. CVC TO RIGHT GROIN, DRESSING C/D/I. WILL CONTINUE TO MONITOR.
--- NOTE | 2021-07-06 14:33 | NUR ---
REASSESSMENT VENT SETTINGS SPONT 0/8/70%. BP LABILE, LEVO, EPI AND VASO GTT CONTINUE. DIALYSIS COMPLETE. DAUGHTER AND UPDATED.
--- NOTE | 2021-07-06 15:46 | NUR ---
Spoke with Dr Griffiths, discussed case and prognosis. Dr Griffiths and this RN had joint visit with Pt's daughter Alexus in Pt's room. Dr Griffiths discussed prognosis with daughter and having family consider confort care. This RN remained behind and had conversation with daughter and who is on speaker phone. Discussed Pt current condition and goals of care. Cinthya reports not ready to change current plan of care. Offered supportive listening and validated concerns. Palliative Care will remain available.
--- NOTE | 2021-07-06 18:24 | NUR ---
SHIFT SUMMARY PT REMAINS INTUBATED AND SEDATED. VENT SETTINGS AC 16/450/8/75%. PT CHANGED FROM SPONT AFTER SVT ONSET. AT APPROX 1500, PT HR 180-200'S, SVT. DILTAZEM BOLUS, GTT AND AMIODORONE GTT ADMINISTERED. HR 160-180'S AT THIS TIME. AMIODORONE AT 1 MCG/MIN, DILTIZEM 5 MG/HR. EPI 10 MCG/MIN, LEVOPHED 30 MCG/MIN, VASOPRESSIN 0.04 UNITS/HR. BP LABILE. TITRATING FOR MAP>65. ALBUMIN ADMINISTERED THIS SHIFT WELL IVF. DIALYSIS COMPLETED. PROPOFOL GTT AT 55 MCG/KG/MIN. PT UNRESPONSIVE TO PAINFUL STIMULI. NGT TO LIS, SCANT AMOUNT OF LIQUID BROWN EMESIS OUT, ABD ROUND, SOFT. NO BT. WOUND VAC DRESSING C/D/I. ORELLANA IN PLACE, ANURIC. WILL CONTINUE TO MONITOR UNTIL REPORT TO ONCOMING NURSE.
[2021-07-07 05:07] LABS: BASOPHILS ABSOLUTE AUTO 0.05 K/mm3 (0.00-0.23); BASOPHILS PERCENT AUTO 0 % (0-2); Hemoglobin 11.7 g/dL (13.5-17.5); Mean Corpuscular HGB 29.5 pg (26.0-34.0); Mean Corpuscular HGB Conc 32.5 g/dL (31.5-36.5); Mean Corpuscular Volume 91 fL (80-100); Mean Platelet Volume 11.4 fL (9.1-12.4); NRBC ABSOLUTE 0.02 K/mm3 (0.00-0.02); NRBC Auto 0.1 /100 WBC (0.0-0.2); Platelet Count 90 K/mm3 (150-400); RDW Coefficient Variation 18.1 % (11.7-14.2); RDW Standard Deviation 60.5 fL (35.1-46.3); Red Blood Cell Count 3.96 M/mm3 (4.30-5.90); White Blood Cell Count 16.44 K/mm3 (4.00-11.30)
[2021-07-07 05:26] LABS: EOSINOPHILS ABSOLUTE AUTO 0.01 K/mm3 (0.00-0.68); EOSINOPHILS PERCENT AUTO 0 % (0-6); IMMATURE GRAN ABSOLUTE AUTO 0.12 K/mm3 (0.00-0.10); IMMATURE GRAN PERCENT AUTO 1 % (0-1); LYMPHOCYTES PERCENT AUTO 2 % (21-46); MONOCYTES PERCENT AUTO 4 % (4-13); NEUTROPHILS ABSOLUTE AUTO 15.26 K/mm3 (1.96-9.15); NEUTROPHILS PERCENT AUTO 93 % (41-73)
[2021-07-07 05:31] LABS: Albumin, Blood 2.7 g/dL (3.4-5.0); Anion Gap 12 mmol/L (6-16); Blood Urea Nitrogen 29 mg/dL (8-24); Bun/Creatinine Ratio 5.3 (12.0-20.0); CO2, Blood 23 mmol/L (21-32); Calcium, Blood 7.4 mg/dL (8.5-10.1); Chloride, Blood 86 mmol/L (98-108); Creatinine, Blood 5.49 mg/dL (0.60-1.20); Glomerular Filtration Rate 10 (60-); Glucose, Blood 383 mg/dL (70-99); Phosphorus, Blood 4.1 mg/dL (2.5-4.9); Potassium, Blood 5.3 mmol/L (3.5-5.5); Sodium, Blood 121 mmol/L (136-145)
--- NOTE | 2021-07-07 05:58 | NUR ---
END OF SHIFT SUMMARY PT CONT TO BE INTUBATED WITH VENT SETTINGS AC 12, TV 550, PEEP 8, FIO2 100%; SHALLOW "GUPPY" BREATHING NOTED, PRN FENTANYL GIVEN AND HELPFUL. PT OCCATIONALLY JONAS BUT DOES NOT FOLLOW DIRECTIONS; PROPOFOL INFUSING AT 55MCG/KG/MIN. MAX TEMP 102.4; PRN TYLENOL GIVEN; TEMP NOW 101.3. RHYTHM IRREGULAR WITH HR 130-140'S; AMIODARONE INFUSING AT 0.5MCG/MIN; CARDIZEM INFUISNG AT 5MG/HR. SBP LABILE 130-180'S; LEVOPHED INFUSING AT 30MCG/MIN; VASOPRESSIN INFUSING 0.05UNITS/MIN; EPI INFUSING AT 6MCG/MIN. NG TO LIS. ORELLANA IN PLACE; OLIGURIA NOTED. CENTRAL LINE TO RT GROIN DRESSING C/D/I. WILL REPORT TO AM RN WHEN AVAILABLE.
--- NOTE | 2021-07-07 07:30 | NUR ---
ASSUMED CARE REPORT FROM TOÑITO WILLIAMSON. PT INTUBATED, SEDATED. VENT SETTINGS AC 12/550/8/100%. PROPOFOL GTT AT 55 MCG/KG/MIN. PT c COUGH REFLEX. NO RESPONSE TO PAINFUL STIMULI. LUNGS COARSE THROUGHOUT. SMALL AMOUNT OF SECRETIONS THROUGH ETT. AD ROUND, DISTENDED. NO BT. OGT TO LIS, SCANT EMESIS IN TUBE. WOUND VAC DRESSING C/D/I. ORELLANA TO GRAVITY. ANURIC. CVC TO R GROIN. ST, RATE 130'S. AMIO GTT 0.5 MCG/MIN, CARDIZEM 5 MG/HR. EPI, VASO AND LEVO GTT INFUSING FOR MAP> 65. BP LABILE. DISCOLORATION TO BLE. WILL CONTINUE TO MONITOR.
--- NOTE | 2021-07-07 18:27 | NUR ---
SHIFT SUMMARY PT REMAINS INTUBATED AND SEDATED. VENT SETTINGS AC 12/550/8/100%. LUNGS COARSE THROUGHOUT. PT HAD TWO EPISODE OF HYPOXIA, MID 80'S, THAT SELF RESOLVED. ST CONTINUES RATE VARIED FROM 90-130'S. AMIODORONE GTT STOPPED AFTER 24 HOURS, CARDIZEM CONTINUES AT 5 MG/HR. BP VARIABLE, EPI, VASO AND LEVO CONTINUE. CVC TO RIGHT GROIN. NGT TO LIS, SCANT EMESIS OUT. ABD DISTENDED, HERNIA PRESENT. WOUND VAC C/D/I. NO BT. ORELLANA c SCANT URINE OUT. WILL CONTINUE TO MONITOR UNTIL REPORT TO ONCOMING NURSE.
--- NOTE | 2021-07-07 20:27 | NUR ---
PATIENT INTUBATED AND SEDATED, ETT IN PLACE WITH VENT SET AT AC 12, TV 550, PEEP 8, FIO2 100% FIO2 TITRATED BACK UP FROM 80% DURING REPORT AT 1920. SUCTIONING SMALL AMT OF WHITE SPUTUM VIA ETT, BLOODY ORAL SECRETIONS WITH ORAL CARE. PROPOFOL AT 55 MCG FOR SEDATION, SMALL COUGH WITH SUCTIONING NO MOVEMENT SEEN IN EXTREMITIES BILAT WRIST RESTRAINTS REMAIN OFF AT THIS TIME. CARDIZEM TITRATED UP TO 15 DUE TO SINUS TACH CONTINUES 120'S. HYPOTENSION CONTINUES VASOPRESSIN 0.04, LEVOPHED 30, AND EPI 5, TITRATING NEEDED. NG IN PLACE TO RIGHT NARE TO LIS, SUCTION ADJUSTED AND OBTAINED 450 CC DARK BROWN DRAINAGE FROM NG, PLAN TO CONTINUE TO MONITOR. DRESSING TO LOW ABD CD&I WITH WOUND VAC IN PLACE. ORELLANA DRAINING SMALL AMT BLOODY DRAINAGE. DIALYSIS FISTULA TO RIGHT ARM WITH GOOD BRUIT AND THRILL. GENERALIZED DEPENDENT EDEMA.
--- NOTE | 2021-07-08 00:37 | NUR ---
DOCTOR OLGA NOTIFIED OF DIFFICULTY MAINTAINING BIOX, ORDER OBTAINED FOR UDN TX AND TO INCREASE PEEP, RT NOTIFIED. BIOX DOWN TO 83% WITH INCREASED PEEP, PATIENT REPOSITIONED.
--- NOTE | 2021-07-08 00:43 | NUR ---
PATIENT CONTINUES TO HAVE LOW BIOX, DROPPING FASTER WITH INCREASED PEEP. DOWN TO 78 WITH PEEP OF 15, NOW ON PEEP OF 8 WITH BIOX 80%. PATIENTS NOTIFIED AND SHE WILL CALL THEIR SON AND DAUGHTER AND IS ON HER WAY IN
--- NOTE | 2021-07-08 01:49 | NUR ---
PATIENTS AT BEDSIDE, REQUESTING SOMETHING FOR PAIN " I DON'T WANT HIM TO HURT" FENTANYL IV GIVEN, AFLUTTER WITH RATE 98-119. BIOX 79-83%
--- NOTE | 2021-07-08 03:57 | NUR ---
PATIENTS REQUESTING TO HAVE DRIPS TURNED OFF, NOT READY FOR EXTUBATION AT THIS TIME. DOCTOR OLGA NOTIFIED AGREES TO THIS STEP TO COMFORT CARE. NO LABS TO BE DRAWN THIS MORNING
--- NOTE | 2021-07-08 04:48 | NUR ---
PATIENT MONITOR SHOWING ASYSTOLE, NO PULSE OR HEART TONES, VENT OFF NO SPONT RESPIRATIONS. AT BEDSIDE.
--- NOTE | 2021-07-08 05:37 | NUR ---
ETT AND NG TUBE REMOVED PER PATIENTS WIFES REQUEST. HOME AND SHE VERBALIZED THAT SHE WILL CALL DAUGHTER AND SON AND NOTIFY THEM OF TOD
== END 2021-07-08 07:00 | DRG 853 ==
LOC: ER 19:32 → ICUE 23:44 → ERHOLD 23:44 → ICUE 07-05 03:55
PROVIDERS: Internal Medicine Critical Care Medicine; Internal Medicine Nephrology; Student in an Organized Health Care Education/Training Program; Surgery; ADMIT Hospitalist
PROC: 0DB80ZZ Excision of Small Intestine, Open Approach (ICD-10-PCS; principal; 2021-07-05)
PROC: 5A1945Z Respiratory Ventilation, 24-96 Consecutive Hours (ICD-10-PCS; 2021-07-05)
PROC: 0BH18EZ Insertion of Endotracheal Airway into Trachea, Via Natural or Artificial Opening Endoscopic (ICD-10-PCS; 2021-07-05)
PROC: 3E033XZ Introduction of Vasopressor into Peripheral Vein, Percutaneous Approach (ICD-10-PCS; 2021-07-05)
PROC: 05PYX3Z Removal of Infusion Device from Upper Vein, External Approach (ICD-10-PCS; 2021-07-05)
PROC: 06HM33Z Insertion of Infusion Device into Right Femoral Vein, Percutaneous Approach (ICD-10-PCS; 2021-07-05)
PROC: 5A1D70Z Performance of Urinary Filtration, Intermittent, Less than 6 Hours Per Day (ICD-10-PCS; 2021-07-05)
DX: A41.9 Sepsis, unspecified organism (principal); N18.6 End stage renal disease; R65.21 Severe sepsis with septic shock; J96.90 Respiratory failure, unspecified, unspecified whether with hypoxia or hypercapnia; K55.051 Focal (segmental) acute (reversible) ischemia of intestine, part unspecified; E87.2 Acidosis; J96.11 Chronic respiratory failure with hypoxia; K86.1 Other chronic pancreatitis; I12.0 Hypertensive chronic kidney disease with stage 5 chronic kidney disease or end stage renal disease; E87.1 Hypo-osmolality and hyponatremia; Z66 Do not resuscitate; Z51.5 Encounter for palliative care; J44.9 Chronic obstructive pulmonary disease, unspecified; E11.40 Type 2 diabetes mellitus with diabetic neuropathy, unspecified; E78.5 Hyperlipidemia, unspecified; M72.0 Palmar fascial fibromatosis [Dupuytren]; G25.81 Restless legs syndrome; M72.2 Plantar fascial fibromatosis; E11.22 Type 2 diabetes mellitus with diabetic chronic kidney disease; E87.5 Hyperkalemia; E88.09 Other disorders of plasma-protein metabolism, not elsewhere classified; E83.39 Other disorders of phosphorus metabolism; I25.10 Atherosclerotic heart disease of native coronary artery without angina pectoris; R94.31 Abnormal electrocardiogram [ECG] [EKG]; K21.9 Gastro-esophageal reflux disease without esophagitis; I48.91 Unspecified atrial fibrillation; G89.4 Chronic pain syndrome; M10.9 Gout, unspecified; E87.70 Fluid overload, unspecified; M54.16 Radiculopathy, lumbar region; G47.33 Obstructive sleep apnea (adult) (pediatric); M17.11 Unilateral primary osteoarthritis, right knee; H91.93 Unspecified hearing loss, bilateral; R27.0 Ataxia, unspecified; D63.1 Anemia in chronic kidney disease; N28.1 Cyst of kidney, acquired; F43.9 Reaction to severe stress, unspecified; E66.9 Obesity, unspecified; Z68.36 Body mass index [BMI] 36.0-36.9, adult; Z90.49 Acquired absence of other specified parts of digestive tract; Z98.1 Arthrodesis status; Z98.890 Other specified postprocedural states; Z99.2 Dependence on renal dialysis; Z88.1 Allergy status to other antibiotic agents; Z88.2 Allergy status to sulfonamides; Z79.4 Long term (current) use of insulin; Z79.82 Long term (current) use of aspirin; Z79.899 Other long term (current) drug therapy; Z78.1 Physical restraint status
CPT/HCPCS: 36415; 36556; 36600; 51702; 71045; 74176; 80047; 80053; 80069; 82803; 82947; 83605; 83735; 84100; 85014; 85025; 87070; 87077; 87186; 87205; 88307; 93005; 93010; 94003; 94640; 94644; 96365-59; 96366-59; 96368; 96375-59; 99285-25; A9270; C1751; C9113; J0171; J0282; J0610; J1100; J1170; J1644; J1815; J2270; J2370; J2405; J2543; J2704; J3010; J3475; J7030; J7050; J7060; J7799; P9046